=== PATIENT | male | born 1955 | race Caucasian/White ===

== ENCOUNTER → 2017-10-20 15:14 | Outpatient (CLI) | payer BC, SELFPAY ==
--- NOTE | 2017-10-20 15:25 | XR_ITS ---
XR knee LT 3V HISTORY: Knee pain ITS.REASON: MELI OSTEOARTHRITIS ORDERING PHYSICIAN: Jone Garcia PATIENT AGE: 62 years FINDINGS: Mild osteoarthritic changes involve the medial compartment and patellofemoral joint. No fracture or dislocation. No lytic or blastic change. A small calcific density is present along the medial aspect of the medial femoral condyle and may be seen with ligamentous injury. MRI may be of further value clinically warranted. IMPRESSION: 1. No acute fracture. 2. Mild osteoarthritis. 3. Possible old avulsion injury along the medial femoral condyle
--- NOTE | 2017-10-20 15:25 | XR_ITS ---
XR knee RT 3V HISTORY: Knee pain ORDERING PHYSICIAN: Jone Garcia PATIENT AGE: 62 years FINDINGS: Minimal osteoarthritic changes are present along the medial compartment and patellofemoral joint. There is a small calcific density along the lateral aspect of the lateral compartment consistent with a loose body. Otherwise negative. IMPRESSION: Mild osteoarthritis with a 7 mm loose body along the lateral compartment
== END ==
PROVIDERS: PCP Internal Medicine; Visit Provider Anesthesiology Pain Medicine
DX: M17.0 Bilateral primary osteoarthritis of knee (principal)
CPT/HCPCS: 73562

== ENCOUNTER → 2018-12-10 15:35 | Outpatient (CLI) | payer BC, SELFPAY ==
--- NOTE | 2018-12-10 15:47 | XR_ITS ---
XR foot RT min 3V HISTORY: ITS.REASON: RT GREAT TOE INJURY,RT HEEL PAIN ORDERING PHYSICIAN: Pieter Gordon PATIENT AGE: 63 years COMPARISON: None FINDINGS: There is a small spur along the plantar surface of the calcaneus without obvious erosive change. There is an area of exostosis involving the base of the proximal phalanx of the great toe laterally with a lucency through the base of the exostosis which does not appear acute. A small area of exostosis is also present at the distal aspect of the proximal phalanx of the great toe medially. No acute fracture or dislocation. No lytic changes. No significant osteoarthritic change. IMPRESSION: Exostosis of the proximal phalanx of the great toe as described above otherwise negative
== END ==
PROVIDERS: PCP Internal Medicine; Visit Provider Internal Medicine
DX: S99.921A Unspecified injury of right foot, initial encounter (principal); M79.671 Pain in right foot
CPT/HCPCS: 73630

== ENCOUNTER → 2019-03-19 15:45 | Outpatient (CLI) | payer BC, SELFPAY ==
[2019-03-19 15:57] LABS: Basophils % 0.4 % (0.1-2.0); Eosinophils # 0.1 K/mm3 (0.0-0.4); Eosinophils % 0.9 % (0.1-12.0); Hematocrit 48.6 % (42.0-52.0); Hemoglobin 15.3 g/dL (14.1-18.0); Lymphocytes # 2.4 K/mm3 (0.7-4.5); Lymphocytes % 25.9 % (10-50); Mean Corpuscular HGB Conc 31.5 g/dL (31.8-35.4); Mean Corpuscular Hemoglobin 28.5 pg (27.0-31.2); Mean Corpuscular Volume 90.3 fl (80-94); Monocytes # 0.6 K/mm3 (0.1-1.0); Monocytes % 6.6 % (1.7-9.3); Neutrophils # 6.2 K/mm3 (1.8-7.8); Neutrophils % 66.2 % (37.0-80.0); Platelet Count 267 K/mm3 (142-424); Red Blood Count 5.38 M/mm3 (4.60-6.20); Red Cell Distribution Width 14.4 % (11.5-17.5); White Blood Count 9.4 K/mm3 (4.8-10.8)
--- NOTE | 2019-03-19 15:58 | ECG_ITS ---
APPROVED REPORT Exam: Resting ECG HR:77 bpm ECG Measurements Heart Rate 77 AXES [place] 152 P 28 QRSd 88 QRS 0 QT 378 T 9 QTc 427 <Conclusion> Normal sinus rhythm with sinus arrhythmia Minimal voltage criteria for LVH, may be normal variant Borderline ECG Electronically signed by : Pieter Gordon, 03/19/2019 16:22:03
[2019-03-19 16:11] LABS: Anion Gap 11.7 mEq/L (5-15); Blood Urea Nitrogen 10 mg/dL (7-18); Calcium 9.4 mg/dL (8.5-10.1); Carbon Dioxide 28 mmol/L (21.0-32.0); Chloride 106 mmol/L (98-107); Creatinine,Serum 0.96 mg/dL (0.70-1.30); Estimated Glomerular Filt Rate 80 ml/min (>60); GFR (African American) 96 ML/MIN (>60); Glucose 123 mg/dL (74-106); Potassium 3.7 mmoL/L (3.5-5.1); Sodium 142 mmol/L (136-145); Troponin I < 0.02 ng/ml (0.00-0.06)
== END ==
PROVIDERS: Visit Provider Internal Medicine
DX: R42 Dizziness and giddiness (principal); R11.0 Nausea; R00.2 Palpitations; R61 Generalized hyperhidrosis
CPT/HCPCS: 36415; 80048; 84484; 85025; 93005

== ENCOUNTER → 2019-05-14 08:50 | Outpatient (CLI) | payer BC, SELFPAY ==
--- NOTE | 2019-05-14 08:53 | US_ITS ---
PROCEDURE: US ABDOMEN LIMITED CLINICAL INDICATION: NAUSEA,EPIGASTRIC PAIN Upper abdominal pain with nausea COMPARISON: No exams were available for comparison FINDINGS: PANCREAS: Unremarkable. No obvious mass or abnormal fluid collection. No ductal dilatation LIVER: No focal liver lesions demonstrated. Homogeneous echogenicity. No intrahepatic biliary ductal dilatation evident. There is appropriate direction of blood flow within a non dilated portal vein RIGHT KIDNEY: Unremarkable. Normal size and echogenicity. No hydronephrosis GALLBLADDER: No gallstones, gallbladder wall thickening, pericholecystic fluid, or biliary dilatation. IMPRESSION: Unremarkable limited abdominal ultrasound as detailed above disc Dictated by: Arun Perera MD 05/14/2019 14:55 Electronically signed by Arun Perera MD in [place] 05/14/2019 14:55
--- NOTE | 2019-05-14 08:54 | FL_ITS ---
PROCEDURE: FL UPPER GI W AIR CLINICAL INDICATION: NAUSEA,EPIGASTRIC PAIN COMPARISON: No exams were available for comparison FINDINGS: Routine air-contrast upper GI exam was performed with the patient drinking upright and lying in the prone position on the table. The esophagus is widely patent. A diverticulum likely traction diverticulum of the anterior wall of the mid esophagus is noted. No other esophageal mucosal lesion is apparent. No gastroesophageal reflux could be elicited. The stomach duodenal bulb and proximal visualized portions of small intestine had a normal appearance. There is no evidence of persistent stricture or filling defect or mucosal ulceration. 1.16 minutes of fluoroscopy time was utilized. IMPRESSION: Mid esophageal diverticulum otherwise unremarkable exam. Dictated by: Jone Centeno 05/14/2019 11:50 Electronically signed by Jone Centeno in [facility] 05/14/2019 11:50
== END ==
PROVIDERS: PCP Internal Medicine; Visit Provider Internal Medicine
DX: R11.0 Nausea (principal); R10.13 Epigastric pain
CPT/HCPCS: 74247; 76705

== ENCOUNTER → 2019-06-10 15:58 | Outpatient (POV) | payer BC, SELFPAY | PROVIDERS: Visit Provider Nurse Practitioner Family | DX: Z00.00 Encounter for general adult medical examination without abnormal findings (principal) ==

== ENCOUNTER → 2019-10-21 09:46 | Outpatient (CLI) | payer BC, SELFPAY ==
--- NOTE | 2019-10-21 10:04 | NM_ITS ---
PROCEDURE: NM HEPATOBILIARY W PHARM CLINICAL INDICATION: rtside pain RIGHT UPPER QUADRANT PAIN COMPARISON: No exams were available for comparison TECHNIQUE: DOSE: 8.56 MCI TECHNETIUM CHOLETEC AND 1.8 MCG OF CCK. SEVERE PAIN WAS REPORTED WITH CCK INFUSION. FINDINGS: Homogeneous activity is present within the hepatic parenchyma. Activity is present in the gallbladder by 5 minutes. Activity is present in the small bowel by 20 minutes. The gallbladder ejection fraction is calculated to be 98 percent. Severe pain reported with CCK infusion IMPRESSION: 1. No evidence of common or cystic duct obstruction with normal gallbladder ejection fraction. 2. Severe pain reported with CCK infusion Dictated by: Arun Perera MD 10/21/2019 17:38 Electronically signed by Arun Perera MD in [facility] 10/21/2019 17:38
--- NOTE | 2019-10-21 11:18 | HMH.ITSHM ---
Current Home Medications as stated by this patient Sonido Pretty SR or brand representative. [] famotidine diclofenac fluticasone hydrocodone
== END ==
PROVIDERS: PCP Internal Medicine; Visit Provider Internal Medicine
DX: R10.13 Epigastric pain (principal); R11.0 Nausea
CPT/HCPCS: 78227; A9537; J2805

== ENCOUNTER → 2019-11-15 10:42 | Outpatient (CLI) | payer BC, SELFPAY ==
[2019-11-15 12:01] LABS: Coronavirus 19 IgG Antibody Negative (Negative); Coronavirus 19 IgM Antibody Negative (Negative)
== END ==
PROVIDERS: Visit Provider Internal Medicine Gastroenterology
DX: Z01.818 Encounter for other preprocedural examination (principal)
CPT/HCPCS: 36415; 86328

== ENCOUNTER 2019-11-18 09:21 | Day surgery (SDC) | payer BC, SELFPAY ==
[2019-11-13 11:11] VITALS: BMI 28.3
[2019-11-18] VITALS (7 sets, daily range): BP systolic 117–167; BP diastolic 72–97; PULSE 70–81; RESP 12–16; TEMP 36.1–37; O2SAT 92–99
--- NOTE | 2019-11-18 09:52 | P.PCN_ITS ---
[facility] Procedure Note Procedure Note:: Upper Endoscopy Procedure Report: Esophagogastroduodenoscopy with cold biopsies and TTS balloon dilation Endoscopost: Brent Herman II, MD Referring Physician: Pieter Gordon MD Date of Procedure: November 18, 2019 Equipment: Olympus GIF 180 standard upper endoscope Sedation: MAC sedation Indications: Mr. Pretty is a 64-year-old gentleman with dyspepsia. He reports epigastric and right upper quadrant abdominal pain. He reports this as a burning pain and sometimes eating helps. He will then have some nausea. He reports early satiety and some bloating. He reports no belching. He does get some globus sensation and dysphagia. He reports no heartburn or reflux. He does report that since quitting work, he has had a little bit more bowel irregularity. His last upper endoscopy and colonoscopy were 20 to 25 years ago. The patient did have diagnostic evaluation including right upper quadrant a bdominal ultrasound and upper GI series which were normal. He did have normal liver and pancreatic chemistries. His EKG was normal. The patient does take NSAIDs in the past and was also taking hydrocodone. At one point he was drinking more carbonated beverages/sodas. Procedure: Prior to the procedure, a history and physical exam was performed, and patient's medications and allergies were reviewed. The risks, benefits and alternatives of the sedation and procedure were discussed with the patient. All questions were answered and informed consent was obtained. The patient was brought to the procedure room. Patient identification and proposed procedure were verified by the physician and the nurse. The patient was placed in a left lateral decubitus position and the scope was passed under direct vision. Throughout the procedure, the patient's blood pressure, pulse, and oxygen saturations were monitored continuously. The upper GI endoscopy was accomplished without difficulty. The patient tolerated the procedure well. Findings: The scope was passed directly into the upper esophagus and advanced to the third portion of the duodenum. The post bulbar duodenum and duodenal bulb were normal with normal mucosa and conniventes. The scope was withdrawn through a normal duodenal bulb and pylorus into the stomach. There was some bile reflux with linear reactive gastropathy of the antrum. The remainder of the antrum, body and fundus of the stomach were grossly normal. Upon retroflexion there was no hiatal hernia. 2 biopsies were taken in the antrum and along the lesser curva ture for histology to rule out gastritis and/or H pylori. The scope was then withdrawn into the esophagus. There was no evidence of reflux esophagitis or Green's. There were tertiary contractions and evidence of moderate esophageal dysmotility. The entire esophagus was dilated to 60 Georgian/20 mm with a TTS hydrostatic balloon. There was mild resistance at the cricopharyngeus. The remainder of the esophageal mucosa was normal. Impression: 1. 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 I would encourage dietary measures, fiber bowel regimen and treatment for visceral sensitivity. We will discuss treatment options. Based upon his right upper quadrant pain, I would consider sphincter of Oddi dysfunction especially with chronic use of opiates. I will obtain liver/pancreatic chemistries today.
--- NOTE | 2019-11-18 09:55 | P.PN_ITS ---
[facility] Anesthesia Checklist - Patient Identification Patient Identification: Arm Band - Structural Data Admitted From: Home Planned Operative Procedure/s: egd Consent for Planned Operative Procedure(s) Verified: Yes Verified Documents: Surgical Consent, History and Physical - NPO Status Verified Time NPO: 00:00 - Additional verifications Anesthesia Reactions: No - Airway Assessment C-Spine Mobility Assessed: Yes (mp2) TMJ Mobility Assessed: Yes Dentition: Dentures-good fit - Neurological Assessment Level of Consciousness: Awake, Alert - Anesthesia Plan Anesthesia Risk discussed: Yes Anesthesia Plan: Verified ASA Class: II Anesthesia Type: MAC [facility] History I have reviewed the patient's past medical history: Yes Medical History: Reports:: Gastroesophageal Reflux Disease(GERD) Denies:: Cancer, Diabetes Mellitus Type 1, Diabetes Mellitus Type 2, Internal Pacemaker, MRSA, Seizures *Have you ever received a pneumonia vaccine?: No *Have you received a flu vaccine this season?: No Anesthesia experience/problems:: nac Other Surgeries: Yes: Appendectomy, Colonoscopy. No: Pacemaker Amputation: No Fractures: No - *Social History Smoking Status: Never smoker Alcohol Intake: never Alcohol Intake Frequency:: holidays/special occasions only Substance Use Type: denies use *Occupational Status:: retired Housing: house Household Members: spouse *Travel in the last 8 weeks: None Family Hx:: Diabetes, Cancer
[2019-11-18 11:46] LABS: Amylase 53 U/L (30-110)
[2019-11-18 11:47] LABS: Alanine Aminotransferase 20 U/L (12-78); Albumin Level 4.4 g/dl (3.5-5.0); Alkaline Phosphatase 78 U/L (38-126); Aspartate Amino Transferase 27 U/L (17-59); Bilirubin,Direct 0.3 mg/dl (0.0-0.4); Bilirubin,Indirect 1.9 mg/dL (0.0-0.9); Bilirubin,Total 2.2 mg/dl (0.2-1.3); Total Protein,Serum 7.2 g/dl (6.3-8.2)
[2019-11-18 13:25] LABS: Lipase 71 U/L (23-300)
== END 2019-11-18 11:13 | disposition home or self-care (01) ==
LOC: OUTP 09:23
PROVIDERS: PCP Internal Medicine; Visit Provider Internal Medicine Gastroenterology
PROC: 0DJ08ZZ Inspection of Upper Intestinal Tract, Via Natural or Artificial Opening Endoscopic (ICD-10-PCS; CPT 43235; principal; 2019-11-18 10:30)
DX: K21.9 Gastro-esophageal reflux disease without esophagitis (principal); K31.9 Disease of stomach and duodenum, unspecified; I49.9 Cardiac arrhythmia, unspecified; Z79.899 Other long term (current) drug therapy; K22.2 Esophageal obstruction
CPT/HCPCS: 43239; 43249; 80076; 82150; 83690; C1726

== ENCOUNTER → 2019-11-29 10:58 | Outpatient (CLI) | payer BC, SELFPAY ==
[2019-11-29 14:09] LABS: Coronavirus 19 IgG Antibody Negative (Negative); Coronavirus 19 IgM Antibody Negative (Negative)
== END ==
PROVIDERS: Visit Provider Internal Medicine Gastroenterology
DX: Z01.818 Encounter for other preprocedural examination (principal)
CPT/HCPCS: 36415; 86328

== ENCOUNTER 2019-12-02 12:22 | Day surgery (SDC) | payer BC, SELFPAY ==
[2019-11-26 12:23] VITALS: BMI 27.6
[2019-12-02] VITALS (7 sets, daily range): BP systolic 112–171; BP diastolic 69–107; PULSE 68–96; RESP 18; TEMP 36.2–36.7; O2SAT 93–100
--- NOTE | 2019-12-02 13:57 | HMH.ANESCL ---
[facility] Anesthesia Checklist - Patient Identification Patient Identification: Arm Band - Structural Data Admitted From: Home Planned Operative Procedure/s: colonoscopy Consent for Planned Operative Procedure(s) Verified: Yes Verified Documents: Surgical Consent, History and Physical - NPO Status Verified Time NPO: 00:00 - Additional verifications Anesthesia Reactions: No - Airway Assessment C-Spine Mobility Assessed: Yes (mp2) TMJ Mobility Assessed: Yes Dentition: Dentures-good fit - Neurological Assessment Level of Consciousness: Awake, Alert - Anesthesia Plan Anesthesia Risk discussed: Yes Anesthesia Plan: Verified ASA Class: II Anesthesia Type: MAC [facility] History I have reviewed the patient's past medical history: Yes Medical History: Reports:: Gastroesophageal Reflux Disease(GERD) Denies:: Cancer, Diabetes Mellitus Type 1, Diabetes Mellitus Type 2, Internal Pacemaker, MRSA, Seizures *Have you ever received a pneumonia vaccine?: No *Have you received a flu vaccine this season?: No Anesthesia experience/problems:: nac Other Surgeries: Yes: Appendectomy, Colonoscopy. No: Pacemaker Amputation: No Fractures: No - *Social History Educational Level: Completed High School Smoking Status: Never smoker Alcohol Intake: current Alcohol Intake Frequency:: a few times a month Substance Use Type: denies use *Occupational Status:: retired Housing: house Household Members: spouse *Travel in the last 8 weeks: None Family Hx:: Diabetes, Cancer
--- NOTE | 2019-12-02 14:18 | P.PCN_ITS ---
[facility] Procedure Note Procedure Note:: Colonoscopy Procedure Report: Colonoscopy with cold snare polypectomy Endoscopist: Brent Herman II, MD Referring physician: Pieter Gordon MD Date of Procedure: December 02, 2019 Equipment: Olympus 180 variable stiffness pediatric colonoscope Sedation: MAC sedation Indication: Mr. Pretty is a 64-year-old gentleman who is here for screening colonoscopy. The patient's last colonoscopy was 20 to 25 years ago. He was having symptoms of dyspepsia which have improved some. His EGD did show bile reflux with linear reactive gastropathy. The patient was placed on dietary measures, BuSpar and fiber bowel regimen (MiraLAX plus Citrucel). The patient is clinically improved and has improved bowel function. He reports no rectal bleeding, weight loss or family history of colon cancer. His lab work did show an elevated indirect/unconjugated bilirubin of 1.9 suggestive of Gilbert's syndrome. He did have prior upper GI series, ultrasound of the abdomen, EKG and cardiac testing that was normal. Procedure: Prior to the procedure, a history and physical exam was performed, and patient's medications and allergies were reviewed. The risks, benefits and alternatives of the sedation and procedure were discussed with the patient. All questions were answered and informed consent was obtained. The patient was brought to the procedure room. Patient identification and proposed procedure were verified by the physician and the nurse. The patient was placed in a left lateral decubitus position and the scope was passed under direct vision. Throughout the procedure, the patient's blood pressure, pulse, and oxygen saturations were monitored continuously. The colonoscopy was accomplished without difficulty. The patient tolerated the procedure well. Findings: On digital rectal examination there was normal rectal tone. There were no external hemorrhoids. The prostate was 2+, smooth, soft, symmetric without nodules. The colonoscope was introduced through the anal canal to the rectum and advanced to the cecum. The ileocecal valve and appendiceal orifice were identified. The scope was advanced a short distance into the ileum which appeared grossly normal. The scope was then withdrawn into the colon. There were a total of 5 polyps in the colon (cecum x3 (3, 3 and 4 mm), transverse x1 ( 4 mm) and rectosigmoid x1 (4 mm)) all of which were removed via cold snare polypectomy. The remainder of the cecum, ascending, transverse, descending, sigmoid and rectum were grossly normal. There were no other mucosal abnormalities identified. Upon retroflexion within the rectum there were grade 2 internal hemorrhoids.The preparation was excellent throughout with [place]vel Preparation Score of 9. The cecal time was 12 minutes. Impression: 1. Diminutive colonic polyps x5 2. Grade 2 internal hemorrhoids Plan: I will follow up the polyp pathology and recommend repeat colonoscopy again in 3-5 years based upon the polyp histology. I would encourage continuation of the dietary measures, fiber bowel regimen and BuSpar on a long-term daily maintenance basis. If the patient has recurrent right upper abdominal pain, I would consider sphincter of Oddi dysfunction as a potential etiology.
== END 2019-12-02 15:15 | disposition home or self-care (01) ==
LOC: OUTP 12:24
PROVIDERS: PCP Internal Medicine; Visit Provider Internal Medicine Gastroenterology
PROC: 0DJD8ZZ Inspection of Lower Intestinal Tract, Via Natural or Artificial Opening Endoscopic (ICD-10-PCS; CPT 45378; principal; 2019-12-02 13:30)
DX: Z12.11 Encounter for screening for malignant neoplasm of colon (principal); Z87.19 Personal history of other diseases of the digestive system; K63.5 Polyp of colon; K64.1 Second degree hemorrhoids; K21.9 Gastro-esophageal reflux disease without esophagitis; Z83.3 Family history of diabetes mellitus; Z79.899 Other long term (current) drug therapy
CPT/HCPCS: 45385

== ENCOUNTER → 2020-05-13 11:44 | Outpatient (CLI) | payer BC, SELFPAY ==
[2020-05-13 11:49] LABS: Microscopic, Urine URINE MICROSCOPIC (MICROSCOPIC)
--- NOTE | 2020-05-13 12:04 | XR_ITS ---
PROCEDURE: XR CHEST 2V CLINICAL HISTORY: CHEST PAIN UNSPECIFIED COMPARISON: No exams were available for comparison FINDINGS: The cardiomediastinal silhouette and pulmonary vascularity are within normal limits. The lungs are clear without infiltrates, suspicious nodules, or pleural effusions. 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 Dictated by: Arun Perera MD 05/13/2020 15:40 Arun Perera MD in [place] 05/13/2020 15:40
[2020-05-13 12:36] LABS: Basophils # 0.1 K/mm3 (0-0.2); Basophils % 0.8 % (0.1-2.0); Eosinophils # 0.1 K/mm3 (0.0-0.4); Eosinophils % 1.4 % (0.1-12.0); Hematocrit 50.3 % (42.0-52.0); Hemoglobin 17.1 g/dL (14.1-18.0); Lymphocytes # 2.2 K/mm3 (0.7-4.5); Lymphocytes % 31.1 % (10-50); Mean Corpuscular Hemoglobin 30.4 pg (27.0-31.2); Mean Corpuscular Volume 89.2 fl (80-94); Mean Platelet Volume 8.8 fl (7.4-10.4); Monocytes # 0.6 K/mm3 (0.1-1.0); Monocytes % 7.6 % (1.7-9.3); Neutrophils # 4.2 K/mm3 (1.8-7.8); Platelet Count 274 K/mm3 (142-424); Red Blood Count 5.64 M/mm3 (4.60-6.20); White Blood Count 7.1 K/mm3 (4.8-10.8)
--- NOTE | 2020-05-13 12:42 | ECG_ITS ---
APPROVED REPORT Exam: Resting ECG HR:59 bpm ECG Measurements Heart Rate 59 AXES ME 126 P 33 QRSd 96 QRS 33 QT 410 T 36 QTc 405 Conclusion Sinus bradycardia Otherwise normal ECG Electronically signed by : Pieter Gordon, 06/02/2020 15:50:37
[2020-05-13 13:13] LABS: INR 1.03 (0.9-1.1); Prothrombin Time 11.4 seconds (9.4-11.8)
[2020-05-13 14:17] LABS: Appearance,Urine CLEAR (Clear); Bilirubin,Urine Negative (Negative); Blood, Urine TRACE-I (Negative); Color,Urine YELLOW (Yellow); Glucose,Urine (UA) Negative (Negative); Ketones,Urine Negative (Negative); Leukocyte Esterase,Urine Negative (Negative); Nitrate,Urine Negative (Negative); Protein,Urine Negative (Negative); Urobilinogen,Urine 0.2 EU/dl (0.2)
[2020-05-13 14:19] LABS: Alanine Aminotransferase 27 U/L (12-78); Albumin Level 4.8 g/dl (3.5-5.0); Albumin/Globulin Ratio 1.7 (1.1-1.8); Alkaline Phosphatase 88 U/L (38-126); Anion Gap 14.3 mEq/L (5-15); Aspartate Amino Transferase 28 U/L (17-59); Bilirubin,Total 1.7 mg/dl (0.2-1.3); Blood Urea Nitrogen 12 mg/dl (9-20); Calcium 9.8 mg/dl (8.4-10.2); Carbon Dioxide 29 mmol/L (22.0-30.0); Chloride 102 mmol/L (98-107); Estimated Glomerular Filt Rate 86 ml/min (>60); GFR (African American) 103 ML/MIN (>60); Globulin 2.9 g/dL (1.3-3.2); Glucose 117 mg/dl (74-100); Potassium 4.3 mmoL/L (3.5-5.1); Sodium 141 mmol/L (136-145); Total Protein,Serum 7.7 g/dl (6.3-8.2)
[2020-05-13 14:35] LABS: Squamous Epithelial Cell,Urine Occasional #/hpf (0-5)
[2020-05-13 14:51] LABS: Prostate Specific Ag Screen 3.5 ng/ml (0.0-4.0)
== END ==
PROVIDERS: Visit Provider Internal Medicine
DX: Z01.810 Encounter for preprocedural cardiovascular examination (principal); M17.12 Unilateral primary osteoarthritis, left knee; R07.9 Chest pain, unspecified; Z12.5 Encounter for screening for malignant neoplasm of prostate
CPT/HCPCS: 36415; 71046; 80053; 81001; 85025; 85610; 93005; G0103

== ENCOUNTER → 2020-11-30 09:54 | Outpatient (CLI) | payer BC, SELFPAY ==
--- NOTE | 2020-11-30 09:58 | XR_ITS ---
PROCEDURE: XR THORACIC SPINE 2V CLINICAL INDICATION: RT THORACIC BACK PAIN COMPARISON: CR XR CHEST 2V from 05/13/2020 FINDINGS: No fracture or dislocation. No lytic or blastic change. There is normal mineralization. Degenerative changes are present in the thoracic spine with anterior flowing osteophytes at T8, T9, T10, and T11 consistent DISH. There is slight loss of height anteriorly at T8 which is chronic. IMPRESSION: Degenerative changes/DISH of the thoracic spine, no acute finding Dictated by: Arun Perera MD 11/30/2020 10:37 Arun Perera MD in [place] 11/30/2020 10:37
== END ==
PROVIDERS: PCP Internal Medicine; Visit Provider Internal Medicine
DX: M54.6 Pain in thoracic spine (principal)
CPT/HCPCS: 72070

== ENCOUNTER 2021-07-06 10:18 | Emergency (ER) | payer BC, SELFPAY ==
--- NOTE | 2021-07-06 10:24 | HMH.EDGENADL ---
ED Disposition Clinical Impression: Vertigo Disposition: Home, Self-Care Condition on Discharge: Good Additional Instructions: follow up pcp, return for worse Referrals: Pieter Gordon [Primary Care Provider] - - Critical Care Critical Care Time: No Attestation: On , the high probability of a clinically significant, sudden or life threatening deterioration of the following system(s) required my full and direct attention, intervention and personal management. The time I documented below is in addition to time spent performing reported procedures but includes the following listed in this critical care notation. Medical Decision Making - Medical Records Medical records reviewed: Yes: I reviewed the patient's medical records. - Javan Inquiry Pt receiving controlled substance: No Vital Signs: 07/06/21 10:31 Temperature 98.7 F Temperature Source Oral Pulse Rate [Left Radial] 85 Respiratory Rate 17 Blood Pressure [Right Arm] 147/86 H Blood Pressure Mean [Right Arm] 106 02 Sat by Pulse Oximetry 97 Oxygen Delivery Method Room Air - Lab Data Lab Results 07/06/21 10:24: WBC 8.6, RBC 5.36, Hgb 15.9, Hct 46.9, MCV 87.6, MCH 29.8, MCHC 34.0, RDW 13.4, Plt Count 246, MPV 8.6, Neut % (Auto) 76.6, Lymph % (Auto) 14.6, Kendall % (Auto) 6.8, Eos % (Auto) 0.8, Baso % (Auto) 1.2, Neut # (Auto) 6.6, Lymph # (Auto) 1.3, Kendall # (Auto) 0.6, Eos # (Auto) 0.1, Baso # (Auto) 0.1 07/06/21 10:24: Sodium 138, Potassium 3.7, Chloride 104, Carbon Dioxide 23, Anion Gap 14.7, BUN 15, Creatinine 0.90, Estimated Creat Clear 89, Estimated GFR 85, Est GFR ( Amer) 103, Glucose 119 H, Calcium 8.9, Total Bilirubin 1.9 H, AST 47, ALT 57, Alkaline Phosphatase 91, Total Protein 7.3, Albumin 4.5, Globulin 2.8, Albumin/Globulin Ratio 1.6 07/06/21 10:42: POC Glucose 109 Result diagrams: 07/06/21 10:24 07/06/21 10:24 Orders (Tests/Meds): ORDERS Category Date Time Status EKG Request [ECG Request by /Miguel] Stat Y 07/06/21 10:24 Ordered Medical Decision Narrative: ekg by me nsr, qrs nml, no st elev General Adult HPI - General Stated complaint: dizzy, weakness, dry mouth, elevated BP Time Seen by Provider: 07/06/21 10:24 - History of Present Illness HPI narrative: c/o dizzy, nausea, today intermittent, h/o vertigo took rx meclizine improved now seen by pcp yest for abd upset given rx bentyl/zofran/pepcid with improv Radiation: non-radiation Severity: mild Consistency: intermittent Relieving factors: medication Exacerbating factors: movement Associated symptoms: denies other symptoms - Related Data Home Medications Medication Instructions Recorded Confirmed famotidine 20 mg tablet 20 mg PO DAILY #90 tab 01/22/19 09/04/20 hydrocodone 7.5 mg-acetaminophen 1 tab PO TID #90 tab 01/22/19 09/04/20 325 mg tablet Dicyclomine HCl 20 mg PO DAILY 11/18/19 09/04/20 ondansetron HCL [Zofran 4mg Tab*] 4 mg PO DAILY PRN 11/18/19 09/04/20 Allergies Allergy/AdvReac Type Severity Reaction Status Date / Time No Known Allergies Allergy Verified 09/04/20 09:25 [facility] History - Hepatitis A Screen Attestation statement:: This patient has been screened for Hepatitis A risk factors. Medical History: Reports:: Gastroesophageal Reflux Disease(GERD) Denies:: Cancer, Diabetes Mellitus Type 1, Diabetes Mellitus Type 2, Internal Pacemaker, MRSA, Seizures Other Surgeries: Yes: Appendectomy, Colonoscopy. No: Pacemaker Amputation: No Fractures: No - Social History Smoking Status: Never smoker Alcohol Intake: never Alcohol Intake Frequency:: a few times a month Substance Use Type: denies use Occupational Status: retired Housing: house Household Members: spouse Family Hx:: Diabetes, Cancer ROS Obtained: Yes All systems reviewed & no additional complaints Physical Exam - General General appearance: alert, in no apparent distress - Head Head exam: atraumatic, normocephalic - Eye Eye exam: Present: normal appe
[2021-07-06 10:31] VITALS: BP 147/86; PULSE 85; RESP 17; TEMP 37.1; O2SAT 97; BMI 27.4
--- NOTE | 2021-07-06 10:34 | ECG_ITS ---
APPROVED REPORT Exam: Resting ECG HR:71 bpm ECG Measurements Heart Rate 71 AXES MT 166 P 53 QRSd 89 QRS 36 QT 380 T 14 QTc 403 Conclusion SINUS RHYTHM NORMAL ECG UNCONFIRMED REPORT Electronically signed by : Henry Osborn MD 07/06/2021 16:25:53
[2021-07-06 10:49] LABS: POC Glucose,Bedside 109 (70-110)
[2021-07-06 10:52] LABS: Basophils # 0.1 K/mm3 (0-0.2); Basophils % 1.2 % (0.1-2.0); Eosinophils # 0.1 K/mm3 (0.0-0.4); Eosinophils % 0.8 % (0.1-12.0); Hematocrit 46.9 % (42.0-52.0); Hemoglobin 15.9 g/dL (14.1-18.0); Lymphocytes # 1.3 K/mm3 (0.7-4.5); Lymphocytes % 14.6 % (10-50); Mean Corpuscular Hemoglobin 29.8 pg (27.0-31.2); Mean Corpuscular Volume 87.6 fl (80-94); Mean Platelet Volume 8.6 fl (7.4-10.4); Monocytes # 0.6 K/mm3 (0.1-1.0); Monocytes % 6.8 % (1.7-9.3); Neutrophils # 6.6 K/mm3 (1.8-7.8); Neutrophils % 76.6 % (37.0-80.0); Platelet Count 246 K/mm3 (142-424); Red Blood Count 5.36 M/mm3 (4.60-6.20); Red Cell Distribution Width 13.4 % (11.5-17.5); White Blood Count 8.6 K/mm3 (4.8-10.8)
[2021-07-06 10:56] LABS: Chloride 104 mmol/L (98-107)
[2021-07-06 10:57] LABS: Potassium 3.7 mmoL/L (3.5-5.1); Sodium 138 mmol/L (136-145)
[2021-07-06 10:59] LABS: Alanine Aminotransferase 57 U/L (12-78); Alkaline Phosphatase 91 U/L (38-126); Aspartate Amino Transferase 47 U/L (17-59); Bilirubin,Total 1.9 mg/dl (0.2-1.3); Blood Urea Nitrogen 15 mg/dl (9-20); Creatinine Clearance Estimated 89 mL/min (50-200); Estimated Glomerular Filt Rate 85 ml/min (>60); GFR (African American) 103 ML/MIN (>60)
[2021-07-06 11:00] LABS: Albumin Level 4.5 g/dl (3.5-5.0); Albumin/Globulin Ratio 1.6 (1.1-1.8); Anion Gap 14.7 mEq/L (5-15); Calcium 8.9 mg/dl (8.4-10.2); Carbon Dioxide 23 mmol/L (22.0-30.0); Globulin 2.8 g/dL (1.3-3.2); Glucose 119 mg/dl (74-100); Total Protein,Serum 7.3 g/dl (6.3-8.2)
[2021-07-06 11:30] VITALS: BP 156/86; PULSE 82; RESP 18; TEMP 37.1; O2SAT 96
== END 2021-07-06 11:31 | disposition home or self-care (01) ==
PROVIDERS: Emergency Provider Emergency Medicine; PCP Internal Medicine
DX: R42 Dizziness and giddiness (principal); K21.9 Gastro-esophageal reflux disease without esophagitis
CPT/HCPCS: 80053; 82962; 85025; 93005; 99282

== ENCOUNTER → 2021-07-15 08:04 | Outpatient (CLI) | payer BC, SELFPAY ==
--- NOTE | 2021-07-15 08:09 | XR_ITS ---
FINAL REPORT CLINICAL HISTORY: BILATERAL HAND PAIN FINDINGS: RIGHT HAND 3 views were obtained. There is no acute fracture or dislocation. Mild degenerative change of the hand and wrist. There is no soft tissue abnormality. IMPRESSION: Mild degenerative change. Reviewed, Interpreted and Dictated by Jay Jay Llamas III, MD Transcribed by Aristeo Taylor Authenticated by Jay Jay Llamas III, MD on 07/15/2021 09:23:[address] [facility]
--- NOTE | 2021-07-15 08:09 | XR_ITS ---
FINAL REPORT CLINICAL HISTORY: SI JOINT PAIN FINDINGS: SACROILIAC JOINTS 4 views were obtained. There is no acute fracture or dislocation. There is degenerative change the SI joints, left greater than right. There is partial fusion of the left SI joint. There is mild to moderate degenerative change of both hips. There is bony overgrowth of the bilateral acetabula worrisome for pincer type femoral acetabular impingement. There is no soft tissue abnormality. IMPRESSION: Degenerative change of the SI joints with partial fusion of the left SI joint. If indicated, CT could better evaluate. Findings worrisome for pincer type SPENCER bilaterally. Reviewed, Interpreted and Dictated by Jay Jay Llamas III, MD Transcribed by Aristeo Taylor Authenticated by Jay Jay Llamas III, MD on 07/15/2021 09:23:[address] [facility]
--- NOTE | 2021-07-15 08:09 | XR_ITS ---
FINAL REPORT CLINICAL HISTORY: BILATERAL HAND PAIN FINDINGS: LEFT HAND 3 views were obtained. There is no acute fracture or dislocation. There are mild degenerative changes of the hand and wrist. There is a chronic calcification volar to the 4th DIP joint. IMPRESSION: Degenerative changes as above. Reviewed, Interpreted and Dictated by Jay Jay Llamas III, MD Transcribed by Aristeo Taylor Authenticated by Jay Jay Llamas III, MD on 07/15/2021 09:23:46 AM [facility]
== END ==
PROVIDERS: PCP Internal Medicine; Visit Provider Internal Medicine Rheumatology
DX: M79.642 Pain in left hand (principal); M79.641 Pain in right hand; M53.3 Sacrococcygeal disorders, not elsewhere classified
CPT/HCPCS: 72202; 73130

== ENCOUNTER → 2021-07-27 08:41 | Outpatient (CLI) | payer BC, SELFPAY ==
--- NOTE | 2021-07-27 08:44 | US_ITS ---
FINAL REPORT CLINICAL HISTORY: ABD PAIN,BLOATING,N/V,EPIGASTRIC PAIN FINDINGS: ULTRASOUND RIGHT UPPER QUADRANT Sonographic imaging of the right upper quadrant was obtained. The pancreas is partially obscured. The liver has increased echogenicity consistent with mild fatty infiltration. There is a tiny echogenic non shadowing focus in the gallbladder which is probably due to a polyp. There is a minimal amount of sludge. There is no gallbladder wall thickening. There is no biliary ductal dilatation. The common duct is normal at 2 mm. Limited images of the right kidney are unremarkable. IMPRESSION: A minimal amount of sludge and a probable polyp in the gallbladder. Mild fatty infiltrated liver. Reviewed, Interpreted and Dictated by Richard Arreola MD Transcribed by Velvet Palacios Authenticated by Richard Arreola MD on 07/27/2021 10:14:21 AM [facility]
== END ==
PROVIDERS: PCP Internal Medicine; Visit Provider Nurse Practitioner Family
DX: R10.11 Right upper quadrant pain (principal); R14.0 Abdominal distension (gaseous); R11.2 Nausea with vomiting, unspecified; R10.13 Epigastric pain
CPT/HCPCS: 76705

== ENCOUNTER → 2021-10-06 11:00 | Outpatient (CLI) | payer BC, SELFPAY ==
--- NOTE | 2021-10-06 11:04 | XR_ITS ---
FINAL REPORT CLINICAL HISTORY: SOB,CHEST PAIN COMPARISON: 05/13/2020 FINDINGS: TWO-VIEW CHEST The heart size is normal. The mediastinum is normal. The lungs are clear. There is no pneumothorax. There are moderate degenerative changes of the thoracic spine. IMPRESSION: No acute cardiopulmonary process. Reviewed, Interpreted and Dictated by Jay Jay Llamas III, MD Transcribed by Unique Phillip Authenticated by Jay Jay Llamas III, MD on 10/06/2021 11:58:35 AM [facility]
[2021-10-06 11:39] LABS: D-Dimer 0.49 ug/mL (0.0-0.5)
== END ==
PROVIDERS: PCP Internal Medicine; Visit Provider Internal Medicine
DX: R06.02 Shortness of breath (principal); R07.9 Chest pain, unspecified
CPT/HCPCS: 36415; 71046; 85378

== ENCOUNTER → 2021-10-18 10:54 | Outpatient (CLI) | payer BC, SELFPAY ==
[2021-10-18 11:08] LABS: Influenza A, PCR Not Detected (NotDetected); Influenza B, PCR Not Detected (NotDetected)
[2021-10-18 12:07] LABS: Coronavirus 19, PCR Detected (NotDetected)
== END ==
PROVIDERS: Visit Provider Internal Medicine
DX: U07.1 COVID-19 (principal); R10.13 Epigastric pain
CPT/HCPCS: C9803; U0003; U0005

== ENCOUNTER 2021-11-11 08:50 | Day surgery (SDC) | payer BC, SELFPAY ==
[2021-11-10 09:25] VITALS: BMI 24.3
[2021-11-11 09:08] VITALS: BP 136/78; PULSE 78; RESP 18; TEMP 36.6; O2SAT 97
--- NOTE | 2021-11-11 09:21 | P.PN_ITS ---
[facility] Anesthesia Checklist - Patient Identification Patient Identification: Arm Band - Structural Data Admitted From: Home Planned Operative Procedure/s: EGD/Colonoscopy Consent for Planned Operative Procedure(s) Verified: Yes - NPO Status Verified Time NPO: 00:00 - Additional verifications Anesthesia Reactions: No - Airway Assessment C-Spine Mobility Assessed: Yes TMJ Mobility Assessed: Yes Dentition: Edentulous - Neurological Assessment Level of Consciousness: Awake Hx Seizures: No Numbness or tingling in extremities: No - Anesthesia Plan Anesthesia Risk discussed: Yes Anesthesia Plan: Verified ASA Class: II Anesthesia Type: MAC [facility] History I have reviewed the patient's past medical history: Yes Medical History: Reports:: Gastroesophageal Reflux Disease(GERD) Denies:: Cancer, Diabetes Mellitus Type 1, Diabetes Mellitus Type 2, Internal Pacemaker, MRSA, Seizures *Have you ever received a pneumonia vaccine?: No *Have you received a flu vaccine this season?: No Anesthesia experience/problems:: None Laterality Cases: Left: Total Knee Replacement Other Surgeries: Yes: Appendectomy, Colonoscopy. No: Pacemaker Amputation: No Fractures: No - *Social History Last grade of school completed: High school graduate Smoking Status: Never smoker Alcohol Intake: current Alcohol Intake Frequency:: a few times a month Substance Use Type: denies use *Occupational Status:: retired Housing: house Household Members: spouse *Travel in the last 8 weeks: None Family Hx:: Diabetes, Cancer
[2021-11-11 09:31] VITALS: O2SAT 97
--- NOTE | 2021-11-11 09:54 | HMH.SCOPE ---
- Procedure: Date: 11/11/21 Patient Date of :: 1955 Procedure Performed:: EGD Indications:: Abdominal pain Performing Provider:: Cory Chavez MD Referring Provider:: Pieter Gordon MD Sedation:: Propofol Procedure:: The gastroscope was gently passed through the incisoral orifice into the oral cavity and under direct visualization the esophagus was intubated. The endoscope was passed down the esophagus, through the stomach, and into the duodenum. Color, texture, mucosa, and anatomy of the esophagus, stomach, and duodenum were carefully examined with the scope. Findings:: Oropharynx: normal Esophagus: normal EG Junction: intact at 40 cm Cardia: normal Fundus: normal Body: normal Antrum: normal Duodenal bulb: normal Duodenum (second and third portion): normal Impression: Normal EGD Recommendations:: Follow up with PCP Complications:: None Estimated blood obtained (mL): 0
--- NOTE | 2021-11-11 09:56 | HMH.SCOPE ---
- Procedure: Date: 11/11/21 Patient Date of :: 1955 Procedure Performed:: Screening colonoscopy Indications:: History of polyps Performing Provider:: Cory Chavez MD Referring Provider:: Pieter Gordon MD Sedation:: Propofol Procedure:: After placing the patient in the left lateral decubitus position, the colonoscopy was gently inserted into the rectum and under direct visualization advanced to the cecum which was identified by transillumination in the right lower quadrant, identification of the ileocecal valve, appendiceal orifice, and cecal strap. Color, texture, mucosa, and anatomy of the colon were carefully examined with the scope. Findings:: Anal canal: normal Rectum: normal Sigmoid colon: normal without polyps or inflammatory changes Descending colon: normal without polyps or inflammatory changes Splenic flexure: normal Transverse colon: normal without polyps or inflammatory changes Hepatic flexure: normal Ascending colon: normal without polyps or inflammatory changes Cecum: normal Terminal ileum: not visualized Impression: Normal colonoscopy Specimens:: None Recommendations:: Follow up examination in about FIVE years or so, sooner if clinically indicated Complications:: None Estimated blood obtained (mL): 0
[2021-11-11 10:02] VITALS: BP 112/72; PULSE 73; RESP 96; O2SAT 92
[2021-11-11 10:12] VITALS: BP 118/78; PULSE 62; RESP 18; O2SAT 97
[2021-11-11 10:22] VITALS: BP 120/60; PULSE 68; RESP 18; O2SAT 96
[2021-11-11 10:40] VITALS: BP 119/74; PULSE 65; RESP 18; O2SAT 97
[2021-11-12 09:52] VITALS: BP 109/72; PULSE 80; RESP 18; TEMP 36.2; O2SAT 92
== END 2021-11-11 10:40 ==
LOC: OUTP 08:51
PROVIDERS: PCP Internal Medicine; Visit Provider Internal Medicine Gastroenterology
PROC: 0DJ08ZZ Inspection of Upper Intestinal Tract, Via Natural or Artificial Opening Endoscopic (ICD-10-PCS; CPT 43235; principal; 2021-11-11 10:00)
DX: R10.13 Epigastric pain (principal); R10.84 Generalized abdominal pain; Z86.010 Personal history of colon polyps
CPT/HCPCS: 43235; 45378; J2704

== ENCOUNTER → 2021-11-15 11:39 | Outpatient (CLI) | payer BC, SELFPAY ==
[2021-11-15 12:04] LABS: Basophils # 0.1 K/mm3 (0-0.2); Basophils % 0.8 % (0.1-2.0); Eosinophils # 0.1 K/mm3 (0.0-0.4); Eosinophils % 1.6 % (0.1-12.0); Hematocrit 44.9 % (42.0-52.0); Hemoglobin 15.8 g/dL (14.1-18.0); Lymphocytes # 1.6 K/mm3 (0.7-4.5); Lymphocytes % 20.8 % (10-50); Mean Corpuscular HGB Conc 35.2 g/dL (31.8-35.4); Mean Corpuscular Hemoglobin 30.3 pg (27.0-31.2); Mean Corpuscular Volume 86.1 fl (80-94); Mean Platelet Volume 8.9 fl (7.4-10.4); Monocytes # 0.5 K/mm3 (0.1-1.0); Monocytes % 6.6 % (1.7-9.3); Neutrophils # 5.2 K/mm3 (1.8-7.8); Neutrophils % 70.3 % (37.0-80.0); Platelet Count 244 K/mm3 (142-424); Red Blood Count 5.22 M/mm3 (4.60-6.20); Red Cell Distribution Width 13.7 % (11.5-17.5); White Blood Count 7.5 K/mm3 (4.8-10.8)
[2021-11-15 12:28] LABS: Amylase 44 U/L (30-110); Chol/HDL Ratio 4.2 (1-3.5); Cholesterol 172 mg/dl (140-200); HDL Cholesterol 41 mg/dl (40-60); Lipase 72 U/L (23-300); Triglycerides 124 mg/dl (30-150); VLDL Cholesterol 25 mg/dL (0-40)
[2021-11-15 12:31] LABS: Erythrocyte Sedimentation Rate 11 mm/hr (0-20)
[2021-11-15 12:39] LABS: Direct LDL Cholesterol 94.86 mg/dL (100-129)
[2021-11-15 19:16] LABS: Alanine Aminotransferase 16 U/L (12-78); Albumin Level 4.4 g/dl (3.5-5.0); Alkaline Phosphatase 74 U/L (38-126); Aspartate Amino Transferase 24 U/L (17-59); Bilirubin,Direct 0.3 mg/dl (0.0-0.4); Bilirubin,Indirect 2.2 mg/dL (0.0-0.9); Bilirubin,Total 2.5 mg/dl (0.2-1.3); Bilirubin,Unconjugated 2.2 mg/dL (0.0-1.1); Total Protein,Serum 6.8 g/dl (6.3-8.2)
== END ==
PROVIDERS: PCP Internal Medicine; Visit Provider Internal Medicine
DX: R07.9 Chest pain, unspecified (principal); R10.11 Right upper quadrant pain; R10.13 Epigastric pain; R03.0 Elevated blood-pressure reading, without diagnosis of hypertension; K58.9 Irritable bowel syndrome, unspecified; I10 Essential (primary) hypertension
CPT/HCPCS: 80061; 80076; 82150; 83690; 85025; 85651

== ENCOUNTER → 2021-12-28 11:58 | Outpatient (CLI) | payer BC, SELFPAY ==
[2021-12-28 12:45] LABS: Basophils # 0.1 K/mm3 (0-0.2); Basophils % 0.9 % (0.1-2.0); Eosinophils # 0.1 K/mm3 (0.0-0.4); Eosinophils % 1.6 % (0.1-12.0); Hematocrit 45.2 % (42.0-52.0); Hemoglobin 15.5 g/dL (14.1-18.0); Lymphocytes # 1.4 K/mm3 (0.7-4.5); Lymphocytes % 18.8 % (10-50); Mean Corpuscular HGB Conc 34.4 g/dL (31.8-35.4); Mean Corpuscular Hemoglobin 29.9 pg (27.0-31.2); Mean Platelet Volume 9.1 fl (7.4-10.4); Monocytes # 0.4 K/mm3 (0.1-1.0); Monocytes % 5.4 % (1.7-9.3); Neutrophils # 5.3 K/mm3 (1.8-7.8); Neutrophils % 73.3 % (37.0-80.0); Platelet Count 231 K/mm3 (142-424); Red Cell Distribution Width 13.3 % (11.5-17.5); White Blood Count 7.2 K/mm3 (4.8-10.8)
[2021-12-28 12:52] LABS: D-Dimer 0.68 ug/mL (0.0-0.5)
[2021-12-28 13:17] LABS: Erythrocyte Sedimentation Rate 6 mm/hr (0-20)
[2021-12-28 13:46] LABS: Chloride 105 mmol/L (98-107); Potassium 4.4 mmoL/L (3.5-5.1); Sodium 139 mmol/L (136-145)
[2021-12-28 13:48] LABS: Alanine Aminotransferase 14 U/L (12-78); Amylase 46 U/L (30-110); Aspartate Amino Transferase 24 U/L (17-59); Blood Urea Nitrogen 11 mg/dl (9-20); Estimated Glomerular Filt Rate 114 ml/min (>60); GFR (African American) 137 ML/MIN (>60)
[2021-12-28 13:49] LABS: Albumin Level 4.4 g/dl (3.5-5.0); Albumin/Globulin Ratio 1.9 (1.1-1.8); Anion Gap 10.4 mEq/L (5-15); Calcium 9.5 mg/dl (8.4-10.2); Carbon Dioxide 28 mmol/L (22.0-30.0); Globulin 2.3 g/dL (1.3-3.2); Glucose 99 mg/dl (74-100); Total Protein,Serum 6.7 g/dl (6.3-8.2)
[2021-12-28 13:54] LABS: Alkaline Phosphatase 87 U/L (38-126); Bilirubin,Total 3.3 mg/dl (0.2-1.3)
== END ==
PROVIDERS: PCP Internal Medicine; Visit Provider Internal Medicine
DX: R07.9 Chest pain, unspecified (principal); R10.13 Epigastric pain; R10.11 Right upper quadrant pain; R11.0 Nausea; R00.2 Palpitations
CPT/HCPCS: 80053; 82150; 85025; 85378; 85651

== ENCOUNTER → 2022-01-26 09:48 | Outpatient (CLI) | payer BC, SELFPAY ==
--- NOTE | 2022-01-26 09:51 | CT_ITS ---
FINAL REPORT TECHNIQUE: Postcontrast axial images of the chest were performed in a CTA protocol. The study was performed with techniques to keep radiation dose as low as reasonably achievable, (ALARA). Individual dose reduction techniques using automated exposure control or adjustment of mA and/or kV according to the patient's size were employed. CLINICAL HISTORY: PALPITATIONS,NAUSEA,ELEVATED D-DIMER FINDINGS: The heart is normal in size. No adenopathy is identified. No pleural or pericardial effusion is identified. The mediastinal vasculature is well opacified. There is no evidence of pulmonary artery filling defects. There is no evidence of dissection. There is a small non calcified nodule at the left base measuring 4 mm. Finding is best seen on image 91 of series 3. The gallbladder surgically absent. IMPRESSION: No evidence of pulmonary embolism. Noncalcified nodule at the left base. As per Fleischner criteria, no follow-up is required for low risk patient. Twelve month follow-up can be considered for high risk patient. Reviewed, Interpreted and Dictated by Richard Arreola MD Transcribed by Unique Phillip Authenticated and . [facility]
== END ==
PROVIDERS: PCP Internal Medicine; Visit Provider Internal Medicine
DX: R00.2 Palpitations (principal); R11.0 Nausea; R79.1 Abnormal coagulation profile
CPT/HCPCS: 71275; Q9967

== ENCOUNTER → 2022-03-25 11:00 | Outpatient (CLI) | payer BC, SELFPAY ==
--- NOTE | 2022-03-25 11:04 | XR_ITS ---
FINAL REPORT CLINICAL HISTORY: ABD PAIN,BLOATING,EPIGASTRIC PAIN,DYSPEPSIA FINDINGS: ABDOMEN SINGLE VIEW There are multiple air-filled bowel loops in a nonspecific pattern, could represent ileus or partial small bowel obstruction. There is postoperative change in the right upper quadrant. IMPRESSION: Findings could represent an ileus or partial small bowel obstruction. If indicated, CT may be helpful. Reviewed, Interpreted and Dictated by Jay Jay Llamas III, MD Transcribed by Unqiue Phillip Authenticated and [facility]
== END ==
PROVIDERS: PCP Internal Medicine; Visit Provider Nurse Practitioner Family
DX: R10.11 Right upper quadrant pain (principal); R14.0 Abdominal distension (gaseous); R10.13 Epigastric pain; K30 Functional dyspepsia
CPT/HCPCS: 74018

== ENCOUNTER → 2022-03-30 12:20 | Outpatient (CLI) | payer BC, SELFPAY ==
[2022-03-30 12:54] LABS: Blood Urea Nitrogen 11 mg/dl (9-20); Estimated Glomerular Filt Rate 114 ml/min (>60); GFR (African American) 137 ML/MIN (>60)
--- NOTE | 2022-03-30 14:30 | CT_ITS ---
FINAL REPORT CLINICAL HISTORY: ABD PAIN,NAUSEA,ABDOMINAL DISTENTION FINDINGS: CT OF THE ABDOMEN AND PELVIS WITH CONTRAST Axial CT images of the abdomen and pelvis were obtained after the administration of oral and iv contrast. Coronal reformatted images were also obtained and reviewed.This study was performed with techniques to keep radiation doses as low as reasonably achievable (ALARA). Individualized dose reduction techniques using automated exposure control or adjustment of mA and/or kV according to the patient's size were employed. Abdomen: There are two 4 mm nodules in the left lung base that are nonspecific. The heart is normal in size. The liver has an unremarkable appearance, without evidence of mass or biliary ductal dilatation. Postoperative changes are seen from cholecystectomy. The spleen is unremarkable. No adrenal mass is present. The pancreas has an unremarkable appearance. The kidneys are normal, without evidence of mass or hydronephrosis. The aorta is normal in caliber. There is no free fluid or adenopathy. No mass or abnormal fluid collection is seen. Pelvis: The appendix is not well-visualized. There is no localized inflammatory reaction in the region of the base of the cecum. The urinary bladder is unremarkable. The prostate is moderately enlarged. There is no evidence of mass or adenopathy. There is no evidence of bowel obstruction. IMPRESSION: No evidence of acute intra-abdominal process. Nonspecific 4 mm nodules in the left lung base. Recommend 6 month follow-up. Moderately enlarged prostate. Reviewed, Interpreted and Dictated by Jay Jay Llamas III, MD Transcribed by Aristeo Taylor Authenticated and . [facility]
== END ==
PROVIDERS: PCP Internal Medicine; Visit Provider Nurse Practitioner Family
DX: R10.11 Right upper quadrant pain (principal); R11.0 Nausea; R14.0 Abdominal distension (gaseous)
CPT/HCPCS: 36415; 74177; 82565; 84520; Q9967

== ENCOUNTER → 2022-08-17 16:09 | Outpatient (CLI) | payer MEDICARE, OTHER, SELFPAY ==
[2022-08-17 16:33] LABS: Basophils # 0.1 K/mm3 (0-0.2); Basophils % 1.1 % (0.1-2.0); Eosinophils # 0.1 K/mm3 (0.0-0.4); Hematocrit 48.8 % (42.0-52.0); Hemoglobin 16.4 g/dL (14.1-18.0); Lymphocytes # 1.4 K/mm3 (0.7-4.5); Lymphocytes % 25.4 % (10-50); Mean Corpuscular HGB Conc 33.6 g/dL (31.8-35.4); Mean Corpuscular Hemoglobin 29.6 pg (27.0-31.2); Mean Corpuscular Volume 88.1 fl (80-94); Mean Platelet Volume 9.8 fl (7.4-10.4); Monocytes # 0.3 K/mm3 (0.1-1.0); Monocytes % 5.7 % (1.7-9.3); Neutrophils # 3.7 K/mm3 (1.8-7.8); Neutrophils % 65.8 % (37.0-80.0); Platelet Count 292 K/mm3 (142-424); Red Blood Count 5.54 M/mm3 (4.60-6.20); Red Cell Distribution Width 13.4 % (11.5-17.5); White Blood Count 5.6 K/mm3 (4.8-10.8)
[2022-08-17 16:37] LABS: Chloride 105 mmol/L (98-107); Sodium 140 mmol/L (136-145)
[2022-08-17 16:40] LABS: Alanine Aminotransferase 17 U/L (12-78); Alkaline Phosphatase 64 U/L (38-126); Amylase 44 U/L (30-110); Aspartate Amino Transferase 23 U/L (17-59); Bilirubin,Total 3.1 mg/dl (0.2-1.3); Blood Urea Nitrogen 8 mg/dl (9-20); Calcium 9.2 mg/dl (8.4-10.2); Carbon Dioxide 28 mmol/L (22.0-30.0); Estimated Glomerular Filt Rate 97 ml/min (>60); GFR (African American) 117 ML/MIN (>60); Glucose 117 mg/dl (74-100); Lipase 55 U/L (23-300)
[2022-08-17 16:41] LABS: Albumin Level 4.6 g/dl (3.5-5.0); Albumin/Globulin Ratio 2.1 (1.1-1.8); Globulin 2.2 g/dL (1.3-3.2); Total Protein,Serum 6.8 g/dl (6.3-8.2)
[2022-08-17 16:48] LABS: Erythrocyte Sedimentation Rate 7 mm/hr (0-20)
== END ==
PROVIDERS: PCP Internal Medicine; Visit Provider Internal Medicine
DX: R10.13 Epigastric pain (principal); R11.2 Nausea with vomiting, unspecified; F41.9 Anxiety disorder, unspecified
CPT/HCPCS: 80053; 82150; 83690; 85025; 85651

== ENCOUNTER 2022-10-10 22:47 | Emergency (ER) | payer MEDICARE, OTHER, SELFPAY ==
[2022-10-10 22:50] VITALS: BP 147/92; PULSE 96; RESP 18; TEMP 36.8; O2SAT 97; BMI 23.6
[2022-10-10 23:10] VITALS: BP 139/88; BP 147/92; BP 147/99; PULSE 85; PULSE 94; PULSE 98
[2022-10-10 23:15] LABS: POC Glucose,Bedside 129 (70-110)
--- NOTE | 2022-10-10 23:16 | ECG_ITS ---
APPROVED REPORT Exam: Resting ECG HR:98 bpm ECG Measurements Heart Rate [address] 153 P 53 QRSd 93 QRS 40 QT 360 T 48 QTc 416 Conclusion SINUS RHYTHM NORMAL ECG UNCONFIRMED REPORT Electronically signed by : Henry Osborn MD 10/11/2022 22:04:44
[2022-10-10 23:18] LABS: Basophils # 0.1 K/mm3 (0-0.2); Basophils % 0.8 % (0.1-2.0); Eosinophils # 0.3 K/mm3 (0.0-0.4); Eosinophils % 3.7 % (0.1-12.0); Hematocrit 45.2 % (42.0-52.0); Hemoglobin 15.5 g/dL (14.1-18.0); Lymphocytes # 2.6 K/mm3 (0.7-4.5); Lymphocytes % 38.4 % (10-50); Mean Corpuscular HGB Conc 34.2 g/dL (31.8-35.4); Mean Corpuscular Hemoglobin 30.7 pg (27.0-31.2); Mean Corpuscular Volume 89.7 fl (80-94); Monocytes # 0.5 K/mm3 (0.1-1.0); Monocytes % 6.8 % (1.7-9.3); Neutrophils # 3.4 K/mm3 (1.8-7.8); Neutrophils % 50.4 % (37.0-80.0); Platelet Count 260 K/mm3 (142-424); Red Blood Count 5.04 M/mm3 (4.60-6.20); Red Cell Distribution Width 13.7 % (11.5-17.5); White Blood Count 6.7 K/mm3 (4.8-10.8)
[2022-10-10 23:21] LABS: Chloride 102 mmol/L (98-107)
[2022-10-10 23:22] LABS: Potassium 3.7 mmoL/L (3.5-5.1); Sodium 141 mmol/L (136-145)
[2022-10-10 23:24] LABS: Alanine Aminotransferase 18 U/L (12-78); Alkaline Phosphatase 63 U/L (38-126); Anion Gap 13.7 mEq/L (5-15); Aspartate Amino Transferase 32 U/L (17-59); Bilirubin,Total 1.8 mg/dl (0.2-1.3); Blood Urea Nitrogen 10 mg/dl (9-20); Carbon Dioxide 29 mmol/L (22.0-30.0); Creatinine Clearance Estimated 76 mL/min (50-200); Estimated Glomerular Filt Rate 97 ml/min (>60); GFR (African American) 117 ML/MIN (>60)
[2022-10-10 23:25] LABS: Albumin Level 4.4 g/dl (3.5-5.0); Albumin/Globulin Ratio 1.8 (1.1-1.8); Calcium 8.6 mg/dl (8.4-10.2); Globulin 2.4 g/dL (1.3-3.2); Glucose 133 mg/dl (74-100); Total Protein,Serum 6.8 g/dl (6.3-8.2)
[2022-10-10 23:30] VITALS: BP 133/86; PULSE 79; O2SAT 96
[2022-10-10 23:38] LABS: Troponin I < 0.01 ng/ml (0.00-0.034)
[2022-10-11] VITALS: BP 129/83; PULSE 81; O2SAT 95
--- NOTE | 2022-10-11 | CT_ITS ---
PROCEDURE INFORMATION: Exam: CT Head Without Contrast Exam date and time: 10/11/2022 12:26 AM Age: 67 years old Clinical indication: Dizziness; Additional info: ONOFRE TECHNIQUE: Imaging protocol: Computed tomography of the head without contrast. Radiation optimization: All CT scans at this facility use at least one of these dose optimization techniques: automated exposure control; mA and/or kV adjustment per patient size (includes targeted exams where dose is matched to clinical indication); or iterative reconstruction. REPORTING DATA: Count of CT and Cardiac NM exams in prior 12 months: This patient has received 2 known CTs and 0 known cardiac nuclear medicine studies in the 12 months prior to the current study. COMPARISON: No relevant prior studies available. FINDINGS: Brain: There is no evidence of acute parenchymal hemorrhage, extra-axial collection, or acute infarction. There is no mass effect, midline shift, or downward herniation. Cerebral ventricles: No ventriculomegaly. Paranasal sinuses: There is mild paranasal sinus mucosal thickening. Mastoid air cells: Visualized mastoid air cells are well aerated. Bones/joints: Unremarkable. No acute fracture. Soft tissues: Unremarkable. IMPRESSION: No evidence of acute intracranial process.
--- NOTE | 2022-10-11 | XR_ITS ---
PROCEDURE INFORMATION: Exam: XR Chest Exam date and time: 10/11/2022 12:20 AM Age: 67 years old Clinical indication: Other: Gen. Weakness TECHNIQUE: Imaging protocol: Radiologic exam of the chest. Views: 2 views. COMPARISON: CR XR CHEST 2V 10/06/2021 11:06 AM FINDINGS: Lungs: Unremarkable. No consolidation. Pleural spaces: Unremarkable. No pleural effusion. No pneumothorax. Heart/Mediastinum: Unremarkable. No cardiomegaly. Bones/joints: Unremarkable. IMPRESSION: No acute findings.
[2022-10-11 00:43] VITALS: BP 137/85; PULSE 86; O2SAT 96
--- NOTE | 2022-10-11 00:49 | HMH.EDDIZZ ---
Discharge Plan Disposition Patient Disposition: Home, Self-Care Condition: Good Prescriptions Prescriptions: New meclizine 12.5 mg tablet 12.5 mg PO QID PRN (Reason: dizziness) Qty: 20 0RF ondansetron 4 mg tablet,disintegrating 4 mg PO Q8H PRN (Reason: nausea and vomiting) 4 Days Qty: 20 0RF No Action hydrocodone-acetaminophen 7.5-325 mg tablet 1 tab PO TID Qty: 90 polyethylene glycol 3350 17 GM powder in packet 17 gm PO DAILY alprazolam 0.5 MG tablet 0.5 mg PO NEEDED PRN (Reason: Anxiety) esomeprazole magnesium 40 MG capsule,delayed release(DR/EC) 40 mg PO DAILY methylcellulose (laxative) 479 GM powder 479 gm PO DAILY Referrals Follow up/Referrals: Pieter Gordon MD [Primary Care Provider] - See instructions Clinical Impressions Clinical Impression: Vertigo, LFT elevation Discharge ED Provider: Yaneth Conde HPI General Chief Complaint: Weakness Stated Complaint: passing out,confussed Time Seen by Provider: 10/11/22 00:28 Mode of Arrival: Wheelchair Source of Information: Patient Limitations: No Limitations Description of Symptoms (Recalled from ER Triage Doc. by RN): pt c/o weakness, Martins, passing out when standing up. History of Present Illness HPI Narrative: Patient is a 67 male who was out working in the yard all day today. Patient stated that he came home was talking to his friend for 2-1/2 hours and turned his head and when he had turned his head he had sudden onset of dizziness. Dizziness came on it was round and round made him nauseous he did not vomit. He felt like he was going go down. No chest pain shortness of breath no confusion no slurred speech no focal weakness. He has had vertigo before and this is typical to the vertigo he has had before complaint: dizziness Onset (ago): minute(s) Timing: sudden onset Description: sense of movement and room spinning History of similar episodes: Yes Severity: moderate Relieving factors: nothing and remaining still Exacerbating factors: movement and position Associated symptoms: denies other symptoms Related Data Home Medications Medication Instructions Recorded Confirmed hydrocodone 7.5 mg-acetaminophen 1 tab PO TID Pain #90 tabs 01/22/19 11/11/21 325 mg tablet alprazolam 0.5 mg tablet 0.5 mg PO NEEDED PRN Anxiety 11/10/21 11/11/21 esomeprazole magnesium 40 mg 40 mg PO DAILY GERD 11/10/21 11/11/21 capsule,delayed release methylcellulose (laxative) 479 gm PO DAILY constipation 11/10/21 11/11/21 polyethylene glycol 3350 17 gram 17 gm PO DAILY constripation 11/10/21 11/11/21 oral powder packet Previous Rx's Medication Instructions Recorded meclizine 12.5 mg tablet 12.5 mg PO QID PRN dizziness #20 10/11/22 tabs ondansetron 4 mg disintegrating 4 mg PO Q8H PRN nausea and 10/11/22 tablet vomiting 4 days #20 tabs Allergies Allergy/AdvReac Type Severity Reaction Status Date / Time No Known Allergies Allergy Verified 11/10/21 09:23 [facility] Disclaimer: The information contained in this section may have been updated after the patient was seen, as this information can be updated by other users. Social History Smoking Status: Former smoker alcohol intake: current substance use type: denies use current occupational status: retired Travel in the last 8 weeks: None household members: spouse housing: house current occupational exposures/hazards: No caffeine: Yes ROS Obtained: Yes All systems reviewed & no additional complaints except as documented ENT Ears, Nose, Mouth, and Throat: Reports dizziness Neurologic Neurologic: Reports dizziness Physical Exam General General appearance: alert and in distress Head Head exam: atraumatic, normocephalic and normal inspection Eye Eye exam: Present normal appearance, PERRL and EOMI; Absent scleral icterus or conjunctival redness ENT ENT exam: P
[2022-10-11 01:00] VITALS: BP 132/82; PULSE 78; O2SAT 96
[2022-10-11 01:30] VITALS: BP 126/80; PULSE 75; O2SAT 95
[2022-10-11 02:00] VITALS: BP 126/83; PULSE 73; O2SAT 96
[2022-10-11 02:22] VITALS: BP 126/83; PULSE 73; RESP 18; TEMP 36.8; O2SAT 97
== END 2022-10-11 02:26 | disposition home or self-care (01) ==
PROVIDERS: Emergency Provider Emergency Medicine; PCP Internal Medicine
DX: R42 Dizziness and giddiness (principal); Z87.891 Personal history of nicotine dependence; R11.0 Nausea
CPT/HCPCS: 70450; 71046; 80053; 82962; 84484; 85025; 93005; 99285

== ENCOUNTER 2022-10-16 20:04 | Emergency (ER) | payer MEDICARE, OTHER, SELFPAY ==
[2022-10-16 20:06] VITALS: BP 154/89; PULSE 85; RESP 16; TEMP 36.6; O2SAT 97; BMI 23.6
--- NOTE | 2022-10-16 20:15 | ECG_ITS ---
APPROVED REPORT Exam: Resting ECG HR:80 bpm ECG Measurements Heart Rate 80 AXES HI 141 P 66 QRSd 93 QRS 52 QT 358 T 53 QTc 394 Conclusion SINUS RHYTHM WITH OCCASIONAL VENTRICULAR PREMATURE COMPLEXES BORDERLINE ECG UNCONFIRMED REPORT Electronically signed by : Henry Osborn MD 10/17/2022 21:16:10
--- NOTE | 2022-10-16 20:15 | XR_ITS ---
PROCEDURE INFORMATION: Exam: XR Chest Exam date and time: 10/16/2022 8:12 PM Age: 67 years old Clinical indication: Other: Heart fluttering; Patient HX: Patient was seen here in er on Monday for similar symptoms. TECHNIQUE: Imaging protocol: Radiologic exam of the chest. Views: 2 views. COMPARISON: CR XR CHEST 2V 10/11/2022 12:20 AM FINDINGS: Lungs: Unremarkable. No consolidation. Pleural spaces: Unremarkable. No pleural effusion. No pneumothorax. Heart/Mediastinum: Unremarkable. No cardiomegaly. Bones/joints: Moderate degenerative changes noted throughout the thoracic spine. Bones are otherwise unremarkable. IMPRESSION: No acute disease
[2022-10-16 20:28] LABS: Basophils # 0.1 K/mm3 (0-0.2); Basophils % 0.5 % (0.1-2.0); Chloride 100 mmol/L (98-107); Eosinophils # 0.1 K/mm3 (0.0-0.4); Eosinophils % 0.7 % (0.1-12.0); Hematocrit 42.9 % (42.0-52.0); Hemoglobin 14.6 g/dL (14.1-18.0); Lymphocytes # 1.7 K/mm3 (0.7-4.5); Lymphocytes % 15.8 % (10-50); Mean Corpuscular HGB Conc 34.1 g/dL (31.8-35.4); Mean Corpuscular Hemoglobin 30.3 pg (27.0-31.2); Mean Corpuscular Volume 88.8 fl (80-94); Mean Platelet Volume 8.4 fl (7.4-10.4); Monocytes # 0.7 K/mm3 (0.1-1.0); Monocytes % 6.7 % (1.7-9.3); Neutrophils % 76.3 % (37.0-80.0); Platelet Count 247 K/mm3 (142-424); Red Blood Count 4.83 M/mm3 (4.60-6.20); Red Cell Distribution Width 13.9 % (11.5-17.5); White Blood Count 10.5 K/mm3 (4.8-10.8)
[2022-10-16 20:29] LABS: Potassium 3.5 mmoL/L (3.5-5.1); Sodium 141 mmol/L (136-145)
[2022-10-16 20:30] VITALS: BP 156/84; PULSE 77; RESP 13; O2SAT 95
[2022-10-16 20:31] LABS: Alanine Aminotransferase 25 U/L (12-78); Albumin Level 4.4 g/dl (3.5-5.0); Alkaline Phosphatase 62 U/L (38-126); Anion Gap 15.5 mEq/L (5-15); Aspartate Amino Transferase 33 U/L (17-59); Bilirubin,Total 1.4 mg/dl (0.2-1.3); Blood Urea Nitrogen 17 mg/dl (9-20); Carbon Dioxide 29 mmol/L (22.0-30.0); Creatinine Clearance Estimated 76 mL/min (50-200); Estimated Glomerular Filt Rate 97 ml/min (>60); GFR (African American) 117 ML/MIN (>60)
[2022-10-16 20:32] LABS: Albumin/Globulin Ratio 1.8 (1.1-1.8); Calcium 8.9 mg/dl (8.4-10.2); Globulin 2.5 g/dL (1.3-3.2); Glucose 105 mg/dl (74-100); Total Protein,Serum 6.9 g/dl (6.3-8.2)
[2022-10-16 20:54] LABS: Troponin I < 0.01 ng/ml (0.00-0.034)
--- NOTE | 2022-10-16 20:54 | PC.NURSE ---
Dr. Robert at to speak with pt
[2022-10-16 21:00] VITALS: BP 160/95; PULSE 79; RESP 15; O2SAT 96
--- NOTE | 2022-10-16 21:00 | HMH.EDARPALP ---
Discharge Plan Disposition Patient Disposition: Home, Self-Care Chief Complaint: Arrhythmia/Palpitations Prescriptions Prescriptions: No Action hydrocodone-acetaminophen 7.5-325 mg tablet 1 tab PO TID Qty: 90 polyethylene glycol 3350 17 GM powder in packet 17 gm PO DAILY alprazolam 0.5 MG tablet 0.5 mg PO NEEDED PRN (Reason: Anxiety) esomeprazole magnesium 40 MG capsule,delayed release(DR/EC) 40 mg PO DAILY methylcellulose (laxative) 479 GM powder 479 gm PO DAILY meclizine 12.5 mg tablet 12.5 mg PO QID PRN (Reason: dizziness) Qty: 20 0RF ondansetron 4 mg tablet,disintegrating 4 mg PO Q8H PRN (Reason: nausea and vomiting) 4 Days Qty: 20 0RF Referrals Follow up/Referrals: Pieter Gordon MD [Primary Care Provider] - See instructions Clinical Impressions Clinical Impression: Chest pain, Ventricular premature beats Instructions Patient Instructions: DI for Atypical Chest Pain Discharge ED Provider: Jakob (ED)Artie Arrhythmia/Palpitations HPI General Chief Complaint: Arrhythmia/Palpitations Stated Complaint: feels like heart is fluttering Time Seen by Provider: 10/16/22 21:00 Mode of Arrival: Ambulatory Source of Information: Patient, Spouse and Medical Record Limitations: No Limitations History of Present Illness HPI narrative: pt with epigastric pain with midline rad with hx of gerd and gb dis - no known ht dis - had feeling of irreg ht beats also complaint: skipped beats Onset (ago): hour(s) Duration: now resolved Severity: moderate Context: occurred during rest Associated symptoms: chest pain (epigastric pain) Related Data Home Medications Medication Instructions Recorded Confirmed hydrocodone 7.5 mg-acetaminophen 1 tab PO TID Pain #90 tabs 01/22/19 11/11/21 325 mg tablet alprazolam 0.5 mg tablet 0.5 mg PO NEEDED PRN Anxiety 11/10/21 11/11/21 esomeprazole magnesium 40 mg 40 mg PO DAILY GERD 11/10/21 11/11/21 capsule,delayed release methylcellulose (laxative) 479 gm PO DAILY constipation 11/10/21 11/11/21 polyethylene glycol 3350 17 gram 17 gm PO DAILY constripation 11/10/21 11/11/21 oral powder packet Previous Rx's Medication Instructions Recorded meclizine 12.5 mg tablet 12.5 mg PO QID PRN dizziness #20 10/11/22 tabs ondansetron 4 mg disintegrating 4 mg PO Q8H PRN nausea and 10/11/22 tablet vomiting 4 days #20 tabs Allergies Allergy/AdvReac Type Severity Reaction Status Date / Time No Known Allergies Allergy Verified 11/10/21 09:23 [facility] Disclaimer: The information contained in this section may have been updated after the patient was seen, as this information can be updated by other users. Social History Smoking Status: Never smoker alcohol intake: current substance use type: denies use current occupational status: retired Travel in the last 8 weeks: None household members: spouse housing: house current occupational exposures/hazards: No caffeine: Yes ROS Obtained: Yes All systems reviewed & no additional complaints except as documented Physical Exam General General appearance: alert Head Head exam: normocephalic Eye Eye exam: Present PERRL and EOMI ENT ENT exam: Present mucous membranes moist Neck Neck exam: Present trachea midline Respiratory Respiratory exam: Present normal lung sounds bilaterally; Absent respiratory distress Cardiovascular Cardiovascular exam: Present regular rate and systolic murmur Abdominal Exam Abdominal exam: Present soft; Absent tenderness or guarding Extremities Exam Extremities exam: Present full ROM Neurological Exam Neurological exam: Present alert and CN II-XII intact Skin Skin exam: Absent rash Medical Decision Making Medical Records Medical records reviewed: Yes I reviewed the patient's medical records. Javan Inquiry Pt receiving controlled substance: No Vital Signs: 10/16
[2022-10-16 21:30] VITALS: BP 153/87; PULSE 61; RESP 12; O2SAT 96
[2022-10-16 22:00] VITALS: BP 159/87; PULSE 63; RESP 12; O2SAT 96
--- NOTE | 2022-10-16 22:52 | PC.NURSE ---
2nd troponin drawn and submitted to lab. Pt unhooked from IV to go to the bathroom
[2022-10-16 23:10] VITALS: BP 151/88; PULSE 64; RESP 17; TEMP 36.8; O2SAT 98
[2022-10-16 23:19] LABS: Troponin I < 0.01 ng/ml (0.00-0.034)
== END 2022-10-16 23:33 | disposition home or self-care (01) ==
PROVIDERS: Emergency Provider Emergency Medicine; PCP Internal Medicine
DX: R07.9 Chest pain, unspecified (principal); I49.3 Ventricular premature depolarization
CPT/HCPCS: 71046; 80053; 84484; 85025; 93005; 96360; 96361; 99285

== ENCOUNTER → 2022-11-01 14:18 | Outpatient (CLI) | payer MEDICARE, OTHER, SELFPAY | PROVIDERS: PCP Internal Medicine; Visit Provider Nurse Practitioner Family | DX: R07.9 Chest pain, unspecified (principal); R00.2 Palpitations | CPT/HCPCS: 93225 ==

== ENCOUNTER → 2022-11-15 12:08 | Outpatient (CLI) | payer MEDICARE, OTHER, SELFPAY ==
--- NOTE | 2022-11-15 12:08 | CA_ITS ---
APPROVED REPORT Exam: Exercise Treadmill Technologist: Vannesa Rodriguez, Ht: 5 ft 9 in Wt: 161 lbs BSA: 1.88 m2 HR: 69 bpm BP: 159/92 mmHg Rhythm: NSR Indications: CP Medical History Medications: Diazepam,,,,, Magnesium,,,,, MiraLAX,,,,, Esomeprazole,,,,, Meclizine,,,,, Zofran,,,,, Hydrocodone-Acetaminophen,,,,, Stress Test Details Test: Franklin HR Resting HR: 71 bpm Max Heart Rate (APMHR): 155 bpm Max HR Achieved: 176 bpm Target HR (85% APMHR): 132 bpm % of APMHR: 114 Recovery HR: 103 bpm HR response to stress: Accelerated HR response to stress BP Resting BP: 172.0/90.0 mmHg Max BP: 212.0/86.0 mmHg Recovery BP: 155.0/81.0 mmHg BP response to stress: Abnormal hypertensive response to stress. ECG Resting ECG: NSR Stress EC.5mm horizontal ST depression Arrhythmia: None Recovery ECG: Return to baseline within 3 minutes of recovery Recovery Arrhythmia: None Clinical Exercise duration: 07:30 min Highest Stage Achieved: III Exercise capacity: 10.1 METs Overall Exercise Capacity for Age: Good Stress ECG Conclusion Max HR: 172 % of PM: 111% Max BP: 212/86 METs: 10.1 Test stopped due to: SOA Symptoms: SOA, No CP. Arrhythmias/Ectopy: None The patient walked 7:30 on Franklin Protocol, achieving 10.1 METs. He exhibited a good exercise capacity compared to age and sex matched peers. He had an exaggerated HR and BP response to exercise. At baseline, ECG showed normal sinus rhythm with no ST changes. At peak stress, there was 1.5mm horizontal ST depression present that eventually returned to baseline within 3 minutes of recovery. ECG findings are suggestive of ischemia. Myoview images are reported separately. Test Summary REST . . . . . . . Sitting REST . . . . . . . Standing REST 04:59 0.0 0.0 71 . 172/ 90 . . Stage 1 01:00 10.0 1.7 107 . . . . Stage 1 02:00 10.0 1.7 120 . . . . Stage 1 03:00 10.0 1.7 119 . 184/ 90 . . Stage 2 01:00 12.0 2.5 133 . . . . Stage 2 02:00 12.0 2.5 147 . . . . Stage 2 03:00 12.0 2.5 155 . 212/ 86 . . Stage 3 01:00 14.0 3.4 168 . . . . Stage 3 01:30 14.0 3.4 172 . . . Stop exercise at 07:30 RECOVERY 01:00 0.0 0.0 152 . . . . RECOVERY 02:00 0.0 0.0 126 . . . . RECOVERY 03:00 0.0 0.0 116 . 190/ 85 . . RECOVERY 04:00 0.0 0.0 102 . 190/ 85 . . RECOVERY 05:00 0.0 0.0 103 . 157/ 77 . . RECOVERY 06:00 0.0 0.0 101 . 155/ 81 . . RECOVERY 06:06 0.0 0.0 100 . 155/ 81 . . Electronically signed by : Marielle Roman, 11/15/2022 18:27:59
--- NOTE | 2022-11-15 12:08 | NM_ITS ---
APPROVED REPORT Exam: Nuclear Stress Test Indication: chest pain..short of breath..palpitations Patient Location: Outpatient Stress Tech: Vannesa Murphy MD Tech:JUAN Tafoya RT (R)(N)(M) Ht: 5 ft 9 in Wt: 160 lbs HR: 69 bpm BP: 159/92 mmHg BSA: 1.88 m2 TID: 1.00 BMI: 23.6 History: chest pain..short of breath..palpitations Procedure: Patient exercised on Franklin protocol 7:30 minutes and sec, resting heart rate 69 bpm, resting blood pressure 159/92 mmHg, with exercise maximum heart rate achived was 172 bpm which is 111 % of the maximum predicted heart rate and blood pressure was 212/86 mmHg. Patient denied any complaint of chest pain. Patient has exercise capacity, achieved 10.1 METs of workload on treadmill, the blood pressure response to exercise was . Cardiac Stress and Resting SPECT Images: Cardiac Stress and Resting SPECT images were obtained using technetium 99m Myoview 29.9 mCi stress and 10.52 mCi at rest. This SPECT imaging study is technically difficult due to the proximity and increased GI uptake, as well as overlying soft tissue in the raw images. The resting and stress imaging in supine position demonstrate a medium-sized, mild, fixed perfusion defect in the inferior and inferoseptal LV wall that is tapered towards the base. This perfusion defect is no longer visualized with prone stress imaging. Findings are suggestive of possible diaphragmatic attenuation, but a true fixed perfusion defect cannot be entirely ruled out. Gated imaging demonstrates mild reduction in global and regional LV systolic function. LVEF is calculated at 49%. Conclusion: This SPECT imaging study is technically difficult due to the proximity and increased GI uptake, as well as overlying soft tissue in the raw images. Diaphgramatic attenuation is likely present. No definite fixed or reversible perfusion defects. Gated imaging demonstrates mild reduction in global and regional LV systolic function. LVEF is calculated at 49%. Electronically signed by : Marielle Roman, 11/15/2022 18:38:16
== END ==
PROVIDERS: PCP Internal Medicine; Visit Provider Nurse Practitioner Family
DX: R00.2 Palpitations (principal); R07.9 Chest pain, unspecified
CPT/HCPCS: 78452; 93017; 93306; A9502

== ENCOUNTER 2022-11-29 08:23 | Day surgery (SDC) | payer MEDICARE, OTHER, SELFPAY ==
[2022-11-29] VITALS (13 sets, daily range): BP systolic 109–161; BP diastolic 47–93; PULSE 48–67; RESP 16–19; O2SAT 95–98; BMI 23.8
--- NOTE | 2022-11-29 07:11 | IR_ITS ---
APPROVED REPORT Patient Location: Outpatient PROCEDURES Left heart catheterization Left ventriculogram Selective coronary angiogram INDICATION Abnormal stress test, Worsening angina pectoris Informed consent was obtained prior to the procedure. COMPLICATIONS None Estimated Blood Loss: Less than 10 ML TECHNIQUE One percent lidocaine used to anesthetize the right anterior aspect of the wrist. The right radial artery was accessed via the Seldinger technique. A 6 Italian sheath was placed in the right radial artery. 150 mg magnesium sulfate, 800 mcg of nitroglycerin, 1mg Lidocaine and 5000 U Heparin were given through the arterial sheath. The papa catheter was also used to perform left heart catheterization, left ventriculogram and selective coronary angiogram. At the end of the procedure the sheath was removed good hemostasis was achieved using Traclet band, patient was transferred to the postop holding area in stable condition. ANGIOGRAPHIC RESULTS The left main artery Normal The left anterior descending artery Proximal LAD is widely patent and then gives rise to a large 2.75 mm diameter first diagonal artery which has a proximal 10% stenosis. Between the first and second diagonal artery yet proximal to the first septal technician preventative medicine there is a proximal smooth 20% stenosis. The second diagonal artery is 2.25 mm in diameter with proximal 20% stenosis. The third diagonal artery is also large caliber 2.5 mm in diameter and has a proximal 20 to 30% stenosis. The fourth diagonal artery is a large-caliber 2.25 mm vessel and normal. Distal to the fourth diagonal artery arises a small caliber 1.75 mm LAD. Which then has a 60 to 70% stenosis in an area approximately 1.5 mm in diameter. Small caliber LAD barely reaches the apex but is free of disease distally The circumflex artery Nondominant yet still large caliber vessel which is normal The right coronary artery Is a dominant vessel and normal The SCHUSTER ventriculogram reveals Normal 60% The left ventricular end-diastolic pressure 10 mmHg IMPRESSION Unusual anatomy as described above which includes mild disease in the proximal LAD which then gives rise to 4 large diagonal arteries. All diagonal arteries are free of significant disease. Distal to the fourth diagonal artery the LAD is a small caliber vessel not suitable for percutaneous intervention and best treated medically Normal ejection fraction Normal left ventricular end-diastolic pressure PLAN 1. Maximize antianginal medication 2. LDL less than 55 to be achieved with high intensity statin 3. I would not recommend any percutaneous intervention on the small caliber LAD. The vessel is almost certainly too small for drug-eluting stent and angioplasty would not provide lasting benefit. Patient should benefit much greater with aggressive medical management 4. Cardiac rehabilitation 5. Avoidance of tobacco products Electronically signed by : Hammad Thurman MD 11/29/2022 11:32:09
[2022-11-29 09:24] LABS: Basophils # 0.1 K/mm3 (0-0.2); Eosinophils # 0.3 K/mm3 (0.0-0.4); Eosinophils % 5.2 % (0.1-12.0); Hematocrit 46.8 % (42.0-52.0); Hemoglobin 15.6 g/dL (14.1-18.0); Lymphocytes # 1.9 K/mm3 (0.7-4.5); Lymphocytes % 35.5 % (10-50); Mean Corpuscular HGB Conc 33.3 g/dL (31.8-35.4); Mean Corpuscular Hemoglobin 29.9 pg (27.0-31.2); Mean Corpuscular Volume 89.7 fl (80-94); Monocytes # 0.4 K/mm3 (0.1-1.0); Monocytes % 6.7 % (1.7-9.3); Neutrophils # 2.8 K/mm3 (1.8-7.8); Neutrophils % 51.5 % (37.0-80.0); Platelet Count 205 K/mm3 (142-424); Red Blood Count 5.22 M/mm3 (4.60-6.20); Red Cell Distribution Width 13.5 % (11.5-17.5); White Blood Count 5.4 K/mm3 (4.8-10.8)
[2022-11-29 09:25] LABS: Chloride 103 mmol/L (98-107); Potassium 4.1 mmoL/L (3.5-5.1); Sodium 140 mmol/L (136-145)
[2022-11-29 09:28] LABS: Anion Gap 10.1 mEq/L (5-15); Blood Urea Nitrogen 10 mg/dl (9-20); Calcium 8.6 mg/dl (8.4-10.2); Carbon Dioxide 31 mmol/L (22.0-30.0); Creatinine Clearance Estimated 76 mL/min (50-200); Estimated Glomerular Filt Rate 97 ml/min (>60); GFR (African American) 117 ML/MIN (>60); Glucose 101 mg/dl (74-100)
[2022-11-29 09:29] LABS: INR 0.95 (0.9-1.1); Prothrombin Time 10.3 seconds (10.1-12.5)
== END 2022-11-29 14:23 | disposition home or self-care (01) ==
PROVIDERS: PCP Internal Medicine; Visit Provider Internal Medicine
DX: I25.118 Atherosclerotic heart disease of native coronary artery with other forms of angina pectoris (principal); I49.3 Ventricular premature depolarization; R00.2 Palpitations; R06.02 Shortness of breath; R94.39 Abnormal result of other cardiovascular function study; M19.90 Unspecified osteoarthritis, unspecified site; M79.7 Fibromyalgia
CPT/HCPCS: 80048; 85025; 85610; 93458; 99152; C1725; C1769; J1644; Q9967

== ENCOUNTER → 2023-04-19 15:06 | Outpatient (CLI) | payer MEDICARE, OTHER, SELFPAY | PROVIDERS: PCP Student in an Organized Health Care Education/Training Program; Visit Provider Student in an Organized Health Care Education/Training Program | DX: J32.9 Chronic sinusitis, unspecified (principal); B96.5 Pseudomonas (aeruginosa) (mallei) (pseudomallei) as the cause of diseases classified elsewhere | CPT/HCPCS: 87070 ==

== ENCOUNTER → 2023-05-04 09:05 | Outpatient (CLI) | payer MEDICARE, OTHER, SELFPAY ==
[2023-05-04 10:02] LABS: Basophils # 0.1 K/mm3 (0-0.2); Eosinophils # 0.6 K/mm3 (0.0-0.4); Eosinophils % 8.4 % (0.1-12.0); Hemoglobin 15.3 g/dL (14.1-18.0); Lymphocytes # 2.4 K/mm3 (0.7-4.5); Lymphocytes % 35.8 % (10-50); Mean Corpuscular HGB Conc 34.7 g/dL (31.8-35.4); Mean Corpuscular Hemoglobin 31.3 pg (27.0-31.2); Mean Corpuscular Volume 90.3 fl (80-94); Mean Platelet Volume 8.4 fl (7.4-10.4); Monocytes # 0.5 K/mm3 (0.1-1.0); Monocytes % 7.5 % (1.7-9.3); Neutrophils # 3.1 K/mm3 (1.8-7.8); Neutrophils % 47.3 % (37.0-80.0); Platelet Count 204 K/mm3 (142-424); Red Blood Count 4.87 M/mm3 (4.60-6.20); Red Cell Distribution Width 13.9 % (11.5-17.5); White Blood Count 6.6 K/mm3 (4.8-10.8)
[2023-05-04 11:06] LABS: Chloride 105 mmol/L (98-107); Potassium 4.3 mmoL/L (3.5-5.1); Sodium 139 mmol/L (136-145)
[2023-05-04 11:08] LABS: Alanine Aminotransferase 22 U/L (12-78); Alkaline Phosphatase 59 U/L (38-126); Anion Gap 9.3 mEq/L (5-15); Aspartate Amino Transferase 26 U/L (17-59); Bilirubin,Indirect 1.7 mg/dL (0.0-0.9); Bilirubin,Total 1.7 mg/dl (0.2-1.3); Bilirubin,Unconjugated 1.8 mg/dL (0.0-1.1); Blood Urea Nitrogen 14 mg/dl (9-20); Carbon Dioxide 29 mmol/L (22.0-30.0); Estimated Glomerular Filt Rate 85 ml/min (>60); GFR (African American) 102 ML/MIN (>60)
[2023-05-04 11:09] LABS: Albumin Level 4.2 g/dl (3.5-5.0); Calcium 8.5 mg/dl (8.4-10.2); Chol/HDL Ratio 5.8 (1-3.5); Cholesterol 210 mg/dl (140-200); Glucose 99 mg/dl (74-100); HDL Cholesterol 36 mg/dl (40-60); Magnesium 2.1 mg/dl (1.6-2.3); Total Protein,Serum 6.6 g/dl (6.3-8.2); Triglycerides 228 mg/dl (30-150); VLDL Cholesterol 46 mg/dL (0-40)
[2023-05-04 11:20] LABS: Direct LDL Cholesterol 123.99 mg/dL (100-129)
[2023-05-04 11:23] LABS: Free T4 (Free Thyroxine) 1.09 ng/dl (0.78-2.19)
== END ==
PROVIDERS: PCP Internal Medicine; Visit Provider Nurse Practitioner
DX: R42 Dizziness and giddiness (principal); R00.2 Palpitations; R79.89 Other specified abnormal findings of blood chemistry; I25.10 Atherosclerotic heart disease of native coronary artery without angina pectoris; I49.3 Ventricular premature depolarization; J32.9 Chronic sinusitis, unspecified; R06.02 Shortness of breath
CPT/HCPCS: 36415; 80048; 80061; 80076; 83735; 84439; 84443; 85025

== ENCOUNTER → 2023-05-17 06:14 | Outpatient (CLI) | payer MEDICARE, OTHER, SELFPAY ==
--- NOTE | 2023-05-17 06:17 | CT_ITS ---
FINAL REPORT CLINICAL HISTORY: Sinusitis COMPARISON: None FINDINGS: There is extensive mucoperiosteal thickening in the maxillary, ethmoid, frontal, and sphenoid sinuses. There is soft tissue in the ostiomeatal units bilaterally, greater on the left side than the right side. There is no fracture. There are no air-fluid levels. IMPRESSION: Extensive mucoperiosteal thickening consistent with chronic pansinusitis. Reviewed, Interpreted and Dictated by Richard Arreola MD Transcribed by Shila Trevizo Authenticated and [facility]
== END ==
PROVIDERS: PCP Internal Medicine; Visit Provider Otolaryngology
DX: J32.9 Chronic sinusitis, unspecified (principal); J34.89 Other specified disorders of nose and nasal sinuses
CPT/HCPCS: 70486

== ENCOUNTER 2023-08-04 12:35 | Emergency (ER) | payer MEDICARE, OTHER, SELFPAY ==
[2023-08-04] VITALS (12 sets, daily range): BP systolic 131–158; BP diastolic 77–97; PULSE 85–109; RESP 12–20; TEMP 36.7–36.8; O2SAT 94–98; BMI 25.2
--- NOTE | 2023-08-04 | ECG_ITS ---
APPROVED REPORT Exam: Resting ECG HR:88 bpm ECG Measurements Heart Rate 88 AXES MS 152 P 48 QRSd 97 QRS 32 QT 381 T 23 QTc 426 Conclusion SINUS RHYTHM NORMAL ECG UNCONFIRMED REPORT Electronically signed by : JAEL MART, 08/04/2023 17:09:14
--- NOTE | 2023-08-04 12:59 | ED_ITS ---
Discharge Plan Disposition Patient Disposition: Home, Self-Care Chief Complaint: PAIN Prescriptions Prescriptions: No Action fluticasone propionate 50 mcg/actuation spray,suspension 1 spray intranasal DAILY PRN aspirin 81 mg tablet 81 mg PO DAILY hydrocodone-acetaminophen 7.5-325 mg tablet 1 tab PO TID Qty: 90 diazepam 2 mg tablet 2 mg PO TID PRN Patient Comments: TAKE ONE TABLET BY MOUTH THREE TIMES DAILY NEEDED FOR NERVES MAY CAUSE DROWSINESS levofloxacin 750 mg tablet 750 mg PO DAILY 14 Days Qty: 14 0RF atorvastatin [Lipitor] 40 mg Tablet 40 mg PO HS 30 Days Qty: 30 3RF Referrals Follow up/Referrals: Pieter Gordon MD [Primary Care Provider] - See instructions Rafa Ly MD [Staff Physician] - See instructions Activity Restrictions/Add. Instructions Additional Instructions/Restrictions: Call your family doctor to establish care for this visit to the emergency department and schedule follow-up within 48 hours to ensure improvement. If you have any worsening of your condition or any other concerning signs or symptoms, return to the emergency department or your primary care doctor for further evaluation. Contact Dr. Ly for pain management. Clinical Impressions Clinical Impression: Abdominal pain Discharge ED Provider: Mustapha Arriaga General Adult HPI <Segundo Viveros MD - Last Filed: 08/04/23 16:46> General Chief complaint: PAIN Stated complaint: chest pain Time Seen by Provider: 08/04/23 12:46 Mode of Arrival: Ambulatory Source of Information: Patient Limitations: No Limitations Description of Symptoms (Recalled from ER Triage Doc. by RN): Patient reports ep igastric and abdomen pain x 1 month. States this morning he was seen by his arthritis doctor and he developed worsening epigastric pain and that he feels bloated. Reports being on an antibiotic for a long period of time. History of Present Illness HPI narrative: Patient presents with epigastric abdominal pain, nausea, that radiates to his chest, is described as sharp and severe. This occurred this morning after taking the medication that he says is a pancreas enzyme on an empty stomach with some yogurt. He does state he has had some preceding abdominal pain which has been worsening since he completed multiple rounds of antibiotics for sinusitis. He had recent cholecystectomy and has been dealing with unspecified hyperbilirub inemia that has been stable in course. He, to my understanding, has declined ERCP as he feels this is an invasive procedure. He states he has been seen at multiple other ED's any gets imaging and labs and told he has nothing wrong with him. He does state he had celiac plexus block over a year ago that resulted in improvement of symptoms. No fevers or chills. Denies any diarrhea. Pain is nonpleuritic nonexertional nonpositional, and is reproducible to palpation of his epigastrium. Please note that above description of symptoms, in this electronic medical record under categorization of recalled from ER triage doctor by RN are reflective of an initial nursing assessment, however, is not reflective of my full history and physical exam that was personally taken and clarified. Consequentially, this preceding description of symptoms, which may include the patient's categorized chief complaint in the EMR, do not reflect my personal clinical impression, and the ultimate description of history of present illness and patient stated complaints should be deferred to this section of the note. Unless stated otherwise or congruent with this section of the note, additional signs, symptoms, or incongruence should be interpreted as inaccurate with my clinical impression. Related Data Home Medications Medication Instructions Recorded Confirmed hydrocodone 7.5 mg-acetaminophen 1 tab PO TID Pain #90 tabs 01/22/19 05/24/23 325 mg tablet diazepam 2 mg tablet 2 mg PO TID PRN 11/01/22 05/24/23 aspirin 81 mg tablet 81 mg PO DAILY 11/22/22 05/24/23 fluticasone propionate 50 1 spray intranasal DAILY PRN 11/22/22 05/24/23 mcg/actuation nasal spray,suspension Previous Rx's Medication Instructions Recorded atorvastatin 40 mg tablet (Lipitor) 40 mg PO HS 30 days #30 tabs 11/29/22 levofloxacin 750 mg tablet 750 mg PO DAILY 14 days #14 tabs 05/24/23 Allergies Allergy/AdvReac Type Severity Reaction Status Date / Time No Known Allergies Allergy Verified 05/24/23 15:17 [facility] <Segundo Viveros MD - Last Filed: 08/04/23 16:46> [facility] Disclaimer: The information contained in this section may have been updated after the patient was seen, as this information can be updated by other users. Medical History Arthritis CAD (coronary artery disease) Fibromyalgia Palpitations Perforated nasal septum PVC (premature ventricular contraction) Sinusitis SOB (shortness of breath) on exertion Tinnitus Surgical History History of cholecystectomy Social History Smoking Status: Never smoker alcohol intake: current substance use type: denies use current occupational status: retired Travel in the last 8 weeks: None household members: spouse housing: house current occupational exposures/hazards: No caffeine: Yes <Segundo Viveros MD - Last Filed: 08/04/23 16:46> ROS Obtained: Yes Systems reviewed as appropriate & no additional complaints except as documented As per HPI Physical Exam <Segundo Viveros MD - Last Filed: 08/04/23 16:46> General General appearance: alert and in no apparent distress Head Head exam: atraumatic and normocephalic Eye Eye exam: Present normal appearance Neck Neck exam: Present normal inspection Chest Chest inspection: Present normal inspection and symmetric chest wall rise Respiratory Respiratory exam: Present normal lung sounds bilaterally; Absent respiratory distress Cardiovascular Cardiovascular exam: Present regular rate and normal rhythm Abdominal Exam Abdominal exam: Present soft and tenderness; Absent guarding or rebound Abdominal tenderness: Present epigastrium Neurological Exam Neurological exam: Present alert and oriented X3 Psychiatric Psychiatric exam: Present normal affect and normal mood Skin Skin exam: Present warm and dry Medical Decision Making <Segundo Viveros MD - Last Filed: 08/04/23 16:46> Medical Records Medical records reviewed: Yes I reviewed the patient's medical records. Javan Inquiry Pt receiving controlled substance: No Vital Signs: 08/04/23 12:36 08/04/23 13:00 08/04/23 13:30 Temperature 98.1 F Temperature Source Oral Pulse Rate 86 85 Pulse Rate [Radial] 86 Respiratory Rate 18 14 15 Blood Pressure 139/84 131/87 Blood Pressure [Right Arm] 151/85 H Blood Pressure Mean Blood Pressure Mean [Right Arm] 107 Blood Pressure Source [Right Arm] Automatic Cuff Blood Pressure Position [Right Arm] Sitting 02 Sat by Pulse Oximetry 98 95 98 Oxygen Delivery Method Room Air Room Air Room Air 08/04/23 14:30 08/04/23 15:00 08/04/23 15:30 Temperature Temperature Source Pulse Rate 108 H 106 H 92 H Pulse Rate [Radial] Respiratory Rate 18 14 18 Blood Pressure 142/80 H 134/77 143/92 H Blood Pressure [Right Arm] Blood Pressure Mean 94 Blood Pressure Mean [Right Arm] Blood Pressure Source [Right Arm] Blood Pressure Position [Right Arm] 02 Sat by Pulse Oximetry 97 95 95 Oxygen Delivery Method Room Air Room Air 08/04/23 16:00 08/04/23 16:30 08/04/23 17:00 Temperature Temperature Source Pulse Rate 109 H 103 H 97 H Pulse Rate [Radial] Respiratory Rate 15 18 18 Blood Pressure 137/77 148/97 H 151/94 H Blood Pressure [Right Arm] Blood Pressure Mean 113 Blood Pressure Mean [Right Arm] Blood Pressure Source [Right Arm] Blood Pressure Position [Right Arm] 02 Sat by Pulse Oximetry 96 96 94 L Oxygen Delivery Method Room Air Room Air 08/04/23 17:30 08/04/23 18:00 Temperature Temperature Source Pulse Rate 98 H 86 Pulse Rate [Radial] Respiratory Rate 12 Blood Pressure 158/95 H 149/92 H Blood Pressure [Right Arm] Blood Pressure Mean 111 Blood Pressure Mean [Right Arm] Blood Pressure Source [Right Arm] Blood Pressure Position [Right Arm] 02 Sat by Pulse Oximetry 94 L 97 Oxygen Delivery Method Room Air Lab Data Lab Results 08/04/23 12:41: WBC 7.4, RBC 5.25, Hgb 15.9, Hct 47.0, MCV 89.5, MCH 30.3, MCHC 33.8, RDW 13.7, Plt Count 233, MPV 9.5, Neut % (Auto) 82.7 H, Lymph % (Auto) 12.9, [place] % (Auto) 3.2, Eos % (Auto) 0.4, Baso % (Auto) 0.8, Neut # (Auto) 6.1, Lymph # (Auto) 1.0, [place] # (Auto) 0.2, Eos # (Auto) 0.0, Baso # (Auto) 0.1, Sodium 141, Potassium 3.9, Chloride 105, Carbon Dioxide 29, Anion Gap 10.9, BUN 11, Creatinine 0.80, Estimated Creat Clear 80, Estimated GFR 97, Est GFR ( Amer) 117, Glucose 115 H, Calcium 9.3, Total Bilirubin 2.8 H, AST 32, ALT 29, Alkaline Phosphatase 79, Troponin I 0.02, Total Protein 7.3, Albumin 4.6, Globulin 2.7, Albumin/Globulin Ratio 1.7, Lipase 67 08/04/23 15:02: Direct Bilirubin 0.0, Troponin I 0.02 08/04/23 12:41 08/04/23 12:41 Orders (Tests/Meds): ED MEDICATIONS Generic Name Dose Route Start Last Admin Trade Name Frejosé PRN Reason Stop Dose Admin Sodium Chloride 10 ml 08/04/23 13:55 Sodium Chloride 0.9% 10ml Syr (Rad Only) IV 09/03/23 13:54 NEEDED PRN Maintain IV Site Discontinued Medications Generic Name Dose Route Start Last Admin Trade Name Freq PRN Reason Stop Dose Admin Acetaminophen 1,000 mg 08/04/23 15:04 08/04/23 15:13 Acetaminophen 1,000mg/100ml Vial IV 08/04/23 15:05 1,000 mg ONCE ONE Administration Belladonna Alkaloids 60 ml 08/04/23 13:25 08/04/23 13:37 Belladonna Alkaloids 60 Ml Ml PO 08/04/23 13:26 60 ml ONCE ONE Administration Dicyclomine HCl 20 mg 08/04/23 16:16 08/04/23 16:27 Dicyclomine 10mg Capsule PO 08/04/23 16:17 20 mg ONCE ONE Administration Famotidine 40 mg 08/04/23 16:15 08/04/23 16:27 Famotidine 20mg Tablet PO 08/04/23 16:16 40 mg ONCE ONE Administration Lactated Ringer's 1,000 mls @ 999 mls/hr 08/04/23 13:25 08/04/23 13:37 Lactated Ringer's 1000 Ml Bag IV 08/04/23 14:25 999 mls/hr .Q1H1M ONE Administration Lactated Ringer's 1,000 mls @ 999 mls/hr 08/04/23 16:16 08/04/23 16:28 Lactated Ringer's 1000 Ml Bag IV 08/04/23 17:16 999 mls/hr .Q1H1M ONE Administration Iopamidol 75 ml 08/04/23 13:55 08/04/23 13:56 Iopamidol-370 (76%);100ml Bottle IV 08/04/23 13:56 75 ml ONCE ONE Administration Ketorolac Tromethamine 15 mg 08/04/23 15:04 08/04/23 15:09 Ketorolac 30mg/Ml Vial IV 08/04/23 15:05 15 mg ONCE ONE Administration Ondansetron HCl 4 mg 08/04/23 13:25 08/04/23 13:37 Ondansetron 4mg/2ml Vial IV 08/04/23 13:26 4 mg ONCE ONE Administration ORDERS Category Date Time Status CT abdomen pelvis w con Stat Cat Scan 08/04/23 13:27 Completed Chest XR 2 view (NOT portable) [XR chest 2V] Stat Exams 08/04/23 13:25 Completed Bilirubin,Direct Stat Lab 08/04/23 15:02 Completed CBC w/Auto Diff [Complete Blood Count Auto Diff] Stat Lab 08/04/23 12:41 Completed CMP [Comprehensive Metabolic Panel] Stat Lab 08/04/23 12:41 Completed Lipase Stat Lab 08/04/23 12:41 Completed Troponin I Q2H Lab 08/04/23 12:41 Completed Troponin I Q2H Lab 08/04/23 15:02 Completed HEART Score History (anamnesis): Slightly suspicious ECG: Normal Age: >65 years Risk factors: 3 or more risk factors Troponin: </= normal limit HEART Score: 4 Medical Decision Narrative: Patient with history and exam per above presenting for evaluation of epigastric and left upper quadrant abdominal pain Diagnoses considered include Pancreatitis, gastritis, PUD, gastroparesis, ref erred pain from pneumonia, patient does not exhibit pleuritic component of this pain, no risk factors he reports for pulmonary embolism, although ACS does remain on the differential ED workup and treatment included: ED MEDICATIONS Generic Name Dose Route Start Last Admin Trade Name Freq PRN Reason Stop Dose Admin Lactated Ringer's 1,000 mls @ 999 mls/hr 08/04/23 16:16 08/04/23 16:28 Lactated Ringer's 1000 Ml Bag IV 08/04/23 17:16 999 mls/hr .Q1H1M ONE Administration Sodium Chloride 10 ml 08/04/23 13:55 Sodium Chloride 0.9% 10ml Syr (Rad Only) IV 09/03/23 13:54 NEEDED PRN Maintain IV Site Discontinued Medications Generic Name Dose Route Start Last Admin Trade Name Freq PRN Reason Stop Dose Admin Acetaminophen 1,000 mg 08/04/23 15:04 08/04/23 15:13 Acetaminophen 1,000mg/100ml Vial IV 08/04/23 15:05 1,000 mg ONCE ONE Administration Belladonna Alkaloids 60 ml 08/04/23 13:25 08/04/23 13:37 Belladonna Alkaloids 60 Ml Ml PO 08/04/23 13:26 60 ml ONCE ONE Administration Dicyclomine HCl 20 mg 08/04/23 16:16 08/04/23 16:27 Dicyclomine 10mg Capsule PO 08/04/23 16:17 20 mg ONCE ONE Administration Famotidine 40 mg 08/04/23 16:15 08/04/23 16:27 Famotidine 20mg Tablet PO 08/04/23 16:16 40 mg ONCE ONE Administration Lactated Ringer's 1,000 mls @ 999 mls/hr 08/04/23 13:25 08/04/23 13:37 Lactated Ringer's 1000 Ml Bag IV 08/04/23 14:25 999 mls/hr .Q1H1M ONE Administration Iopamidol 75 ml 08/04/23 13:55 08/04/23 13:56 Iopamidol-370 (76%);100ml Bottle IV 08/04/23 13:56 75 ml ONCE ONE Administration Ketorolac Tromethamine 15 mg 08/04/23 15:04 08/04/23 15:09 Ketorolac 30mg/Ml Vial IV 08/04/23 15:05 15 mg ONCE ONE Administration Ondansetron HCl 4 mg 08/04/23 13:25 08/04/23 13:37 Ondansetron 4mg/2ml Vial IV 08/04/23 13:26 4 mg ONCE ONE Administration ORDERS Category Date Time Status CT abdomen pelvis w con Stat Cat Scan 08/04/23 13:27 Completed Chest XR 2 view (NOT portable) [XR chest 2V] Stat Exams 08/04/23 13:25 Completed Bilirubin,Direct Stat Lab 08/04/23 15:02 Completed CBC w/Auto Diff [Complete Blood Count Auto Diff] Stat Lab 08/04/23 12:41 Completed CMP [Comprehensive Metabolic Panel] Stat Lab 08/04/23 12:41 Completed Lipase Stat Lab 08/04/23 12:41 Completed Troponin I Q2H Lab 08/04/23 12:41 Completed Troponin I Q2H Lab 08/04/23 15:02 Completed Troponin I Q2H Lab 08/04/23 17:30 Ordered Troponin I Q2H Lab 08/04/23 19:30 Ordered Labs were independently interpreted by me, significant for unconjugated hyperbilirubinemia, totaling 2.8, troponins within normal limits x 2, lipase within normal limits Imaging was independently visualized and interpreted by me, significant for no acute findings. Please refer to radiology report for full details. Upon repeat evaluation patient is tachycardic, states he continues to exhibit this epigastric abdominal pain. I discussed that it is highly unlikely that a large component of this pain is attributable to taking ascitic pancreatic enzyme on an empty stomach. That being said he is tachycardic at this time, has not been able to tolerate p.o. intake, will treat with additional liter of IV fluids as well as famotidine, Bentyl. Care was transferred to incoming physician Dr. Arriaga <Mustapha Arriaga MD - Last Filed: 08/04/23 18:21> Vital Signs: 08/04/23 12:36 08/04/23 13:00 08/04/23 13:30 Temperature 98.1 F Temperature Source Oral Pulse Rate 86 85 Pulse Rate [Radial] 86 Respiratory Rate 18 14 15 Blood Pressure 139/84 131/87 Blood Pressure [Right Arm] 151/85 H Blood Pressure Mean Blood Pressure Mean [Right Arm] 107 Blood Pressure Source [Right Arm] Automatic Cuff Blood Pressure Position [Right Arm] Sitting 02 Sat by Pulse Oximetry 98 95 98 Oxygen Delivery Method Room Air Room Air Room Air 08/04/23 14:30 08/04/23 15:00 08/04/23 15:30 Temperature Temperature Source Pulse Rate 108 H 106 H 92 H Pulse Rate [Radial] Respiratory Rate 18 14 18 Blood Pressure 142/80 H 134/77 143/92 H Blood Pressure [Right Arm] Blood Pressure Mean 94 Blood Pressure Mean [Right Arm] Blood Pressure Source [Right Arm] Blood Pressure Position [Right Arm] 02 Sat by Pulse Oximetry 97 95 95 Oxygen Delivery Method Room Air Room Air 08/04/23 16:00 08/04/23 16:30 08/04/23 17:00 Temperature Temperature Source Pulse Rate 109 H 103 H 97 H Pulse Rate [Radial] Respiratory Rate 15 18 18 Blood Pressure 137/77 148/97 H 151/94 H Blood Pressure [Right Arm] Blood Pressure Mean 113 Blood Pressure Mean [Right Arm] Blood Pressure Source [Right Arm] Blood Pressure Position [Right Arm] 02 Sat by Pulse Oximetry 96 96 94 L Oxygen Delivery Method Room Air Room Air 08/04/23 17:30 08/04/23 18:00 Temperature Temperature Source Pulse Rate 98 H 86 Pulse Rate [Radial] Respiratory Rate 12 Blood Pressure 158/95 H 149/92 H Blood Pressure [Right Arm] Blood Pressure Mean 111 Blood Pressure Mean [Right Arm] Blood Pressure Source [Right Arm] Blood Pressure Position [Right Arm] 02 Sat by Pulse Oximetry 94 L 97 Oxygen Delivery Method Room Air Lab Data Lab Results 08/04/23 12:41: WBC 7.4, RBC 5.25, Hgb 15.9, Hct 47.0, MCV 89.5, MCH 30.3, MCHC 33.8, RDW 13.7, Plt Count 233, MPV 9.5, Neut % (Auto) 82.7 H, Lymph % (Auto) 12.9, [place] % (Auto) 3.2, Eos % (Auto) 0.4, Baso % (Auto) 0.8, Neut # (Auto) 6.1, Lymph # (Auto) 1.0, [place] # (Auto) 0.2, Eos # (Auto) 0.0, Baso # (Auto) 0.1, Sodium 141, Potassium 3.9, Chloride 105, Carbon Dioxide 29, Anion Gap 10.9, BUN 11, Creatinine 0.80, Estimated Creat Clear 80, Estimated GFR 97, Est GFR (Krystal n Amer) 117, Glucose 115 H, Calcium 9.3, Total Bilirubin 2.8 H, AST 32, ALT 29, Alkaline Phosphatase 79, Troponin I 0.02, Total Protein 7.3, Albumin 4.6, Globulin 2.7, Albumin/Globulin Ratio 1.7, Lipase 67 08/04/23 15:02: Direct Bilirubin 0.0, Troponin I 0.02 Orders (Tests/Meds): ED MEDICATIONS Generic Name Dose Route Start Last Admin Trade Name Freq PRN Reason Stop Dose Admin Sodium Chloride 10 ml 08/04/23 13:55 Sodium Chloride 0.9% 10ml Syr (Rad Only) IV 09/03/23 13:54 NEEDED PRN Maintain IV Site Discontinued Medications Generic Name Dose Route Start Last Admin Trade Name Freq PRN Reason Stop Dose Admin Acetaminophen 1,000 mg 08/04/23 15:04 08/04/23 15:13 Acetaminophen 1,000mg/100ml Vial IV 08/04/23 15:05 1,000 mg ONCE ONE Administration Belladonna Alkaloids 60 ml 08/04/23 13:25 08/04/23 13:37 Belladonna Alkaloids 60 Ml Ml PO 08/04/23 13:26 60 ml ONCE ONE Administration Dicyclomine HCl 20 mg 08/04/23 16:16 08/04/23 16:27 Dicyclomine 10mg Capsule PO 08/04/23 16:17 20 mg ONCE ONE Administration Famotidine 40 mg 08/04/23 16:15 08/04/23 16:27 Famotidine 20mg Tablet PO 08/04/23 16:16 40 mg ONCE ONE Administration Lactated Ringer's 1,000 mls @ 999 mls/hr 08/04/23 13:25 08/04/23 13:37 Lactated Ringer's 1000 Ml Bag IV 08/04/23 14:25 999 mls/hr .Q1H1M ONE Administration Lactated Ringer's 1,000 mls @ 999 mls/hr 08/04/23 16:16 08/04/23 16:28 Lactated Ringer's 1000 Ml Bag IV 08/04/23 17:16 999 mls/hr .Q1H1M ONE Administration Iopamidol 75 ml 08/04/23 13:55 08/04/23 13:56 Iopamidol-370 (76%);100ml Bottle IV 08/04/23 13:56 75 ml ONCE ONE Administration Ketorolac Tromethamine 15 mg 08/04/23 15:04 08/04/23 15:09 Ketorolac 30mg/Ml Vial IV 08/04/23 15:05 15 mg ONCE ONE Administration Ondansetron HCl 4 mg 08/04/23 13:25 08/04/23 13:37 Ondansetron 4mg/2ml Vial IV 08/04/23 13:26 4 mg ONCE ONE Administration ORDERS Category Date Time Status CT abdomen pelvis w con Stat Cat Scan 08/04/23 13:27 Completed Chest XR 2 view (NOT portable) [XR chest 2V] Stat Exams 08/04/23 13:25 Completed Bilirubin,Direct Stat Lab 08/04/23 15:02 Completed CBC w/Auto Diff [Complete Blood Count Auto Diff] Stat Lab 08/04/23 12:41 Completed CMP [Comprehensive Metabolic Panel] Stat Lab 08/04/23 12:41 Completed Lipase Stat Lab 08/04/23 12:41 Completed Troponin I Q2H Lab 08/04/23 12:41 Completed Troponin I Q2H Lab 08/04/23 15:02 Completed HEART Score HEART Score: 4 Medical Decision Narrative: Patient with history and exam per above presenting for evaluation of epigastric and left upper quadrant abdominal pain Diagnoses considered include Pancreatitis, gastritis, PUD, gastroparesis, referr ed pain from pneumonia, patient does not exhibit pleuritic component of this pain, no risk factors he reports for pulmonary embolism, although ACS does remain on the differential ED workup and treatment included: ED MEDICATIONS Generic Name Dose Route Start Last Admin Trade Name Freq PRN Reason Stop Dose Admin Lactated Ringer's 1,000 mls @ 999 mls/hr 08/04/23 16:16 08/04/23 16:28 Lactated Ringer's 1000 Ml Bag IV 08/04/23 17:16 999 mls/hr .Q1H1M ONE Administration Sodium Chloride 10 ml 08/04/23 13:55 Sodium Chloride 0.9% 10ml Syr (Rad Only) IV 09/03/23 13:54 NEEDED PRN Maintain IV Site Discontinued Medications Generic Name Dose Route Start Last Admin Trade Name Freq PRN Reason Stop Dose Admin Acetaminophen 1,000 mg 08/04/23 15:04 08/04/23 15:13 Acetaminophen 1,000mg/100ml Vial IV 08/04/23 15:05 1,000 mg ONCE ONE Administration Belladonna Alkaloids 60 ml 08/04/23 13:25 08/04/23 13:37 Belladonna Alkaloids 60 Ml Ml PO 08/04/23 13:26 60 ml ONCE ONE Administration Dicyclomine HCl 20 mg 08/04/23 16:16 08/04/23 16:27 Dicyclomine 10mg Capsule PO 08/04/23 16:17 20 mg ONCE ONE Administration Famotidine 40 mg 08/04/23 16:15 08/04/23 16:27 Famotidine 20mg Tablet PO 08/04/23 16:16 40 mg ONCE ONE Administration Lactated Ringer's 1,000 mls @ 999 mls/hr 08/04/23 13:25 08/04/23 13:37 Lactated Ringer's 1000 Ml Bag IV 08/04/23 14:25 999 mls/hr .Q1H1M ONE Administration Iopamidol 75 ml 08/04/23 13:55 08/04/23 13:56 Iopamidol-370 (76%);100ml Bottle IV 08/04/23 13:56 75 ml ONCE ONE Administration Ketorolac Tromethamine 15 mg 08/04/23 15:04 08/04/23 15:09 Ketorolac 30mg/Ml Vial IV 08/04/23 15:05 15 mg ONCE ONE Administration Ondansetron HCl 4 mg 08/04/23 13:25 08/04/23 13:37 Ondansetron 4mg/2ml Vial IV 08/04/23 13:26 4 mg ONCE ONE Administration ORDERS Category Date Time Status CT abdomen pelvis w con Stat Cat Scan 08/04/23 13:27 Completed Chest XR 2 view (NOT portable) [XR chest 2V] Stat Exams 08/04/23 13:25 Completed Bilirubin,Direct Stat Lab 08/04/23 15:02 Completed CBC w/Auto Diff [Complete Blood Count Auto Diff] Stat Lab 08/04/23 12:41 Completed CMP [Comprehensive Metabolic Panel] Stat Lab 08/04/23 12:41 Completed Lipase Stat Lab 08/04/23 12:41 Completed Troponin I Q2H Lab 08/04/23 12:41 Completed Troponin I Q2H Lab 08/04/23 15:02 Completed Troponin I Q2H Lab 08/04/23 17:30 Ordered Troponin I Q2H Lab 08/04/23 19:30 Ordered Labs were independently interpreted by me, significant for unconjugated hyperbilirubinemia, totaling 2.8, troponins within normal limits x 2, lipase within normal limits Imaging was independently visualized and interpreted by me, significant for no acute findings. Please refer to radiology report for full details. Upon repeat evaluation patient is tachycardic, states he continues to exhibit this epigastric abdominal pain. I discussed that it is highly unlikely that a large component of this pain is attributable to taking ascitic pancreatic enzyme on an empty stomach. That being said he is tachycardic at this time, has not been able to tolerate p.o. intake, will treat with additional liter of IV fluids as well as famotidine, Bentyl. Care was transferred to incoming physician Dr. Bart Arriaga: I assume primary responsibility for this patient after signout from previous physician. Independent interpretation of workup unremarkable other than elevated bilirubin. Fractionated bilirubin revealed this is all indirect. Also, patient has chronically elevated bilirubin. Has refused getting ERCPs outpatient due to concern for complications. LFTs normal otherwise, troponin negative and lipase negative. Conversation was had with patient regarding outpatient management, he is agreeable to this with outpatient GI already scheduled. I also told him I given referral to Dr. Ly, he is appreciated with this. Because patient at baseline without signs or symptoms of clinical decompensation, deemed appropriate for discharge. Results were relayed to patient who voiced understanding and were agreeable to outpatient management and follow up. At the time of discharge the patient was hemodynamically stable, tolerating PO, and mobilizing appropriately. Critical Care <Segundo Viveros MD - Last Filed: 08/04/23 16:46> Critical Care Time Critical Care Time: No
--- NOTE | 2023-08-04 13:19 | PC.NURSE ---
DR MART AT BEDSIDE
--- NOTE | 2023-08-04 13:25 | XR_ITS ---
FINAL REPORT CLINICAL HISTORY: abdominal pain radiating to chest COMPARISON: 10/06/2021 FINDINGS: PA and lateral views of the chest were obtained. The cardiac and mediastinal silhouettes are within normal limits. The lungs are clear. There is no pleural effusion or pneumothorax. No acute osseous abnormality is identified. IMPRESSION: No radiographic evidence of acute cardiac or pulmonary disease. Reviewed, Interpreted and Dictated by Joana Gomez MD Transcribed by Dorene Zhou Authenticated and . [facility]
--- NOTE | 2023-08-04 13:27 | CT_ITS ---
FINAL REPORT TECHNIQUE: Thin section axial images are obtained through the abdomen and pelvis after intravenous contrast. Reconstruction images were obtained from the axial data. Exam was performed using dose reduction techniques. CLINICAL HISTORY: acute onset epigastric pain COMPARISON: 03/30/2022 FINDINGS: LUNG BASES: Lung bases are clear. The 4 mm left lung nodule noted on the prior CT is stable in appearance when compared to the prior exam. Heart size is normal. LIVER: Homogeneous. No focal lesion. GALLBLADDER/BILIARY SYSTEM: Gallbladder is absent. No biliary dilatation. SPLEEN: Unremarkable. PANCREAS: Unremarkable. ADRENALS: Unremarkable. SYSTEM: No hydronephrosis, renal mass, or renal stone. Unremarkable urinary bladder. There is enlargement of the prostate, also noted on the prior exam and unchanged since that time. GI TRACT: No small bowel obstruction or dilatation. The appendix is not visualized. There are no secondary signs of periappendiceal inflammatory change. There are scattered diverticula in the distal colon without acute inflammatory change. LYMPH NODES/RETROPERITONEUM/MESENTERY: No lymphadenopathy. No abdominal aortic aneurysm. OTHER: No ascites. Remaining soft tissues without acute abnormality. BONES: No acute osseous abnormality. IMPRESSION: No acute intra-abdominal abnormality identified. Enlarged prostate, stable since the prior exam. 4 mm left lower lung nodule stable since the prior exam of March 2022. Reviewed, Interpreted and Dictated by Joana Gomez MD Transcribed by Shila Trevizo Authenticated and . [facility]
[2023-08-04] MEDS: BELLADONNA ALKALOIDS 60 ML ML PO (13:37)
[2023-08-04] MEDS: ONDANSETRON 4MG/2ML VIAL 4 MG IV (13:37)
[2023-08-04] MEDS: LACTATED RINGERS 1000ML 1,000 ML 999 ML IV ×2 (13:37→16:28)
[2023-08-04 13:41] LABS: Basophils # 0.1 K/mm3 (0-0.2); Basophils % 0.8 % (0.1-2.0); Eosinophils % 0.4 % (0.1-12.0); Hemoglobin 15.9 g/dL (14.1-18.0); Lymphocytes % 12.9 % (10-50); Mean Corpuscular HGB Conc 33.8 g/dL (31.8-35.4); Mean Corpuscular Hemoglobin 30.3 pg (27.0-31.2); Mean Corpuscular Volume 89.5 fl (80-94); Mean Platelet Volume 9.5 fl (7.4-10.4); Monocytes # 0.2 K/mm3 (0.1-1.0); Monocytes % 3.2 % (1.7-9.3); Neutrophils # 6.1 K/mm3 (1.8-7.8); Neutrophils % 82.7 % (37.0-80.0); Platelet Count 233 K/mm3 (142-424); Red Blood Count 5.25 M/mm3 (4.60-6.20); Red Cell Distribution Width 13.7 % (11.5-17.5); White Blood Count 7.4 K/mm3 (4.8-10.8)
[2023-08-04 13:46] LABS: Alanine Aminotransferase 29 U/L (12-78); Albumin Level 4.6 g/dl (3.5-5.0); Albumin/Globulin Ratio 1.7 (1.1-1.8); Alkaline Phosphatase 79 U/L (38-126); Anion Gap 10.9 mEq/L (5-15); Aspartate Amino Transferase 32 U/L (17-59); Bilirubin,Total 2.8 mg/dl (0.2-1.3); Blood Urea Nitrogen 11 mg/dl (9-20); Calcium 9.3 mg/dl (8.4-10.2); Carbon Dioxide 29 mmol/L (22.0-30.0); Chloride 105 mmol/L (98-107); Creatinine Clearance Estimated 80 mL/min (50-200); Estimated Glomerular Filt Rate 97 ml/min (>60); GFR (African American) 117 ML/MIN (>60); Globulin 2.7 g/dL (1.3-3.2); Glucose 115 mg/dl (74-100); Lipase 67 U/L (23-300); Potassium 3.9 mmoL/L (3.5-5.1); Sodium 141 mmol/L (136-145); Total Protein,Serum 7.3 g/dl (6.3-8.2)
[2023-08-04] MEDS: IOPAMIDOL-370 (76%);100ML BOTTLE 75 ML IV (13:56)
[2023-08-04 13:58] LABS: Troponin I 0.02 ng/ml (0.00-0.034)
[2023-08-04] MEDS: KETOROLAC 30MG/ML VIAL 15 MG IV (15:09)
[2023-08-04] MEDS: ACETAMINOPHEN 1,000MG/100ML VIAL 1000 MG IV (15:13)
[2023-08-04 15:46] LABS: Troponin I 0.02 ng/ml (0.00-0.034)
--- NOTE | 2023-08-04 16:05 | PC.NURSE ---
DR MART AT BEDSIDE
[2023-08-04] MEDS: DICYCLOMINE 10MG CAPSULE 20 MG PO (16:27)
[2023-08-04] MEDS: FAMOTIDINE 20MG TABLET 40 MG PO (16:27)
== END 2023-08-04 18:28 | disposition home or self-care (01) ==
PROVIDERS: Emergency Medicine; Emergency Provider Emergency Medicine; PCP Internal Medicine
DX: R10.13 Epigastric pain (principal); R10.12 Left upper quadrant pain; R07.9 Chest pain, unspecified; E80.6 Other disorders of bilirubin metabolism; R00.0 Tachycardia, unspecified; I25.10 Atherosclerotic heart disease of native coronary artery without angina pectoris
CPT/HCPCS: 36415; 71046; 74177; 80053; 82248; 83690; 84484; 85025; 93005; 96361; 96374; 96375; 99285; J0131; J2405; Q9967

== ENCOUNTER 2024-01-18 07:40 | Outpatient (CLI) | payer MEDICARE, OTHER, SELFPAY ==
--- NOTE | 2024-01-18 07:40 | CA_ITS ---
FINAL REPORT TECHNIQUE: Color Doppler, duplex Doppler and sterling scale sonography of the bilateral neck vasculature was performed. Velocities were measured in the carotid arteries. Stenosis evaluation based on velocity criteria. CLINICAL HISTORY: dizziness, hearing heartbeat in ears COMPARISON: None FINDINGS: The peak systolic velocity of the right common carotid artery is 139 cm/sec and internal carotid artery 83.4 cm/sec. The diastolic velocity in the internal carotid artery is 26.5 cm/sec. The ICA/CCA ratio is 0.9. Visually, a small amount of plaque is seen. These findings are consistent with less than 50% stenosis. The external carotid artery is patent. The right vertebral artery is patent with antegrade flow. The peak systolic velocity of the left common carotid artery is 146 cm/sec and internal carotid artery 80.4 cm/sec. The diastolic velocity in the internal carotid artery is 28 cm/sec. The ICA/CCA ratio is 0.6. Visually, a small amount of plaque is seen. These findings are consistent with less than 50% stenosis. The external carotid artery is patent. The left vertebral artery is patent with antegrade flow. IMPRESSION: No evidence of significant carotid stenosis. Bilateral patent vertebral arteries. If indicated, CTA or MRA could further evaluate. Reviewed, Interpreted and Dictated by Jay Jay Llamas III, MD Transcribed by Shila Trevizo Authenticated and [facility]
== END 2024-01-18 23:59 | disposition home or self-care (01) ==
LOC: RT 07:40
PROVIDERS: PCP Internal Medicine; Visit Provider Nurse Practitioner
DX: R42 Dizziness and giddiness (principal)
CPT/HCPCS: 93880

== ENCOUNTER 2024-04-24 14:00 | Outpatient (CLI) | payer MEDICARE, OTHER, SELFPAY ==
[2024-04-24 17:32] LABS: Basophils # 0.1 K/mm3 (0-0.2); Basophils % 1.7 % (0.1-2.0); Eosinophils # 0.1 K/mm3 (0.0-0.4); Eosinophils % 2.3 % (0.1-12.0); Hematocrit 45.2 % (42.0-52.0); Hemoglobin 16.1 g/dL (14.1-18.0); Lymphocytes # 1.5 K/mm3 (0.7-4.5); Lymphocytes % 28.7 % (10-50); Mean Corpuscular HGB Conc 35.6 g/dL (31.8-35.4); Mean Corpuscular Volume 86.9 fl (80-94); Mean Platelet Volume 9.8 fl (7.4-10.4); Monocytes # 0.4 K/mm3 (0.1-1.0); Monocytes % 8.4 % (1.7-9.3); Neutrophils # 3.1 K/mm3 (1.8-7.8); Neutrophils % 58.9 % (37.0-80.0); Platelet Count 233 K/mm3 (142-424); Red Cell Distribution Width 13.8 % (11.5-17.5); White Blood Count 5.2 K/mm3 (4.8-10.8)
[2024-04-24 17:59] LABS: Alanine Aminotransferase 18 U/L (12-78); Albumin Level 4.5 g/dl (3.5-5.0); Alkaline Phosphatase 67 U/L (38-126); Amylase 54 U/L (30-110); Anion Gap 14.8 mEq/L (5-15); Aspartate Amino Transferase 26 U/L (17-59); Blood Urea Nitrogen 14 mg/dl (9-20); Calcium 9.8 mg/dl (8.4-10.2); Carbon Dioxide 27 mmol/L (22.0-30.0); Chloride 106 mmol/L (98-107); Chol/HDL Ratio 4.1 (1-3.5); Cholesterol 192 mg/dl (140-200); Estimated Glomerular Filt Rate 84 ml/min (>60); GFR (African American) 102 ML/MIN (>60); Globulin 2.2 g/dL (1.3-3.2); Glucose 89 mg/dl (74-100); HDL Cholesterol 47 mg/dl (40-60); Potassium 4.8 mmoL/L (3.5-5.1); Sodium 143 mmol/L (136-145); Total Protein,Serum 6.7 g/dl (6.3-8.2); Triglycerides 191 mg/dl (30-150); VLDL Cholesterol 38 mg/dL (0-40)
[2024-04-24 18:10] LABS: Direct LDL Cholesterol 116.35 mg/dL (100-129)
[2024-04-24 18:23] LABS: Erythrocyte Sedimentation Rate 16 mm/hr (0-20)
[2024-04-24 18:29] LABS: Prostate Specific Ag Screen 5.6 ng/ml (0.0-4.0)
== END 2024-04-24 23:59 | disposition home or self-care (01) ==
LOC: LAB.DROPOF 04-25 06:49
PROVIDERS: PCP Internal Medicine; Visit Provider Internal Medicine
DX: M54.6 Pain in thoracic spine (principal); R07.9 Chest pain, unspecified; R10.9 Unspecified abdominal pain; E78.5 Hyperlipidemia, unspecified; Z12.5 Encounter for screening for malignant neoplasm of prostate
CPT/HCPCS: 80053; 80061; 82150; 85025; 85651; G0103

== ENCOUNTER 2024-06-24 11:06 | Outpatient (CLI) | payer MEDICARE, OTHER, SELFPAY ==
[2024-06-25 08:25] LABS: FSH 2.2 mIU/mL (1.5-12.4); LH 2.8 mIU/mL (1.7-8.6); Testosterone,Total 284 ng/dL (264-916)
[2024-06-27 03:36] LABS: Testosterone,Free 3.7 pg/mL (6.6-18.1)
== END 2024-06-24 23:59 | disposition home or self-care (01) ==
LOC: LAB 11:09
PROVIDERS: PCP Internal Medicine; Visit Provider Anesthesiology Pain Medicine
DX: E29.1 Testicular hypofunction (principal)
CPT/HCPCS: 36415; 83001; 83002; 84402; 84403

== ENCOUNTER 2024-07-08 11:11 | Outpatient (CLI) | payer MEDICARE, OTHER, SELFPAY ==
[2024-07-10 11:11] LABS: Pancreatic Elastase, Fecal >800 (>200)
== END 2024-07-08 23:59 | disposition home or self-care (01) ==
LOC: LAB 11:14
PROVIDERS: PCP Internal Medicine; Visit Provider Nurse Practitioner Family
DX: K90.9 Intestinal malabsorption, unspecified (principal)
CPT/HCPCS: 82656

== ENCOUNTER 2024-07-12 10:05 | Outpatient (CLI) | payer MEDICARE, OTHER, SELFPAY ==
--- NOTE | 2024-07-12 10:09 | NM_ITS ---
FINAL REPORT CLINICAL HISTORY: OSTEOARTHRITIS, LT KNEE REPLACEMENT PAIN IN MULTIPLE JOINTS COMPARISON: None FINDINGS: EXISTING RELEVANT IMAGING STUDIES: No prior bone scan or relevant imaging TECHNIQUE: The patient was injected with 26.7 mCi of technetium 99-[id number]. 3 hour delayed images were obtained. FINDINGS: There is normal uptake in the bony pelvis and spine. There is abnormal uptake in the right lateral tibial plateau, that is probably degenerative. There is uptake in the left knee at the site of a recent left knee arthroplasty. There is increased uptake in the right costosternal junction, that may represent prior trauma or osteochondritis. No other foci of abnormal uptake are identified. IMPRESSION: Abnormal uptake in the right lateral tibial plateau, probably degenerative. Increased uptake in the third right costosternal junction, likely prior trauma or costochondritis. No abnormal uptake in the bony pelvis or spine to indicate metastatic disease. Reviewed, Interpreted and Dictated by Jono Olguin MD Transcribed by Shila Trevizo Authenticated and [facility]
[2024-07-12] MEDS: ISOTOPE MDP (BONE);1 DOSE VIAL IV (10:39)
[2024-07-12] MEDS: SODIUM CHLORIDE 0.9% 10ML SYR (RAD ONLY) 10 ML IV (10:39)
== END 2024-07-12 23:59 | disposition home or self-care (01) ==
LOC: RAD 10:06
PROVIDERS: PCP Internal Medicine; Visit Provider Anesthesiology Pain Medicine
DX: M15.9 Polyosteoarthritis, unspecified (principal)
CPT/HCPCS: 78306; A9503

== ENCOUNTER → 2024-07-18 11:31 | Day surgery (SDC) | payer MEDICARE, OTHER, SELFPAY ==
[2024-07-16 12:13] VITALS: BMI 26.6
[2024-07-18 11:44] VITALS: BP 144/89; PULSE 87; RESP 20; TEMP 36.6; O2SAT 98; BMI 26.6
[2024-07-18] MEDS: LACTATED RINGERS 1000ML 1,000 ML 50 ML IV (11:51)
--- NOTE | 2024-07-18 11:53 | P.PNANES_ITS ---
[facility] Disclaimer: The information contained in this section may have been updated after the patient was seen, as this information can be updated by other users. Medical History Dizziness CAD (coronary artery disease) Sinusitis Perforated nasal septum Tinnitus PVC (premature ventricular contraction) SOB (shortness of breath) on exertion Palpitations Arthritis Fibromyalgia Surgical History History of total knee replacement History of appendectomy History of cholecystectomy Family History Other Family history of cancer Family history of diabetes mellitus type II Family history of myocardial infarction Family history of stroke Social History Smoking Status: Never smoker alcohol intake: current alcohol intake frequency: a few times a month substance use type: denies use current occupational status: retired Travel in the last 8 weeks: None household members: spouse housing: house current occupational exposures/hazards: No caffeine: Yes Have you lived/traveled outside [place] in past 30 days?: No Contact w/someone who lives/traveled outside [place] past 30 days?: No Exposure to someone with infectious disease in past 14 days?: No Do you have a fever (greater than 100.4 F or 38 C)?: No Have you tested positive for COVID-19: No Exposed to someone with COVID-19 in past 14 days?: No Do you have a sore throat?: No Do you have a cough?: No Do you have any weakness?: No Do you have any diarrhea?: No Are you experiencing any unusual bleeding?: No Do you have any muscle aches/pain?: No Do you have any abdominal pain?: No Are you experiencing loss of taste or smell?: No [facility] Anesthesia Checklist Patient Identification Patient Identification: Arm Band Structural Data Admitted From: Home Planned Operative Procedure/s: EGD Consent for Planned Operative Procedure(s) Verified: Yes Verified Documents: Surgical Consent and History and Physical NPO Status Verified Time NPO: 00:00 Additional verifications Anesthesia Reactions: No Airway Assessment Mallampati Score:: Class II C-Spine Mobility Assessed: Yes TMJ Mobility Assessed: Yes Dentition: Edentulous Neurological Assessment Level of Consciousness: Awake, Alert and Appropriate Anesthesia Plan Anesthesia Risk discussed: Yes Anesthesia Plan: Verified ASA Class: II Anesthesia Type: MAC
[2024-07-18 12:13] VITALS: O2SAT 98
--- NOTE | 2024-07-18 12:23 | P.HP_ITS ---
History of Present Illness *Admission Date: 07/18/24 *Reason for visit:: Dyspepsia *History of present illness: Mr. Pretty is a 69-year-old gentleman who is here for burning epigastric discomfort, bloating and nausea. The examination is deemed medically necessary for EGD. The patient has been seen, interviewed and examined prior to the procedure by both myself and the anesthesia provider. [facility] Disclaimer: The information contained in this section may have been updated after the patient was seen, as this information can be updated by other users. Medical History (Updated 07/18/24 @ 12:27 by Brent Herman II, MD) Epigastric pain Dizziness CAD (coronary artery disease) Sinusitis Perforated nasal septum Tinnitus PVC (premature ventricular contraction) SOB (shortness of breath) on exertion Palpitations Arthritis Fibromyalgia Surgical History History of total knee replacement History of appendectomy History of cholecystectomy Family History Other Family history of cancer Family history of diabetes mellitus type II Family history of myocardial infarction Family history of stroke Social History Smoking Status: Never smoker alcohol intake: current alcohol intake frequency: a few times a month substance use type: denies use current occupational status: retired Travel in the last 8 weeks: None household members: spouse housing: house current occupational exposures/hazards: No caffeine: Yes Have you lived/traveled outside [place] in past 30 days?: No Contact w/someone who lives/traveled outside [place] past 30 days?: No Exposure to someone with infectious disease in past 14 days?: No Do you have a fever (greater than 100.4 F or 38 C)?: No Have you tested positive for COVID-19: No Exposed to someone with COVID-19 in past 14 days?: No Do you have a sore throat?: No Do you have a cough?: No Do you have any weakness?: No Do you have any diarrhea?: No Are you experiencing any unusual bleeding?: No Do you have any muscle aches/pain?: No Do you have any abdominal pain?: No Are you experiencing loss of taste or smell?: No Other Medical History Have you received the Flu Vaccine for this season: No Have you received the Pneumonia Vaccine: No Review of Systems Review of Systems Review of systems (narrative): Negative *Cardiovascular Comments: Negative *Gastrointestinal Comments: Negative *Genitourinary Comments: Negative *Musculoskeletal Comments: Negative *Neurologic Comments: Negative Meds Home Medications and Allergies Home Medications ?Medication ?Instructions ?Recorded ?Confirmed ?Type hydrocodone 7.5 mg-acetaminophen 1 tab PO TID Pain #90 tabs 01/22/19 07/16/24 History 325 mg tablet fluticasone propionate 50 2 spray intranasal DAILY #16 grams 12/19/23 07/16/24 Rx mcg/actuation nasal spray,suspension diazepam 2 mg tablet 2 mg PO TID PRN anxiety #90 tabs 05/09/24 07/16/24 Rx bismuth subsalicylate 262 mg/15 mL 524 mg PO Q30M PRN Stomach Upset 07/08/24 07/16/24 History oral suspension (Pepto-Bismol) esomeprazole magnesium 40 mg 40 mg PO DAILY #90 caps 07/08/24 07/16/24 Rx capsule,delayed release New Prescriptions to Start Prescriptions: Allergies Allergy/AdvReac Type Severity Reaction Status Date / Time NSAIDS (Non-Steroidal Allergy Other Verified 07/18/24 11:41 Anti-Inflamma Exam Data for Last 24 hours Vital signs and Labs for Last 24 Hours: Temp Pulse Resp BP Pulse Ox O2 Del Method O2 Flow Rate 97.9 F 87 20 144/89 H 98 Room Air 5 07/18/24 11:44 07/18/24 11:44 07/18/24 11:44 07/18/24 11:44 07/18/24 11:44 07/18/24 12:13 07/18/24 12:13 I & O for Last 24 hours: Intake & Output 07/15/24 07/16/24 07/17/24 07/18/24 23:59 23:59 23:59 23:59 Weight 180 lb 180 lb *Routine HEENT Exam Head: Present normocephalic Eye: Present EOMI and PERRL ENT: Present mucous membranes moist *Routine Neck Exam Neck: Present supple *Routine Respiratory Exam Respiratory: Present CTA bilaterally *Routine Cardiovascular Exam Cardiovascular: Present RRR *Routine Abdominal Exam Abdominal: Present soft and normoactive bowel sounds; Absent tenderness *Routine Rectal Exam Rectal:: deferred *Routine Genitalia Exam Genitalia:: deferred *Routine Extremities Exam Extremities: Absent cyanosis, clubbing or edema *Routine Skin Exam Skin: Present warm; Absent rash *Routine Neurological Exam Neurological: Present alert and oriented X3 Assessment and Plan *Assessment and plan (1) Bloating: Status: Acute Category: Medical Code(s): R14.0 - Abdominal distension (gaseous) (2) Dyspepsia: Status: Acute Category: Medical Code(s): R10.13 - Epigastric pain (3) Epigastric pain: Status: Acute Category: Medical Code(s): R10.13 - Epigastric pain Plan A/P: 1. Dyspepsia, bloating and epigastric pain is the preprocedural diagnosis. The patient will be anesthetized/sedated using MAC sedation. The patient has been seen and examined. Cardiac and lung assessment prior to the examination is stable. Proceed with planned EGD
--- NOTE | 2024-07-18 12:32 | P.PCN_ITS ---
[facility] Procedure Note Date: 07/18/24 Time: 12:32 Procedure Note:: Upper Endoscopy Procedure Report: Esophagogastroduodenoscopy with cold biopsies Endoscopost: Brent Herman II, MD Referring Physician: Pieter Gordon MD Date of Procedure: July 18, 2024 Equipment: Olympus GIF 190 standard upper endoscope Sedation: MAC sedation Indications: Mr. Pretty is a 69-year-old gentleman with chronic right upper quadrant abdominal pain. He did have a HIDA scan with a low ejection fraction and did not get improvement after cholecystectomy. His MRI had shown a small 5 mm pancreatic cystic lesion adjacent to the common bile duct. He has had multiple ED visits with CAT scans, ultrasounds, MRIs. He had an EGD with Dr. Chavez in November 2021. 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 He did see Dr. Zachary Hernandez at the [facility] and had an endoscopic ultrasound with celiac plexus nerve block with resolution of his right upper quadrant abdominal pain. The patient does state that more recently the epigastric pain has returned with some burning abdominal discomfort, mild nausea and some bloating and gassiness. He reports no belching, heartburn or reflux. His recent stool testing had shown normal fecal elastase (greater than 800 mcg/g). Procedure: Prior to the procedure, a history and physical exam was performed, and patient's medications and allergies were reviewed. The risks, benefits and alternatives of the sedation and procedure were discussed with the patient. All questions were answered and informed consent was obtained. The patient was brought to the procedure room. Patient identification and proposed procedure were verified by the physician and the nurse. The patient was placed in a left lateral decubitus position and the scope was passed under direct vision. Throughout the procedure, the patient's blood pressure, pulse, and oxygen saturations were monitored continuously. The upper GI endoscopy was accomplished without difficulty. The patient tolerated the procedure well. Findings: The scope was passed directly into the upper esophagus and advanced to the third portion of the duodenum. The post bulbar duodenum, ampulla and duodenal bulb were normal with normal mucosa and conniventes. The scope was withdrawn through a normal duodenal bulb and pylorus into the stomach. There was bile reflux with moderate linear reactive gastropathy of the antrum. The body and fundus of the stomach were normal. Upon retroflexion there was no hiatal hernia. Cold biopsies were taken from the antrum. The scope was then withdrawn into the esophagus. There was no evidence of reflux esophagitis or Green's. The remainder of the esophageal mucosa was normal. Impression: 1. Bile reflux with moderate linear reactive gastropathy of antrum Plan: I will discuss the findings with the patient and family. I would consider [id number] herbal Iberogast and sucralfate.
[2024-07-18 12:39] VITALS: BP 119/82; PULSE 83; RESP 15; TEMP 36.6; O2SAT 92
[2024-07-18 12:49] VITALS: BP 109/80; PULSE 76; RESP 16; O2SAT 94
[2024-07-18 12:59] VITALS: BP 110/80; PULSE 69; RESP 16; O2SAT 94
[2024-07-18 13:09] VITALS: BP 120/81; PULSE 65; RESP 18; O2SAT 96
== END | disposition home or self-care (01) ==
PROVIDERS: PCP Internal Medicine; Visit Provider Internal Medicine Gastroenterology
PROC: 0DJ08ZZ Inspection of Upper Intestinal Tract, Via Natural or Artificial Opening Endoscopic (ICD-10-PCS; CPT 43239; principal; 2024-07-18 13:00)
DX: R14.0 Abdominal distension (gaseous) (principal); K30 Functional dyspepsia; K29.60 Other gastritis without bleeding; K31.9 Disease of stomach and duodenum, unspecified
CPT/HCPCS: 43239; J7120

== ENCOUNTER 2024-08-14 08:55 | Emergency (ER) | payer MEDICARE, OTHER, SELFPAY ==
[2024-08-14 09:11] VITALS: BP 175/106; PULSE 82; RESP 20; TEMP 36.8; O2SAT 96; BMI 26.9
--- NOTE | 2024-08-14 09:18 | XR_ITS ---
FINAL REPORT CLINICAL HISTORY: Chest pain, high bp COMPARISON: 08/04/2023 FINDINGS: CHEST 2 VIEWS PA AND LATERAL The heart is normal in size. The mediastinum is unremarkable. The lungs are clear. There is no pneumothorax. IMPRESSION: No acute process. Reviewed, Interpreted and Dictated by Richard Arreola MD Transcribed by Unique Phillip Authenticated and [facility]
--- NOTE | 2024-08-14 09:19 | ED_ITS ---
Discharge Plan Disposition Patient Disposition: Home, Self-Care Condition: Good Prescriptions Prescriptions: No Action bismuth subsalicylate [Pepto-Bismol] 262 mg/15 mL suspension 524 mg PO Q30M PRN (Reason: gerd) Rx Instructions: do not exceed 8 doses in a 24 hour period polyethylene glycol 3350 [Miralax] 17 gram/dose powder 17 g PO DAILY Qty: 510 11RF hydrocodone-acetaminophen 7.5-325 mg tablet 1 tab PO TID Qty: 90 fluticasone propionate 50 mcg/actuation spray,suspension 2 spray intranasal DAILY Qty: 16 5RF Rx Instructions: 2 sprays in each nostril daily diazepam 2 mg tablet 2 mg PO TID PRN (Reason: anxiety) Qty: 90 0RF sucralfate 100 mg/mL suspension 10 ml PO BID Qty: 1000 12RF Rx Instructions: Please take 10 mL p.o. twice daily Referrals Follow up/Referrals: Pieter Gordon MD [Primary Care Provider] - See instructions Activity Restrictions/Add. Instructions Additional Instructions/Restrictions: Follow-up with your primary care physician and vending machine refiller regarding your blood pressure and elevated heart rate. If you develop any new or worsening symptoms, or if you become concerned for your health for any reason, return to the emergency department for evaluation Clinical Impressions Clinical Impression: Tachycardia, High blood pressure Print Language Print Language: Faroese Discharge ED Provider: Lisandro Calzada Adult HPI General Chief complaint: Recheck/Abnormal Lab/Rx Stated complaint: abd pain, high heart rate,poss dehydrated Time Seen by Provider: 08/14/24 09:08 Mode of Arrival: Ambulatory Source of Information: Patient Description of Symptoms (Recalled from ER Triage Doc. by RN): pt states he is here alvaro he just dont feel right and his heart rate has been elevated at home complains of no pain and recently got over the flu, grayson x4 upon triage, vitals wnl except hypertensive History of Present Illness HPI narrative: Sonido Pretty is a 69-year-old male with a past medical history of coronary artery disease followed by Dr. Thurman, epigastric pain, tinnitus who presents to the emergency department for complaints of elevated heart rate. Patient states he has chronic epigastric pain and has had a celiac nerve block approximately 2 years ago that initially helped his pain. He states that usually he has pain when he wakes up every morning, however yesterday he did not have any pain was able to eat breakfast. He worked outside all day and ate dinner at approximately 5 PM. At 7 PM, he noticed that he had some burning in his epigastric region and took Tums and Pepto-Bismol. His heart rate at that time was 100 bpm. His heart rate stated at 100 bpm until he went to bed at 11 PM. He was on his way to the emergency department at that point but then his heart rate improved prior to coming into the emergency department, so he went home prior to checking in. He woke up this morning and his heart rate was again at 100 bpm. He got up and use the restroom and checked his heart rate again when he got back and it was 120 bpm. He took 2 Valium before coming to the emergency department this morning. He reports right shoulder pain since working yesterday but denies any pressure in his chest. Denies any cough. Does not have any significant abdominal pain at this time. Related Data Home Medications ?Medication ?Instructions ?Recorded ?Confirmed hydrocodone 7.5 mg-acetaminophen 1 tab PO TID Pain #90 tabs 01/22/19 08/14/24 325 mg tablet bismuth subsalicylate 262 mg/15 mL 524 mg PO Q30M PRN gerd 08/12/24 08/14/24 oral suspension (Pepto-Bismol) Previous Rx's ?Medication ?Instructions ?Recorded fluticasone propionate 50 2 spray intranasal DAILY #16 grams 12/19/23 mcg/actuation nasal spray,suspension sucralfate 100 mg/mL oral 10 ml PO BID #1,000 mL 07/18/24 suspension diazepam 2 mg tablet 2 mg PO TID PRN anxiety #90 tabs 08/12/24 polyethylene glycol 3350 17 17 g PO DAILY #510 grams 08/12/24 gram/dose oral powder (Miralax) Allergies Allergy/AdvReac Type Severity Reaction Status Date / Time NSAIDS (Non-Steroidal Allergy Other Verified 08/14/24 09:26 Anti-Inflamma [facility] Disclaimer: The information contained in this section may have been updated after the patient was seen, as this information can be updated by other users. Medical History Epigastric pain Dizziness CAD (coronary artery disease) Sinusitis Perforated nasal septum Tinnitus PVC (premature ventricular contraction) SOB (shortness of breath) on exertion Palpitations Arthritis Fibromyalgia Surgical History History of total knee replacement History of appendectomy History of cholecystectomy Family History Other Family history of cancer Family history of diabetes mellitus type II Family history of myocardial infarction Family history of stroke Social History Smoking Status: Never smoker alcohol intake: current alcohol intake frequency: a few times a month substance use type: denies use current occupational status: retired Travel in the last 8 weeks: None household members: spouse housing: house current occupational exposures/hazards: No caffeine: Yes Have you lived/traveled outside [place] in past 30 days?: No Contact w/someone who lives/traveled outside US past 30 days?: No Exposure to someone with infectious disease in past 14 days?: No Do you have a fever (greater than 100.4 F or 38 C)?: No Have you tested positive for COVID-19: No Exposed to someone with COVID-19 in past 14 days?: No Do you have a sore throat?: No Do you have a cough?: No Do you have any weakness?: No Do you have any diarrhea?: No Are you experiencing any unusual bleeding?: No Do you have any muscle aches/pain?: No Do you have any abdominal pain?: No Are you experiencing loss of taste or smell?: No Other Medical History Have you received the Flu Vaccine for this season: No Have you received the Pneumonia Vaccine: No ROS Obtained: Yes Systems reviewed as appropriate & no additional complaints except as documented Physical Exam General General appearance: alert and in no apparent distress Comment: anxious Head Head exam: atraumatic Eye Eye exam: Present normal appearance ENT ENT exam: Present normal external ear exam Neck Neck exam: Present full ROM Chest Chest inspection: Present symmetric chest wall rise Respiratory Respiratory exam: Present normal lung sounds bilaterally; Absent respiratory distress, wheezes or stridor Cardiovascular Cardiovascular exam: Present regular rate and normal rhythm Abdominal Exam Abdominal exam: Present soft; Absent distention, tenderness or guarding exam: Present deferred Extremities Exam Extremities exam: Present normal inspection Back Exam Back exam: Present normal inspection Neurological Exam Neurological exam: Present alert and oriented X3 Psychiatric Psychiatric exam: Present normal affect Skin Skin exam: Present warm and dry Medical Decision Making Medical Records Screening: Per USPSTF and CDC recommendations, given the prevalence of disease in our region, it is our hospital?s policy to screen for HIV and viral Hepatitis for all patients aged 18 and over and those with ongoing risk factors. Javan Inquiry Pt receiving controlled substance: No Vital Signs: 08/14/24 09:11 08/14/24 09:30 08/14/24 10:00 Temperature 98.2 F Temperature Source Oral Pulse Rate 76 90 Pulse Rate [Left Radial] 82 Respiratory Rate 20 15 18 Blood Pressure 154/87 H Blood Pressure [Right Arm] 175/106 H Blood Pressure Mean [Right Arm] 129 02 Sat by Pulse Oximetry 96 98 96 Oxygen Delivery Method Room Air Room Air 08/14/24 10:30 08/14/24 11:00 08/14/24 11:47 Temperature 98.2 F Temperature Source Pulse Rate 85 79 65 Pulse Rate [Left Radial] Respiratory Rate 17 13 Blood Pressure 135/85 152/87 H Blood Pressure [Right Arm] Blood Pressure Mean [Right Arm] 02 Sat by Pulse Oximetry 96 96 Oxygen Delivery Method Room Air Room Air Lab Data Lab Results 08/14/24 09:31: WBC 4.8, RBC 4.80, Hgb 14.1, Hct 40.3 L, MCV 84.0, MCH 29.4, MCHC 35.0, RDW 12.7, Plt Count 186, MPV 10.2, Neut % (Auto) 62.2, Lymph % (Auto) 22.3, [place] % (Auto) 11.3 H, Eos % (Auto) 2.5, Baso % (Auto) 1.3, Neut # (Auto) 3.0, Lymph # (Auto) 1.1, [place] # (Auto) 0.5, Eos # (Auto) 0.1, Baso # (Auto) 0.1, Sodium 140, Potassium 4.1, Chloride 107, Carbon Dioxide 27, Anion Gap 10.1, BUN 13, Creatinine 0.80, Estimated Creat Clear 84, Estimated GFR 96, Est GFR ( Amer) 117, Glucose 101 H, Calcium 9.3, Total Bilirubin 2.7 H, AST 31, ALT 25, Alkaline Phosphatase 68, Troponin I 0.02, Total Protein 6.9, Albumin 4.5, Globulin 2.4, Albumin/Globulin Ratio 1.9 H, Lipase 60 08/14/24 11:07: Troponin I 0.02 08/14/24 09:31 08/14/24 09:31 Orders (Tests/Meds): ED MEDICATIONS Discontinued Medications Generic Name Dose Route Start Last Admin Trade Name Frejosé PRN Reason Stop Dose Admin Lactated Ringer's 1,000 mls @ 999 mls/hr 08/14/24 09:18 08/14/24 09:34 Lactated Ringer's 1000 Ml Bag IV 08/14/24 10:18 999 mls/hr .Q1H1M ONE Administration ORDERS Category Date Time Status CXR 2 view (NOT portable) [XR chest 2V] Stat Exams 08/14/24 09:18 Completed CBC w/Auto Diff [Complete Blood Count Auto Diff] Stat Lab 08/14/24 09:31 Completed CMP [Comprehensive Metabolic Panel] Stat Lab 08/14/24 09:31 Completed Lipase Stat Lab 08/14/24 09:31 Completed Troponin I Q3H Lab 08/14/24 11:07 Completed Troponin I Stat Lab 08/14/24 09:31 Completed HEART Score History (anamnesis): Slightly suspicious ECG: Normal Age: >65 years Risk factors: Atherosclerosis history Troponin: </= normal limit HEART Score: 4 Medical Decision Narrative: Sonido Pretty is a 69-year-old male with a past medical history of coronary artery disease followed by Dr. Thurman, epigastric pain, tinnitus who presents to the emergency department for complaints of elevated heart rate. Patient states he has chronic epigastric pain and has had a celiac nerve block approximately 2 years ago that initially helped his pain. He states that usually he has pain when he wakes up every morning, however yesterday he did not have any pain was able to eat breakfast. He worked outside all day and ate dinner at approximately 5 PM. At 7 PM, he noticed that he had some burning in his epigastric region and took Tums and Pepto-Bismol. His heart rate at that time was 100 bpm. His heart rate stated at 100 bpm until he went to bed at 11 PM. He was on his way to the emergency department at that point but then his heart rate improved prior to coming into the emergency department, so he went home prior to checking in. He woke up this morning and his heart rate was again at 100 bpm. He got up and use the restroom and checked his heart rate again when he got back and it was 120 bpm. He took 2 Valium before coming to the emergency department this morning. He reports right shoulder pain since working yesterday but denies any pressure in his chest. Denies any cough. Does not have any significant abdominal pain at this time. On arrival, patient is hypertensive with blood pressure 175/106, heart rate within normal limits at 82 bpm. Breathing comfortably on room air with oxygen saturation 96% SpO2. Afebrile. Physical exam, stated above, revealed an anxious appearing male in no acute distress. Cardiopulmonary exam is unremarkable. Abdomen is soft, nontender nondistended. He he appears maybe mildly dehydrated but overall well Differential diagnosis includes, but is not limited to: ACS, dehydration, pneumonia, pancreatitis, electrolyte derangement, GISELA, among others. Workup in the emergency department included: 2 view chest x-ray, EKG, troponin, lipase, CMP, CBC. The patient was treated with 1 L lactated Ringer's. EKG unremarkable as stated above. Chest x-ray interpreted by me personally prior to official radiology read and demonstrated no focal consolidations, no pneumothorax, no pulmonary effusion, no widening of the mediastinum or pneumomediastinum. See radiology report for final details. Laboratory workup showed no leukocytosis, no anemia. CMP unremarkable nonactionable. Patient's bilirubin is elevated at 2.7, however he has chronically elevated bilirubin and this is largely unchanged from previous levels and per previous documentation, patient has declined undergoing ERCP. Liver enzymes otherwise within normal limits. Lipase within normal limits at 60, initial troponin of 0.02, which is unchanged from patient's baseline based on previous results. Throughout the entire ED stay, patient's heart rate remained within normal limits. Patient's heart score is 4. He notes that he is followed closely by his vending machine refiller. Given his unremarkable workup today, is felt that he is appropriate for discharge at this time with plan to follow-up with his primary care physician and vending machine refiller. Is felt that given his exertion yesterday while working outside, mild dehydration may have been a component to his tachycardia. Return precautions were given. All questions were answered. He demonstrated understanding and was agreement with this plan. He was then discharged from the emergency department in stable condition. Critical Care Critical Care Time Critical Care Time: No
[2024-08-14 09:30] VITALS: PULSE 76; RESP 15; O2SAT 98
--- NOTE | 2024-08-14 09:32 | ECG_ITS ---
APPROVED REPORT Exam: Resting ECG HR:78 bpm ECG Measurements Heart Rate 78 AXES MS 153 P 44 QRSd 92 QRS 20 QT 376 T 14 QTc 410 Conclusion SINUS RHYTHM NORMAL ECG No STEMI Electronically signed by : AUDREY BARRY, 08/15/2024 07:39:25
[2024-08-14] MEDS: LACTATED RINGERS 1000ML 1,000 ML 999 ML IV (09:34)
[2024-08-14 09:40] LABS: Basophils # 0.1 K/mm3 (0-0.2); Basophils % 1.3 % (0.1-2.0); Eosinophils # 0.1 K/mm3 (0.0-0.4); Eosinophils % 2.5 % (0.1-12.0); Hematocrit 40.3 % (42.0-52.0); Hemoglobin 14.1 g/dL (14.1-18.0); Lymphocytes # 1.1 K/mm3 (0.7-4.5); Lymphocytes % 22.3 % (10-50); Mean Corpuscular Hemoglobin 29.4 pg (27.0-31.2); Mean Platelet Volume 10.2 fl (7.4-10.4); Monocytes # 0.5 K/mm3 (0.1-1.0); Monocytes % 11.3 % (1.7-9.3); Neutrophils % 62.2 % (37.0-80.0); Platelet Count 186 K/mm3 (142-424); Red Cell Distribution Width 12.7 % (11.5-17.5); White Blood Count 4.8 K/mm3 (4.8-10.8)
[2024-08-14 09:57] LABS: Alanine Aminotransferase 25 U/L (12-78); Albumin Level 4.5 g/dl (3.5-5.0); Alkaline Phosphatase 68 U/L (38-126); Aspartate Amino Transferase 31 U/L (17-59); Bilirubin,Total 2.7 mg/dl (0.2-1.3); Blood Urea Nitrogen 13 mg/dl (9-20); Calcium 9.3 mg/dl (8.4-10.2); Carbon Dioxide 27 mmol/L (22.0-30.0); Chloride 107 mmol/L (98-107); Creatinine Clearance Estimated 84 mL/min (50-200); Estimated Glomerular Filt Rate 96 ml/min (>60); GFR (African American) 117 ML/MIN (>60); Glucose 101 mg/dl (74-100); Lipase 60 U/L (23-300); Sodium 140 mmol/L (136-145)
[2024-08-14 10:00] VITALS: BP 154/87; PULSE 90; RESP 18; O2SAT 96
[2024-08-14 10:09] LABS: Troponin I 0.02 ng/ml (0.00-0.034)
[2024-08-14 10:24] LABS: Anion Gap 10.1 mEq/L (5-15); Potassium 4.1 mmoL/L (3.5-5.1)
[2024-08-14 10:27] LABS: Albumin/Globulin Ratio 1.9 (1.1-1.8); Globulin 2.4 g/dL (1.3-3.2); Total Protein,Serum 6.9 g/dl (6.3-8.2)
[2024-08-14 10:30] VITALS: BP 135/85; PULSE 85; RESP 17; O2SAT 96
[2024-08-14 11:00] VITALS: PULSE 79; O2SAT 96
[2024-08-14 11:35] LABS: Troponin I 0.02 ng/ml (0.00-0.034)
[2024-08-14 11:47] VITALS: BP 152/87; PULSE 65; RESP 13; TEMP 36.8; O2SAT 97
== END 2024-08-14 11:56 | disposition home or self-care (01) ==
PROVIDERS: Emergency Provider Student in an Organized Health Care Education/Training Program; PCP Internal Medicine
DX: R00.0 Tachycardia, unspecified (principal); R10.13 Epigastric pain; M25.511 Pain in right shoulder; I10 Essential (primary) hypertension
CPT/HCPCS: 71046; 80053; 83690; 84484; 85025; 93005; 96360; 99284; J7120

== ENCOUNTER 2024-12-23 09:15 | Outpatient (CLI) | payer MEDICARE, OTHER, SELFPAY ==
--- OUTSIDE RECORDS SUMMARY | 2010-07-07 09:00 | XMS_ITS | Encounter Summary ---
Author Organization [facility] Address [address] [facility], [address] [place] [address] Care Team Providers Care Crop Pest Control Specialist Name Role Phone Holly Pisano MD Primary Care Provider [phone] Encounter Details Date Type Department Care Team (Late st Contact Info) Description 07/07/2010 8:00 AM EST Hospital Encounter [address] [address] Karolina Contreras M Wahidul, MD 4 [place] [address] Social History Tobacco Use Types Packs/Day Years [...] Plan of care signed (Y/N): Insurance/Certification information: [facility] 10 visits initially Visit# / [...] on filedocumented in this encounter Care Teams Crop Pest Control Specialist Relationship Specialty Start Date End Date Holly Pisano MD [address] [place] [address] PCP - General 07/05/10 documented as of this encounter
--- OUTSIDE RECORDS SUMMARY | 2010-07-09 08:30 | XMS_ITS | Encounter Summary ---
Author Organization [facility] Address [address] [facility], [address] [place] [address] Care Team Providers Care Area Development Consultant Name Role Phone Holly Pisano MD Primary Care Provider [phone] Encounter Details Date Type Department Care Team (Late st Contact Info) Description 07/09/2010 7:30 AM EST Hospital Encounter [facility] [address] [place] [address] Karolina Contreras M Wahidul, MD [address] [place] [address] Social History Tobacco Use Types Packs/Day Years Used Date Smoking Tobacco: Never Assessed Sex and Gender Information Value Date Recorded Sex Assigned at Not on file Legal Sex Male 6:22 AM EST Gender Identity Not on file Sexual Orientation Not on file documented as of this encounter Progress Notes * Karolina Contreras, PT - 07/09/2010 8:14 AM EST Physical Therapy Weekly Progress Note Patient Name: Sonido Pretty : 1955 Diagnosis: Thoracic/lumbar strain Treatment Diagnosis: Sprain/strain Referring Physician: Dr. Blunt Date: 07/09/2010 Subjective: Pain Level: 4-5/10 present 80% of the time, especially w/ work duties. Pt reports he feels 25% improved since starting PT this week. Objective: Observation: Test measurements: Conts. To have limitations in his thoracic and lumbar mobility, especially at the Right costotransv jts of ribs 5-7, and still very sore through rib 9 Assessment: Summary: Patient's response to treatment: improving, able to start beginner back exs today. Goals:GOALS Short Term Goals ( 2-4 weeks) Residential Goals ( 4-6 weeks) 1). Decrease pain 25-50% 1).decrease pain 75-100% 2).establ HEP 2) (I) w/ HEP 3).improve trunk AROM 10-25% 3).trunk AROM to w/in 10-15% of normal 4). 4).return to full duty/reg activities 5). 5). 6). 6). ?? Progress toward previous goals: STGs almost complete. Plan: ?? Plan: cont 2-3 x wk Electronically Signed by: Karolina Contreras, PT [id number] * Karolina Contreras, PT - 07/09/2010 7:55 AM EST Physical Therapy Daily Treatment Note Patient Name: Sonido Pretty : 1955 Diagnosis: Thoracic/lumbar strain Precautions/Restrictions: Work restrictions Treatment Diagnosis: same Referring Physician: Dr. Blunt Plan of care signed (Y/N): Insurance/Certification information: [facility] 10 visits initially Visit# / total visits: 08/12 Date: 07/09/2010 Pain level: pain is now intermit, but still present 80% of the time. Subjective: Constant right thoracic and bilat lumb pain that varies in intensity.07/07/10 reports some improvement in the thoracic area after his therapy yesterday. Last night at work he did lots of standing, he was able to sit when he wanted.07/09/10- Reports when he got up last night he felt pretty good. W/ work activities he is -10/12. His worst area is the thoracic/rib pain on the right. Exercises: Exercise/Equipment Resistance/Repetitions Other comments Pt is to rest his back and stay off his feet 07/09/10 Knee rocks Glut sets bridges transv abdom Other Therapeutic Activities: evaluation Manual Treatments: 07/07/10 mobiliz to th/lumb spine and manual lumb distraction Modalities: e stim x 20 min to LB (interf) and thoracic area (pre mod) Plan: cont 2-3 x wk for 4-6 wks Patient response to treatment: charan well See Weekly Progress Note? (Y/N): Due 07/13/10 Timed Code Treatment Minutes:30 Total Treatment Time (minutes):50 Signature: Karolina Contreras PT 7987 documented in this encounter Plan of Treatment Not on file documented as of this encounter Visit Diagnoses Not on filedocumented in this encounter Care Teams Area Development Consultant Relationship Specialty Start Date End Date Holly Pisano MD [address] [place] [address] PCP - General 07/05/10 documented as of this encounter
--- OUTSIDE RECORDS SUMMARY | 2010-07-12 08:30 | XMS_ITS | Encounter Summary ---
Author Organization [facility] Address [address] [facility], [address] [place] [address] Care Team Providers Care Disk Sharpener Name Role Phone Holly Pisano MD Primary Care Provider [phone] Encounter Details Date Type Department Care Team (Late st Contact Info) Description 07/12/2010 7:30 AM EST Hospital Encounter [address] [address] Karolina Contreras M Wahidul, MD [address] [place] [address] Social History Tobacco Use Types Packs/Day Years [...] Plan of care signed (Y/N): Insurance/Certification information: [facility] 10 visits initially Visit# / total [...] Treatment Time (minutes):50 Signature: Karolina Contreras, PT 3807 documented in this encounter Plan of Treatment Not on file documented as of this encounter Visit Diagnoses Not on filedocumented in this encounter Care Teams Disk Sharpener Relationship Specialty Start Date End Date Holly Pisano MD [address] [place] [address] PCP - General 07/05/10 documented as of this encounter
--- OUTSIDE RECORDS SUMMARY | 2010-07-13 08:30 | XMS_ITS | Encounter Summary ---
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 Decrease pain [...] Plan of care signed (Y/N): Insurance/Certification information: [facility] 10 visits initially Visit# / total [...] Treatment Time (minutes):50 Signature: Karolina Contreras PT 5995 documented in this encounter Plan of Treatment Not on file documented as of this encounter Visit Diagnoses Not on filedocumented in this encounter Care Teams Stringer Machine Tender Relationship Specialty Start Date End Date Holly Pisano MD 4 [place] [address] PCP - General 07/05/10 documented as of this encounter
--- OUTSIDE RECORDS SUMMARY | 2010-07-14 08:30 | XMS_ITS | Encounter Summary ---
Author Organization [facility] Address [address] [facility], [address] [place] [address] Care Team Providers Care Merry Go Round Attendant Name Role Phone Holly Pisano MD Primary Care Provider [phone] Encounter Details Date Type Department Care Team (Late st Contact Info) Description 07/14/2010 7:30 AM EST Hospital Encounter [address] [address] Karolina Contreras M Wahidul, MD 4 [place] [address] Social History Tobacco Use Types Packs/Day Years [...] Plan of care signed (Y/N): Insurance/Certification information: [facility] 10 visits initially Visit# [...] Treatment Time (minutes):35 Signature: Karolina Contreras, PT 6866 documented in this encounter Plan of Treatment Not on file documented as of this encounter Visit Diagnoses Not on filedocumented in this encounter Care Teams Merry Go Round Attendant Relationship Specialty Start Date End Date Holly Pisano MD 4 [place] [address] PCP - General 07/05/10 documented as of this encounter
--- OUTSIDE RECORDS SUMMARY | 2010-07-20 08:30 | XMS_ITS | Encounter Summary ---
Author Organization [facility] Address [address] [facility], [address] [place] [address] Care Team Providers Care Residency Director Name Role Phone Holly Pisano MD Primary Care Provider [phone] Encounter Details Date Type Department Care Team (Late st Contact Info) Description 07/20/2010 7:30 AM EST Hospital Encounter [address] [address] Karolina Contreras M Wahidul, MD 4 [place] [address] Social History Tobacco Use Types Packs/Day Years [...] Plan of care signed (Y/N): Insurance/Certification information: [facility] 10 visits initially Visit# / total [...] Treatment Time (minutes):45 Signature: Karolina Contreras PT 5896 documented in this encounter Plan of Treatment Not on file documented as of this encounter Visit Diagnoses Not on filedocumented in this encounter Care Teams Residency Director Relationship Specialty Start Date End Date Holly Pisano MD [address] [place] [address] PCP - General 07/05/10 documented as of this encounter
--- OUTSIDE RECORDS SUMMARY | 2010-07-21 08:30 | XMS_ITS | Encounter Summary ---
Author Organization [facility] Address [address] [facility], [address] [place] [address] Care Team Providers Care Media Analytics Manager Name Role Phone Holly Pisano MD Primary Care Provider [phone] Encounter Details Date Type Department Care Team (Late st Contact Info) Description 07/21/2010 7:30 AM EST Hospital Encounter [address] [address] Karolina Contreras M Wahidul, MD 4 [place] [address] Social History Tobacco Use Types Packs/Day Years [...] (Dr. 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 Thoracic AROM is 10-20% limited w/ ext, rot,sb, but neg w/ resist. Tests. The right costotransv jtsare still limited but improving. Assessment: Patient's response to treatment: Always feels better after Rx. Goals:GOALS Short Term Goals ( 2-4 weeks) Detention Goals ( 4-6 weeks) 1). Decrease pain [...] has 3 more visits. Electronically Signed by: Karoilna Contreras, PT 6877 * Karolina Contreras, PT - 07/21/2010 7:39 AM EST Physical Therapy Daily Treatment Note Patient Name: Sonido Pretty : 1955 Diagnosis: Thoracic/lumbar strain Precautions/Restrictions: Work restrictions Treatment Diagnosis: same Referring Physician: Dr. 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 Exercises: Exercise/Equipment Resistance/Repetitions [...] Treatment Time (minutes):45 Signature: Karolina Contreras PT 2275 documented in this encounter Plan of Treatment Not on file documented as of this encounter Visit Diagnoses Not on filedocumented in this encounter Care Teams Media Analytics Manager Relationship Specialty Start Date End Date Holly Pisano MD 4 [place] [address] PCP - General 07/05/10 documented as of this encounter
--- OUTSIDE RECORDS SUMMARY | 2010-07-23 08:30 | XMS_ITS | Encounter Summary ---
Author Organization [facility] Address [address] [facility], [address] [place] [address] Care Team Providers Care Gem Carver Name Role Phone Holly Pisano MD Primary Care Provider [phone] Encounter Details Date Type Department Care Team (Late st Contact Info) Description 07/23/2010 7:30 AM EST Hospital Encounter [address] [address] Karolina Contreras M Wahidul, MD 4 [place] [address] Social History Tobacco Use Types Packs/Day Years [...] Plan of care signed (Y/N): Insurance/Certification information: [facility] 10 visits initially Visit# / total [...] over do it.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 Exercises: Exercise/Equipment [...] Treatment Time (minutes):50 Signature: Karolina Contreras, PT 1704 documented in this encounter Plan of Treatment Not on file documented as of this encounter Visit Diagnoses Not on filedocumented in this encounter Care Teams Gem Carver Relationship Specialty Start Date End Date Holly Pisano MD [address] [place] [address] PCP - General 07/05/10 documented as of this encounter
--- OUTSIDE RECORDS SUMMARY | 2010-07-27 08:30 | XMS_ITS | Encounter Summary ---
Author Organization [facility] Address [address] [facility], [address] [place] [address] Care Team Providers Care Warranty Administrator Name Role Phone Holly Pisano MD Primary Care Provider [phone] Encounter Details Date Type Department Care Team (Late st Contact Info) Description 07/27/2010 7:30 AM EST Hospital Encounter [facility] [address] [place] [address] Karolina Contreras M Wahidul, MD 4 [place] [address] Social History Tobacco Use Types Packs/Day Years Used Date Smoking Tobacco: Never Assessed Sex and Gender Information Value Date Recorded Sex Assigned at Not on file Legal Sex Male 6:22 AM EST Gender Identity Not on file Sexual Orientation Not on file documented as of this encounter Progress Notes * Karolina Contreras, PT - 07/27/2010 8:06 AM EST Physical Therapy Daily Treatment Note Patient Name: Sonido Pretty : 1955 Diagnosis: Thoracic/lumbar strain Precautions/Restrictions: Work restrictions Treatment Diagnosis: same Referring Physician: Dr. Blunt/ this has changed to Dr. Butler (his own MD) Plan of care signed (Y/N): Insurance/Certification information: [facility] 10 visits initially Visit# / total visits: 02/12 Date: 07/27/2010 Pain level: . 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 He can feel his thoracic and lumbar injuries as a result of this increased activity but not as severe as it used to be. Exercises: Exercise/Equipment Resistance/Repetitions Other comments Pt is to rest his back and stay off his feet 07/09/10 Knee rocks Glut sets bridges transv abdom 07/20/10 cont above exs now that his lower back has improved 07/23/10 mid rows 3x10 Red t-bd Low rows 3x10 07/27/10 prone UE/LE raise, opp sides 3x10 Discussed ex progression,squats,abdom,push ups Other Therapeutic Activities: Given green t-bd to eventually advance row exs. Manual Treatments: 07/26/10 mobiliz to th/lumb spine (gentle) Modalities: e stim x 20 min to LB (interf) and thoracic area (pre mod) Plan: cont 2-3 x wk for 4-6 wks Patient response to treatment: charan well See Weekly Progress Note? (Y/N): Due 07/20/10 Timed Code Treatment Minutes: 40 Total Treatment Time (minutes):60 Signature: Karolina Contreras PT 0081 documented in this encounter Plan of Treatment Not on file documented as of this encounter Visit Diagnoses Not on filedocumented in this encounter Care Teams Warranty Administrator Relationship Specialty Start Date End Date Holly Pisano MD [address] [place] [address] PCP - General 07/05/10 documented as of this encounter
--- OUTSIDE RECORDS SUMMARY | 2010-07-30 08:30 | XMS_ITS | Encounter Summary ---
Author Organization [facility] Address [address], [address] [place] [address] Care Team Providers Care Warping Mill Operator Name Role Phone Holly Pisano MD Primary Care Provider [phone] Encounter Details Date Type Department Care Team (Late st Contact Info) Description 07/30/2010 7:30 AM EST Hospital Encounter [facility] [address] [place] [address] Karolina Contreras M Wahidul, MD [address] [place] [address] Social History Tobacco Use Types Packs/Day Years [...] Thoracic/lumbar strain Treatment Diagnosis: Referring Physician: Dr. lBunt/ Dr. Butler Date: 07/30/2010 Subjective: Pain Level: [...] Goals:GOALS Short Term Goals ( 2-4 weeks) Long-Term Goals ( 4-6 weeks) 1). 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
--- OUTSIDE RECORDS SUMMARY | 2024-12-23 09:19 | XMS_ITS | Encounter Summary ---
Author Organization [facility] Address [address] [place] [address] Care Team Providers Care Reliability Manager Name Role Phone Pieter Gordon MD Primary Care Provider Encounter Details Date Type Department Care Team (Late st Contact Info) Description 09/07/2015 Abstract [facility] Physicians - Spine Surgery, [place] [address] [place] [phone] Ambulatory, Cost Clerk Social History Tobacco Use Types Packs/Day Years Used Date Smoking Tobacco: Never Alcohol Use Standard Drinks/Week Comments Yes 0 (1 standard drink = 0.6 oz pur e alcohol) Sex and Gender Information Value Date Recorded Sex Assigned at Not on file Legal Sex Male 3:52 PM EDT Gender Identity Not on file Sexual Orientation Not on file documented as of this encounter Plan of Treatment Not on file documented as of this encounter Visit Diagnoses Not on filedocumented in this encounter Care Teams Reliability Manager Relationship Specialty Start Date End Date Pieter Gordon MD [address] [place] [address] PCP - General 09/07/15 documented as of this encounter
--- OUTSIDE RECORDS SUMMARY | 2024-12-23 09:19 | XMS_ITS | Clinical Summary ---
Author Organization [facility] Address [address] [place] [address] Care Team Providers Care Lace Inspector Name Role Phone Pieter Gordon MD Primary Care Provider [phone] Allergies No known active allergies Medications ESCITALOPRAM OXALATE (LEXAPRO PO) 7.5 1 x day Active Hydrocodone-Acet aminophen (NORCO) 7.5-325 mg per tablet 3 x day Active OXYMETAZOLINE HCL (AFRIN NA) prn Activ e FLUTICASONE PROPIONATE (FLONASE NA) prn Active Active Problems Problem Noted Date Diagnosed Date Thoracic spondylosis without myelopathy 09/08/19 16 Family History Medical History Relation Name Comments No Pertinent Family Hx Other Relation Name Status Comments Other Social History Tobacco Use Types Packs/Day Years Used Date Smoking Tobacco: Never Alcohol Use Standard Drinks/Week Comments Yes 0 (1 standard drink = 0.6 oz pur e alcohol) Sex and Gender Information Value Date Recorded Sex Assigned at Not on file Legal Sex Male 3:52 PM EDT Gender Identity Not on file Sexual Orientation Not on file Last Filed Vital Signs Vital Sign Reading Time Taken Comments Blood Pressure - - Pulse - - Temperature - - Respiratory Rate - - Oxygen Saturation - - Inhaled Oxygen Concentration - - Weight 84.8 kg (187 lb) 09/08/2015 11:39 AM EDT Height 172.7 cm (5' 8 ) 09/08/2015 11:39 AM EDT Body Mass Index 28.43 09/08/2015 11:39 AM EDT Plan of Treatment Health Maintenance Due Date Last Done Comments Cologuard 1955 Colonoscopy 1955 Colorectal Cancer Screening 1955 FIT 1955 Lipid Screening 1975 Tetanus Vaccination (Every 10 Years) 1975 Hepatitis C Virus (HCV) Screening 1978 Pneumococcal Vaccine: 50+ Years (1 of 1 - PCV) 008 Zoster-RZV(Shingrix) (1 of 2) 2007 Fall Risk Assessment 2022 COVID-19 Vaccine (1 - 2023-25 season) 2024 Advance Care Planning 06/05/2024 Depression Screening 06/05/2024 Influenza Vaccination (#1) 2025 RSV Vaccines (1 - 1-dose 75+ series) 2032 Insurance Care Teams Lace Inspector Relationship Specialty Start Date End Date Pieter Gordon MD [facility] [place] [address] PCP - General 09/07/15
--- OUTSIDE RECORDS SUMMARY | 2024-12-23 09:19 | XMS_ITS | Encounter Summary ---
Author Organization [employer] ([place], [place], [place], [place]) Address [address] [place] [address] Care Team Providers Care Chicken Handler Name Role Phone Unavailable Primary Care Provider Unavailabl e Encounter Details Date Type Department Care Team (Late st Contact Info) Description 08/01/[address] [facility] Radiology [address] [place] [address] Viky Galeano MD [facility] Dept of Emergency Medicine [place] [id number] Social History Tobacco Use Types Packs/Day Years Used Date Smoking Tobacco: Never Assessed Sex and Gender Information Value Date Recorded Sex Assigned at Male 11/30/2021 8:46 PM CDT Legal Sex Male 8:46 PM CDT Gender Identity Male 11/30/2021 8:46 PM CDT Sexual Orientation Not on file documented as of this encounter Miscellaneous Notes * Cerner Conversion Note - Viky Galeano MD - 08/01/2021 3:21 PM EST Patient: SONIDO PRETTY Age: 66 years Sex: Male : 1955 Associated Diagnoses: Abdominal pain Author: VICTOR HUGO MTZ APR Basic Information Time seen: Date & time 08/01/2021 13:06:00. History source: Patient. Arrival mode: Private vehicle. History limitation: None. Additional information: Chief Complaint from Nursing Triage Note : Chief Complaint 08/01/2021 12:55 EST Chief Complaint From home via POV d/t severe upper abd pain x 1mon. Pt is followed by GI. ERCP scheduled 08/31, however d/t increased pain-pt unable to wait that long. +intermittent nausea. 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 US completed by [facility]. . History of Present Illness Patient presents to the ER with complaints of worsening right upper quadrant and back pain. He states that he also has burning in his stomach. Patient states that the pain has been occurring for the past 2 years but is gotten worse in the last month. Patient is scheduled to have an ERCP done in August. Patient states that he would like to have GI see him today and possibly get the ERCP completed. I have explained to him that that would not be done unless there is an emergency. Patient denies any fever or chills. He has been followed by Dr. Brent Herman at [facility]. Patient states that he has been to multiple ERs and cannot wait until his appointment. He denies any fever or chills. States that he has had some nausea and not been able to eat. Patient is very agitated and states that he probably is just wasting his time here again. Review of Systems Constitutional symptoms: No fever, no chills. Skin symptoms: No jaundice, Respiratory symptoms: Negative except as documented in HPI. Cardiovascular symptoms: Negative except as documented in HPI. Gastrointestinal symptoms: Abdominal pain, moderate, right upper quadrant, sharp, pain, nausea, vomiting. Genitourinary symptoms: Negative except as documented in HPI. Musculoskeletal symptoms: Back pain. Neurologic symptoms: Negative except as documented in HPI. Psychiatric symptoms: Negative except as documented in HPI. Endocrine symptoms: Negative except as documented in HPI. Hematologic/Lymphatic symptoms: Negative except as documented in HPI. Allergy/immunologic symptoms: Negative except as documented in HPI. Health Status Allergies: Allergic Reactions (Selected) No Known Allergies. Medications: (Selected) Inpatient Medications Ordered Normal Saline Bolus: 1,000 mL, 1,000 mL/Hr, IV Piggyback, 1-Time Normal Saline Flush: 10 mL, IV Push, 1-Time Zofran: 8 mg, IV Push, 1-Time. Past Medical/ Family/ Social History Surgical history: No active procedure history items have been selected or recorded., Reviewed as documented in chart. Family history: No family history items have been selected or recorded., Reviewed as documented in chart. Social history: Social & Psychosocial Habits No Data Available , Reviewed as documented in chart. Problem list: No qualifying data available , per nurse's notes. Physical Examination Vital Signs Vital Signs/Vital Measures 08/01/2021 12:55 EST Systolic Blood Pressure 133 mmHg Diastolic Blood Pressure 84 mmHg Temperature Source Oral Temperature Mode Fahrenheit Temperature, Fahrenheit 98.3 Deg F Clinical Temperature, C 36.8 Deg C Peripheral Pulse Rate 104 bpm HI Respiratory Rate 16 Breaths/Min Oxygen Saturation 97 % Oxygen Therapy Mode Room air . Measurements 08/01/2021 12:55 EST Height Source Stated Height Entry Format [place] Height/Length, ITALIAN (ft) 5 ft Height/Length ITALIAN 9 Inch CLINICALHEIGHT 175.26 cm Type of Weight Measurement. [place] Weight, est lb 180 lb Estimated Clinical Dosing Weight 81.82 kg [place] Body Weight 69.73 kg Weight Source, ED Stated . Oxygen Saturation 08/01/2021 12:55 EST Oxygen Saturation 97 % . General: Alert, no acute distress. Skin: Warm, pink, intact. Cardiovascular: Regular rate and rhythm. Respiratory: Lungs are clear to auscultation, respirations are non-labored. Gastrointestinal: Soft, Non distended, Tenderness: Moderate, right upper quadrant, Guarding: Moderate, Rebound: Negative, Bowel sounds: Normal, Organomegaly: Negative. Musculoskeletal: Normal ROM. Neurological: Alert and oriented to person, place, time, and situation. Psychiatric: Cooperative. Medical Decision Making Differential Diagnosis: Abdominal pain, biliary colic, cholecystitis, hepatitis, pancreatitis. Orders Include Previous Orders (Selected) Inpatient Orders Ordered Broset Violence Assessment: ED Adult Fall Risk Assessment: ED C-SSRS: ED Clinical Reconciliation: ED Isolation: ED supervisor metal furniture assembly: Isolation: Normal Saline Bolus: 1,000 mL, 1,000 mL/Hr, IV Piggyback, 1-Time Normal Saline Flush: 10 mL, IV Push, 1-Time Saline Lock Insert: Zofran: 8 mg, IV Push, 1-Time Ordered (Dispatched) COVID-19: Urinalysis w/ Microscopic no Culture: Ordered (Exam Ordered) CT Abdomen Pelvis W: Cancelled (Canceled) Amylase Level: CBC w/ Auto Diff: CMP Comprehensive Metabolic Panel: Hepatitis Panel Acute: Lipase Level: Completed ED Adult Triage: . Impression and Plan Diagnosis Abdominal pain - Discharge, Emergency medicine, Medical Plan Disposition: Time 08/01/2021 14:26:00, Left against medical advice, Patient states it is a waste of his time. He does not want any more CAT scans or blood test he just needs his procedure done.. documented in this encounter Plan of Treatment Not on file documented as of this encounter Visit Diagnoses Not on filedocumented in this encounter
--- OUTSIDE RECORDS SUMMARY | 2024-12-23 09:19 | XMS_ITS | Clinical Summary ---
Author Organization [facility] Address [address], [address] [place] [address] Care Team Providers Care Acds Block 1 Operator Name Role Phone Holly Pisano MD Primary Care Provider [phone] Social History Tobacco Use Types Packs/Day Years Used Date Smoking Tobacco: Never Assessed Sex and Gender Information Value Date Recorded Sex Assigned at Not on file Legal Sex Male 6:22 AM EST Gender Identity Not on file Sexual Orientation Not on file Plan of Treatment Not on file Insurance RR #[id number] [id number] [address] Care Teams Acds Block 1 Operator Relationship Specialty Start Date End Date Holly Pisano MD [address] [place] [address] PCP - General 07/05/10
--- OUTSIDE RECORDS SUMMARY | 2024-12-23 09:19 | XMS_ITS | Clinical Summary ---
Author Organization [employer] ([place], [place], [place], [place]) Address [address] [place] [address] Care Team Providers Care Information Services Tech Name Role Phone Unavailable Primary Care Provider Unavailabl e Social History Tobacco Use Types Packs/Day Years Used Date Smoking Tobacco: Never Assessed Sex and Gender Information Value Date Recorded Sex Assigned at Male 11/30/2021 8:46 PM CDT Legal Sex Male 8:46 PM CDT Gender Identity Male 11/30/2021 8:46 PM CDT Sexual Orientation Not on file Plan of Treatment Not on file
--- OUTSIDE RECORDS SUMMARY | 2024-12-23 09:19 | XMS_ITS | Referral Summary ---
Author Organization [employer] ([place], [place], [place], [place]) Address [address] [place] [address] Care Team Providers Care Certified Surgical First Assistant Name Role Phone Unavailable Primary Care Provider [...]
--- OUTSIDE RECORDS SUMMARY | 2024-12-23 09:19 | XMS_ITS | Clinical Summary ---
Author Organization [facility] Address [address] [place] [id number] Care Team Providers Care Health Care Recruiter Name Role Phone Pieter Gordon Primary Care Provider [phone] Source Comments This information has been disclosed to you from confidential records protectedfrom disclosure by state law. You shall make no further disclosure of thisinformation without the specific, written, and informed release of theindividual to whom it pertains, or as otherwise permitted by law. A generalauthorization for the release of medical or other information is not sufficientfor the purposes of therelease of HIV test results or diagnoses. [id number] Allergies Active Allergy Reactions Criticality Noted Date Comments Amitriptyline Palpitations Low 06/24/2022 vomiting Buprenorphine Hcl Other (See Comments) 08/06/19 23 Medications diazePAM (VALIUM) 2 MG tablet Take 1 tablet (2 mg total) by mouth every 6 hours as needed for Anxiety. Active HYDROcodone-bharat taminophen (NORCO) 7.5-325 mg per tablet Take 1 tablet by mouth every 6 hours as needed for Pain. Active fluticasone propionate (FLONASE) 50 mcg/actuation nasal spray Use 1 spray into each nostril daily. Active Active Problems No known active problems Family History Relation Status Comments Brother Father Alive Mother Alive Sister Social History Tobacco Use Types Packs/Day Years Used Date Smoking Tobacco: Former Cigarettes Smokeless Tobacco: Never Tobacco Cessation:Counseling Given: Not Answered Alcohol Use Standard Drinks/Week Comments Not Currently 0 (1 standard drink = 0.6 oz pur e alcohol) Sex and Gender Information Value Date Recorded Sex Assigned at Not on file Legal Sex Male 4:16 PM EST Gender Identity Not on file Sexual Orientation Not on file Last Filed Vital Signs Vital Sign Reading Time Taken Comments Blood Pressure 131/74 08/16/2024 2:40 PM EDT Pulse 74 08/16/2024 2:18 PM EDT Temperature 36.4 C (97.6 F) 08/16/2024 2:18 PM EDT Respiratory Rate 16 08/16/2024 2:40 PM EDT Oxygen Saturation 93% 08/16/2024 2:40 PM EDT Inhaled Oxygen Concentration 93% 08/16/2024 2 :40 PM EDT Weight 82.6 kg (182 lb) 08/16/2024 12:22 PM EDT Height 175.3 cm (5' 9 ) 08/16/2024 12:22 PM EDT Body Mass Index 26.88 08/16/2024 12:22 PM EDT Plan of Treatment Health Maintenance Due Date Last Done Comments Abnormal Colonoscopy Follow Up 1955 Hepatitis C Screening (MyChart) 1955 Depression Screening 1975 Immunization: DTaP/Tdap/Td (1 - Tdap) 1976 Cologuard (FIT-DNA) 2002 Colonoscopy 2002 Colorectal Cancer Screening (MyChart) 2002 Stool Testing (gFOBT) 2002 Immunization: Pneumococcal (1 of 1 - PCV) 2007 Immunization: Zoster (1 of 2) 2007 Lung Cancer Screening 2007 Immunization: COVID-19 ( season) 2024 Immunization: Influenza (MyChart) (#1) 2025 Immunization: RSV (Adult) (1 - 1-dose 75+ series) 06/05 Abdominal Aortic Aneurysm (AAA) Screening Completed 04/09/2020 Insurance MEDICARE A AND B Member Subscriber Plan / Payer (Ef fective 2022-Present) Name:Sonido Pretty Relation to Subscriber:Self Name:Sonido Pretty Payer ID:[id number] Group ID:Not on file Type:Medicare Address: [facility] [id number] [place] [id number] [facility] Care Teams Health Care Recruiter Relationship Specialty Start Date End Date Pieter Gordon [address] [facility] [address] [place] [id number] PCP - General 08/20/24
--- OUTSIDE RECORDS SUMMARY | 2024-12-23 09:19 | XMS_ITS | Encounter Summary ---
Author Organization [employer] ([place], [place], [place], [place]) Address [address] [place] [address] Care Team Providers Care Sander Portable Machine Name Role Phone Unavailable Primary Care Provider Unavailabl e Encounter Details Date Type Department Care Team (Late st Contact Info) Description 08/01/2021 Transcribed Document [facility] Family Medicine [facility] [place] [address] ProviderLuz Marina MD [address] [place] [address] Social History Tobacco Use Types Packs/Day Years Used Date Smoking Tobacco: Never Assessed Sex and Gender Information Value Date Recorded Sex Assigned at Male 11/30/2021 8:46 PM CDT Legal Sex Male 8:46 PM CDT Gender Identity Male 11/30/2021 8:46 PM CDT Sexual Orientation Not on file documented as of this encounter Miscellaneous Notes * Cerner Conversion Note - Historical ProviderMD - 08/01/2021 12:43 PM 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 Pt is followed by GI. ERCP scheduled 08/31, however d/t increased pain-pt unable to wait that long. +intermittent nausea. 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 US completed by [facility]. Triage Date/Time : 08/01/2021 12:55 EST Anais Koroma Rn - 08/01/2021 12:55 EST DCP GENERIC CODE Tracking Acuity : 3 - Urgent Tracking Group : [facility] ED Anais Koroma Rn - 08/01/2021 12:55 EST Mode of Arrival : Ambulatory Transported to ED by : Private vehicle To Room Via : Ambulate Accompanied By : Unaccompanied ED Vital Signs : Document Height & Weight : Document ED Allergies : Document ED Reason for Visit : Document Anais Koroma Rn - 08/01/2021 12:55 EST Infectious Disease History Does patient have symptoms of COVID-19? : No Has the Patient Been Tested for COVID-19 in the last 14 days? : No, Patient stated Does the Patient state known exposure to a COVID-19 positive case in the last 14 days? : No Patient Vaccinated for COVID-19 : Not vaccinated Does Patient want a COVID-19 Vaccine? : No Anais Koroma Rn - 08/01/2021 12:55 EST Infectious Disease Risk Screening Grid Cough < 2 wks of unknown origin : NO Cough > 2 weeks : NO Blood in Sputum : NO Fever or self-reported Fever : NO Rash of unknown origin : NO Headache : NO Stiff neck : NO Night Sweats : NO Unexplained Weight Loss : NO Diarrhea (3 episode per day) : NO Anais Koroma Rn - 08/01/2021 12:55 EST Physical contact outside [place] in the last 30 days : No Hospitalized in Foreign Country : No Infectious Disease History : None INF Disease TB Screening Calc : 0 INF Disease Recent Travel Calc : 0 Anais Koroma Rn - 08/01/2021 12:55 EST Vital Signs ED Temperature Source : Oral Temperature Mode : Fahrenheit Temperature, Fahrenheit : 98.3 Deg F Clinical Temperature, C : 36.8 Deg C Oxygen Therapy Mode : Room air Peripheral Pulse Rate : 104 bpm (HI) Respiratory Rate : 16 Breaths/Min Systolic Blood Pressure : 133 mmHg Diastolic Blood Pressure : 84 mmHg Oxygen Saturation : 97 % Anais Koroma Rn - 08/01/2021 12:55 EST Allergy (As Of: 08/01/2021 13:00:29 EST) Allergies (Active) No Known Allergies Estimated Onset Date: Unspecified ; Created By: Anais Koroma Rn; Reaction Status: Active ; Category: Drug ; Substance: No Known Allergies ; Type: Allergy ; Updated By: Anais Koroma Rn; Reviewed Date: 08/01/2021 12:58 EST Diagnosis Control ED (As Of: 08/01/2021 13:00:29 EST) Diagnoses(Active) Abdominal pain Date: 08/01/2021 ; Diagnosis Type: Reason For Visit ; Confirmation: Complaint of ; Clinical Dx: Abdominal pain ; Classification: Medical ; Clinical Service: Non-Specified ; Code: PNED ; Probability: 0 ; Diagnosis Code: [id number] ED Height and Weight Height Source : Stated Height Entry Format : [place] Height, Feet : 5 ft(Converted to: 152 cm, 60 Inch) Height, Inches : 9 Inch(Converted to: 0 ft 9 Inch, 22.86 cm) Clinical Height : 175.26 cm Weight Source, ED : Stated [place] Body Weight (IBW) : 69.73 kg Anais Koroma Rn - 08/01/2021 12:55 EST Estimated Weight Type of Weight Measurement Est : [place] Weight, est lb : 180 lb(Converted to: 82 kg) Estimated Clinical Dosing Weight : 81.82 kg Anais Koroma Rn - 08/01/2021 12:55 EST documented in this encounter Plan of Treatment Not on file documented as of this encounter Visit Diagnoses Not on filedocumented in this encounter
--- OUTSIDE RECORDS SUMMARY | 2024-12-23 09:19 | XMS_ITS | Clinical Summary ---
Author Organization [facility] Address [address] [place] [address] Care Team Providers Care Over Hauler Helper Name Role Phone Unavailable Primary Care Provider Unavailabl e Social History Tobacco Use Types Packs/Day Years Used Date Smoking Tobacco: Never Assessed Sex and Gender Information Value Date Recorded Sex Assigned at Not on file Legal Sex Male 8:02 PM EDT Gender Identity Not on file Sexual Orientation Not on file Last Filed Vital Signs Vital Sign Reading Time Taken Comments Blood Pressure 140/84 11/15/2022 9:18 PM EDT Pulse 79 11/15/2022 9:18 PM EDT Temperature - - Respiratory Rate - - Oxygen Saturation - - Inhaled Oxygen Concentration - - Weight 73 kg (161 lb) 11/15/2022 9:18 PM EDT Height 175.3 cm (5' 9 ) 11/15/2022 9:18 PM EDT Body Mass Index 23.78 11/15/2022 9:18 PM EDT Plan of Treatment Health Maintenance Due Date Last Done Comments [facility]-Depression Screening 1955 [facility]-/Child/Adol SDOH Screenings 1955 [facility]- SDOH Screenings 1975 [facility]-Adult SDOH Screenings 1975 [facility]-DTaP,Tdap,and Td Vaccine s (1 - Tdap) 1976 CT Colonography 2002 Colonoscopy 2002 FIT-DNA 2002 FIT 2002 FOBT 2002 Sigmoidoscopy 2002 [facility]-Colorectal Cancer Screening 2002 [facility]-Pneumococcal Vaccine: 50 + Years (1 of 1 - PCV) 2007 [facility]-Zoster Vaccines (1 of 2) 2007 [id number]-[id number]-85 Vaccine (1 - 20 24-25 season) 2024 [facility]-Influenza Vaccine (#1) 2025 [facility]-RSV Vaccine: 60+ Years o r (1 - 1-dose 75+ series) 2032 HPV Vaccines Aged Out No longer eligi ble based on patient's age to complete this topic [facility]-HIB Vaccines Aged Out No longer e ligible based on patient's age to complete this topic [facility]-Hepatitis A Vaccines Aged Out No longer eligible based on patient's age to complete this topic [facility]-IPV Vaccines Aged Out No longer e ligible based on patient's age to complete this topic [facility]-Rotavirus Vaccines Aged Out No lo nger eligible based on patient's age to complete this topic Insurance MEDICARE [facility]
--- OUTSIDE RECORDS SUMMARY | 2024-12-23 09:19 | XMS_ITS | Clinical Summary ---
Author Organization [facility] Address [address] [place] [id number] Phone Care Team Providers Care Car Scrubber Name Role Phone Anai PALAFOX, Dom Unavailable [phone] Conditions or Problems No information available. Medications No information available. Medications Administered No information available. Allergies, Adverse Reactions, Alerts No information available. Results No information available. Plan of Care No information available. Procedures No information available. Vital Signs No information available. Immunizations No information available. Advance Directives No information available.
[2024-12-23 10:09] LABS: Hematocrit 46.5 % (42.0-52.0); Hemoglobin 15.5 g/dL (14.1-18.0); Immature Granulocytes % 0.5 %; Mean Corpuscular HGB Conc 33.3 g/dL (31.8-35.4); Mean Corpuscular Hemoglobin 29.4 pg (27.0-31.2); Mean Corpuscular Volume 88.2 fl (80-94); Nucleated Red Blood Cells % 0 %; Platelet Count 208 K/mm3 (142-424); Red Blood Count 5.27 M/mm3 (4.60-6.20); Red Cell Distribution Width-SD 41.0 fL; White Blood Count 5.9 K/mm3 (4.8-10.8)
[2024-12-23 11:50] LABS: Albumin Level 4.5 g/dl (3.5-5.0); Chloride 102 mmol/L (98-107); Potassium 4.6 mmoL/L (3.5-5.1); Sodium 136 mmol/L (136-145)
[2024-12-23 11:52] LABS: Blood Urea Nitrogen 13 mg/dl (9-20); Creatinine,Serum 0.70 mg/dl (0.66-1.25); Estimated Glomerular Filt Rate 112 ml/min (>60); GFR (African American) 136 ML/MIN (>60)
[2024-12-23 11:53] LABS: Alanine Aminotransferase 15 U/L (12-78); Alkaline Phosphatase 72 U/L (38-126); Anion Gap 8.6 mEq/L (5-15); Aspartate Amino Transferase 24 U/L (17-59); Bilirubin,Direct 0.5 mg/dl (0.0-0.4); Bilirubin,Indirect 1.6 mg/dL (0.0-0.9); Bilirubin,Total 2.1 mg/dl (0.2-1.3); Bilirubin,Unconjugated 1.6 mg/dL (0.0-1.1); Calcium 9.4 mg/dl (8.4-10.2); Carbon Dioxide 30 mmol/L (22.0-30.0); Cholesterol 182 mg/dl (140-200); Glucose 98 mg/dl (74-100); HDL Cholesterol 42 mg/dl (40-60); Magnesium 2.0 mg/dl (1.6-2.3); Total Protein,Serum 7.0 g/dl (6.3-8.2); Triglycerides 141 mg/dl (30-150)
[2024-12-23 12:11] LABS: Free T4 (Free Thyroxine) 1.21 ng/dl (0.78-2.19)
[2024-12-23 12:24] LABS: Thyroid Stimulating Hormone 1.48 uIU/mL (0.465-4.68)
== END 2024-12-23 23:59 | disposition home or self-care (01) ==
LOC: LAB 09:16
PROVIDERS: PCP Internal Medicine; Visit Provider Nurse Practitioner
DX: R42 Dizziness and giddiness (principal); E78.49 Other hyperlipidemia; I25.10 Atherosclerotic heart disease of native coronary artery without angina pectoris
CPT/HCPCS: 36415; 80048; 80061; 80076; 83735; 84439; 84443; 85025; 93270

== ENCOUNTER 2025-01-07 15:10 | Emergency (ER) | payer MEDICARE, OTHER, SELFPAY ==
--- OUTSIDE RECORDS SUMMARY | 2010-07-07 09:00 | XMS_ITS | Encounter Summary ---
Author Organization [facility] Address [address] [facility], [address] [place] [address] Care Team Providers Care Journeyman Welder Name Role Phone Holly Pisano MD Primary Care Provider [phone] Encounter Details Date Type Department Care Team (Late st Contact Info) Description 07/07/2010 8:00 AM EST Hospital Encounter [address] [address] Karolina Contreras M Wahidul, MD [address] [place] [address] Social History Tobacco Use Types Packs/Day Years [...] Plan of care signed (Y/N): Insurance/Certification information: [facility] 10 visits initially Visit# / total visits:07/15 [...] on filedocumented in this encounter Care Teams Journeyman Welder Relationship Specialty Start Date End Date Holly Pisano MD [address] [place] [address] PCP - General 07/05/10 documented as of this encounter
--- OUTSIDE RECORDS SUMMARY | 2010-07-09 08:30 | XMS_ITS | Encounter Summary ---
Author Organization [facility] Address [address] [facility], [address] [place] [address] Care Team Providers Care Director Of Restaurant Operations Name Role Phone Holly Pisano MD Primary Care Provider [phone] Encounter Details Date Type Department Care Team (Late st Contact Info) Description 07/09/2010 7:30 AM EST Hospital Encounter [facility] [address] [place] [address] Karolina Contreras M Wahidul, MD [address] [place] [address] Social History Tobacco Use Types Packs/Day Years [...] Goals:GOALS Short Term Goals ( 2-4 weeks) Nursing Home Goals ( 4-6 weeks) 1). Decrease pain [...] Plan of care signed (Y/N): Insurance/Certification information: [facility] 10 visits initially Visit# / total visits: [...] Treatment Time (minutes):50 Signature: Karolina Contreras PT 1807 documented in this encounter Plan of Treatment Not on file documented as of this encounter Visit Diagnoses Not on filedocumented in this encounter Care Teams Director Of Restaurant Operations Relationship Specialty Start Date End Date Holly Pisano MD [address] [place] [address] PCP - General 07/05/10 documented as of this encounter
--- OUTSIDE RECORDS SUMMARY | 2010-07-12 08:30 | XMS_ITS | Encounter Summary ---
Author Organization [facility] Address [address] [facility], [address] [place] [address] Care Team Providers Care Hydrogen Braze Furnace Operator Name Role Phone Holly Pisano MD Primary Care Provider [phone] Encounter Details Date Type Department Care Team (Late st Contact Info) Description 07/12/2010 7:30 AM EST Hospital Encounter [address] [address] Karolina Contreras M Wahidul, MD [address] [place] [address] Social History Tobacco Use Types Packs/Day Years Used Date Smoking Tobacco: Never Assessed Sex and Gender Information Value Date Recorded Sex Assigned at Not on file Legal Sex Male 6:22 AM EST Gender Identity Not on file Sexual Orientation Not on file documented as of this encounter Progress Notes * Karolina Contreras, PT - 07/12/2010 8:45 AM EST Physical Therapy Daily Treatment Note Patient Name: Sonido Pretty : 1955 Diagnosis: Thoracic/lumbar strain Precautions/Restrictions: Work restrictions Treatment Diagnosis: same Referring Physician: Dr. Blunt Plan of care signed (Y/N): Insurance/Certification information: [facility] 10 visits initially Visit# / total visits: 09/12 Date: 07/12/2010 Pain level: pain is now intermit, but still present 80% of the time. -10/12 Subjective: Constant right thoracic and bilat lumb pain that varies in intensity.07/07/10 reports some improvement in the thoracic area after his therapy yesterday. Last night at work he did lots of standing, he was able to sit when he wanted.07/09/10- Reports when he got up last night he felt pretty good. W/ work activities he is 4-5/10. His worst area is the thoracic/rib pain on the right.07/12/10- Reports his mid back and LB cont to bother him and his Right shoulder has been hurting. Exercises: Exercise/Equipment Resistance/Repetitions Other comments Pt is to rest his back and stay off his feet 07/09/10 Knee rocks Glut sets bridges transv abdom 07/12/10 Re-instructed w/ exs Other Therapeutic Activities: evaluation Manual Treatments: 07/07/10 mobiliz to th/lumb spine and manual lumb distraction Modalities: e stim x 20 min to LB (interf) and thoracic area (pre mod) Plan: cont 2-3 x wk for 4-6 wks Patient response to treatment: charan well See Weekly Progress Note? (Y/N): Due 07/13/10 Timed Code Treatment Minutes:30 Total Treatment Time (minutes):50 Signature: Karolina Contreras, PT 3597 documented in this encounter Plan of Treatment Not on file documented as of this encounter Visit Diagnoses Not on filedocumented in this encounter Care Teams Hydrogen Braze Furnace Operator Relationship Specialty Start Date End Date Holly Pisano MD [address] [place] [address] PCP - General 07/05/10 documented as of this encounter
--- OUTSIDE RECORDS SUMMARY | 2010-07-13 08:30 | XMS_ITS | Encounter Summary ---
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 Decrease pain [...] Treatment Time (minutes):50 Signature: Karolina Contreras PT 9939 documented in this encounter Plan of Treatment Not on file documented as of this encounter Visit Diagnoses Not on filedocumented in this encounter Care Teams Clerical Warehouseman Relationship Specialty Start Date End Date Holly Pisano MD 4 [place] [address] PCP - General 07/05/10 documented as of this encounter
--- OUTSIDE RECORDS SUMMARY | 2010-07-14 08:30 | XMS_ITS | Encounter Summary ---
Author Organization [facility] Address [address] [facility], [address] [place] [address] Care Team Providers Care Product Engineering Manager Name Role Phone Holly Pisano MD Primary Care Provider [phone] Encounter Details Date Type Department Care Team (Late st Contact Info) Description 07/14/2010 7:30 AM EST Hospital Encounter [address] [address] Karolina Contreras M Wahidul, MD 4 [place] [address] Social History Tobacco Use Types Packs/Day Years [...] Plan of care signed (Y/N): Insurance/Certification information: [facility] 10 visits initially Visit# / total visits: [...] Treatment Time (minutes):35 Signature: Karolina Contreras, PT 4766 documented in this encounter Plan of Treatment Not on file documented as of this encounter Visit Diagnoses Not on filedocumented in this encounter Care Teams Product Engineering Manager Relationship Specialty Start Date End Date Holly Pisano MD 4 [place] [address] PCP - General 07/05/10 documented as of this encounter
--- OUTSIDE RECORDS SUMMARY | 2010-07-20 08:30 | XMS_ITS | Encounter Summary ---
Author Organization [facility] Address [address] [facility], [address] [place] [address] Care Team Providers Care Hydrographic Surveyor Name Role Phone Holly Pisano MD Primary Care Provider [phone] Encounter Details Date Type Department Care Team (Late st Contact Info) Description 07/20/2010 7:30 AM EST Hospital Encounter [address] [address] Karolina Contreras M Wahidul, MD 4 [place] [address] Social History Tobacco Use Types Packs/Day Years Used Date Smoking Tobacco: Never Assessed Sex and Gender Information Value Date Recorded Sex Assigned at Not on file Legal Sex Male 6:22 AM EST Gender Identity Not on file Sexual Orientation Not on file documented as of this encounter Progress Notes * Karolina Contreras, PT - 07/20/2010 10:49 AM EST Physical Therapy Daily Treatment Note Patient Name: Sonido Pretty : 1955 Diagnosis: Thoracic/lumbar strain Precautions/Restrictions: Work restrictions Treatment Diagnosis: same Referring Physician: Dr. Blunt Plan of care signed (Y/N): Insurance/Certification information: [facility] 10 visits initially Visit# / total visits: 11/12 Date: 07/20/2010 Pain level: Subjective: Constant right thoracic and bilat lumb [...] rec'd an injection. Maybe that has helped. 07/20/10 The injection in his lower back has helped a great deal. His thoracic area under his R shoulder blade and just below it feels better if he is very inactive. He started to have more pain after about 3 hours of work activity. He is still doing light duty so he is not sure if it is just the activity itself or the upright posture and time on his feet that aggravates his injury. Exercises: Exercise/Equipment Resistance/Repetitions Other comments Pt is to rest his back and stay off his feet 07/09/10 Knee rocks Glut sets bridges transv abdom 07/20/10 cont above exs now that his lower back has improved Other Therapeutic Activities: Manual Treatments: 07/20/10 mobiliz to th/lumb spine (gentle) Modalities: e stim x 20 min to LB (interf) and thoracic area (pre mod) Plan: cont 2-3 x wk for 4-6 wks Patient response to treatment: charan well See Weekly Progress Note? (Y/N): Due 07/20/10 Timed Code Treatment Minutes:25 Total Treatment Time (minutes):45 Signature: Karolina Contreras PT 9937 documented in this encounter Plan of Treatment Not on file documented as of this encounter Visit Diagnoses Not on filedocumented in this encounter Care Teams Hydrographic Surveyor Relationship Specialty Start Date End Date Holly Pisano MD [address] [place] [address] PCP - General 07/05/10 documented as of this encounter
--- OUTSIDE RECORDS SUMMARY | 2010-07-21 08:30 | XMS_ITS | Encounter Summary ---
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 Thoracic AROM is 10-20% limited w/ ext, rot,sb, but neg w/ resist. Tests. The right costotransv jtsare still limited but improving. Assessment: Patient's response to treatment: Always feels better after Rx. Goals:GOALS Short Term Goals ( 2-4 weeks) Employment Law Specialist Goals ( 4-6 weeks) 1). Decrease pain [...] visits. 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 Exercises: Exercise/Equipment Resistance/Repetitions [...] Treatment Time (minutes):45 Signature: Karolina Contreras PT 2066 documented in this encounter Plan of Treatment Not on file documented as of this encounter Visit Diagnoses Not on filedocumented in this encounter Care Teams Revit Drafter Relationship Specialty Start Date End Date Holly Pisano MD 4 [place] [address] PCP - General 07/05/10 documented as of this encounter
--- OUTSIDE RECORDS SUMMARY | 2010-07-23 08:30 | XMS_ITS | Encounter Summary ---
Author Organization [facility] Address [address] [facility], [address] [place] [address] Care Team Providers Care Anodic Treater Name Role Phone Holly Pisano MD Primary Care Provider [phone] Encounter Details Date Type Department Care Team (Late st Contact Info) Description 07/23/2010 7:30 AM EST Hospital Encounter [address] [address] Karolina Contreras M Wahidul, MD 4 [place] [address] Social History Tobacco Use Types Packs/Day Years [...] Plan of care signed (Y/N): Insurance/Certification information: [facility] 10 visits initially Visit# / [...] over do it.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 Exercises: Exercise/Equipment [...] Treatment Time (minutes):50 Signature: Karolina Contreras, PT 6597 documented in this encounter Plan of Treatment Not on file documented as of this encounter Visit Diagnoses Not on filedocumented in this encounter Care Teams Anodic Treater Relationship Specialty Start Date End Date Holly Pisano MD [address] [place] [address] PCP - General 07/05/10 documented as of this encounter
--- OUTSIDE RECORDS SUMMARY | 2010-07-27 08:30 | XMS_ITS | Encounter Summary ---
Author Organization [facility] Address [address] [facility], [address] [place] [address] Care Team Providers Care Road Conductor Name Role Phone Holly Pisano MD Primary Care Provider [phone] Encounter Details Date Type Department Care Team (Late st Contact Info) Description 07/27/2010 7:30 AM EST Hospital Encounter [facility] [address] [place] [address] Karolina Contreras M Wahidul, MD 4 [place] [address] Social History Tobacco Use Types Packs/Day Years [...] Plan of care signed (Y/N): Insurance/Certification information: [facility] 10 visits initially Visit# / total visits: [...] do it.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
--- OUTSIDE RECORDS SUMMARY | 2010-07-30 08:30 | XMS_ITS | Encounter Summary ---
Author Organization [facility] Address [address], [address] [place] [address] Care Team Providers Care Range Master Name Role Phone Holly Pisano MD Primary Care Provider [phone] Encounter Details Date Type Department Care Team (Late st Contact Info) Description 07/30/2010 7:30 AM EST Hospital Encounter [facility] [address] [place] [address] Karolina Contreras M Wahidul, MD [address] [place] [address] Social History Tobacco Use Types Packs/Day Years [...] PT Electronically Signed by: Karolina Contreras, PT 2857 * Karolina Contreras, PT - 07/30/2010 8:11 AM EST Physical Therapy Daily Treatment Note Patient Name: Sonido Pretty : 1955 Diagnosis: Thoracic/lumbar strain Precautions/Restrictions: Work restrictions Treatment Diagnosis: same Referring Physician: Dr. Blunt/ this has changed to Dr. 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
--- OUTSIDE RECORDS SUMMARY | 2024-11-04 09:00 | XMS_ITS ---
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 Name Role Phone Jone Garcia Unavailable [phone] Allergies Allergen (clinical drug ingredient) Drug/Non Drug Allergy documented on EMR Reaction Allergy Type Onset Date Status buprenorphine Belbuca euphoria Drug Allergy Act marcial Non-steroidal anti-inflammatory agent (FN) NSAIDs tinnitus Drug Allergy Active REASON FOR VISIT OFFICE VISIT Medications Medication SIG (Take, Route, Frequency, Duration) Notes Start Date End Date Status Vitamins/Minerals Vit D and Zinc Active Aspir-81 PRN Active HYDROcodone-Acetamino phen 7.5-325 MG 1 tablet Orally EVERY 8 hours; Duration: 30 days 10/08/2024 12/04/2024 Active diazePAM 2 MG Oral; Duration: 10 1 po most days Active Narcan 4 MG/0.1ML as directed Nasally Once in Emergency 12/20/2022 Active Social History Tobacco Use: Social History [...] Are you an other tobacco user? No Problems Problem Type SNOMED Code ICD Code Onset Dates Problem Status W/U Status Risk Notes Problem Sacroiliac joint pain (M53.3) Active confirmed Vital Signs Blood pressure systolic 153 mm Hg 11/05/19 25 Blood pressure diastolic 102 mm Hg 025 Heart Rate 69 /min 11/04/2024 Height 68 in 11/04/2024 Weight 190 lbs 11/04/2024 BMI 28.89 kg/m2 11/04/2024 Oximetry 98 % 11/04/2024 Encounters Encounter Location Date Provider Diagnosis [facility] [address] [address] 11/04/2024 Jone Garcia Cervical spondylosis without myelopathy M47.812 and Bilateral primary osteoarthritis of knee M17.0 Assessments Encounter Date Diagnosis (ICD Code) Assessment Notes Treatment Notes Treatment Clinical Notes Section Notes 11/04/2024 Cervical spondylosis without myelopathy (ICD-10 - M47.812) 11/04/2024 Bilateral primary osteoarthritis of knee (ICD-10 - M17.0) Plan Of Treatment Medication Medication Name Sig Start Date Stop Date Notes HYDROcodone-Acetaminophen 7.5-325 MG 1 tablet Orally EVERY 8 hours; Duration: 30 days 10/08/2024 12/04/2024 Next Appt Details Provider Name:Saira Nicole, 01/29/2025 07:45:00 AM, [address] [place], [address], Progress Notes * Melissa PRE[birth year]YOB:[birth year] (69 yo M)Acc No.[id number]:11/04/2024 Progress Notes Patient: Sonido HOLGUIN Provider: Isa Garcia MD :1955 A ge:69 Y S ex:Male Date:11/04/2024 Phone: Address:[address] [place] [address] Subjective: * Chief Complaints: * 1 . OFFICE VISIT. * HPI: P ain Management: Assessment and followup F ollowup plan documented : Y es. I nterim History: Patient presents for a follow up for chronic pain management. Patient's CC: low back pain, which they score a 5/10 NRS at rest that increases to 5/10 NRS with activity. Pt describes this pain as aching,stabbing and throbbing. Pt reports that doing excessive activity increases this pain. Pt reports that rest,medication,voltaren cream h elps reduce this pain. Pt reports no changes in health history and denies any changes in medications from outside providers. Denies adverse effects to prescribed medication. Reports taking medications as prescribed. Refills for norco were provided today, dates verified with ZEFERINO. UDS obtained today to monitor compliance. Patient reports that their last dose of norco was taken at 9:00 a.m. Last UDS was reviewed and was compliant for prescribed medication. Patient would like to treat their pain. They have scheduled treatment at this time. We will follow up accordingly and continue medication management. Based on the physical exam and clinical findings, we will schedule left sacroiliac joint injection. Goal of treatment decrease low back pain. Scribe-SB. 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 TECHNICAL FACTORS: Long- and short-axis fat- and water-weighted images were performed. COMPARISON: L-spine MRI 03/26/2022 and 12/12/2016. FINDINGS: Spine Numbering: For purposes of this dictation, it is assumed that there are 5 non-ribbearing, lumbar-type vertebrae, and the most caudal fully segmented lumbar vertebra is labeled L5. Alignment: Normal. Vertebral Bodies: Mild multilevel vertebral height loss and endplate spurring. Marrow Signal: No aggressive intramedullary lesions. Intervertebral Discs: Multilevel disc desiccation and minimal height loss. Conus Medullaris: Terminates at a normal level. Cauda Equina: Normal. Paraspinal Soft Tissues: Normal. Individual Levels: T12-L1: No disc bulge, disc herniation, canal stenosis or foraminal narrowing. L1-L2: No disc bulge, disc herniation, canal stenosis or foraminal narrowing. L2-L3: Mild bilateral facet arthrosis.No disc bulge, disc herniation, canal stenosis or foraminal narrowing. L3-L4: Mild bilateral facet arthrosis. No disc bulge, disc herniation, canal stenosis or foraminal narrowing. L4-L5: Mild bilateral facet arthrosis. No disc bulge, disc herniation, canal stenosis or foraminal narrowing. L5-S1: Mild bilateral facet arthrosis. No disc bulge, disc herniation, canal stenosis or foraminal narrowing. Sonido Pretty - MR Lumbar Spine w/o Contrast - 10/14/2023 CONCLUSION: 1. No interval changes compared with priors. 2. Lumbar spondylotic changes consisting mainly of mild bilateral facet arthrosis spanning L2-L3 through L5-S1. 3. No disc bulge, disc herniation, canal stenosis or foraminal narrowing at any level. Thank you for the opportunity to provide your interpretation. Arnie Morris MD A: PF 10/18/2023 11:16 AM EST. C ervical Spine/Neck: Exam Date 03/26/2022 Exam Description MR Cervical Spine w/o Contrast COMPARISON: MRI cervical spine 04/01/2017. FINDINGS: OSSEOUS STRUCTURES: Alignment is anatomic without spondylolisthesis. Vertebral body heights are preserved without compression deformity. Background marrow signal is normal without infiltrative marrow process. No aggressive osseous lesions are identified. SPINAL CANAL: The cervical cord is normal in caliber and signal without focal cord lesion identified. No canal collection or mass is identified. POSTERIOR FOSSA: The visualized contents of the posterior fossa are unremarkable. The cerebellar tonsils are appropriately positioned. SOFT TISSUES: The prevertebral and paraspinous soft tissues are unremarkable. Major arterial flow voids in the neck are preserved. CHUAT-JW-GRWSH ANALYSIS: Multilevel degenerative disc disease with varying degrees of disc height loss and disc desiccation. Cisik-ad-qaway analysis demonstrates the following: C1-C2: Normal atlantodental and atlanto-axial articulations. C2-C3: No disc herniation or disc-osteophyte complex. No spinal canal or neural foraminal narrowing. C3-C4: Disc osteophyte complex with bilateral uncovertebral joint hypertrophy. Moderate left facet arthropathy. Moderate left neural foraminal narrowing. C4-C5: No disc herniation or disc-osteophyte complex. No spinal canal or neural foraminal narrowing. C5-C6: Disc osteophyte complex with bilateral uncovertebral joint hypertrophy and a small superimposed central protrusion type disc herniation. Moderate bilateral neural foraminal narrowing. Mild spinal canal stenosis. C6-C7: No disc herniation or disc-osteophyte complex. No spinal canal or neural foraminal narrowing. C7-T1: No disc herniation or disc-osteophyte complex. No spinal canal or neural foraminal narrowing. Visualized portion of the upper thoracic spine (included on sagittal images): No disc herniations or discosteophyte complexes. No spinal canal or neural foraminal narrowing. CONCLUSION: Multilevel cervical spondylosis with mild C5-C6 spinal canal stenosis secondary to a disc osteophyte complex with a small superimposed central protrusion type disc herniation and moderate bilateral neural foraminal narrowing. Findings have slightly progressed compared to the prior study. Exam Date 03/26/2022 Exam Description MR Cervical Spine w/o Contrast COMPARISON: MRI cervical spine 04/01/2017. FINDINGS: OSSEOUS STRUCTURES: Alignment is anatomic without spondylolisthesis. Vertebral body heights are preserved without compression deformity. Background marrow signal is normal without infiltrative marrow process. No aggressive osseous lesions are identified. SPINAL CANAL: The cervical cord is normal in caliber and signal without focal cord lesion identified. No canal collection or mass is identified. POSTERIOR FOSSA: The visualized contents of the posterior fossa are unremarkable. The cerebellar tonsils are appropriately positioned. SOFT TISSUES: The prevertebral and paraspinous soft tissues are unremarkable. Major arterial flow voids in the neck are preserved. AEKNL-EU-KHLXC ANALYSIS: Multilevel degenerative disc disease with varying degrees of disc height loss and disc desiccation. Syapu-hp-vubww analysis demonstrates the following: C1-C2: Normal atlantodental and atlanto-axial articulations. C2-C3: No disc herniation or disc-osteophyte complex. No spinal canal or neural foraminal narrowing. C3-C4: Disc osteophyte complex with bilateral uncovertebral joint hypertrophy. Moderate left facet arthropathy. Moderate left neural foraminal narrowing. C4-C5: No disc herniation or disc-osteophyte complex. No spinal canal or neural foraminal narrowing. C5-C6: Disc osteophyte complex with bilateral uncovertebral joint hypertrophy and a small superimposed central protrusion type disc herniation. Moderate bilateral neural foraminal narrowing. Mild spinal canal stenosis. C6-C7: No disc herniation or disc-osteophyte complex. No spinal canal or neural foraminal narrowing. C7-T1: No disc herniation or disc-osteophyte complex. No spinal canal or neural foraminal narrowing. Visualized portion of the upper thoracic spine (included on sagittal images): No disc herniations or discosteophyte complexes. No spinal canal or neural foraminal narrowing. CONCLUSION: Multilevel cervical spondylosis with mild C5-C6 spinal canal stenosis secondary to a disc osteophyte complex with a small superimposed central protrusion type disc herniation and moderate bilateral neural foraminal narrowing. Findings have slightly progressed compared to the prior study. * ROS: C ervical: Admits N ruchi [...] D enies M ental or Physical abuse. D enies S uicidal thoughts. * Medical History: A [...] Orally EVERY 8 hours , stop date 11/06/2024, Medication List reviewed and reconciled with the patient * Allergies: B elbuca: euphoria - Side Effects, NSAIDs: tinnitus. Objective: * Vitals: H R: 69 /min, BP:153/102mm Hg, Ht: 68 in, Wt: 190 lbs, BMI:28.89Index, Oxygen sat %: 98, Pain scale: 5 1-10, Ht-cm: 172.72 cm, Wt-k.18 kg. Assessment: * Assessment: 1. C ervical spondylosis without myelopathy - M47.812 2 . B ilateral primary osteoarthritis of knee - M17.0 Plan: * Treatment: * Immunizations: Immunization record has been reviewed and updated. * Preventive Medicine: YOUR PREVENTIVE WELLNESS PLAN: B [place], Height, and Weight: T he Recommended Frequency [...] SUBSTANCES VERBAL EDUCATION ... PER RULES OF [employer]- may require weaning of medication, if rules [...] or need more you can contact the [facility] addiction hotline at [phone] and they should be able to provide you with free Narcan. * * Electronic signature of Anjel Garcia MD on 01/07/2025 at 03:29 PM EDT Sign off status: Pending * Provider: Isa Garcia MD Date: 0 11/04/2024 Generated for Scotty mcallister/Rosemarie/eTransmitting on: 0 01/07/2025 03:29 PM EDT History and Physical Notes * HPI (History of Present Illness) Category Sub-Category Detail Notes Category Not es Lumbar Spine/Lower Back Patient Name Sonido Pretty Patient 1955 Exam Date 10/14/2023 ProScan Referring Physician Saira Nicole NP Exam Description MR Lumbar Spine w/o Contrast HISTORY: Left-sided lumbar radicular pain. TECHNICAL FACTORS: Long- and short-axis fat- and water-weighted images were performed. COMPARISON: L-spine MRI 03/26/2022 and 12/12/2016. FINDINGS: Spine Numbering: For purposes of this dictation, it is assumed that there are 5 non-ribbearing, lumbar-type vertebrae, and the most caudal fully segmented lumbar vertebra is labeled L5. Alignment: Normal. Vertebral Bodies: Mild multilevel vertebral height loss and endplate spurring. Marrow Signal: No aggressive intramedullary lesions. Intervertebral Discs: Multilevel disc desiccation and minimal height loss. Conus Medullaris: Terminates at a normal level. Cauda Equina: Normal. Paraspinal Soft Tissues: Normal. Individual Levels: T12-L1: No disc bulge, disc herniation, canal stenosis or foraminal narrowing. L1-L2: No disc bulge, disc herniation, canal stenosis or foraminal narrowing. L2-L3: Mild bilateral facet arthrosis.No disc bulge, disc herniation, canal stenosis or foraminal narrowing. L3-L4: Mild bilateral facet arthrosis. No disc bulge, disc herniation, canal stenosis or foraminal narrowing. L4-L5: Mild bilateral facet arthrosis. No disc bulge, disc herniation, canal stenosis or foraminal narrowing. L5-S1: Mild bilateral facet arthrosis. No disc bulge, disc herniation, canal stenosis or foraminal narrowing. Sonido Pretty - MR Lumbar Spine w/o Contrast - 10/14/2023 CONCLUSION: 1. No interval changes compared with priors. 2. Lumbar spondylotic changes consisting mainly of mild bilateral facet arthrosis spanning L2-L3 through L5-S1. 3. No disc bulge, disc herniation, canal stenosis or foraminal narrowing at any level. Thank you for the opportunity to provide your interpretation. Arnie Morris MD A: PF 10/18/2023 11:16 AM EST Cervical Spine/Neck Exam Date 03/26/2022 Exam Description MR Cervical Spine w/o Contrast COMPARISON: MRI cervical spine 04/01/2017. FINDINGS: OSSEOUS STRUCTURES: Alignment is anatomic without spondylolisthesis. Vertebral body heights are preserved without compression deformity. Background marrow signal is normal without infiltrative marrow process. No aggressive osseous lesions are identified. SPINAL CANAL: The cervical cord is normal in caliber and signal without focal cord lesion identified. No canal collection or mass is identified. POSTERIOR FOSSA: The visualized contents of the posterior fossa are unremarkable. The cerebellar tonsils are appropriately positioned. SOFT TISSUES: The prevertebral and paraspinous soft tissues are unremarkable. Major arterial flow voids in the neck are preserved. ZRXPT-TT-IJOBP ANALYSIS: Multilevel degenerative disc disease with varying degrees of disc height loss and disc desiccation. Pifis-yo-kbavs analysis demonstrates the following: C1-C2: Normal atlantodental and atlanto-axial articulations. C2-C3: No disc herniation or disc-osteophyte complex. No spinal canal or neural foraminal narrowing. C3-C4: Disc osteophyte complex with bilateral uncovertebral joint hypertrophy. Moderate left facet arthropathy. Moderate left neural foraminal narrowing. C4-C5: No disc herniation or disc-osteophyte complex. No spinal canal or neural foraminal narrowing. C5-C6: Disc osteophyte complex with bilateral uncovertebral joint hypertrophy and a small superimposed central protrusion type disc herniation. Moderate bilateral neural foraminal narrowing. Mild spinal canal stenosis. C6-C7: No disc herniation or disc-osteophyte complex. No spinal canal or neural foraminal narrowing. C7-T1: No disc herniation or disc-osteophyte complex. No spinal canal or neural foraminal narrowing. Visualized portion of the upper thoracic spine (included on sagittal images): No disc herniations or discosteophyte complexes. No spinal canal or neural foraminal narrowing. CONCLUSION: Multilevel cervical spondylosis with mild C5-C6 spinal canal stenosis secondary to a disc osteophyte complex with a small superimposed central protrusion type disc herniation and moderate bilateral neural foraminal narrowing. Findings have slightly progressed compared to the prior study. Exam Date 03/26/2022 Exam Description MR Cervical Spine w/o Contrast COMPARISON: MRI cervical spine 04/01/2017. FINDINGS: OSSEOUS STRUCTURES: Alignment is anatomic without spondylolisthesis. Vertebral body heights are preserved without compression deformity. Background marrow signal is normal without infiltrative marrow process. No aggressive osseous lesions are identified. SPINAL CANAL: The cervical cord is normal in caliber and signal without focal cord lesion identified. No canal collection or mass is identified. POSTERIOR FOSSA: The visualized contents of the posterior fossa are unremarkable. The cerebellar tonsils are appropriately positioned. SOFT TISSUES: The prevertebral and paraspinous soft tissues are unremarkable. Major arterial flow voids in the neck are preserved. HGEAN-AL-GLNYK ANALYSIS: Multilevel degenerative disc disease with varying degrees of disc height loss and disc desiccation. Eszto-pm-ohtlb analysis demonstrates the following: C1-C2: Normal atlantodental and atlanto-axial articulations. C2-C3: No disc herniation or disc-osteophyte complex. No spinal canal or neural foraminal narrowing. C3-C4: Disc osteophyte complex with bilateral uncovertebral joint hypertrophy. Moderate left facet arthropathy. Moderate left neural foraminal narrowing. C4-C5: No disc herniation or disc-osteophyte complex. No spinal canal or neural foraminal narrowing. C5-C6: Disc osteophyte complex with bilateral uncovertebral joint hypertrophy and a small superimposed central protrusion type disc herniation. Moderate bilateral neural foraminal narrowing. Mild spinal canal stenosis. C6-C7: No disc herniation or disc-osteophyte complex. No spinal canal or neural foraminal narrowing. C7-T1: No disc herniation or disc-osteophyte complex. No spinal canal or neural foraminal narrowing. Visualized portion of the upper thoracic spine (included on sagittal images): No disc herniations or discosteophyte complexes. No spinal canal or neural foraminal narrowing. CONCLUSION: Multilevel cervical spondylosis with mild C5-C6 spinal canal stenosis secondary to a disc osteophyte complex with a small superimposed central protrusion type disc herniation and moderate bilateral neural foraminal narrowing. Findings have slightly progressed compared to the prior study. Interim History Patient presents for a follow up for chronic pain management. Patient's CC: low back pain, which they score a 5/10 NRS at rest that increases to 5/10 NRS with activity. Pt describes this pain as aching,stabbing and throbbing. Pt reports that doing excessive activity increases this pain. Pt reports that rest,medication,volt aren cream helps reduce this pain. Pt reports no changes in health history and denies any changes in medications from outside providers. Denies adverse effects to prescribed medication. Reports taking medications as prescribed. Refills for norco were provided today, dates verified with ZEFERINO. UDS obtained today to monitor compliance. Patient reports that their last dose of norco was taken at 9:00 a.m. Last UDS was reviewed and was compliant for prescribed medication. Patient would like to treat their pain. They have scheduled treatment at this time. We will follow up accordingly and continue medication management. Based on the physical exam and clinical findings, we will schedule left sacroiliac joint injection. Goal of treatment decrease low back pain. Scribe-SB Pain Management Assessment and followup Followup plan documented :: Yes
--- OUTSIDE RECORDS SUMMARY | 2024-12-02 03:45 | XMS_ITS ---
Author Organization [facility] Address [address] [address] Care Team Providers Care Director Appointment Name Role Phone Jone Garcia Unavailable [phone] Allergies Allergen (clinical drug ingredient) Drug/Non Drug [...] Provider Diagnosis [facility] [address] [address] 12/02/2024 Jone Garcia Assessments Encounter Date Diagnosis [...] Up: 4 Weeks, Reason: OFFICE VISIT Provider Name:Saira Nicole, 01/29/2025 07:45:00 AM, [address] [place], [address], Progress Notes * Melissa PRETTYOB:[birth year] (69 yo M)Acc No.[id number]:12/02/2024 Progress Note Patient: Sonido HOLGUIN Provider: Isa Garcia MD :1955 A ge:69 Y S ex:Male Date:12/02/2024 Phone: Address:[address] [place] [address] [address] [id number] Subjective: * Chief Complaints: * 1 . [...] ousehold M arital status: m arried, L titoel of education: f inished high school. * [...] of Anjel Garcia MD on 01/07/2025 at 03:27 PM EDT Sign off status: Pending * Provider: Isa Garcia MD Date: 0 12/02/2024 Generated for Scotty mcallister/Rosemarie/Félixitting on: 0 01/07/2025 03:27 PM EDT History and Physical Notes * [...]
--- OUTSIDE RECORDS SUMMARY | 2024-12-31 04:00 | XMS_ITS ---
Author Organization [facility] Address [address] [address] Care Team Providers Care [employer] Nurse Name Role Phone Jone Garcia Unavailable [phone] Saira Nicole Unavailable [phone] Allergies Allergen (clinical drug ingredient) Drug/Non Drug [...] [facility] [address] [address] 12/31/2024 Saira Nicole Thoracic spondylosis without myelopathy M47.814 ; Other chronic pain G89.29 and Sacroiliitis, not elsewhere classified M46.1 Assessments Encounter Date Diagnosis (ICD Code) Assessment Notes Treatment Notes Treatment Clinical Notes Section Notes 12/31/2024 Thoracic spondylosis without myelopathy (ICD-10 - M47.814) 12/31/2024 Other chronic pain (ICD-10 - G89.29) 12/31/2024 Sacroiliitis, not elsewhere classified (ICD-10 - M46.1) 12/31/2024 Other 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 He is having costochondritic pain and discomfort [...] 01/29/2025 07:45:00 AM, [address] [place], [address], Progress Notes * Melissa PRETTYOB:[birth year] (69 yo M)Acc No.[id number]:12/31/2024 Progress Notes Patient: Sonido HOLGUIN Provider: PRESTON Loja :1955 A ge:69 Y S ex:Male Date:12/31/2024 Phone: Address:[address], [place] Subjective: * Chief Complaints: * O FFICE [...] lidocaine patch OTC and diclofenac gel OTC, [place] helps reduce this pain. Pt reports he is wearing a heart monitor and is scheduled for a stress test and echocardiogram on 01/14/2025 due to recently having shooting pains in chest. Denies adverse effects to prescribed medication. Reports taking medications as prescribed. Refills for [place] were provided today, dates verified with ZEFERINO. [...] C-spine, neck supple,. HEART: H TN, wearing flat lock machine operator,. LUNGS: g ood air movement,. CHEST: s [...] Preventive Medicine: YOUR PREVENTIVE WELLNESS PLAN: B DC, Height, and Weight: T he Recommended Frequency [...] the [facility] addiction hotline at [phone] and they should be able to provide you with free Narcan. * Follow Up: 4 Weeks (Reason: OV) * * Sign off status: Completed true * Provider: PRESTON Loja Date: 0 12/31/2024 Generated for Scotty Khan on: 0 01/07/2025 03:28 PM EDT History and Physical Notes * [...] lidocaine patch OTC and diclofenac gel OTC, [place] helps reduce this pain. Pt reports he is wearing a heart monitor and is scheduled for a stress test and echocardiogram on 01/14/2025 due to recently having shooting pains in chest. Denies adverse effects to prescribed medication. Reports taking medications as prescribed. Refills for [place] were provided today, dates verified with ZEFERINO. 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
[2025-01-07 15:25] VITALS: BP 149/115; PULSE 85; RESP 20; TEMP 36.7; O2SAT 98; BMI 25.9
--- OUTSIDE RECORDS SUMMARY | 2025-01-07 15:28 | XMS_ITS | Clinical Summary ---
Author Organization [facility] Address [facility] [place], [place] [address] Phone Care Team Providers Care Lead Fabricator Name Role Phone Pieter Gordon MD Primary Care Provider [phone] Allergies Active Allergy Reactions Criticality Noted Date Comments Amitriptyline Palpitations 06/24/2022 vomiting Medications fluticasone propionate (FLONASE) 50 mcg/actuation Nasl Avalon, Suspension 2 Sprays in each nostril daily. 1 9 Active ondansetron (ZOFRAN) 4 mg Oral Tablet Take by mouth every 8 hours as needed for Nausea. Active triamcinolone (KENALOG) 0.1 % Top Lotion Apply topically 3 times daily. apply to eczema areas Active HYDROcodone-acet aminophen (NORCO) 7.5-325 mg Oral Tablet Take 1 Tablet by mouth every 6 hours as needed. hydrocodone bitartrate once daily no tylenol Active ALPRAZolam (XANAX) 0.25 mg Oral Tablet TAKE ONE TABLET BY MOUTH FOUR TIMES DAILY NEEDED FOR nerves MAY CAUSE DROWSINESS 2 Active HYDROcodone bitartrate 20 mg Oral tablet,oral only,ext.rel.24 hr 2 Active hyoscyamine (ANASPAZ;LEVSIN) 0.125 mg Oral Tablet Take 1 Tablet by mouth every 6 hours as needed for Cramping. 60 Tablet 3 2 Active Additional Information Patient not taking.Reported on 11/15/2023 busPIRone (BUSPAR) 5 mg Oral Tablet 2 Active sucralfate (CARAFATE) 1 gram Oral Tablet 1 tablet on an empty stomach Active escitalopram oxalate (LEXAPRO) 5 mg Oral Tablet Take 5 mg by mouth daily. 3 Active diclofenac (VOLTAREN) 1 % Top Gel as directed Active pantoprazole (PROTONIX) 40 mg Oral Tablet, Delayed Release (E.C.)Indication s:Gastroesophage al reflux disease without esophagitis Take 1 Tablet by mouth daily. 90 Tablet 3 3 Active Additional Information Patient not taking.Reported on 11/15/2023 amitriptyline (ELAVIL) 25 mg Oral TabletIndication s:Functional abdominal pain syndrome TAKE 1 TABLET BY MOUTH NIGHTLY. 90 Tablet 3 3 Active Additional Information Patient not taking.Reported on 11/15/2023 methylPREDNISolo ne (MEDROL DOSPACK) 4 mg Oral Tablets, Dose PackIndications: Left knee pain, unspecified chronicity follow package directions 1 Each 4 Active Additional Information Patient not taking.Reported on 11/15/2023 diazePAM (VALIUM) 2 mg Oral Tablet Take by mouth every 8 hours. Active levoFLOXacin (LEVAQUIN) 500 mg Oral Tablet Take by mouth every 24 hours. Active mupirocin (BACTROBAN) 2 % Top Ointment Apply topically 3 times daily. Active Active Problems Problem Noted Date Diagnosed Date History of cholecystectomy 09/14/2021 Overview (09/14/2021): 08/2021 Hepatic steatosis 09/14/2021 Gilbert disease 09/14/2021 Personal history of colonic polyps 09/14/2021 Vitamin D deficiency 08/05/2021 Biliary dyskinesia 08/03/2021 Chronic bilateral low back pain without sciatica 08/03/2021 Generalized anxiety disorder 08/03/2021 Thoracic spondylosis without myelopathy 09/08/19 16 Intractable abdominal pain Surgical History Surgery Date Site/Laterality Comments APPENDECTOMY UPPER GASTROINTESTINAL ENDOSCOPY COLONOSCOPY TOTAL KNEE ARTHROPLASTY 05/27/2020 Left LEFT TOTAL KNEE ARTHROPLASTY; Surgeon: Kevan Wheeler MD; Location: ED MAIN OR; Service: Orthopedics Medical devices from this surgery are in the Medical Devices section. UPPER GASTROINTESTINAL ENDOSCOPY 08/04/2021 N/A ESOPHAGOGASTRODUODENOSCOPY with biopsies; Surgeon: Dusty Rodríguez DO; Location: ED ENDOSCOPY; Service: Endoscopy CHOLECYSTECTOMY, LAPAROSCOPIC 08/05/2021 Abdomen/N/A LAPAROSCOPIC CHOLECYSTECTOMY ; Surgeon: Bárbara Shore MD; Location: ED MAIN OR; Service: General Medical History Medical History Date Comments Arthritis Family History Medical History Relation Name Comments Diabetes Maternal Grandfather Cancer Mother lung Relation Name Status Comments Maternal Grandfather Mother Social History Tobacco Use Types Packs/Day Years Used Date Smoking Tobacco: Never Smokeless Tobacco: Never Tobacco Cessation:Counseling Given: Not Answered Alcohol Use Standard Drinks/Week Comments Yes 0 (1 standard drink = 0.6 oz pur e alcohol) rare AUDIT-C Answer Date Recorded Q1: How often do you have a drink containing alc ohol? Never 05/27/2020 Average Number of Drinks Not on file 020 Frequency of Binge Drinking Not on file 05/06 Overall Financial Resource Strain (CARDIA) Answe r Date Recorded How hard is it for you to pa y for the very basics like food, housing, medical care, and heating? Not hard at all 08/03/2021 PHQ-2 Answer Date Recorded PHQ-2 Score 0 02/19/2019 Hunger Vital Sign Answer Date Recorded Within the past 12 months, y ou worried that your food would run out before you got the money to buy more. Never true 08/04/19 22 Within the past 12 months, t he food you bought just didn't last and you didn't have money to get more. Never true 08/03/2021 PRAPARE - Transportation Answer Date Re corded In the past 12 months, has l ack of transportation kept you from medical appointments or from getting medications? No 06/2021 In the past 12 months, has l ack of transportation kept you from meetings, work, or from getting things needed for daily living? No 08/03/2021 Sexually Active Control Partners Comments Yes Female Sex and Gender Information Value Date Recorded Sex Assigned at Not on file Legal Sex Male 2:01 PM EDT Gender Identity Not on file Sexual Orientation Not on file Obstetrics History Last Filed Vital Signs Vital Sign Reading Time Taken Comments Blood Pressure 133/89 11/15/2023 1:28 PM EDT Pulse 63 11/15/2023 1:28 PM EDT Temperature 37 C (98.6 F) 11/15/2023 1:28 PM EDT Respiratory Rate 14 06/23/2022 9:05 AM EST Oxygen Saturation 98% 05/17/2022 12: 13 PM EST Inhaled Oxygen Concentration - - Weight 77.6 kg (171 lb) 11/15/2023 1:28 PM EDT Height 175.3 cm (5' 9 ) 11/15/2023 1:28 PM EDT Paitent reported Body Mass Index 25.25 11/15/2023 1:28 PM EDT Plan of Treatment Health Maintenance Due Date Last Done Comments Wellness Exam Medicare 1960 DTaP/TDaP/Td (1 - Tdap) 1976 Cologuard 2002 Colon Cancer Screening 2002 Colonoscopy 2002 FIT 2002 Sigmoidoscopy 2002 Virtual Colonography 2002 Pneumococcal Vaccine 50+ (1 of 1 - PCV) 2007 Zoster (1 of 2) 2007 COVID-19 Vaccine ( - 2023-2 5 season) 2024 Influenza Vaccine (#1) 2025 Hepatitis C Screening Completed 08/04/2021 , 02/21/2019 Hepatitis B Vaccine Aged Out No longe r eligible based on patient's age to complete this topic Meningococcal B Vaccine Aged Out No l onger eligible based on patient's age to complete this topic Goals Goal Patient Goal Type Associated Problems Recent Progress Patient-Stated? Author Maintain a healthy diet, exercise regularly and maintain an ideal body weight General No Cornelius Bryan MD Medical Devices Implanted Type Area Supervisor Paper Machine Device Identifier Shelf Expiration Date Model / Serial / Lot Gmk Tibial Tray Cemented Left S3 - [id number] Implanted:Qty: 1 on 05/27/2020 by Kevan Wheeler MD at [facility] Left: Knee [employer] [id number] 12/19/2024 02.07.120 3L / / [id number] Patella Resurfacing S2 - [id number] Implanted:Qty: 1 on 05/27/2020 by Kevan Wheeler MD at [facility] Left: Knee [employer] [id number] 12/11/2024 02.07.003 4RP / / [id number] Sphere Femur Cemented Left S3 + - [id number] Implanted:Qty: 1 on 05/27/2020 by Kevan Wheeler MD at [facility] Left: Knee [employer] [id number] 12/12/2024 02.12.002 3L / / [id number] Cement Bn Simplex Hv 20ml 40gm Radiopaque Strl - [id number] Implanted:Qty: 2 on 05/27/2020 by Kevan Wheeler MD at [facility] Left: Knee FALGUNI:ORTHOPED ICS 08/02/2021 [id number] / / [id number] B Ins Tib 3 10mm Lt Sphr Cngrnt Gmk - [id number] Implanted:Qty: 1 on 05/27/2020 by Kevan Wheeler MD at [facility] Left: Knee [employer]A [id number] 10/16/2024 02.12.031 0CRL / / [id number] Procedures Procedure Name Priority Date/Time Associated Diagnosis Comments ACUTE HEPATITIS PANEL Routine 08/04/2021 6:55 AM EST from Last 3 Months or Most Recently Relevant to Health Maintenance Results * ACUTE HEPATITIS PANEL (08/04/2021 6:55 AM EST) Hep Bs Ag Non-Reacti ve Non-Reacti ve 08/04/2021 9:18 AM EST [facility] Hep B Core IgM Non-Reacti ve Non-Reacti ve 08/04/2021 9:18 AM EST [facility] Hep A IgM Non-Reacti ve Non-Reacti ve 08/04/2021 9:18 AM EST [facility] Hep C Ab Non-Reacti ve Non-Reacti ve 08/04/2021 9:18 AM EST [facility] Blood VENOUS BLOOD / Unknown Venipuncture / Unknown 08/04/2021 6:55 AM EST 08/04/2021 7:00 AM EST [facility] Janette Ko MD CHEMISTRY ORDERABLES Final Result [facility] [address] [facility] , [place] [address] from Last 3 Months or Most Recently Relevant to Health Maintenance Insurance [place]ICARE [place] PART A [place] B MEDICARE SUPP[place]MENT [place]MENT [place] * Guarantor: MARIA DE JESUSSONIDO Account Type Relation to Patient Date of Phone Billing Address [place] Personal Family 1955 [address] [address] [place]ICARE [place] PART [place] SUPP[place]MENT [place] CIG[employer] MEDIC[place]PP[place]MENT [place] Advance Directives For more information, please contact: [phone] * Full Code (Latest Code Status on File) Date Activated Date Inactivated Comments 08/03/2021 6:55 PM 08/06/2021 8:03 PM Care Teams Lead Fabricator Relationship Specialty Start Date End Date Pieter Gordon MD [address] [place] [address] PCP - General Internal Medicine 08/03/21
--- OUTSIDE RECORDS SUMMARY | 2025-01-07 15:28 | XMS_ITS | Referral Summary ---
Author Organization [facility] ([place], [place], [place], [place]) Address [address] [place] [address] Care Team Providers Care Project Designer Name Role Phone Unavailable Primary Care Provider [...]
--- OUTSIDE RECORDS SUMMARY | 2025-01-07 15:28 | XMS_ITS | Clinical Summary ---
Author Organization [facility] Address [address] [place] [address] Care Team Providers Care Contact Center Analyst Name Role Phone Pieter Gordon MD Primary Care Provider Allergies No known active allergies Medications ESCITALOPRAM [...] 1-dose 75+ series) 2032 Insurance Care Teams Contact Center Analyst Relationship Specialty Start Date End Date Pieter Gordon MD [facility] [place] [address] PCP - General 09/07/15
--- OUTSIDE RECORDS SUMMARY | 2025-01-07 15:28 | XMS_ITS | Clinical Summary ---
Author Organization [facility] Address [address] [place] [address] Care Team Providers Care Tourist Cabin Keeper Name Role Phone Unavailable Primary Care Provider [...] 2007 UKY-Zoster Vaccines (1 of 2) 2007 [id number]-[id number]-28 Vaccine (1 - 20 24-25 season) 2024 [...] age to complete this topic Insurance MEDICARE [facility]
--- OUTSIDE RECORDS SUMMARY | 2025-01-07 15:28 | XMS_ITS | Encounter Summary ---
Author Organization [facility] Address [address] [place] [address] Care Team Providers Care Security Inspector Name Role Phone Pieter Gordon MD Primary Care Provider [phone] Encounter Details Date Type Department Care Team (Late st Contact Info) Description 09/07/2015 Abstract [facility] Physicians - Spine Surgery, [place] [address] [place] [id number] Ambulatory, Supervisor Inspection Department Social History Tobacco Use Types Packs/Day Years [...] on filedocumented in this encounter Care Teams Security Inspector Relationship Specialty Start Date End Date Pieter Gordon MD [address] [place] [address] PCP - General 09/07/15 documented as of this encounter
--- OUTSIDE RECORDS SUMMARY | 2025-01-07 15:28 | XMS_ITS | Clinical Summary ---
Author Organization [facility] Address [address] [facility] [address] [facility], [address] [place] [address] Care Team Providers Care Motor Vehicle Representative Name Role Phone Holly Pisano MD Primary Care Provider [phone] Social History Tobacco Use Types Packs/Day Years Used Date Smoking Tobacco: Never Assessed Sex and Gender Information Value Date Recorded Sex Assigned at Not on file Legal Sex Male 6:22 AM EST Gender Identity Not on file Sexual Orientation Not on file Plan of Treatment Not on file Insurance RR #[id number] [place] [id number] [address] Care Teams Motor Vehicle Representative Relationship Specialty Start Date End Date Holly Pisano MD [address] [place] [address] PCP - General 07/05/10
--- OUTSIDE RECORDS SUMMARY | 2025-01-07 15:29 | XMS_ITS | Clinical Summary ---
Author Organization [facility] Address [address] [place] [address] Care Team Providers Care Vp Care Management Name Role Phone Pieter Gordon Primary Care Provider [phone] Source Comments This information has been disclosed [...] therelease of HIV test results or diagnoses. [id number] Allergies Active Allergy Reactions Criticality Noted [...] Pretty Relation to Subscriber:Self Name:Sonido Pretty Payer ID:[id number] Group ID:Not on file Type:Medicare Address: [facility] [id number] [place] [id number] [facility] Care Teams Vp Care Management Relationship Specialty Start Date End Date Pieter Gordon [address] [facility] [address] [place] [address] PCP - General 08/20/24
--- OUTSIDE RECORDS SUMMARY | 2025-01-07 15:29 | XMS_ITS | Encounter Summary ---
Author Organization [facility] ([place], [place], [place], [place]) Address [address] [place] [address] Care Team Providers Care Proofer Prepress Name Role Phone Unavailable Primary Care Provider Unavailabl e Encounter Details Date Type Department Care Team (Late st Contact Info) Description 08/01/2021 Transcribed Document [facility] Family Medicine [facility] [place] [address] ProviderLuz Marina MD [address] [place] [address] Social History Tobacco Use Types [...] - Historical ProviderMD - 08/01/2021 12:43 PM WARBLE SAW OPERATOR ED Triage Entered On: 08/01/2021 13:00 EST Performed On: 08/01/2021 12:55 EST by Anais Koroma, gift officer Triage Across the Room Chief Complaint : From home via POV d/t severe upper abd pain x 1mon. Pt is followed by GI. ERCP scheduled 08/31, however d/t increased pain-pt unable to wait that long. +intermittent nausea. 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 US completed by [facility]. Triage Date/Time : 08/01/2021 12:55 EST Anais Koroma Rn - 08/01/2021 12:55 EST DCP GENERIC CODE Tracking Acuity : 3 - Urgent Tracking Group : [facility] ED Anais Koroma Rn - 08/01/2021 [...] PNED ; Probability: 0 ; Diagnosis Code: [id number] ED Height and Weight Height Source : Stated Height Entry Format : [place] Height, Feet : 5 ft(Converted to: 152 cm, 60 Inch) Height, Inches : 9 Inch(Converted to: 0 ft 9 Inch, 22.86 cm) Clinical Height : 175.26 cm Weight Source, ED : Stated [place] Body Weight (IBW) : 69.73 kg Anais Koroma Rn - 08/01/2021 12:55 EST Estimated Weight Type of Weight Measurement Est : [place] Weight, est lb : 180 lb(Converted to: 82 kg) Estimated Clinical Dosing Weight : 81.82 kg Anais Koroma Rn - 08/01/2021 12:55 EST documented in this encounter Plan of Treatment Not on file documented as of this encounter Visit Diagnoses Not on filedocumented in this encounter
--- OUTSIDE RECORDS SUMMARY | 2025-01-07 15:29 | XMS_ITS | Patient Health Record ---
Author Organization [facility] Address [address] [address] Care Team Providers Care Press Set Up Person Name Role Phone Jone Garcia Unavailable [phone] Bonnie Saira Unavailable [phone] Jan Land Unavailable Unavailable Allergies Allergen (clinical drug ingredient) Drug/Non Drug Allergy documented on EMR Reaction Allergy Type Onset Date Status buprenorphine Belbuca euphoria Drug Allergy Act marcial Non-steroidal anti-inflammatory agent (FN) NSAIDs tinnitus Drug Allergy Active Results Component Value Reference Range Notes [facility] (Not yet re viewed by provider) Interpretation:Normal Performing Lab: Notes/Report: Normal [facility] (Not yet re viewed by provider) Interpretation:Normal Performing Lab: Notes/Report: Normal [facility] (Not yet reviewed by provider) Interpretation: Performing Lab: Notes/Report: Reason For Referral Reason Opioid Risk Assessme nt. Diagnosis 1 Chronic pain syndrom e (G89.4) Diagnosis 2 Chronic, continuous use of opioids (F11.90) Referral Organization [facility] Referring Provider First Name Jone Referring Provider Last Name [facility] Referring Provider Speciality Pain Medic ine Referred Provider Artie Moore Referred Provider Specialty Certified Ps ychologist Referral Priority Routine Reason EVAL AND TREAT Diagnosis 1 Benign prostatic hyp erplasia with lower urinary tract symptoms, symptom details unspecified (N40.1) Referral Organization [facility] Referring Provider First Name Jone Referring Provider [facility] Name [facility] Referring Provider Speciality Pain Medic ine Referred Provider Long Bhatia Referred Provider Specialty Urology Referral Priority Routine Medications Medication SIG (Take, Route, Frequency, Duration) Notes Start Date End Date Status HYDROcodone-Acetamino phen 7.5-325 MG 1 tablet Orally EVERY 8 hours; Duration: 30 days 01/06/2025 01/31/2025 Active Narcan 4 MG/0.1ML as directed Nasally Once in Emergency 12/20/2022 Active Aspir-81 PRN Active Vitamins/Minerals Vit D and Zinc Active diazePAM 2 MG Oral; Duration: 10 1 po most days Active Immunizations Vaccine Route Administration Date Status Comme nts Influenza (split), 3 yrs and above Unknown 09/22/2017 A dministered Influenza (split), 3 yrs and above Unknown 04/23/2018 R efused Influenza (split), 3 yrs and above Unknown 07/11/2018 A dministered Influenza (split), 3 yrs and above Unknown 07/30/2018 R efused Influenza (split), 3 yrs and above Unknown 05/31/2019 R efused Influenza (split), 3 yrs and above Unknown 08/13/2019 R efused Influenza (split), 3 yrs and above Unknown 11/29/2019 R efused Influenza (split), 3 yrs and above Unknown 02/07/2020 R efused Influenza (split), 3 yrs and above Unknown 04/27/2020 R efused Influenza (split), 3 yrs and above Unknown 05/25/2020 R efused Influenza (split), 3 yrs and above Unknown 06/24/2020 R efused Influenza (split), 3 yrs and above Unknown 03/22/2021 R efused Influenza (split), 3 yrs and above Unknown 04/21/2021 R efused Influenza (split), 3 yrs and above Unknown 08/25/2021 R efused Social History Tobacco Use: Social History Observation [...] Problem Status W/U Status Risk Notes Problem Chronic pain (90869009) Other chronic pain (G89.29) Active confirmed Problem Chronic pain syndrome (633946649) Chronic pain syndrome (G89.4) Active confirmed Problem Osteoarthritis of knee (771960269) Bilateral primary osteoarthritis of knee (M17.0) Active confirmed Problem Solitary sacroiliitis (412012825) Sacroiliitis, not elsewhere classified (M46.1) Active confirmed Problem Displacement of lumbar intervertebral disc without myelopathy (68032724) Other intervertebral disc displacement, lumbar region (M51.26) Active confirmed Problem Right side sciatica (869245822544828) Sciatica, right side (M54.31) Active confirmed Problem Left side sciatica (420391595806316) Sciatica, left side (M54.32) Active confirmed Problem Calcaneal spur of right foot (854498597733148) Calcaneal spur, right foot (M77.31) Active confirmed Problem Lumbosacral spondylosis without myelopathy (52534516) Lumbosacral spondylosis without myelopathy (M47.817) Active confirmed Problem Displacement of cervical intervertebral disc without myelopathy (88842605) Displacement of cervical intervertebral disc without myelopathy (M50.20) Active confirmed Problem Displacement of thoracic intervertebral disc without myelopathy (26885924) Displacement of thoracic intervertebral disc without myelopathy (M51.24) Active confirmed Problem Displacement of lumbar intervertebral disc without myelopathy (91831555) Displacement of lumbar intervertebral disc without myelopathy (M51.26) Active confirmed Problem Neuralgia (43455717) Neuralgia and neuritis (M79.2) Active confirmed Problem Cervical spondylosis without myelopathy (701649257) Cervical spondylosis without myelopathy (M47.812) Active confirmed Problem Osteoarthritis of multiple joints (466070329) Osteoarthritis of multiple joints (M15.9) Active confirmed Problem Thoracic spondylosis without myelopathy (020365429) Thoracic spondylosis without myelopathy (M47.814) Active confirmed Problem Plantar fasciitis (943452234) Plantar fasciitis (M72.2) Active confirmed Problem Osteoarthritis of knee (065014978) Primary osteoarthritis of left knee (M17.12) Active confirmed Problem Pain in right foot (580790091008663) Right foot pain (M79.671) Active confirmed Problem Osteoarthritis of knee (179452587) Osteoarthritis of right knee (M17.9) Active confirmed Problem Pain of right knee region (finding) (893045990853612) Knee pain, right (M25.561) Active confirmed Problem Chronic pain syndrome (651890633) Chronic pain disorder (G89.4) Active confirmed Problem Sacroiliac joint pain (841204247) Sacroiliac joint pain (M53.3) Active confirmed Problem Enthesopathy of hip region (disorder) (70430792) Enthesopathy of hip region, unspecified laterality (M76.899) Active confirmed Problem Osteoarthritis (877802605) Osteoarthritis involving multiple joints on both sides of body (M15.9) Active confirmed Problem Sciatic nerve lesion (749303275) Piriformis syndrome of both sides (G57.03) Active confirmed Problem Sciatica (74696398) Chronic sciatica, left (M54.32) Active confirmed Problem Lower urinary tract symptoms due to benign prostatic hypertrophy (85540725446677) Benign prostatic hyperplasia with lower urinary tract symptoms, symptom details unspecified (N40.1) Active confirmed Vital Signs Heart Rate 71 /min 12/31/2024 Blood pressure diastolic 100 mm Hg 12/31/2024 Oximetry 97 % 12/31/2024 Height 68 in 12/31/2024 Blood pressure systolic 161 mm Hg 12/31/2024 Weight 173 lbs 12/31/2024 BMI 26.3 kg/m2 12/31/2024 Encounters Encounter Location Date Provider Diagnosis [facility] [address] [place] [address] 01/31/2024 Jone Garcia Cervical spondylosis without myelopathy M47.812 [facility] [address] [place] [address] 04/29/2024 Jone Garcia Other chronic pain G89.29 and Lumbosacral spondylosis without myelopathy M47.817 [facility] [address] [place] [address] 05/27/2024 Jone Garcia Lumbosacral spondylosis without myelopathy M47.817 [facility] [address] [place] [address] 06/28/2024 [facility] [address] [place] [address] 09/09/2024 Jone Garcia Cervical spondylosis without myelopathy M47.812 [facility] [address] [place] [address] 10/07/2024 Jone Garcia Cervical spondylosis without myelopathy M47.812 [facility] [address] [place] [address] 11/04/2024 Jone Garcia Cervical spondylosis without myelopathy M47.812 and Bilateral primary osteoarthritis of knee M17.0 [facility] [address] [place] [address] 12/02/2024 Jone Garcia [facility] [address] [place] [address] 02/16/2024 Saira Nicole Cervical spondylosis without myelopathy M47.812 and Chronic pain disorder G89.4 [facility] [address] [place] [address] 03/12/2024 Sairagriffin BradyNicole Cervical spondylosis without myelopathy M47.812 and Lumbosacral spondylosis without myelopathy M47.817 [facility] [address] [place] [address] 04/09/2024 Jan Land Sacroiliitis, not elsewhere classified M46.1 ; Lumbosacral spondylosis without myelopathy M47.817 and Other chronic pain G89.29 [facility] [address] [place] [address] 05/08/2024 Jan Land Lumbosacral spondylosis without myelopathy M47.817 and Sacroiliitis, not elsewhere classified M46.1 [facility] [address] [place] [address] 2024 Jone Garcia Lumbosacral spondylosis without myelopathy M47.817 ; Osteoarthritis of right knee M17.9 ; Bilateral primary osteoarthritis of knee M17.0 ; Sacroiliitis, not elsewhere classified M46.1 and Osteoarthritis of multiple joints M15.9 [facility] [address] [place] [address] 07/30/2024 Saira Nicole Cervical spondylosis without myelopathy M47.812 and Lumbosacral spondylosis without myelopathy M47.817 [facility] [address] [place] [address] 08/21/2024 Saira Nicole Cervical spondylosis without myelopathy M47.812 and Chronic pain disorder G89.4 [facility] [address] [place] [address] 12/31/2024 Saira Nicole Thoracic spondylosis without myelopathy M47.814 ; Other chronic pain G89.29 and Sacroiliitis, not elsewhere classified M46.1 [facility] [address] [place] [address] 01/25/2024 Jone Garcia [facility] [address] [place] [address] 02/08/2024 Jone Garcia Cervical spondylosis without myelopathy M47.812 [facility] [address] [place] [address] 03/12/2024 Jone Garcia Cervical spondylosis without myelopathy M47.812 [facility] [address] [place] [address] 04/09/2024 Jone Garcia Lumbosacral spondylosis without myelopathy M47.817 [facility] [address] [place] [address] 04/29/2024 Jone Garcia Lumbosacral spondylosis without myelopathy M47.817 [facility] [address] [place] [address] 05/13/2024 Jone Garcia Other chronic pain G89.29 [facility] [address] [place] [address] 05/27/2024 Jone Garcia [facility] [address] [place] [address] 06/13/2024 Jone Garcia [facility] [address] [place] [address] 06/18/2024 Jone Garcia [facility] [address] [place] [address] 07/30/2024 Jone Garcia [facility] [address] [place] [address] 08/21/2024 Jone Garcia Cervical spondylosis without myelopathy M47.812 [facility] [address] [place] [address] 10/07/2024 Jone Garcia Cervical spondylosis without myelopathy M47.812 [facility] [address] [place] [address] 11/04/2024 Jone Garcia Cervical spondylosis without myelopathy M47.812 [facility] [address] [place] [address] 12/02/2024 Jone Garcia Cervical spondylosis without myelopathy M47.812 [facility] [address] [place] [place] [address] 01/01/2025 Jone Garcia Assessments Encounter Date Diagnosis (ICD Code) Assessment Notes Treatment Notes Treatment Clinical Notes Section Notes 05/27/2024 Lumbosacral spondylosis without myelopathy (ICD-10 - M47.817) 2024 Lumbosacral spondylosis without myelopathy (ICD-10 - M47.817) 04/29/2024 Lumbosacral spondylosis without myelopathy (ICD-10 - M47.817) 05/08/2024 Sacroiliitis, not elsewhere classified (ICD-10 - M46.1) 05/08/2024 Lumbosacral spondylosis without myelopathy (ICD-10 - M47.817) 05/13/2024 Other chronic pain (ICD-10 - G89.29) 07/30/2024 Lumbosacral spondylosis without myelopathy (ICD-10 - M47.817) 07/30/2024 Cervical spondylosis without myelopathy (ICD-10 - M47.812) 08/21/2024 Cervical spondylosis without myelopathy (ICD-10 - M47.812) 08/21/2024 Chronic pain disorder (ICD-10 - G89.4) 08/21/2024 Cervical spondylosis without myelopathy (ICD-10 - M47.812) 09/09/2024 Cervical spondylosis without myelopathy (ICD-10 - M47.812) 10/07/2024 Cervical spondylosis without myelopathy (ICD-10 - M47.812) 10/07/2024 Cervical spondylosis without myelopathy (ICD-10 - M47.812) 11/04/2024 Cervical spondylosis without myelopathy (ICD-10 - M47.812) 11/04/2024 Cervical spondylosis without myelopathy (ICD-10 - M47.812) 12/02/2024 Cervical spondylosis without myelopathy (ICD-10 - M47.812) 12/31/2024 Other chronic pain (ICD-10 - G89.29) 12/31/2024 Thoracic spondylosis without myelopathy (ICD-10 - M47.814) 01/31/2024 Cervical spondylosis without myelopathy (ICD-10 - M47.812) 02/08/2024 Cervical spondylosis without myelopathy (ICD-10 - M47.812) 02/16/2024 Cervical spondylosis without myelopathy (ICD-10 - M47.812) 02/16/2024 Chronic pain disorder (ICD-10 - G89.4) 03/12/2024 Lumbosacral spondylosis without myelopathy (ICD-10 - M47.817) 03/12/2024 Cervical spondylosis without myelopathy (ICD-10 - M47.812) 03/12/2024 Cervical spondylosis without myelopathy (ICD-10 - M47.812) 04/09/2024 Sacroiliitis, not elsewhere classified (ICD-10 - M46.1) 04/09/2024 Lumbosacral spondylosis without myelopathy (ICD-10 - M47.817) 04/09/2024 Lumbosacral spondylosis without myelopathy (ICD-10 - M47.817) 04/29/2024 Other chronic pain (ICD-10 - G89.29) 04/29/2024 Lumbosacral spondylosis without myelopathy (ICD-10 - M47.817) 04/09/2024 Other chronic pain (ICD-10 - G89.29) 2024 Osteoarthritis of right knee (ICD-10 - M17.9) 12/31/2024 Sacroiliitis, not elsewhere classified (ICD-10 - M46.1) 11/04/2024 Bilateral primary osteoarthritis of knee (ICD-10 - M17.0) 2024 Bilateral primary osteoarthritis of knee (ICD-10 - M17.0) 2024 Sacroiliitis, not elsewhere classified (ICD-10 - M46.1) 2024 Osteoarthritis of multiple joints (ICD-10 - M15.9) 04/29/2024 Other DNF 05/13/2024 05/27/2024 Other [place] [facility] 06/12/24 06/28/2024 Other NO RX ISSUED TODAY 09/09/2024 Other NO RX ISSUED TODAY 12/02/2024 Other DNF 12/07/2024 02/16/2024 Other Consider repeat Cervical injections. He has better ROM and also feels less ONOFRE. He is not bedridden due to that pain anymore. He is taking decongestants and trying to clear the recent right ear infection. He has been to his PCP . The patient is stable with the medications. [...] is controlled with the stable dose of opioid/narcotic . This patient has tried and failed an extensive trial of non-opioid medication, conservative, and interventions past and present in which they continue to complain of moderate to severe pain. Opioid/Narcotic agreement/contr act reviewed with patient. Patient understands the risks and side effects with taking opioids/narcoti cs medications. The patient agrees to abide by these rules. Seen in consultation today with DANIKA Hollis with care plan and medications reviewed by Dr. Garcia. 03/12/2024 Other Patient does report increase neck and LBP with recent yard work. He says that these are not bad enough to warrant injections and that it is controlled with OTC and nonpharmaceutical remedies along with his prescribed pain medications. Patient requires opioid medication to effectively manage their allowed condition. The opioid medication helps improve the patient's pain control and ability to function. Patient requires monitoring for appropriate opioid medication use with routine urine drug screens. Screening will be performed based on risk level unless a clinical need arises for more frequent testing to confirm treatment compliance. Recent UDS and ZEFERINO reviewed. The patient was counseled on the appropriate use of the opioid medication, its potential dangers and the responsibilities that go along with being prescribed opioid medications including safe storage, use and disposal of the medication. Patient was also counseled on the adverse effects of long-term opioid use including hyperalgesia, tolerance, decreased immune function, and changes to the body's natural hormones. The patient also understands the potential risks for respiratory depression especially if the medication is combined with other central nervous system depressants such as benzodiazepines or alcohol. Seen in consultation today with DANIKA Mccoy and DANIKA Hollis with care plan and medications reviewed by Dr. Garcia. 04/09/2024 Other The patient is stable with the medications. Denies any side effects from the medications or complications from the medications. The patient claims that they are taking medications as prescribed which is helping them stay functional with their ADLs. Zeferino or OARRS and UDS reviewed. The patient has an upcoming appointment. Chart reviewed today by practitioner prior to issuance of prescription refill. One of the adverse effects that can occur with chronic opioid usage that we discussed is that it can cause respiratory depression. With the side effect of the opioid, patient could be at increased risk for respiratory depression. He understands the concern and side effects of the narcotics. He will be given Narcan to have at his home in the event of any changes in respiration. Narcan is prescribed due to use of opioid medication. Use and necessity discussed with patient. UDS COLLECTED Patient completed a urine drug screen today. Will order confirmatory testing of our full opioid panel (Opiates, Oxycodone, Fentanyl, Methadone, Tramadol, and Tapentadol) due to the high-risk environment and to avoid major drug interactions, to ensure compliance and rule out any unprescribed or illicit drug use Patient reports at least 80% relief for the duration of the local anesthetic, of lumbar medial branch block at L3-L5 done on 05/13/22, and would benefit from a repeat injection for confirmation. If both injections provide at least 80% relief for the duration of the local anesthetic, then they would benefit from thermal, non-pulsed radiofrequency ablation of the lumbar medial branches at the same levels for long-term pain relief. Risks including, but not limited to, bleeding, infection, and nerve damage were discussed. Benefits of pain relief were discussed and alternatives to the injection were also mentioned. All questions were answered and the patient agrees to proceed. Seen in consultation today. Care plan and medications reviewed by Dr. Garcia. 05/08/2024 Other Patient reports elevated PSA. He will be seeing urology soon to evaluate further. Patient reports at least 80% relief for the duration of the local anesthetic, of lumbar medial branch block at L3-L5 done on 04/29/24, and would benefit from a repeat injection for confirmation. If both injections provide at least 80% relief for the duration of the local anesthetic, then they would benefit from thermal, non-pulsed radiofrequency ablation of the lumbar medial branches at the same levels for long-term pain relief. Risks including, but not limited to, bleeding, infection, and nerve damage were discussed. Benefits of pain relief were discussed and alternatives to the injection were also mentioned. All questions were answered, and the patient agrees to proceed. ZEFERINO and recent UDS reviewed. Patient requires opioid medication to manage chronic pain condition. These medications help improve patients pain control and ability to function while completing ADLs. Patient has been counselled on appropriate storage, use and potential misuse of these medications and verbalized understanding and agrees to comply with guidelines set forth in narcotic agreement signed by patient. Patient requires opioid medication to effectively manage their allowed condition. The opioid medication helps improve the patient's pain control and ability to function. Patient requires monitoring for appropriate opioid medication use with routine urine drug screens. Screening will be performed based on risk level unless a clinical need arises for more frequent testing to confirm treatment compliance. Seen in consultation today. Care plan and medications reviewed by Dr. Garcia. 2024 Other DNF 07/12/2024 07/30/2024 Other He had RFA Lumbar spine L3-5 and feels that it has helped his lumbar region and some hip discomfort. He may consider B C5 and C6 level RFA. after his biopsy for prostate issues. He is going to GI today for increased bile production and GI issues. Waiting for Bone spect scan from [facility]. The patient is stable with the medications. [...] to have in their posession. Zeferino and UDS reviewed. Reports no changes in health history [...] patient agrees to abide by these rules. UDS COLLECTED randomly today. Patient is considered moderate risk category considering opiod usage for chronic pain. Drug testing is important as it reduces the risk of unrecognized drug usage that could affect prescribing regimen. Patients fail to disclose illicit use, other prescribers prescriptions, non-prescribed drugs, or overuse of prescribed medications.Monitor ing chronic opioid therapy is critical because risks and benefits do not remain static.UDS will check for consistency of medication usage. Seen in consultation today with DANIKA Hollis with care plan and medications reviewed by Dr. Garcia. DNF 08/11/2024 08/21/2024 Other Schedule for bilateral C5 and C6 RFA. This patient has had two separate diagnostic injections in which they have gotten greater than 80% relief for the length of the anesthetic phase and beyond. They meet the criteria to proceed with the RFA. We anticipate the RFA of this area to provide longer amount of relief and be more therapeutic in decreasing the pain for this patient. May consider Celiac plexus nerve block. He had one at on 08/13/24 and it offered him about 5 days of relief. This was done for his GI/stomach pain. He is having GI procedure and Biopsy of the prostate in the next few weeks. The patient is stable with the medications. [...] plan and medications reviewed by Dr. Garcia. 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 He is having costochondritic pain and discomfort [...] greater than 30 minutes Plan Of Treatment Pending Test Test Name Order Date NUCLEAR MED : Bone Scan, Total body 06/05 [facility] 04/27/2020 [facility] 08/24/2020 [facility] 03/22/2021 [facility] 06/30/2021 [facility] 10/25/2021 [facility] 06/10/2022 [facility] 09/16/2022 [facility] 12/19/2022 [facility] 04/20/2023 [facility] 09/01/2023 MRI SACRUM WO CONTRAST 10/06/2023 XR KNEE BILATERAL PA OR AP AND LATERAL 0 10/20/2017 MRI KNEE LEFT W WO CONTRAST 03/13/2020 MRI CERVICAL SPINE WO CONTRAST MRI CERVICAL SPINE WO CONTRAST MRI THORACIC SPINE WO CONTRAST 3 MRI LUMBAR SPINE WO CONTRAST 10/06/2023 MRI LUMBAR SPINE WO CONTRAST 03/18/2022 [facility] 11/04/2024 [facility] 12/15/2023 [facility] 04/09/2024 [facility] 07/30/2024 Next Appt Details Provider Name:Saira Nicole, 01/29/2025 07:45:00 AM, [address] [place], [address], Insurance Providers Payer Name Payer Address Payer Phone Subscriber Number Group Number Insured Name Patient Relationship to Insured Coverage Start Date Coverage End Date Medicare CGS Administrators [address] [address] [place] [phone] [id number] Sonido Pretty Self - patient is the insured 3 [employer] [address] [place] [address] [id number] Sonido Pretty Self - patient is the insured 3 [place] [employer] [address] [place] [address] [id number] Sonido Pretty Self - patient is the insured 2 Medical (General) History Medical History History ICD Code Allergies Arthritis Lumbosacral spondylosis without myelopat hy M47.817 Bile / Acid Reflux Surgical History Surgery Date(Month/Year) Appendectomy 1963 ORAL SURGERY 06/2019 TKR (LEFT) Dr. Lui 05/27/20 Gallbladder removal 08/05/21
--- OUTSIDE RECORDS SUMMARY | 2025-01-07 15:29 | XMS_ITS | Encounter Summary ---
Author Organization [employer] ([place], [place], [place], [place]) Address [address] [place] [address] Care Team Providers Care Photolith Operator Name Role Phone Unavailable Primary Care Provider Unavailabl e Encounter Details Date Type Department Care Team (Late st Contact Info) Description 08/01/2021 Transcribed Document [facility] Radiology [address] [place] [address] Viky Galeano MD [facility] Dept of Emergency Medicine [place] [id number] Social History Tobacco Use Types Packs/Day Years [...] wait that long. +intermittent nausea. 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 US completed by [facility]. . History of Present Illness Patient presents [...] been followed by Dr. Brent Herman at [facility]. Patient states that he has been to [...] EST Height Source Stated Height Entry Format Clifford Height/Length, HAITIAN (ft) 5 ft Height/Length HAITIAN 9 Inch CLINICALHEIGHT 175.26 cm Type of Weight Measurement. 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
--- OUTSIDE RECORDS SUMMARY | 2025-01-07 15:29 | XMS_ITS | Clinical Summary ---
Author Organization [employer] ([place], [place], [place], [place]) Address [address] [place] [address] Care Team Providers Care Greens Cutter Name Role Phone Unavailable Primary Care Provider [...]
[2025-01-07 15:33] VITALS: O2SAT 98
--- NOTE | 2025-01-07 15:55 | XR_ITS ---
PROCEDURE INFORMATION: Exam: XR Chest Exam date and time: 01/07/2025 4:07 PM Age: 69 years old Clinical indication: Shortness of breath TECHNIQUE: Imaging protocol: Radiologic exam of the chest. Views: 2 views. COMPARISON: CR XR CHEST 2V 08/14/2024 9:23 AM FINDINGS: Lungs: No consolidation. Pleural spaces: No significant pleural effusion. No pneumothorax. Heart/Mediastinum: No cardiomegaly. Bones/joints: Degenerative changes of spine. Soft tissues: Probable nipple shadows. Intraperitoneal space: Surgical clips within RIGHT upper quadrant. IMPRESSION: No definite acute cardiopulmonary disease.
[2025-01-07 16:00] VITALS: BP 136/82; PULSE 73; O2SAT 97
[2025-01-07 16:13] VITALS: BP 151/98; PULSE 71; O2SAT 99
[2025-01-07 16:19] LABS: Hematocrit 43.9 % (42.0-52.0); Hemoglobin 15.4 g/dL (14.1-18.0); Immature Granulocytes % 0.4 %; Mean Corpuscular HGB Conc 35.1 g/dL (31.8-35.4); Mean Corpuscular Hemoglobin 29.9 pg (27.0-31.2); Mean Corpuscular Volume 85.2 fl (80-94); Nucleated Red Blood Cells % 0 %; Platelet Count 248 K/mm3 (142-424); Red Blood Count 5.15 M/mm3 (4.60-6.20); Red Cell Distribution Width-SD 39.3 fL; White Blood Count 9.0 K/mm3 (4.8-10.8)
[2025-01-07 16:22] LABS: Lactate Venous 1.8 mmol/L (0.4-2.0); VBG HCO3 25.3 mmol/L (23-30); VBG PCO2 42.6 mmol/L (35-51); VBG PH 7.39 mmol/L (7.31-7.41); VBG PO2 36.4 mmol/L (28-40)
[2025-01-07 16:25] LABS: Chloride 106 mmol/L (98-107); Potassium 4.1 mmoL/L (3.5-5.1); Sodium 139 mmol/L (136-145)
[2025-01-07 16:27] LABS: Alanine Aminotransferase 20 U/L (12-78); Magnesium 2.1 mg/dl (1.6-2.3)
[2025-01-07 16:28] LABS: Alkaline Phosphatase 74 U/L (38-126); Aspartate Amino Transferase 31 U/L (17-59); Bilirubin,Total 2.5 mg/dl (0.2-1.3); Calcium 9.6 mg/dl (8.4-10.2); Glucose 91 mg/dl (74-100); Total Protein,Serum 8.0 g/dl (6.3-8.2)
--- NOTE | 2025-01-07 16:31 | ECG_ITS ---
APPROVED REPORT Exam: Resting ECG HR:62 bpm ECG Measurements Heart Rate 62 AXES MT 154 P 51 QRSd 97 QRS 31 QT 397 T 23 QTc 402 Conclusion Normal sinus rhythm without acute ST or T wave changes concerning for ischemia Electronically signed by : Padmini Schroeder, 01/08/2025 00:19:09
[2025-01-07 16:32] LABS: D-Dimer 0.92 ug/mL (0.0-0.5)
[2025-01-07 16:37] LABS: NT Pro Brain Natriuretic Pep. 48.8 pg/mL (0-125)
[2025-01-07 16:44] LABS: Troponin I < 0.01 ng/ml (0.00-0.034)
[2025-01-07] MEDS: IPRATROPIUM/ALBUTEROL 3 ML NEB IH (16:45)
--- NOTE | 2025-01-07 16:48 | HMH.EDGENADL ---
Discharge Plan Disposition Patient Disposition: Home, Self-Care Condition: Good Prescriptions Prescriptions: No Action polyethylene glycol 3350 [Miralax] 17 gram/dose powder 17 g PO DAILY PRN (Reason: Constipation) bismuth subsalicylate [Pepto-Bismol] 262 mg/15 mL suspension 524 mg PO Q30M PRN (Reason: gerd) Rx Instructions: do not exceed 8 doses in a 24 hour period diazepam 2 mg tablet 2 mg PO TID PRN (Reason: anxiety) Qty: 90 0RF amitriptyline 25 mg tablet 25 mg PO DAILY hydrocodone-acetaminophen 7.5-325 mg tablet 1 tab PO TID Qty: 90 methylprednisolone 4 mg tablets,dose pack See Rx Instructions PO PER PKG DIR Qty: 21 0RF Rx Instructions: PO PER PKG DIR fluticasone propionate 50 mcg/actuation spray,suspension 2 spray intranasal DAILY Qty: 16 5RF Rx Instructions: 2 sprays in each nostril daily Referrals Follow up/Referrals: Vane Santos MD [Referring, Medical] - See instructions Anna Phillips MD [Physician, Pulmonology] - See instructions Activity Restrictions/Add. Instructions Additional Instructions/Restrictions: I have sent you with a referral to pulmonology, you will need to call them to schedule this appointment. Otherwise follow-up with cardiology as scheduled controlled. Return to the emergency department for any acute or worsening symptoms Clinical Impressions Clinical Impression: Mild shortness of breath Print Language Print Language: Estonian Discharge ED Provider: Padmini Schroeder Adult HPI General Chief complaint: Shortness of Breath/Dyspnea Stated complaint: SOA, dry mouth, blurry vision Time Seen by Provider: 01/07/25 15:17 Mode of Arrival: Ambulatory Source of Information: Patient Description of Symptoms (Recalled from ER Triage Doc. by RN): Patient presents to ED for shortness of breath for approx. 1 month. Patient saw PCP yesterday, given steroids. States he feels like he cannot get a deep breath. Denies pain. History of Present Illness HPI narrative: Patient is a 69-year-old gentleman with a past medical history of fibromyalgia who presented to the emergency department with shortness of breath, chest pain for 1 month. 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 Patient does not have any stents. Patient takes a daily aspirin. Not on any other blood thinners. Patient states that he has had shortness of breath that worsened on Monday states that he feels like he cannot take a deep breath. Chest pain is currently not present but intermittently there. Patient denies any infectious symptoms including fevers cough chills runny nose. Patient denies any lower extremity swelling or history of heart failure. Patient denies any abdominal pain nausea vomiting or diarrhea. Patient denies any headache or neurologic symptoms such as numbness or weakness. Patient did not take any medications for his symptoms. Patient states that he was seen by his primary care provider yesterday was given a shot of steroids and sent home with oral steroids. Patient states that today he noticed that his heart rate was elevated and therefore he did not want to take the steroids. Patient denies any other symptoms at this time. Patient denies any recent surgeries in the last 6 weeks. Patient denies any history of clots. Patient denies any hemoptysis. No history of malignancy. Related Data Home Medications ?Medication ?Instructions ?Recorded ?Confirmed hydrocodone 7.5 mg-acetaminophen 1 tab PO TID Pain #90 tabs 01/22/19 01/07/25 325 mg tablet bismuth subsalicylate 262 mg/15 mL 524 mg PO Q30M PRN gerd 08/12/24 01/07/25 oral suspension (Pepto-Bismol) amitriptyline 25 mg tablet 25 mg PO DAILY 01/02/25 01/07/25 polyethylene glycol 3350 17 17 g PO DAILY PRN Constipation 01/02/25 01/07/25 gram/dose oral powder (Miralax) Previous Rx's ?Medication ?Instructions ?Recorded fluticasone propionate 50 2 spray intranasal DAILY #16 grams 12/19/23 mcg/actuation nasal spray,suspension diazepam 2 mg tablet 2 mg PO TID PRN anxiety #90 tabs 12/05/24 methylprednisolone 4 mg tablets in See Rx Instructions PO PER PKG DIR 01/06/25 a dose pack #21 tabs Allergies Allergy/AdvReac Type Severity Reaction Status Date / Time NSAIDS (Non-Steroidal Allergy Other Verified 01/06/25 10:43 Anti-Inflamma [facility] Disclaimer: The information contained in this section may have been updated after the patient was seen, as this information can be updated by other users. Medical History H/O celiac plexus block Other hyperlipidemia Other forms of dyspnea Other chest pain Epigastric pain Dizziness CAD (coronary artery disease) Sinusitis Perforated nasal septum Tinnitus PVC (premature ventricular contraction) SOB (shortness of breath) on exertion Palpitations Arthritis Fibromyalgia Surgical History History of total knee replacement History of appendectomy History of cholecystectomy Family History Other Family history of cancer Family history of diabetes mellitus type II Family history of myocardial infarction Family history of stroke Social History Smoking Status: Unknown if ever smoked alcohol intake: current alcohol intake frequency: a few times a month substance use type: denies use current occupational status: retired Travel in the last 8 weeks?: None household members: spouse housing: house current occupational exposures/hazards: No caffeine: Yes Have you lived/traveled outside US in past 30 days?: No Contact w/someone who lives/traveled outside US past 30 days?: No Exposure to someone with infectious disease in past 14 days?: No Do you have a fever (greater than 100.4 F or 38 C)?: No Have you tested positive for COVID-19?: No Exposed to someone with COVID-19 in past 14 days?: No Do you have a sore throat?: No Do you have a cough?: No Do you have any weakness?: No Do you have any diarrhea?: No Are you experiencing any unusual bleeding?: No Do you have any muscle aches/pain?: No Do you have any abdominal pain?: No Are you experiencing loss of taste or smell?: No Other Medical History Have you received the Flu Vaccine for this season: No Have you received the Pneumonia Vaccine: No ROS Obtained: Yes All systems reviewed & no additional complaints except as documented and Yes Systems reviewed as appropriate & no additional complaints except as documented Physical Exam General General appearance: alert and in no apparent distress Head Head exam: atraumatic, normocephalic and normal inspection Eye Eye exam: Present normal appearance, PERRL and EOMI; Absent scleral icterus ENT ENT exam: Present normal exam and normal external ear exam Neck Neck exam: Present normal inspection and full ROM Chest Chest inspection: Present normal inspection and symmetric chest wall rise Respiratory Respiratory exam: Present normal lung sounds bilaterally; Absent respiratory distress or wheezes Cardiovascular Cardiovascular exam: Present regular rate, normal rhythm and normal heart sounds Abdominal Exam Abdominal exam: Present soft and distention; Absent tenderness, guarding or rebound Extremities Exam Extremities exam: Present normal inspection and full ROM Back Exam Back exam: Present normal inspection and full ROM Neurological Exam Neurological exam: Present alert and oriented X3 Psychiatric Psychiatric exam: Present normal affect and normal mood Skin Skin exam: Present warm and dry Medical Decision Making Medical Records Medical records reviewed: Yes I reviewed the patient's medical records. Screening: Per USPSTF and CDC recommendations, given the prevalence of disease in our region, it is our hospital?s policy to screen for HIV and viral Hepatitis for all patients aged 18 and over and those with ongoing risk factors. Javan Inquiry Pt receiving controlled substance: No Vital Signs: 01/07/25 15:25 01/07/25 15:25 01/07/25 15:33 Temperature 98.1 F 98.1 F Temperature Source Oral Oral Pulse Rate 85 Pulse Rate [Right] 85 Respiratory Rate 20 20 Blood Pressure 149/115 H Blood Pressure [Right Arm] 149/115 H Blood Pressure Mean [Right Arm] 126 02 Sat by Pulse Oximetry 98 98 98 Oxygen Delivery Method Room Air Room Air Room Air 01/07/25 16:00 01/07/25 16:13 01/07/25 19:18 Temperature Temperature Source Pulse Rate 73 71 72 Pulse Rate [Right] Respiratory Rate 16 Blood Pressure 136/82 151/98 H 141/84 H Blood Pressure [Right Arm] Blood Pressure Mean [Right Arm] 02 Sat by Pulse Oximetry 97 99 98 Oxygen Delivery Method Lab Data Lab results reviewed: Yes I reviewed the patient's lab results. Lab Results 01/07/25 16:10: WBC 9.0, RBC 5.15, Hgb 15.4, Hct 43.9, MCV 85.2, MCH 29.9, MCHC 35.1, RDW 12.5, Plt Count 248, MPV 10.3, Neut % (Auto) 73.2, Lymph % (Auto) 15.7, Ventura % (Auto) 9.0, Eos % (Auto) 0.9, Baso % (Auto) 0.8, Neut # (Auto) 6.6, Lymph # (Auto) 1.4, Ventura # (Auto) 0.8, Eos # (Auto) 0.1, Baso # (Auto) 0.1, D-Dimer 0.92 H, VBG pH 7.39, VBG pCO2 42.6, VBG pO2 36.4, VBG HCO3 25.3, VBG Total CO2 26.6, VBG O2 Saturation 73.2 H, VBG Base Excess 0.1, VBG Lactic Acid 1.8, Sodium 139, Potassium 4.1, Chloride 106, Carbon Dioxide 27, Anion Gap 10.1, BUN 14, Creatinine 0.80, Estimated Creat Clear 81, Estimated GFR 96, Est GFR ( Amer) 117, Glucose 91, Calcium 9.6, Magnesium 2.1, Total Bilirubin 2.5 H, AST 31, ALT 20, Alkaline Phosphatase 74, Troponin I < 0.01, NT-Pro-B Natriuret Pep 48.8, Total Protein 8.0, Albumin 4.2, Globulin 3.8 H, Albumin/Globulin Ratio 1.1 01/07/25 19:00: Troponin I 0.02 01/07/25 16:10 01/07/25 16:10 Orders (Tests/Meds): ED MEDICATIONS Discontinued Medications Generic Name Dose Route Start Last Admin Trade Name Freq PRN Reason Stop Dose Admin Albuterol/Ipratropium 3 ml 01/07/25 16:30 01/07/25 16:45 Ipratropium/Albuterol 3 Ml Neb IH 01/07/25 16:31 3 ml ONCE ONE Administration Iopamidol 70 ml 01/07/25 18:00 01/07/25 18:02 Iopamidol-370 (76%);100ml Bottle IV 01/07/25 18:01 70 ml ONCE ONE Administration Sodium Chloride 10 ml 01/07/25 18:00 01/07/25 18:02 Sodium Chloride 0.9% 10ml Syr (Rad Only) IV 01/07/25 18:01 10 ml ONCE ONE Administration Sodium Chloride 50 ml 01/07/25 18:00 01/07/25 18:02 0.9 % Sodium Chloride 50 Ml Vial IV 01/07/25 18:01 50 ml ONCE ONE Administration ORDERS Category Date Time Status CT angio chest PE protocol Stat Cat Scan 01/07/25 17:53 Completed CXR 2 view (NOT portable) [XR chest 2V] Stat Exams 01/07/25 15:55 Completed BNP [NT Pro Brain Natriuretic Pep.] Stat Lab 01/07/25 16:10 Completed CBC w/Auto Diff [Complete Blood Count Auto Diff] Stat Lab 01/07/25 16:10 Completed CMP [Comprehensive Metabolic Panel] Stat Lab 01/07/25 16:10 Completed D-Dimer Stat Lab 01/07/25 16:10 Completed Magnesium Stat Lab 01/07/25 16:10 Completed Trop I [Troponin I] Stat Lab 01/07/25 16:10 Completed Troponin I Q3H Lab 01/07/25 19:00 Completed Troponin I Q3H Lab 01/07/25 22:00 Ordered VBG [Venous Blood Gas] Stat RT 01/07/25 16:10 Completed Medical Decision Narrative: Patient is a 69-year-old gentleman with a past medical history of fibromyalgia who presented to the emergency department with chest pain and shortness of breath. On arrival, patient was hemodynamically stable vital signs were otherwise unremarkable. Differential includes but not limited to ACS/ND, pneumonia, pneumothorax, pleural effusion, heart failure, pulmonary embolism, amongst others. EKG was reviewed and interpreted by myself and showed normal sinus rhythm without acute ST or T wave changes concerning for ischemia. Patient's labs were reviewed and interpreted by myself: CBC showed no leukocytosis, hemoglobin was stable, D-dimer elevated at 0.92, ABG no acidosis, no elevated lactate, chemistry unremarkable except for elevated bilirubin, patient appears to have elevated bilirubin for years, has previously had a workup. Troponin less than 0.01, second troponin 0.02 Chest x-ray was reviewed and interpreted by myself and showed no acute focal consolidation, pneumothorax, pleural effusion or other acute cardiopulmonary process. CT PE was reviewed and interpreted by myself and showed no acute pathology. At this time, given patient's unremarkable workup with appropriate serial troponins, normal CT scan and normal chest x-ray I felt the patient was appropriate for outpatient management. Patient already has a stress test scheduled as well as an echocardiogram and patient has already completed a Holter monitor. Patient has appropriate outpatient follow-up. Return precautions were discussed and patient was otherwise discharged home. Patient was sent with a pulmonology follow-up given there may be a component of chronic lung disease at this point. Return precautions were discussed. Critical Care Critical Care Time Critical Care Time: No
[2025-01-07 17:02] LABS: Blood Urea Nitrogen 14 mg/dl (9-20); Creatinine Clearance Estimated 81 mL/min (50-200); Creatinine,Serum 0.80 mg/dl (0.66-1.25); Estimated Glomerular Filt Rate 96 ml/min (>60); GFR (African American) 117 ML/MIN (>60)
--- NOTE | 2025-01-07 17:53 | CT_ITS ---
PROCEDURE INFORMATION: Exam: CTA Chest Without And With Contrast Exam date and time: 01/07/2025 6:00 PM Age: 69 years old Clinical indication: Pain; Shortness of breath and other: Elevated d-dimer; Chest pressure; Additional info: Chest pain, shortness of breath, elevated d-dimer TECHNIQUE: Imaging protocol: Computed tomographic angiography of the chest without and with contrast. Exam focused on the arteries. 3D rendering (Not supervised by radiologist): MIP and/or 3D reconstructed images were created by the technologist. Radiation optimization: All CT scans at this facility use at least one of these dose optimization techniques: automated exposure control; mA and/or kV adjustment per patient size (includes targeted exams where dose is matched to clinical indication); or iterative reconstruction. Contrast material: ISOVUE; Contrast volume: 75 ml; Contrast route: INTRAVENOUS (IV); COMPARISON: CT ANGIO CHEST PE PROTOCOL 01/26/2022 10:04 AM FINDINGS: Pulmonary arteries: No pulmonary embolism. Aorta: Unremarkable. No aneurysm. Lungs: No consolidation. Several nodules, up to 0.3 cm, grossly stable. Pleural spaces: No significant pleural effusion. No pneumothorax. Heart: No cardiomegaly. No pericardial effusion. Lymph nodes: No pathologically enlarged lymph nodes. Gallbladder and biliary ducts: Cholecystectomy. Bones/joints: Degenerative changes of spine. No acute fracture. Soft tissues: Unremarkable. IMPRESSION: No CT evidence of pulmonary embolism.
[2025-01-07] MEDS: IOPAMIDOL-370 (76%);100ML BOTTLE 70 ML IV (18:02)
[2025-01-07] MEDS: SODIUM CHLORIDE 0.9% 10ML SYR (RAD ONLY) 10 ML IV (18:02)
[2025-01-07] MEDS: 0.9 % SODIUM CHLORIDE 50 ML VIAL IV (18:02)
[2025-01-07 18:45] LABS: Anion Gap 10.1 mEq/L (5-15); Carbon Dioxide 27 mmol/L (22.0-30.0)
[2025-01-07 18:46] LABS: Albumin Level 4.2 g/dl (3.5-5.0); Albumin/Globulin Ratio 1.1 (1.1-1.8); Globulin 3.8 g/dL (1.3-3.2)
[2025-01-07 19:18] VITALS: BP 141/84; PULSE 72; RESP 16; O2SAT 98
[2025-01-07 19:45] LABS: Troponin I 0.02 ng/ml (0.00-0.034)
[2025-01-07 20:31] VITALS: BP 117/66; PULSE 67; RESP 16; TEMP 37.1; O2SAT 98
== END 2025-01-07 20:32 | disposition home or self-care (01) ==
PROVIDERS: Emergency Provider Student in an Organized Health Care Education/Training Program; PCP Internal Medicine
DX: R06.02 Shortness of breath (principal); R07.89 Other chest pain; E78.5 Hyperlipidemia, unspecified; I10 Essential (primary) hypertension; I25.10 Atherosclerotic heart disease of native coronary artery without angina pectoris
CPT/HCPCS: 71046; 71275; 80053; 82803; 83735; 83880; 84484; 85025; 85378; 93005; 99285; Q9967

== ENCOUNTER 2025-01-14 07:12 | Outpatient (CLI) | payer MEDICARE, OTHER, SELFPAY ==
--- OUTSIDE RECORDS SUMMARY | 2010-07-07 09:00 | XMS_ITS | Encounter Summary ---
Author Organization [facility] Address [address] [facility], [address] [place] [address] Care Team Providers Care Research Electrician Name Role Phone Hloly Pisano MD Primary Care Provider [phone] Encounter Details Date Type Department Care Team (Late st Contact Info) Description 07/07/2010 8:00 AM EST Hospital Encounter [address] [address] Karolina Contreras M Wahidul, MD [address] [place] [address] Social History Tobacco Use Types Packs/Day Years Used Date Smoking Tobacco: Never Assessed Sex and Gender Information Value Date Recorded Sex Assigned at Not on file Legal Sex Male 6:22 AM EST Gender Identity Not on file Sexual Orientation Not on file documented as of this encounter Progress Notes * Karolina Contreras, PT - 07/07/2010 8:23 AM EST Physical Therapy Daily Treatment Note Patient Name: Sonido Pretty : 1955 Diagnosis: Thoracic/lumbar strain Precautions/Restrictions: Work restrictions Treatment Diagnosis: same Referring Physician: Dr. Blunt Plan of care signed (Y/N): Insurance/Certification information: [facility] 10 visits initially Visit# / total visits:07/15 Date: 07/07/2010 Pain level: 3-11/12 Subjective: Constant right thoracic and bilat lumb pain that varies in intensity.07/07/10 reports some improvement in the thoracic area after his therapy yesterday. Last night at work he did lots of standing, he was able to sit when he wanted. Exercises: Exercise/Equipment Resistance/Repetitions Other comments Pt is to rest his back and stay off his feet Other Therapeutic Activities: evaluation Manual Treatments: 07/07/10 mobiliz to th/lumb spine and manual lumb distraction Modalities: e stim x 20 min to LB (interf) and thoracic area (pre mod) Plan: cont 2-3 x wk for 4-6 wks Patient response to treatment: charan well See Weekly Progress Note? (Y/N): Due 07/13/10 Timed Code Treatment Minutes:25 Total Treatment Time (minutes):45 Signature: Karolina Contreras PT 3677 documented in this encounter Plan of Treatment Not on file documented as of this encounter Visit Diagnoses Not on filedocumented in this encounter Care Teams Research Electrician Relationship Specialty Start Date End Date Holly Pisano MD [address] [place] [address] PCP - General 07/05/10 documented as of this encounter
--- OUTSIDE RECORDS SUMMARY | 2010-07-09 08:30 | XMS_ITS | Encounter Summary ---
Author Organization [facility] Address [address] [facility], [address] [place] [address] Care Team Providers Care Pbx Operator Name Role Phone Holly Pisano MD Primary Care Provider [phone] Encounter Details Date Type Department Care Team (Late st Contact Info) Description 07/09/2010 7:30 AM EST Hospital Encounter [facility] [address] [place] [address] Karolina Contreras M Wahidul, MD [address] [place] [address] Social History Tobacco Use Types Packs/Day Years [...] Goals:GOALS Short Term Goals ( 2-4 weeks) Skilled Nursing Goals ( 4-6 weeks) 1). Decrease pain [...] Plan of care signed (Y/N): Insurance/Certification information: [facility] 10 visits initially Visit# / total [...] Treatment Time (minutes):50 Signature: Karolina Contreras PT 0937 documented in this encounter Plan of Treatment Not on file documented as of this encounter Visit Diagnoses Not on filedocumented in this encounter Care Teams Pbx Operator Relationship Specialty Start Date End Date Holly Pisano MD [address] [place] [address] PCP - General 07/05/10 documented as of this encounter
--- OUTSIDE RECORDS SUMMARY | 2010-07-12 08:30 | XMS_ITS | Encounter Summary ---
Author Organization [facility] Address [address] [facility], [address] [place] [address] Care Team Providers Care Counter Waitress/Waiter Name Role Phone Holly Pisano MD Primary Care Provider [phone] Encounter Details Date Type Department Care Team (Late st Contact Info) Description 07/12/2010 7:30 AM EST Hospital Encounter [address] [address] Karolina Contreras M Wahidul, MD [address] [place] [address] Social History Tobacco Use Types Packs/Day Years [...] Plan of care signed (Y/N): Insurance/Certification information: [facility] 10 visits initially Visit# / [...] Treatment Time (minutes):50 Signature: Karolina Contreras, PT 1317 documented in this encounter Plan of Treatment Not on file documented as of this encounter Visit Diagnoses Not on filedocumented in this encounter Care Teams Counter Waitress/Waiter Relationship Specialty Start Date End Date Holly Pisano MD [address] [place] [address] PCP - General 07/05/10 documented as of this encounter
--- OUTSIDE RECORDS SUMMARY | 2010-07-13 08:30 | XMS_ITS | Encounter Summary ---
Author Organization [facility] Address [address] [facility], [address] [place] [address] Care Team Providers Care Telephonic Nurse Name Role Phone Holly Pisano MD Primary Care Provider [phone] Encounter Details Date Type Department Care Team (Late st Contact Info) Description 07/13/2010 7:30 AM EST Hospital Encounter [address] [address] Karolina Contreras M Wahidul, MD 4 [place] [address] Social History Tobacco Use Types Packs/Day Years Used Date Smoking Tobacco: Never Assessed Sex and Gender Information Value Date Recorded Sex Assigned at Not on file Legal Sex Male 6:22 AM EST Gender Identity Not on file Sexual Orientation Not on file documented as of this encounter Progress Notes * Karolina Contreras, PT - 07/13/2010 7:59 AM EST Physical Therapy Weekly Progress Note Patient Name: Sonido Pretty : 1955 Diagnosis: Thoracic/lumbar strain Treatment Diagnosis: Referring Physician: Dr. Blunt Date: 07/13/2010 Subjective: Pain Level: Reports his pain is still mostly constant, intensity varies3-7/10 depending on activity Objective: Observation: Test measurements: No improvement in thoracic or lumbar AROM or resisted tests Assessment: Summary: He had a little relief over the past weekend but pain returned to constant w/ a return to work activities. Patient's response to treatment: some relief during treatment and w/ gentle mobilization, but he had increased thoracic pain after his visit on 07/12/10. 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 Decrease pain 25-50% 1).decrease pain 75-100% 2).establ HEP 2) (I) w/ HEP 3).improve trunk AROM 10-25% 3).trunk AROM to w/in 10-15% of normal 4). 4).return to full duty/reg activities 5). 5). 6). 6). ?? Progress toward previous goals: He has been shown beginneer back exs Plan: ?? Plan: cont 2-3 x wk Electronically Signed by: Karolina Contreras, PT [id number] * Karolina Contreras, PT - 07/13/2010 7:40 AM EST Physical Therapy Daily Treatment Note Patient Name: Sonido Pretty : 1955 Diagnosis: Thoracic/lumbar strain Precautions/Restrictions: Work restrictions Treatment Diagnosis: same Referring Physician: Dr. Blunt Plan of care signed (Y/N): Insurance/Certification information: [facility] 10 visits initially Visit# / total visits: 10/12 Date: 07/13/2010 Pain level: pain is now intermit, but [...] pretty good. W/ work activities he is 4-5. His worst area is the thoracic/rib pain on the right. 07/13/10- Reports he did not work last night due to neck pain that he has had on/off since September 2009. He reports his thoracic and lumbar areas are not any better. Exercises: Exercise/Equipment Resistance/Repetitions Other comments Pt is to rest his back and stay off his feet 07/09/10 Knee rocks Glut sets bridges transv abdom Other Therapeutic Activities: evaluation Manual Treatments: 07/13/10 mobiliz to th/lumb spine (gentle) Modalities: e stim x 20 min to LB (interf) and thoracic area (pre mod) Plan: cont 2-3 x wk for 4-6 wks Patient response to treatment: charan well See Weekly Progress Note? (Y/N): Due 07/13/10 Timed Code Treatment Minutes:30 Total Treatment Time (minutes):50 Signature: Karolina Contreras PT [id number] documented in this encounter Plan of Treatment Not on file documented as of this encounter Visit Diagnoses Not on filedocumented in this encounter Care Teams Telephonic Nurse Relationship Specialty Start Date End Date Holly Pisano MD 4 [place] [address] PCP - General 07/05/10 documented as of this encounter
--- OUTSIDE RECORDS SUMMARY | 2010-07-14 08:30 | XMS_ITS | Encounter Summary ---
Author Organization [facility] Address [address] [facility], [address] [place] [address] Care Team Providers Care Silversmith Apprentice Name Role Phone Holly Pisano MD Primary Care Provider [phone] Encounter Details Date Type Department Care Team (Late st Contact Info) Description 07/14/2010 7:30 AM EST Hospital Encounter [address] [address] Karolina Contreras M Wahidul, MD 4 [place] [address] Social History Tobacco Use Types Packs/Day Years Used Date Smoking Tobacco: Never Assessed Sex and Gender Information Value Date Recorded Sex Assigned at Not on file Legal Sex Male 6:22 AM EST Gender Identity Not on file Sexual Orientation Not on file documented as of this encounter Progress Notes * Karolina Contreras, PT - 07/14/2010 7:40 AM EST Physical Therapy Daily Treatment Note Patient Name: Sonido Pretty : 1955 Diagnosis: Thoracic/lumbar strain Precautions/Restrictions: Work restrictions Treatment Diagnosis: same Referring Physician: Dr. Blunt Plan of care signed (Y/N): Insurance/Certification information: [facility] 10 visits initially Visit# / total visits: 11/12 Date: 07/14/2010 Pain level: pain is now intermit, but [...] thoracic and lumbar areas are not any better.07/14/10 Reports that his R thoracic/rib pain is better today than yesterday. He did work last night, he saw his doctor and rec'd an injection. Maybe that has helped. Exercises: Exercise/Equipment Resistance/Repetitions Other comments Pt is to rest his back and stay off his feet 07/09/10 Knee rocks Glut sets bridges transv abdom Other Therapeutic Activities: Manual Treatments: 07/14/10 mobiliz to th/lumb spine (gentle) Modalities: e stim x 20 min to LB (interf) and thoracic area (pre mod) Plan: cont 2-3 x wk for 4-6 wks Patient response to treatment: charan well See Weekly Progress Note? (Y/N): Due 07/20/10 Timed Code Treatment Minutes:15 Total Treatment Time (minutes):35 Signature: Karolina Contreras, PT 7835 documented in this encounter Plan of Treatment Not on file documented as of this encounter Visit Diagnoses Not on filedocumented in this encounter Care Teams Silversmith Apprentice Relationship Specialty Start Date End Date Holly Pisano MD 4 [place] [address] PCP - General 07/05/10 documented as of this encounter
--- OUTSIDE RECORDS SUMMARY | 2010-07-20 08:30 | XMS_ITS | Encounter Summary ---
Author Organization [facility] Address [address] [facility], [address] [place] [address] Care Team Providers Care Box Attacher Name Role Phone Holly Pisano MD Primary Care Provider [phone] Encounter Details Date Type Department Care Team (Late st Contact Info) Description 07/20/2010 7:30 AM EST Hospital Encounter [address] [address] Karolina Contreras M Wahidul, MD 4 [place] [address] Social History Tobacco Use Types Packs/Day Years [...] Plan of care signed (Y/N): Insurance/Certification information: [facility] 10 visits initially Visit# / total [...] Treatment Time (minutes):45 Signature: Karolina Contreras PT 0882 documented in this encounter Plan of Treatment Not on file documented as of this encounter Visit Diagnoses Not on filedocumented in this encounter Care Teams Box Attacher Relationship Specialty Start Date End Date Holly Pisano MD [address] [place] [address] PCP - General 07/05/10 documented as of this encounter
--- OUTSIDE RECORDS SUMMARY | 2010-07-21 08:30 | XMS_ITS | Encounter Summary ---
Author Organization [facility] Address [address] [facility], [address] [place] [address] Care Team Providers Care Manager Tax Name Role Phone Holly Pisano MD Primary Care Provider [phone] Encounter Details Date Type Department Care Team (Late st Contact Info) Description 07/21/2010 7:30 AM EST Hospital Encounter [address] [address] Karolina Contreras M Wahidul, MD 4 [place] [address] Social History Tobacco Use Types Packs/Day Years [...] (Dr. 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 Thoracic AROM is 10-20% limited w/ ext, rot,sb, but neg w/ resist. Tests. The right costotransv jtsare still limited but improving. Assessment: Patient's response to treatment: Always feels better after Rx. Goals:GOALS Short Term Goals ( 2-4 weeks) Policy Services Representative Goals ( 4-6 weeks) 1). Decrease pain [...] visits. Electronically Signed by: Karolina Contreras, PT 7507 * Karolina Contreras, PT - 07/21/2010 7:39 AM EST Physical Therapy Daily Treatment Note Patient Name: Sonido Pretty : 1955 Diagnosis: Thoracic/lumbar strain Precautions/Restrictions: Work restrictions Treatment Diagnosis: same Referring Physician: Dr. 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 Exercises: Exercise/Equipment [...] Treatment Time (minutes):45 Signature: Karolina Contreras PT 6418 documented in this encounter Plan of Treatment Not on file documented as of this encounter Visit Diagnoses Not on filedocumented in this encounter Care Teams Manager Tax Relationship Specialty Start Date End Date Holly Pisano MD 4 [place] [address] PCP - General 07/05/10 documented as of this encounter
--- OUTSIDE RECORDS SUMMARY | 2010-07-23 08:30 | XMS_ITS | Encounter Summary ---
Author Organization [facility] Address [address] [facility], [address] [place] [address] Care Team Providers Care Egg Breaking Machine Operator Name Role Phone Holly Pisano MD Primary Care Provider [phone] Encounter Details Date Type Department Care Team (Late st Contact Info) Description 07/23/2010 7:30 AM EST Hospital Encounter [address] [address] Karolina Contreras M Wahidul, MD 4 [place] [address] Social History Tobacco Use Types Packs/Day Years Used Date Smoking Tobacco: Never Assessed Sex and Gender Information Value Date Recorded Sex Assigned at Not on file Legal Sex Male 6:22 AM EST Gender Identity Not on file Sexual Orientation Not on file documented as of this encounter Progress Notes * Karolina Contreras, PT - 07/23/2010 8:22 AM EST Physical Therapy Daily Treatment Note Patient Name: Sonido Pretty : 1955 Diagnosis: Thoracic/lumbar strain Precautions/Restrictions: Work restrictions Treatment Diagnosis: same Referring Physician: Dr. Blunt Plan of care signed (Y/N): Insurance/Certification information: [facility] 10 visits initially Visit# / total visits: 01/12 Date: 07/23/2010 Pain level: . 07/23/10 2-08/12 for LB and th sp., takes his pain pills when he gets up. Thinks he is 75-80% improved overall. 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 Exercises: Exercise/Equipment Resistance/Repetitions Other comments Pt is to rest his back and stay off his feet 07/09/10 Knee rocks Glut sets bridges transv abdom 07/20/10 cont above exs now that his lower back has improved 07/23/10 mid rows 3x10 Red t-bd Low rows 3x10 Other Therapeutic Activities: Manual Treatments: 07/23/10 mobiliz to th/lumb spine (gentle) Modalities: e stim x 20 min to LB (interf) and thoracic area (pre mod) Plan: cont 2-3 x wk for 4-6 wks Patient response to treatment: charan well See Weekly Progress Note? (Y/N): Due 07/20/10 Timed Code Treatment Minutes:30 Total Treatment Time (minutes):50 Signature: Karolina Contreras, PT 8851 documented in this encounter Plan of Treatment Not on file documented as of this encounter Visit Diagnoses Not on filedocumented in this encounter Care Teams Egg Breaking Machine Operator Relationship Specialty Start Date End Date Holly Pisano MD [address] [place] [address] PCP - General 07/05/10 documented as of this encounter
--- OUTSIDE RECORDS SUMMARY | 2010-07-27 08:30 | XMS_ITS | Encounter Summary ---
Author Organization [facility] Address [address], [address] [place] [address] Care Team Providers Care Computer Tester Name Role Phone Holly Pisano MD Primary Care Provider [phone] Encounter Details Date Type Department Care Team (Late st Contact Info) Description 07/27/2010 7:30 AM EST Hospital Encounter [facility] [address] [place] [address] Karolina Contreras M Wahidul, MD [address] [place] [address] Social History Tobacco Use Types Packs/Day Years [...] Plan of care signed (Y/N): Insurance/Certification information: [facility] 10 visits initially Visit# / total [...] over do it.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
--- OUTSIDE RECORDS SUMMARY | 2010-07-30 08:30 | XMS_ITS | Encounter Summary ---
Author Organization [facility] Address [address], [address] [place] [address] Care Team Providers Care Window Trimmer Name Role Phone Holly Pisano MD Primary Care Provider [phone] Encounter Details Date Type Department Care Team (Late st Contact Info) Description 07/30/2010 7:30 AM EST Hospital Encounter [facility] [address] [place] [address] Karolina Contreras M Wahidul, MD [address] [place] [address] Social History Tobacco Use Types Packs/Day Years [...] Goals:GOALS Short Term Goals ( 2-4 weeks) Half-Way Goals ( 4-6 weeks) 1). Decrease pain [...] PT Electronically Signed by: Karolina Contreras, PT 6267 * Karolina Contreras, PT - 07/30/2010 8:11 AM EST Physical Therapy Daily Treatment Note Patient Name: Sonido Pretty : 1955 Diagnosis: Thoracic/lumbar strain Precautions/Restrictions: Work restrictions Treatment Diagnosis: same Referring Physician: Dr. Blunt/ this has changed to Dr. 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
--- OUTSIDE RECORDS SUMMARY | 2024-11-04 09:00 | XMS_ITS ---
Author Organization [facility] Address [address] [address] Care Team Providers Care Airport Screener Name Role Phone Jone Garcia Unavailable [phone] Allergies Allergen (clinical drug ingredient) Drug/Non Drug [...] [facility] [address] [address] 11/04/2024 Jone Garcia Cervical spondylosis without myelopathy [...] 01/29/2025 07:45:00 AM, [address] [place], [address], Progress Notes * Melissa PRETTYOB:[birth year] (69 yo M)Acc No.[id number]:11/04/2024 Progress Notes Patient: Sonido HOLGUIN Provider: Isa Garcia MD :1955 A ge:69 Y S ex:Male Date:11/04/2024 Phone: Address:[address] [place] [address] Subjective: * Chief Complaints: * 1 . [...] Date 10/14/2023 ProScan Referring Physician Saira Nicole SWEEP MOLDER Exam Description MR Lumbar Spine w/o Contrast [...] flow voids in the neck are preserved. BHWFD-RR-SEZEM ANALYSIS: Multilevel degenerative disc disease with varying degrees of disc height loss and disc desiccation. Utslt-wi-ouhdi analysis demonstrates the following: C1-C2: Normal atlantodental [...] flow voids in the neck are preserved. VFVPF-IJ-HXJKV ANALYSIS: Multilevel degenerative disc disease with varying degrees of disc height loss and disc desiccation. Thdte-xb-fxfka analysis demonstrates the following: C1-C2: Normal atlantodental [...] Preventive Medicine: YOUR PREVENTIVE WELLNESS PLAN: B CA, Height, and Weight: T he Recommended Frequency [...] or need more you can contact the [facility] addiction hotline at [phone] and they should be able to provide you with free Narcan. * * Electronic signature of Anjel Garcia MD on 01/14/2025 at 07:14 AM EDT Sign off status: Pending * Provider: Isa Garcia MD Date: 0 11/04/2024 Generated for Scotty mcallister/Rosemarie/eTransmitting on: 0 01/14/2025 07:14 AM EDT History and Physical Notes * [...] flow voids in the neck are preserved. OYOCQ-WN-AGGLN ANALYSIS: Multilevel degenerative disc disease with varying degrees of disc height loss and disc desiccation. Ituhh-oc-wvfzh analysis demonstrates the following: C1-C2: Normal atlantodental [...] flow voids in the neck are preserved. IMDHO-ZK-DXYUF ANALYSIS: Multilevel degenerative disc disease with varying degrees of disc height loss and disc desiccation. Qvsor-uw-tcocd analysis demonstrates the following: C1-C2: Normal atlantodental [...]
--- OUTSIDE RECORDS SUMMARY | 2024-12-02 03:45 | XMS_ITS ---
Author Organization [facility] Address [address] [address] Care Team Providers Care General Hardware Salesperson Name Role Phone Jone Garcia Unavailable [phone] Allergies Allergen (clinical drug ingredient) Drug/Non Drug [...] Provider Diagnosis [facility] [address] [address] 12/02/2024 Jone Garcia Assessments Encounter Date Diagnosis [...] Provider Name:Saira Nicole, 01/29/2025 07:45:00 AM, [address] [place], [address], Progress Notes * Melissa PRETTYOB:[birth year] (69 yo M)Acc No.[id number]:12/02/2024 Progress Note Patient: Sonido HOLGUIN Provider: Isa Garcia MD :1955 A ge:69 Y S ex:Male Date:12/02/2024 Phone: Address:[address] [place] [address] [facility] Subjective: * Chief Complaints: * 1 . [...] of Anjel Garcia MD on 01/14/2025 at 07:13 AM EDT Sign off status: Pending * Provider: Isa Garcia MD Date: 0 12/02/2024 Generated for Scotty mcallister/Rosemarie/Félixitting on: 0 01/14/2025 07:13 AM EDT History and Physical Notes * [...]
--- OUTSIDE RECORDS SUMMARY | 2024-12-31 04:00 | XMS_ITS ---
Author Organization [facility] Address [address] [address] Care Team Providers Care [employer] Shortage And Damage Clerk Name Role Phone Jone Garcia Unavailable [phone] Saira Nicole Unavailable [phone] Allergies Allergen (clinical drug ingredient) Drug/Non Drug [...] [facility] [address] [address] 12/31/2024 Saira Nicole Thoracic spondylosis without myelopathy M47.814 ; Other chronic pain G89.29 and Sacroiliitis, not elsewhere classified M46.1 Assessments Encounter Date Diagnosis (ICD Code) Assessment Notes Treatment Notes Treatment Clinical Notes Section Notes 12/31/2024 Thoracic spondylosis without myelopathy (ICD-10 - M47.814) 12/31/2024 Other chronic pain (ICD-10 - G89.29) 12/31/2024 Sacroiliitis, not elsewhere classified (ICD-10 - M46.1) 12/31/2024 Other 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 He is having costochondritic pain and discomfort [...] Notes Assessment Notes Other 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 He is having costochondritic pain and discomfort [...] 4 Weeks, Reason: OV Provider Name:Saira Nicole, 01/29/2025 07:45:00 AM, [address] [place], [address], Progress Notes * Melissa PRETTYOB:[birth year] (69 yo M)Acc No.[id number]:12/31/2024 Progress Notes Patient: Sonido HOLGUIN Provider: PRESTON Loja :1955 A ge:69 Y S ex:Male Date:12/31/2024 Phone: Address:[address], [id number] Subjective: * Chief Complaints: * O FFICE [...] lidocaine patch OTC and diclofenac gel OTC, [place] helps reduce this pain. Pt reports he is wearing a heart monitor and is scheduled for a stress test and echocardiogram on 01/14/2025 due to recently having shooting pains in chest. Denies adverse effects to prescribed medication. Reports taking medications as prescribed. Refills for [place] were provided today, dates verified with ZEFERINO. [...] C-spine, neck supple,. HEART: H TN, wearing superintendent communications,. LUNGS: g ood air movement,. CHEST: s [...] Preventive Medicine: YOUR PREVENTIVE WELLNESS PLAN: B [place], Height, and Weight: T he Recommended Frequency [...] or need more you can contact the [facility] addiction hotline at [phone] and they should be able to provide you with free Narcan. * Follow Up: 4 Weeks (Reason: OV) * * Sign off status: Completed true * Provider: PRESTON Loja Date: 0 12/31/2024 Generated for Scotty Khan on: 0 01/14/2025 07:13 AM EDT History [...] lidocaine patch OTC and diclofenac gel OTC, [place] helps reduce this pain. Pt reports he is wearing a heart monitor and is scheduled for a stress test and echocardiogram on 01/14/2025 due to recently having shooting pains in chest. Denies adverse effects to prescribed medication. Reports taking medications as prescribed. Refills for [place] were provided today, dates verified with ZEFERINO. [...] facial goatee EYES: clear sclera, PERRLA EARS: morongo, NOSE: nares patent, c/o si nusitis congestion NECK/THYROID: stiffness of the ROM of the C-spine, non tender over the C-spine, neck supple, HEART: HTN, wearing superintendent communications, CHEST: sternum and costocho ndral tenderness, mid [...]
--- NOTE | 2025-01-14 | CA_ITS ---
APPROVED REPORT Exam: Pharmacologic Technologist: Ondina Thayer Ht: 5 ft 9 in Wt: 176 lbs BSA: 1.96 m2 HR: 71 bpm BP: 139/85 mmHg Stress Test Details Test: Lexiscan HR Resting HR: 71 bpm Max Heart Rate (APMHR): 153.378433 bpm Max HR Achieved: 94 bpm Target HR (85% APMHR): 130.980510 bpm % of APMHR: 61.44 Recovery HR: 73 bpm BP Resting BP: 139.0/85.0 mmHg Max BP: 172.0/90.0 mmHg Recovery BP: 160.0/81.0 mmHg ECG Resting ECG: Sinus rhythm Stress ECG Conclusion Symptoms: Dyspnea Arrhythmias/Ectopy: PVC ST-T Changes: Less than [address] depression Conclusion: EKG unremarkable due to Lexiscan infusion. Electronically signed by : Marielle Roman MD 01/14/2025 12:03:07
--- OUTSIDE RECORDS SUMMARY | 2025-01-14 07:13 | XMS_ITS | Clinical Summary ---
Author Organization [facility] Address [address] [facility] [place], [place] [address] Phone Care Team Providers Care Depot Agent Name Role Phone Pieter Gordon MD Primary Care Provider Allergies Active Allergy Reactions Criticality Noted Date Comments Amitriptyline Palpitations 06/24/2022 vomiting Medications fluticasone propionate (FLONASE) 50 mcg/actuation Nasl Centre, Suspension 2 Sprays in each nostril daily. [...] Bryan MD Medical Devices Implanted Type Area Rn Hospital Device Identifier Shelf Expiration Date Model / Serial / Lot Gmk Tibial Tray Cemented Left S3 - [id number] Implanted:Qty: 1 on 05/27/2020 by Kevan Wheeler MD at [facility] Left: Knee [employer] [id number] 12/19/2024 02.07.120 3L / / [id number] Patella Resurfacing S2 - [id number] Implanted:Qty: 1 on 05/27/2020 by Kevan Wheeler MD at [facility] Left: Knee [employer] [id number] 12/11/2024 02.07.003 4RP / / [id number] Sphere Femur Cemented Left S3 + - [id number] Implanted:Qty: 1 on 05/27/2020 by Kevan Wheeler MD at [facility] Left: Knee [employer] [id number] 12/12/2024 02.12.002 3L / / [id number] Cement Bn Simplex Hv 20ml 40gm Radiopaque Strl - [id number] Implanted:Qty: 2 on 05/27/2020 by Kevan Wheeler MD at [facility] Left: Knee FALGUNI:ORTHOPED ICS 08/02/2021 [id number] 0 / / [id number] B Ins Tib 3 10mm Lt Sphr Cngrnt Gmk - [id number] Implanted:Qty: 1 on 05/27/2020 by Kevan Wheeler MD at [facility] Left: Knee [employer] [id number] 10/16/2024 02.12.031 0CRL / / [id number] Procedures Procedure Name Priority Date/Time Associated Diagnosis [...] Non-Reacti ve 08/04/2021 9:18 AM EST [facility] Blood VENOUS BLOOD / Unknown Venipuncture / Unknown 08/04/2021 6:55 AM EST 08/04/2021 7:00 AM EST [facility] Janette Ko MD CHEMISTRY ORDERABLES Final Result [facility] [address] , [place] [address] from Last 3 Months or Most Recently Relevant to Health Maintenance Insurance [place]ICARE [place] PART A [place] B MEDIC[place]PP[place]MENT [place]MENT [place] * Guarantor: MARIA DE JESUSSONIDO Account Type Relation to Patient Date of Phone Billing Address [place] Personal Family 1955 [address] [place] [address] [place]ARE [place] PART A [place] [employer]IG[employer] MED[place]MENT [place] Advance Directives For more information, please contact: [phone] * Full Code (Latest Code Status on File) Date Activated Date Inactivated Comments 08/03/2021 6:55 PM 08/06/2021 8:03 PM Care Teams Depot Agent Relationship Specialty Start Date End Date Pieter Gordon MD [address] [place] [address] [place] [address] PCP - General Internal Medicine 08/03/21
--- OUTSIDE RECORDS SUMMARY | 2025-01-14 07:13 | XMS_ITS | Clinical Summary ---
Author Organization [facility] Address [address], [address] [place] [address] Care Team Providers Care Communications Lead Name Role Phone Holly Pisano MD Primary Care Provider [phone] Social History Tobacco Use Types Packs/Day Years Used Date Smoking Tobacco: Never Assessed Sex and Gender Information Value Date Recorded Sex Assigned at Not on file Legal Sex Male 6:22 AM EST Gender Identity Not on file Sexual Orientation Not on file Plan of Treatment Not on file Insurance RR #[id number] [place] [id number] [place] [id number] Care Teams Communications Lead Relationship Specialty Start Date End Date Holly Pisano MD [address] [place] [address] PCP - General 07/05/10
--- OUTSIDE RECORDS SUMMARY | 2025-01-14 07:14 | XMS_ITS | Clinical Summary ---
Author Organization [employer] ([place], [place], [place], [place]) Address [address] [place] [address] Care Team Providers Care Cadmium Burner Name Role Phone Unavailable Primary Care Provider [...]
--- OUTSIDE RECORDS SUMMARY | 2025-01-14 07:14 | XMS_ITS | Referral Summary ---
Author Organization [employer] ([place], [place], [place], [place]) Address [address] [place] [address] Care Team Providers Care Route Delivery Service Driver Name Role Phone Unavailable Primary Care Provider [...]
--- OUTSIDE RECORDS SUMMARY | 2025-01-14 07:14 | XMS_ITS | Encounter Summary ---
Author Organization [facility] Address [address] [place] [address] Care Team Providers Care Strategic Debriefing Specialist Name Role Phone Pieter Gordon MD Primary Care Provider [phone] Encounter Details Date Type Department Care Team (Late st Contact Info) Description 09/07/2015 Abstract [facility] Physicians - Spine Surgery, [place] [address] [place] [id number] Ambulatory, Apiculture Teacher Social History Tobacco Use Types Packs/Day Years [...] on filedocumented in this encounter Care Teams Strategic Debriefing Specialist Relationship Specialty Start Date End Date Pieter Gordon MD [address] [place] [address] PCP - General 09/07/15 documented as of this encounter
--- OUTSIDE RECORDS SUMMARY | 2025-01-14 07:14 | XMS_ITS | Clinical Summary ---
Author Organization [facility] Address [address] [place] [address] Care Team Providers Care Plastic Parts Fabricator Name Role Phone Unavailable Primary Care Provider [...] Date Last Done Comments [facility]-Depression Screening 1955 [facility]-Infant/Child/Adol SDOH Screenings 1955 [facility]- SDOH Screenings 1975 [facility]-Adult SDOH Screenings 1975 [facility]-DTaP,Tdap,and Td Vaccine s (1 - Tdap) 1976 CT Colonography 2002 Colonoscopy 2002 FIT-DNA 2002 FIT 2002 FOBT 2002 Sigmoidoscopy 2002 [facility]-Colorectal Cancer Screening 2002 [facility]-Pneumococcal Vaccine: 50 + Years (1 of 1 - PCV) 2007 [facility]-Zoster Vaccines (1 of 2) 2007 [id number] Vaccine (1 - 20 24-25 season) 2024 [...] age to complete this topic Insurance MEDICARE [facility]
--- OUTSIDE RECORDS SUMMARY | 2025-01-14 07:14 | XMS_ITS | Clinical Summary ---
Author Organization [facility] Address [address] [place] [address] Care Team Providers Care Carton Making Machinist Name Role Phone Pieter Gordon MD Primary Care Provider [phone] Allergies No known active allergies Medications ESCITALOPRAM [...] 1-dose 75+ series) 2032 Insurance Care Teams Carton Making Machinist Relationship Specialty Start Date End Date Pieter Gordon MD [facility] [place] [address] PCP - General 09/07/15
--- OUTSIDE RECORDS SUMMARY | 2025-01-14 07:14 | XMS_ITS | Clinical Summary ---
Author Organization [facility] Address [address] [place] [address] Care Team Providers Care Pipe Foreman Name Role Phone Pieter Gordon Primary Care Provider Source Comments This information has been disclosed [...] therelease of HIV test results or diagnoses. [id number] Allergies Active Allergy Reactions Criticality Noted [...] Pretty Relation to Subscriber:Self Name:Sonido Pretty Payer ID:[id number] Group ID:Not on file Type:Medicare Address: [facility] [address] [place] [id number] [facility] Care Teams Pipe Foreman Relationship Specialty Start Date End Date Pieter Gordon [address] [facility] [address] [place] [address] PCP - General 08/20/24
--- OUTSIDE RECORDS SUMMARY | 2025-01-14 07:14 | XMS_ITS | Encounter Summary ---
Author Organization [employer] ([place], [place], [place], [place]) Address [address] [place] [address] Care Team Providers Care Sports Agent Name Role Phone Unavailable Primary Care Provider Unavailabl e Encounter Details Date Type Department Care Team (Late st Contact Info) Description 08/01/2021 Transcribed Document [facility] Radiology [address] [place] [address] Viky Galeano MD [facility] Dept of Emergency Medicine [place] [id number] Social History Tobacco Use Types Packs/Day Years [...] wait that long. +intermittent nausea. 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 US completed by [facility]. . History of Present Illness Patient [...] been followed by Dr. Brent Herman at [facility]. Patient states that he has been to [...] EST Height Source Stated Height Entry Format [place] Height/Length, TAIWAN[place] (ft) 5 ft Height/Length TAIWANESE 9 Inch CLINICALHEIGHT 175.26 cm Type of Weight Measurement. 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
--- OUTSIDE RECORDS SUMMARY | 2025-01-14 07:14 | XMS_ITS | Encounter Summary ---
Author Organization [employer] ([place], [place], [place], [place]) Address [address] [place] [address] Care Team Providers Care Machinist Supervisor Name Role Phone Unavailable Primary Care Provider Unavailabl e Encounter Details Date Type Department Care Team (Late st Contact Info) Description 08/01/2021 Transcribed Document [facility] [place] [address] ProviderLuz Marina MD [address] [place] [address] Social History Tobacco Use Types [...] - Historical ProviderMD - 08/01/2021 12:43 PM MACHINE SPLITTER ED Triage Entered On: 08/01/2021 13:00 EST Performed On: 08/01/2021 12:55 EST by Anais Koroma, manager deli Triage Across the Room Chief Complaint : From home via POV d/t severe upper abd pain x 1mon. Pt is followed by GI. ERCP scheduled 08/31, however d/t increased pain-pt unable to wait that long. +intermittent nausea. 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 US completed by [facility]. Triage Date/Time : 08/01/2021 12:55 EST Anais Koroma Rn - 08/01/2021 12:55 EST DCP GENERIC CODE Tracking Acuity : 3 - Urgent Tracking Group : [facility] ED Anais Koroma Rn - 08/01/2021 [...] PNED ; Probability: 0 ; Diagnosis Code: [id number] ED Height and Weight Height Source : Stated Height Entry Format : [place] Height, Feet : 5 ft(Converted to: 152 cm, 60 Inch) Height, Inches : 9 Inch(Converted to: 0 ft 9 Inch, 22.86 cm) Clinical Height : 175.26 cm Weight Source, ED : Stated [place] Body Weight (IBW) : 69.73 kg Anais Koroma Rn - 08/01/2021 12:55 EST Estimated Weight Type of Weight Measurement Est : [place] Weight, est lb : 180 lb(Converted to: 82 kg) Estimated Clinical Dosing Weight : 81.82 kg Anais Koroma Rn - 08/01/2021 12:55 EST documented in this encounter Plan of Treatment Not on file documented as of this encounter Visit Diagnoses Not on filedocumented in this encounter
--- OUTSIDE RECORDS SUMMARY | 2025-01-14 07:14 | XMS_ITS | Patient Health Record ---
Author Organization [facility] Address [address] [place] [address] Care Team Providers Care Glass Cutting Machine Operator Name Role Phone Jone Garcia Unavailable [phone] Bonnie Saira Unavailable [phone] Jan Land Unavailable Unavailable Allergies Allergen (clinical drug ingredient) Drug/Non Drug Allergy documented on EMR Reaction Allergy Type Onset Date Status buprenorphine Belbuca euphoria Drug Allergy Act marcial Non-steroidal anti-inflammatory agent (FN) NSAIDs tinnitus Drug Allergy Active Results Component Value Reference Range Notes [facility] (Not yet reviewed by provider) Interpretation: Performing Lab: Notes/Report: [facility] (Not yet re viewed by provider) Interpretation:Normal Performing Lab: Notes/Report: Normal [facility] (Not yet re viewed by provider) Interpretation:Normal Performing Lab: Notes/Report: Normal Reason For Referral Reason Opioid Risk Assessme nt. Diagnosis 1 Chronic pain syndrom e (G89.4) Diagnosis 2 Chronic, continuous use of opioids (F11.90) Referral Organization [facility] Referring Provider First Name Jone Referring Provider Last Name [facility] Referring Provider Speciality Pain Medic ine Referred Provider Artie Moore Referred Provider Specialty Certified Ps ychologist Referral Priority Routine Reason EVAL AND TREAT Diagnosis 1 Benign prostatic hyp erplasia with lower urinary tract symptoms, symptom details unspecified (N40.1) Referral Organization [facility] Referring Provider First Name Jone Referring Provider [facility] Name [facility] Referring Provider Speciality Pain Medic ine Referred [...] W/U Status Risk Notes Problem Chronic pain (18210904) Other chronic pain (G89.29) Active confirmed Problem Chronic pain syndrome (427221092) Chronic pain syndrome (G89.4) Active confirmed Problem Osteoarthritis of knee (570819493) Bilateral primary osteoarthritis of knee (M17.0) Active confirmed Problem Solitary sacroiliitis (170911622) Sacroiliitis, not elsewhere classified (M46.1) Active confirmed Problem Displacement of lumbar intervertebral disc without myelopathy (52900591) Other intervertebral disc displacement, lumbar region (M51.26) Active confirmed Problem Right side sciatica (261551947379331) Sciatica, right side (M54.31) Active confirmed Problem Left side sciatica (897742010495334) Sciatica, left side (M54.32) Active confirmed Problem Calcaneal spur of right foot (181688337466368) Calcaneal spur, right foot (M77.31) Active confirmed Problem Lumbosacral spondylosis without myelopathy (97165046) Lumbosacral spondylosis without myelopathy (M47.817) Active confirmed Problem Displacement of cervical intervertebral disc without myelopathy (35314544) Displacement of cervical intervertebral disc without myelopathy (M50.20) Active confirmed Problem Displacement of thoracic intervertebral disc without myelopathy (91030028) Displacement of thoracic intervertebral disc without myelopathy (M51.24) Active confirmed Problem Displacement of lumbar intervertebral disc without myelopathy (42351365) Displacement of lumbar intervertebral disc without myelopathy (M51.26) Active confirmed Problem Neuralgia (56857497) Neuralgia and neuritis (M79.2) Active confirmed Problem Cervical spondylosis without myelopathy (697583194) Cervical spondylosis without myelopathy (M47.812) Active confirmed Problem Osteoarthritis of multiple joints (040480137) Osteoarthritis of multiple joints (M15.9) Active confirmed Problem Thoracic spondylosis without myelopathy (077755814) Thoracic spondylosis without myelopathy (M47.814) Active confirmed Problem Plantar fasciitis (725847448) Plantar fasciitis (M72.2) Active confirmed Problem Osteoarthritis of knee (091415167) Primary osteoarthritis of left knee (M17.12) Active confirmed Problem Pain in right foot (097558497848697) Right foot pain (M79.671) Active confirmed Problem Osteoarthritis of knee (716682483) Osteoarthritis of right knee (M17.9) Active confirmed Problem Pain of right knee region (finding) (173642877321276) Knee pain, right (M25.561) Active confirmed Problem Chronic pain syndrome (493723416) Chronic pain disorder (G89.4) Active confirmed Problem Sacroiliac joint pain (251782105) Sacroiliac joint pain (M53.3) Active confirmed Problem Enthesopathy of hip region (disorder) (41067890) Enthesopathy of hip region, unspecified laterality (M76.899) Active confirmed Problem Osteoarthritis (746663890) Osteoarthritis involving multiple joints on both sides of body (M15.9) Active confirmed Problem Sciatic nerve lesion (957015538) Piriformis syndrome of both sides (G57.03) Active confirmed Problem Sciatica (94200454) Chronic sciatica, left (M54.32) Active confirmed Problem Lower urinary tract symptoms due to benign prostatic hypertrophy (86941544207177) Benign prostatic hyperplasia with lower urinary tract [...] [facility] [address] [place] [address] 01/31/2024 Jone Garcia Cervical spondylosis without myelopathy M47.812 [facility] [address] [place] [address] 04/29/2024 Jone Garcia Other chronic pain G89.29 and Lumbosacral spondylosis without myelopathy M47.817 [facility] [address] [place] [address] 05/27/2024 Jone Garcia Lumbosacral spondylosis without myelopathy M47.817 [facility] [address] [place] [address] 06/28/2024 [facility] [address] [place] [address] 09/09/2024 Jone Garcia Cervical spondylosis without myelopathy M47.812 [facility] [address] [place] [address] 10/07/2024 Jone Garcia Cervical spondylosis without myelopathy M47.812 [facility] [address] [place] [address] 11/04/2024 Jone Garcia Cervical spondylosis without myelopathy M47.812 and Bilateral primary osteoarthritis of knee M17.0 [facility] [address] [place] [address] 12/02/2024 Jone Garcia [facility] [address] [place] [address] 02/16/2024 Saira Nicole Cervical spondylosis without myelopathy M47.812 and Chronic pain disorder G89.4 [facility] [address] [place] [address] 03/12/2024 Sairagriffin BradyNicole Cervical spondylosis without myelopathy M47.812 and Lumbosacral spondylosis without myelopathy M47.817 [facility] [address] [place] [address] 04/09/2024 Jan Land Sacroiliitis, not elsewhere classified M46.1 ; Lumbosacral spondylosis without myelopathy M47.817 and Other chronic pain G89.29 [facility] [address] [place] [address] 05/08/2024 Jan Land Lumbosacral spondylosis without myelopathy M47.817 and Sacroiliitis, not elsewhere classified M46.1 [facility] [address] [place] [address] 2024 Jone Garcia Lumbosacral spondylosis without myelopathy M47.817 ; Osteoarthritis of right knee M17.9 ; Bilateral primary osteoarthritis of knee M17.0 ; Sacroiliitis, not elsewhere classified M46.1 and Osteoarthritis of multiple joints M15.9 [facility] [place] [address] 07/30/2024 Saira Nicole Cervical spondylosis without myelopathy M47.812 and Lumbosacral spondylosis without myelopathy M47.817 [facility] [place] [address] 08/21/2024 Saiar Nicole Cervical spondylosis without myelopathy M47.812 and Chronic pain disorder G89.4 [facility] [address] [place] [address] 12/31/2024 Saira Nicole Thoracic spondylosis without myelopathy M47.814 ; Other chronic pain G89.29 and Sacroiliitis, not elsewhere classified M46.1 [facility] [address] [place] [address] 01/25/2024 Jone Garcia [facility] [address] [place] [address] 02/08/2024 Jone Garcia Cervical spondylosis without myelopathy M47.812 [facility] [address] [place] [address] 03/12/2024 Jone Garcia Cervical spondylosis without myelopathy M47.812 [facility] [address] [place] [address] 04/09/2024 Jone Garcia Lumbosacral spondylosis without myelopathy M47.817 [facility] [address] [place] [address] 04/29/2024 Jone Garcia Lumbosacral spondylosis without myelopathy M47.817 [facility] [address] [place] [address] 05/13/2024 Jone Garcia Other chronic pain G89.29 [facility] [address] [place] [address] 05/27/2024 Jone Garcia [facility] [address] [place] [address] 06/13/2024 Jone Garcia [facility] [address] [place] [address] 06/18/2024 Jone Garcia [facility] [address] [place] [address] 07/30/2024 Jone Garcia [facility] [address] [place] [address] 08/21/2024 Jone Garcia Cervical spondylosis without myelopathy M47.812 [facility] [address] [place], [place] [address] 10/07/2024 Jone Garcia Cervical spondylosis without myelopathy M47.812 [facility] [address] [place], [place] [address] 11/04/2024 Jone Garcia Cervical spondylosis without myelopathy M47.812 [facility] [address] [place], [place] [address] 12/02/2024 Jone Garcia Cervical spondylosis without myelopathy M47.812 [facility] [address] [place], [place] [address] 01/01/2025 Jone Garcia Assessments Encounter Date Diagnosis [...] 04/29/2024 Other chronic pain (ICD-10 - G89.29) 03/12/2024 Lumbosacral spondylosis without myelopathy (ICD-10 - M47.817) 03/12/2024 Cervical spondylosis without myelopathy (ICD-10 - M47.812) 02/16/2024 Cervical spondylosis without myelopathy (ICD-10 - M47.812) 02/16/2024 Chronic pain disorder (ICD-10 - G89.4) 12/31/2024 Other chronic pain (ICD-10 - G89.29) 12/31/2024 Thoracic spondylosis without myelopathy (ICD-10 - M47.814) 12/02/2024 Cervical spondylosis without myelopathy (ICD-10 - M47.812) 11/04/2024 Cervical spondylosis without myelopathy (ICD-10 - M47.812) 02/08/2024 Cervical spondylosis without myelopathy (ICD-10 - M47.812) 01/31/2024 Cervical spondylosis without myelopathy (ICD-10 - M47.812) 11/04/2024 Cervical spondylosis without myelopathy (ICD-10 - M47.812) 10/07/2024 Cervical spondylosis without myelopathy (ICD-10 - M47.812) 10/07/2024 Cervical spondylosis without myelopathy (ICD-10 - M47.812) 09/09/2024 Cervical spondylosis without myelopathy (ICD-10 - M47.812) 08/21/2024 Cervical spondylosis without myelopathy (ICD-10 - M47.812) 08/21/2024 Cervical spondylosis without myelopathy (ICD-10 - M47.812) 08/21/2024 Chronic pain disorder (ICD-10 - G89.4) 07/30/2024 Lumbosacral spondylosis without myelopathy (ICD-10 - M47.817) 07/30/2024 Cervical spondylosis without myelopathy (ICD-10 - M47.812) 05/13/2024 Other chronic pain (ICD-10 - G89.29) 05/08/2024 Sacroiliitis, not elsewhere classified (ICD-10 - M46.1) 05/08/2024 Lumbosacral spondylosis without myelopathy (ICD-10 - M47.817) 11/04/2024 Bilateral primary osteoarthritis of knee (ICD-10 - M17.0) 12/31/2024 Sacroiliitis, not elsewhere classified (ICD-10 - M46.1) 04/29/2024 Lumbosacral spondylosis without myelopathy (ICD-10 - M47.817) 04/09/2024 Other chronic pain (ICD-10 - G89.29) 2024 Osteoarthritis of right knee (ICD-10 - M17.9) 2024 Bilateral primary osteoarthritis of knee (ICD-10 - M17.0) 2024 Sacroiliitis, not elsewhere classified (ICD-10 - M46.1) 2024 Osteoarthritis of multiple joints (ICD-10 - M15.9) 04/29/2024 Other DNF 05/13/2024 05/27/2024 Other [place] DNF 06/12/24 06/28/2024 Other NO RX ISSUED [...] issues. Waiting for [facility] spect [facility] from [facility]. The patient is stable with the medications. [...] Dr. Garcia. 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 He is having costochondritic pain and discomfort [...] 07:45:00 AM, [address] [place], [address], Insurance Providers Payer Name Payer Address Payer Phone Subscriber Number Group Number Insured Name Patient Relationship to Insured Coverage Start Date Coverage End Date Medicare CGS Administrators [address] [address] [place] [phone] [id number] Sonido Pretty Self - patient is the insured 3 [employer] [address] [place] [address] [id number] Sonido Pretty Self - patient is the insured 3 [place] [employer] Blue Shield [address] [place] [address] [id number] Sonido Pretty Self - patient is the insured 2 Medical (General) History Medical History History ICD Code Allergies Arthritis Lumbosacral spondylosis without myelopat hy M47.817 Bile / Acid Reflux Surgical History Surgery Date(Month/Year) Appendectomy 1963 ORAL SURGERY 06/2019 TKR (LEFT) Dr. Lui 05/27/20 Gallbladder removal 08/05/21
--- NOTE | 2025-01-14 07:30 | NM_ITS ---
APPROVED REPORT Exam: Nuclear Stress Test Indication: Chest pain, SOB Patient Location: Outpatient Stress Tech: Ondina Thayer [place] Tech:Jocelyne KatzJONATANT, RT (R)(N) Ht: 5 ft 9 in Wt: 175 lbs HR: 66 bpm BP: 139/85 mmHg BSA: 1.95 m2 TID: 1.15 BMI: 25.8 History: Chest pain, SOB Procedure: Patient received 0.4 mg of intravenous Lexiscan, resting heart rate 66 bpm, resting blood pressure 139/85 mmHg, with Lexiscan maximum heart rate achieved was 97 bpm which is % of the maximum predicted heart rate and blood pressure was 172/90 mmHg. With Lexiscan, patient denied any complaint of chest pain. Cardiac Stress and Resting SPECT Images: Cardiac Stress and Resting SPECT images were obtained using technetium 99m Myoview 31.6 mCi stress and 10.59 mCi at rest. Resting and stress imaging in supine and prone positions demonstrate a small-sized, mild, reversible perfusion defect in the basal lateral LV wall. Gated imaging demonstrates normal global LV systolic function. LVEF is calculated at 52%. Conclusion: Small-sized, mild, reversible perfusion defect in the basal lateral LV wall. Findings are suggestive of reversible ischemia. Gated imaging demonstrates normal global LV systolic function. LVEF is calculated at 52%. Electronically signed by : Marielle Roman MD 01/14/2025 12:02:42
[2025-01-14] MEDS: SODIUM CHLORIDE 0.9% 10ML SYR (RAD ONLY) 10 ML IV ×2 (09:22→09:23)
[2025-01-14] MEDS: ISOTOPE MYOVIEW (PER STUDY) 1 DOSE IV (09:23)
--- NOTE | 2025-01-14 11:15 | CA_ITS ---
APPROVED REPORT EXAM: Comprehensive 2D, Doppler, and color-flow Echocardiogram Intelligence Officer Basic: Li Mallory CRT Ht: 5 ft 9 in Wt: 176lbs BSA: 1.96 BP: 126/82 mmHg Indications: Shortness of Breath, CAD 2D Dimensions Left Atrium 3.78 cm LVEF (Hein's) 63.60 % RVID Base (AP4) 3.75 cm (M/F) 2.5-4.1 LV Volume 90.30 mL LVOT 1.83 cm (M/F) 1.5-2.5 LA Volume 22.50 mL LA Volume Index 11.50 mL/m2 (M/F) 16-34 EF AP4 63.60 % EF AP2 62.3 % EF BP 63.6 % GL Strain -20.4 % M-Mode Dimensions RVDd 2.43 cm (0.9-2.6) LVDd 4.83 cm (3.5-5.7) Ao Diam 3.44 cm (2.0-3.7) LVDs 3.18 cm (3.5-5.7) IVSd 1.25 cm (0.6-1.1) PWd 1.14 cm (0.6-1.1) EF (Teich) 63.10% FS 34.20% EDV (Teich) 109.10 mL ESV (Teich) 40.30 mL LV Diastology E Decel Time 156 (160-240 msec) E/A Ratio 0.85 MED E' 7.5 (>= 7 cm/sec) MED A' 10.40 cm/s E'/MED E' Ratio 7.88 (<= 14) LAT E' 10.2 (>= 10 cm/sec) LAT A' 8.70 cm/s E/LAT E' Ratio 5.79 (<= 14) Aortic Valve AoV Peak Dante. 139.0 (50-130 cm/s) AO Peak GR. 7.70 mmHg Mitral Valve MV E Max Dante. 59.0 (40-130 cm/s) MV A Velocity 70.0 (40-130 cm/s) E/A Ratio 0.85 MV Decel. Time 156 (160-240 ms) Tricuspid Valve TR P. Velocity 168.00 cm/s RAP Estimate 10.00 mmHg RVSP 21.30 mmHg Left Ventricle The left ventricle is normal size. Left ventricular systolic function is normal. The left ventricular ejection fraction is within the normal range. There is normal left ventricular wall thickness. There is normal LV segmental wall motion. Transmitral Doppler flow pattern suggests impaired LV relaxation. LVEF is 55% Right Ventricle The right ventricle is mildly dilated. The right ventricular systolic function is normal. Atria The left atrium is mildly dilated. The right atrium is mildly dilated. There is no color Doppler evidence of interatrial shunt. Aortic Valve The aortic valve is mildly thickened. There is no hemodynamically significant aortic valvular stenosis. No aortic regurgitation is present. Mitral Valve The mitral valve is normal in structure. No evidence of mitral valve stenosis. Trace mitral regurgitation is present. Tricuspid Valve The tricuspid valve leaflets are thin and pliable. Trace tricuspid regurgitation. There is insufficient TR jet to estimate RVSP. Pulmonic Valve The pulmonary valve is grossly normal in structure. Mild pulmonic valve regurgitation is present. Great Vessels The aortic root is normal in size. IVC is normal in size and collapses >50% with inspiration. Pericardium There is no pericardial effusion. Other Information Study Quality: Fair Conclusion Normal biventricular systolic function. Mild RV dilation. Mild biatrial dilation. Mild PI. Electronically signed by : Marielle Roman MD 01/14/2025 11:48:32
== END 2025-01-14 23:59 | disposition home or self-care (01) ==
LOC: RAD 07:12
PROVIDERS: PCP Internal Medicine; Visit Provider Nurse Practitioner
DX: I37.1 Nonrheumatic pulmonary valve insufficiency (principal); I51.7 Cardiomegaly; I49.3 Ventricular premature depolarization; I25.10 Atherosclerotic heart disease of native coronary artery without angina pectoris; E78.49 Other hyperlipidemia; R94.39 Abnormal result of other cardiovascular function study
CPT/HCPCS: 78452; 93016; 93017; 93018; 93306; A9502; J2785

== ENCOUNTER 2025-02-05 14:15 | Outpatient (CLI) | payer MEDICARE, OTHER, SELFPAY ==
--- OUTSIDE RECORDS SUMMARY | 2010-07-07 09:00 | XMS_ITS | Encounter Summary ---
Author Organization [facility] Address [address] [facility], [address] [place] [address] Care Team Providers Care Manager Storage Name Role Phone Holly Pisano MD Primary Care Provider [phone] Encounter Details Date Type Department Care Team (Late st Contact Info) Description 07/07/2010 8:00 AM EST Hospital Encounter [address] [address] Karolina Contreras M Wahidul, MD 4 [place] [address] Social History Tobacco Use Types Packs/Day Years [...] Plan of care signed (Y/N): Insurance/Certification information: [facility] 10 visits initially Visit# / [...] on filedocumented in this encounter Care Teams Manager Storage Relationship Specialty Start Date End Date Holly Pisano MD [address] [place] [address] PCP - General 07/05/10 documented as of this encounter
--- OUTSIDE RECORDS SUMMARY | 2010-07-09 08:30 | XMS_ITS | Encounter Summary ---
Author Organization [facility] Address [address] [facility], [address] [place] [address] Care Team Providers Care Genetics Nurse Name Role Phone Holly Pisano MD Primary Care Provider [phone] Encounter Details Date Type Department Care Team (Late st Contact Info) Description 07/09/2010 7:30 AM EST Hospital Encounter [facility] [address] [place] [address] Karolina Contreras M Wahidul, MD [address] [place] [address] Social History Tobacco Use Types Packs/Day Years [...] Goals:GOALS Short Term Goals ( 2-4 weeks) Correction Goals ( 4-6 weeks) 1). Decrease pain [...] Plan of care signed (Y/N): Insurance/Certification information: [facility] 10 visits initially Visit# / total visits: [...] Treatment Time (minutes):50 Signature: Karolina Contreras PT 6267 documented in this encounter Plan of Treatment Not on file documented as of this encounter Visit Diagnoses Not on filedocumented in this encounter Care Teams Genetics Nurse Relationship Specialty Start Date End Date Holly Pisano MD [address] [place] [address] PCP - General 07/05/10 documented as of this encounter
--- OUTSIDE RECORDS SUMMARY | 2010-07-12 08:30 | XMS_ITS | Encounter Summary ---
Author Organization [facility] Address [address] [facility], [address] [place] [address] Care Team Providers Care Digital Computer Systems Analyst Name Role Phone Holly Pisano MD Primary Care Provider [phone] Encounter Details Date Type Department Care Team (Late st Contact Info) Description 07/12/2010 7:30 AM EST Hospital Encounter [address] [address] Karolina Contreras M Wahidul, MD [address] [place] [address] Social History Tobacco Use Types Packs/Day Years [...] Plan of care signed (Y/N): Insurance/Certification information: [facility] 10 visits initially Visit# / total [...] Treatment Time (minutes):50 Signature: Karolina Contreras, PT 3617 documented in this encounter Plan of Treatment Not on file documented as of this encounter Visit Diagnoses Not on filedocumented in this encounter Care Teams Digital Computer Systems Analyst Relationship Specialty Start Date End Date Holly Pisano MD [address] [place] [address] PCP - General 07/05/10 documented as of this encounter
--- OUTSIDE RECORDS SUMMARY | 2010-07-13 08:30 | XMS_ITS | Encounter Summary ---
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 Decrease pain [...] Plan of care signed (Y/N): Insurance/Certification information: [facility] 10 visits initially Visit# / total [...] Treatment Time (minutes):50 Signature: Karolina Contreras PT 8291 documented in this encounter Plan of Treatment Not on file documented as of this encounter Visit Diagnoses Not on filedocumented in this encounter Care Teams Wire Galvanizer Relationship Specialty Start Date End Date Holly Pisano MD 4 [place] [address] PCP - General 07/05/10 documented as of this encounter
--- OUTSIDE RECORDS SUMMARY | 2010-07-14 08:30 | XMS_ITS | Encounter Summary ---
Author Organization [facility] Address [address] [facility], [address] [place] [address] Care Team Providers Care Summer Counselor Name Role Phone Holly Pisano MD Primary Care Provider [phone] Encounter Details Date Type Department Care Team (Late st Contact Info) Description 07/14/2010 7:30 AM EST Hospital Encounter [address] [address] Karolina Contreras M Wahidul, MD 4 [place] [address] Social History Tobacco Use Types Packs/Day Years [...] Plan of care signed (Y/N): Insurance/Certification information: [facility] 10 visits initially Visit# / [...] Treatment Time (minutes):35 Signature: Karolina Contreras, PT 8360 documented in this encounter Plan of Treatment Not on file documented as of this encounter Visit Diagnoses Not on filedocumented in this encounter Care Teams Summer Counselor Relationship Specialty Start Date End Date Holly Pisano MD 4 [place] [address] PCP - General 07/05/10 documented as of this encounter
--- OUTSIDE RECORDS SUMMARY | 2010-07-20 08:30 | XMS_ITS | Encounter Summary ---
Author Organization [facility] Address [address] [facility], [address] [place] [address] Care Team Providers Care Stave Saw Operator Name Role Phone Holly Pisano MD Primary Care Provider [phone] Encounter Details Date Type Department Care Team (Late st Contact Info) Description 07/20/2010 7:30 AM EST Hospital Encounter [address] [address] Karolina Contreras M Wahidul, MD 4 [place] [address] Social History Tobacco Use Types Packs/Day Years [...] Plan of care signed (Y/N): Insurance/Certification information: [facility] 10 visits initially Visit# / total [...] Treatment Time (minutes):45 Signature: Karolina Contreras PT 1363 documented in this encounter Plan of Treatment Not on file documented as of this encounter Visit Diagnoses Not on filedocumented in this encounter Care Teams Stave Saw Operator Relationship Specialty Start Date End Date Holly Pisano MD [address] [place] [address] PCP - General 07/05/10 documented as of this encounter
--- OUTSIDE RECORDS SUMMARY | 2010-07-21 08:30 | XMS_ITS | Encounter Summary ---
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 Thoracic AROM is 10-20% limited w/ ext, rot,sb, but neg w/ resist. Tests. The right costotransv jtsare still limited but improving. Assessment: Patient's response to treatment: Always feels better after Rx. Goals:GOALS Short Term Goals ( 2-4 weeks) Shelter Goals ( 4-6 weeks) 1). Decrease pain [...] visits. Electronically Signed by: Karolina Contreras, PT 0237 * Karolina Contreras, PT - 07/21/2010 7:39 AM EST Physical Therapy Daily Treatment Note Patient Name: Sonido Pretty : 1955 Diagnosis: Thoracic/lumbar strain Precautions/Restrictions: Work restrictions Treatment Diagnosis: same Referring Physician: Dr. 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 Exercises: Exercise/Equipment [...] Treatment Time (minutes):45 Signature: Karolina Contreras PT 8192 documented in this encounter Plan of Treatment Not on file documented as of this encounter Visit Diagnoses Not on filedocumented in this encounter Care Teams Paint Laboratory Technician Relationship Specialty Start Date End Date Holly Pisano MD 4 [place] [address] PCP - General 07/05/10 documented as of this encounter
--- OUTSIDE RECORDS SUMMARY | 2010-07-23 08:30 | XMS_ITS | Encounter Summary ---
Author Organization [facility] Address [address] [facility], [address] [place] [address] Care Team Providers Care Solutions Executive Cloud Sales Name Role Phone Holly Pisano MD Primary Care Provider Encounter Details Date Type Department Care Team (Late st Contact Info) Description 07/23/2010 7:30 AM EST Hospital Encounter [address] [address] Karolina Contreras M Wahidul, MD 4 [place] [address] Social History Tobacco Use Types Packs/Day Years [...] Plan of care signed (Y/N): Insurance/Certification information: [facility] 10 visits initially Visit# / total [...] over do it.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 Exercises: Exercise/Equipment [...] Treatment Time (minutes):50 Signature: Karolina Contreras, PT 6244 documented in this encounter Plan of Treatment Not on file documented as of this encounter Visit Diagnoses Not on filedocumented in this encounter Care Teams Solutions Executive Cloud Sales Relationship Specialty Start Date End Date Holly Pisano MD [address] [place] [address] PCP - General 07/05/10 documented as of this encounter
--- OUTSIDE RECORDS SUMMARY | 2010-07-27 08:30 | XMS_ITS | Encounter Summary ---
Author Organization [facility] Address [address] [facility], [address] [place] [address] Care Team Providers Care Slackman Name Role Phone Holly Pisano MD Primary Care Provider [phone] Encounter Details Date Type Department Care Team (Late st Contact Info) Description 07/27/2010 7:30 AM EST Hospital Encounter [facility] [address] [place] [address] Karolina Contreras M Wahidul, MD 4 [place] [address] Social History Tobacco Use Types Packs/Day Years [...] of care signed (Y/N): Insurance/Certification information: [facility] 10 visits initially Visit# / total [...] over do it.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
--- OUTSIDE RECORDS SUMMARY | 2010-07-30 08:30 | XMS_ITS | Encounter Summary ---
Author Organization [facility] Address [address], [address] [place] [address] Care Team Providers Care Signal Tower Director Name Role Phone Holly Pisano MD Primary Care Provider [phone] Encounter Details Date Type Department Care Team (Late st Contact Info) Description 07/30/2010 7:30 AM EST Hospital Encounter [facility] [address] [place] [address] Karolina Contreras M Wahidul, MD [address] [place] [address] Social History Tobacco Use Types Packs/Day Years Used Date Smoking Tobacco: Never Assessed Sex and Gender Information Value Date Recorded Sex Assigned at Not on file Legal Sex Male 6:22 AM EST Gender Identity Not on file Sexual Orientation Not on file documented as of this encounter Progress Notes * Karolina Contreras, PT - 07/30/2010 10:03 AM EST Physical Therapy D/C Note Patient Name: Sonido Pretty : 1955 Diagnosis: Thoracic/lumbar strain Treatment Diagnosis: Referring Physician: Dr. Blunt/ Dr. Butler Date: 07/30/2010 Subjective: Pain Level: He has been seen for 10 visits of PT for his work related injury. He reports 75-80% improvement overall. He conts to have light to mod pain w/ work activities. Objective: Observation: Test measurements: Lumbar and thoracic spine AROM is WNL and negative w/ resisted tests. His shoulder AROM is WNL and negative w/ resist tests. He still has pain and stiffness on the Right costo transv jts. . Assessment: Patient's response to treatment: Always feels better after Rx. Goals:GOALS Short Term Goals ( 2-4 weeks) Drafter Civil (Cad) Goals ( 4-6 weeks) 1). Decrease pain 25-50% 1).decrease pain 75-100% 2).establ HEP 2) (I) w/ HEP 3).improve trunk AROM 10-25% 3).trunk AROM to w/in 10-15% of normal 4). 4).return to full duty/reg activities 5). 5). 6). 6). met, most of LTG HEP ?? All goals have been met, the LT goal for pain was just barely met. He has handouts for his home exs. Plan: ?? D/C further PT Electronically Signed by: Karolina Contreras, PT [id number] * Karolina Contreras, PT - 07/30/2010 8:11 AM EST Physical Therapy Daily Treatment Note Patient Name: Sonido Pretty : 1955 Diagnosis: Thoracic/lumbar strain Precautions/Restrictions: Work restrictions Treatment Diagnosis: same Referring Physician: Dr. Blunt/ this has changed to Dr. Butler (his own MD) Plan of care signed (Y/N): Insurance/Certification information: [facility] 10 visits initially Visit# / total visits: 03/14 Date: 07/30/2010 Pain level: . 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 verticle or horiz-1 min 07/30/21 hamst stretch Hold 10 sec x 10 Other Therapeutic Activities: Given green t-bd to eventually advance row exs. Manual Treatments: 07/30/10 mobiliz to th/lumb spine (gentle) Modalities: e stim x 20 min to LB (interf) and thoracic area (pre mod) Plan: cont 2-3 x wk for 4-6 wks Patient response to treatment: charan well See Weekly Progress Note? (Y/N): See D/C note Timed Code Treatment Minutes:30 Total Treatment Time (minutes):50 Signature: Karolina Contreras, PT [id number] documented in this encounter Plan of Treatment Not on file documented as of this encounter Visit Diagnoses Not on filedocumented in this encounter Care Teams Signal Tower Director Relationship Specialty Start Date End Date Holly Pisano MD [address] [place] [address] PCP - General 07/05/10 documented as of this encounter
--- OUTSIDE RECORDS SUMMARY | 2024-10-07 07:15 | XMS_ITS ---
Author Organization [facility] Address [address] [address] Care Team Providers Care Maintenance Shop Manager Name Role Phone Jone Garcia Unavailable [phone] Allergies Allergen (clinical drug ingredient) Drug/Non Drug [...] [facility] [address] [address] 10/07/2024 Jone Garcia Cervical spondylosis without myelopathy M47.812 Assessments Encounter Date Diagnosis (ICD Code) Assessment Notes Treatment Notes Treatment Clinical Notes Section Notes 10/07/2024 Cervical spondylosis without myelopathy (ICD-10 - M47.812) Plan Of Treatment Medication Medication Name Sig Start Date Stop Date Notes HYDROcodone-Acetaminophen 7.5-325 MG 1 tablet Orally EVERY 8 hours; Duration: 30 days 09/06/2024 11/06/2024 Next Appt Details Provider Name:Saira Nicole, 02/25/2025 11:15:00 AM, [place], [address], Progress Notes * Melissa PRETTYOB:[birth year] (69 yo M)Acc No.[id number]:10/07/2024 Progress Notes Patient: Sonido HOLGUIN Provider: Isa Garcia MD :1955 A ge:69 Y S ex:Male Date:10/07/2024 Phone: Address:[address] [place] [address] [facility] [id number] Subjective: * Chief Complaints: * 1 . [...] as doing yardwork and housework. Refills for [place] were provided today, dates verified with ZEFERINO. [...] removal 08/05/21. * Hospitalization/Major Diagno stic Procedure: Cldye lawrence Past Hospitalization. * Family History: M [...] Preventive Medicine: YOUR PREVENTIVE WELLNESS PLAN: B VA, Height, and Weight: T he Recommended Frequency [...] or need more you can contact the [facility] addiction hotline at [phone] and they should be able to provide you with free Narcan. * * Electronic signature of Anjel Garcia MD on 02/07/2025 at 09:28 AM EDT Sign off status: Pending * Provider: Isa Garcia MD Date: 0 10/07/2024 Generated for Scotty mcallister/Rosemarie/Félixitting on: 0 02/07/2025 09:28 AM EDT History and Physical Notes * HPI (History of Present Illness) Category Sub-Category Detail Notes Category Not es Pain Management Assessment and followup Followup plan documented :: Yes
--- OUTSIDE RECORDS SUMMARY | 2024-11-04 09:00 | XMS_ITS ---
Author Organization [facility] Address [address] [address] Care Team Providers Care Radiologist Chief Of Breast Imaging Name Role Phone Jone Garcia Unavailable [phone] Allergies Allergen (clinical drug ingredient) Drug/Non Drug [...] Status Risk Notes Problem Sacroiliac joint pain (993972384) Sacroiliac joint pain (M53.3) Active confirmed Vital Signs Blood pressure systolic 153 mm Hg 11/05/19 25 Blood pressure diastolic 102 mm Hg 025 Heart Rate 69 /min 11/04/2024 Height 68 in 11/04/2024 Weight 190 lbs 11/04/2024 BMI 28.89 kg/m2 11/04/2024 Oximetry 98 % 11/04/2024 Encounters Encounter Location Date Provider Diagnosis [facility] [address] [address] 11/04/2024 Jone Garcia Cervical spondylosis without myelopathy [...] 12/04/2024 Next Appt Details Provider Name:Saira Nicole, 02/25/2025 11:15:00 AM, [address] [place], [address], Progress Notes * Melissa PRETTYOB:[birth year] (69 yo M)Acc No.[id number]:11/04/2024 Progress Notes Patient: Sonido HOLGUIN Provider: Isa Garcia MD :1955 A ge:69 Y S ex:Male Date:11/04/2024 Phone: Address:[address] [place] [address] Subjective: * Chief Complaints: * 1 . 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 MUTPT-QL-IRVTS ANALYSIS: Multilevel degenerative disc disease with varying degrees of disc height loss and disc desiccation. Gosjo-yr-jsnit analysis demonstrates the following: C1-C2: Normal atlantodental [...] flow voids in the neck are preserved. ENEGH-AY-RYGNZ ANALYSIS: Multilevel degenerative disc disease with varying degrees of disc height loss and disc desiccation. Otljt-xf-cimjb analysis demonstrates the following: C1-C2: Normal atlantodental [...] 08/05/21. * Hospitalization/Major Diagno stic Procedure: Clyde enaron Past Hospitalization. * Family History: M other: [...] Preventive Medicine: YOUR PREVENTIVE WELLNESS PLAN: B [place], Height, and Weight: T he Recommended Frequency [...] or need more you can contact the [facility] addiction hotline at [phone] and they should be able to provide you with free Narcan. * * Electronic signature of Anjel Garcia MD on 02/07/2025 at 09:28 AM EDT Sign off status: Pending * Provider: Isa Garcia MD Date: 0 11/04/2024 Generated for Scotty mcallister/Rosemarie/eTmichaellesmitting on: 0 02/07/2025 09:28 AM EDT History [...] flow voids in the neck are preserved. QHJHX-UM-UAHZY ANALYSIS: Multilevel degenerative disc disease with varying degrees of disc height loss and disc desiccation. Uuldt-ai-tkjmb analysis demonstrates the following: C1-C2: Normal atlantodental [...] flow voids in the neck are preserved. WNSNA-LE-PYYAO ANALYSIS: Multilevel degenerative disc disease with varying degrees of disc height loss and disc desiccation. Qsfrx-gh-cdfqt analysis demonstrates the following: C1-C2: Normal atlantodental [...]
--- OUTSIDE RECORDS SUMMARY | 2024-12-02 03:45 | XMS_ITS ---
Author Organization [facility] Address [address] [address] Care Team Providers Care Foreign Food Cook Specialty Name Role Phone Jone Garcia Unavailable [phone] Allergies Allergen (clinical drug ingredient) Drug/Non Drug [...] Provider Diagnosis [facility] [address] [address] 12/02/2024 Jone Garcia Assessments Encounter Date Diagnosis [...] Weeks, Reason: OFFICE VISIT Provider Name:Saira Nicole, 02/25/2025 11:15:00 AM, [address] [place], [address], Progress Notes * Melissa PRETTYOB:[birth year] (69 yo M)Acc No.[id number]:12/02/2024 Progress Note Patient: Sonido HOLGUIN Provider: Isa Garcia MD :1955 A ge:69 Y S ex:Male Date:12/02/2024 Phone: Address:[address] [place] [address] [facility] [id number] Subjective: * Chief Complaints: * 1 . [...] of Anjel Garcia MD on 02/07/2025 at 09:27 AM EDT Sign off status: Pending * Provider: sIa Garcia MD Date: 0 12/02/2024 Generated for Scotty mcallister/Rosemarie/Félixitting on: 0 02/07/2025 09:27 AM EDT History and Physical Notes * [...]
--- OUTSIDE RECORDS SUMMARY | 2024-12-31 04:00 | XMS_ITS ---
Author Organization [facility] Address [address] [address] Care Team Providers Care Medical Laboratory Specialist Name Role Phone Jone Garcia Unavailable [phone] Saira Nicole Unavailable [phone] Allergies Allergen (clinical drug ingredient) Drug/Non Drug Allergy documented on EMR Reaction Allergy Type Onset Date Status buprenorphine Belbuca euphoria Drug Allergy Act marcial Non-steroidal anti-inflammatory agent (FN) NSAIDs tinnitus Drug Allergy Active REASON FOR VISIT OFFICE VISIT Medications Medication SIG (Take, Route, Frequency, Duration) Notes Start Date End Date Status Narcan 4 MG/0.1ML as directed Nasally Once in Emergency 12/20/2022 Active HYDROcodone-Acetamino phen 7.5-325 MG 1 tablet Orally EVERY 8 hours; Duration: 30 days 11/07/2024 01/30/2025 Active Aspir-81 PRN Active Vitamins/Minerals Vit D and Zinc Active diazePAM 2 MG Oral; Duration: 10 [...] user? No Vital Signs Blood pressure systolic 161 mm Hg 01/01/20 25 Blood pressure diastolic 100 mm Hg 025 Heart Rate 71 /min 12/31/2024 Height 68 in 12/31/2024 Weight 173 lbs 12/31/2024 BMI 26.3 kg/m2 12/31/2024 Oximetry 97 % 12/31/2024 Encounters Encounter Location Date Provider Diagnosis [facility] [address] [address] 12/31/2024 Saira Nicole Thoracic spondylosis without myelopathy M47.814 ; Other chronic pain G89.29 and Sacroiliitis, not elsewhere classified M46.1 Assessments Encounter Date Diagnosis (ICD Code) Assessment Notes Treatment Notes Treatment Clinical Notes Section Notes 12/31/2024 Thoracic spondylosis without myelopathy (ICD-10 - M47.814) 12/31/2024 Other chronic pain (ICD-10 - G89.29) 12/31/2024 Sacroiliitis, not elsewhere classified (ICD-10 - M46.1) 12/31/2024 Other He is wearing security monitor. He is having costochondritic pain and discomfort of the sternum and FM tenderness noted. He has no Sciatic pain post SIJ injection. The patient is stable with the medications. Denies any side effects from the medications or complications from the medications. Taking medications as prescribed which is helping them stay functional with their ADLs. Advised about risks of use of alcohol and driving with the medication. Also reviewed risk of overdose and and cognitive side effects. Advised patient to call if they should develop symptoms or symptoms worsen. Discussed the role and importance of Narcan for them to have in their posession. Zeferino and ENRIKE reviewed. Reports no changes in health history and denies any changes in medications from outside providers. No aberrant behavior noted on today's visit or PE. This patient has moderate to severe chronic pain condition which is controlled with the stable dose of opioid/narcotic. This patient has tried and failed an extensive trial of non-opioid medication, conservative, and interventions past and present in which they continue to complain of moderate to severe pain. Opioid/Narcotic agreement/contract reviewed with patient. Patient understands the risks and side effects with taking opioids/narcotics medications. The patient agrees to abide by these rules. Seen in consultation today with DANIKA Hollis with care plan and medications reviewed by Dr. Garcia. Medical decision making of moderate-high complexity, and detailed history with direct face to face time with medical provider for greater than 30 minutes Plan Of Treatment Medication Medication Name Sig Start Date Stop Date Notes Narcan 4 MG/0.1ML as directed Nasally Once in Emergency 12/20/2022 HYDROcodone-Acetaminophen 7.5-325 MG 1 tablet Orally EVERY 8 hours; Duration: 30 days 11/07/2024 01/30/2025 Treatment Notes Assessment Notes Other He is wearing security monitor. He is having costochondritic pain and discomfort of the sternum and FM tenderness noted. He has no Sciatic pain post SIJ injection. The patient is stable with the medications. Denies any side effects from the medications or complications from the medications. Taking medications as prescribed which is helping them stay functional with their ADLs. Advised about risks of use of alcohol and driving with the medication. Also reviewed risk of overdose and and cognitive side effects. Advised patient to call if they should develop symptoms or symptoms worsen. Discussed the role and importance of Narcan for them to have in their posession. Zeferino and ENRIKE reviewed. Reports no changes in health history and denies any changes in medications from outside providers. No aberrant behavior noted on today's visit or PE. This patient has moderate to severe chronic pain condition which is controlled with the stable dose of opioid/narcotic. This patient has tried and failed an extensive trial of non-opioid medication, conservative, and interventions past and present in which they continue to complain of moderate to severe pain. Opioid/Narcotic agreement/contract reviewed with patient. Patient understands the risks and side effects with taking opioids/narcotics medications. The patient agrees to abide by these rules. Seen in consultation today with DANIKA Hollis with care plan and medications reviewed by Dr. Garcia. Medical decision making of moderate-high complexity, and detailed history with direct face to face time with medical provider for greater than 30 minutes Next Appt Details Follow Up: 4 Weeks, Reason: OV Provider Name:Saira Nicole, 02/25/2025 11:15:00 AM, [address] [place], [address], Progress Notes * Melissa PRETTYOB:[birth year] (69 yo M)Acc No.[id number]:12/31/2024 Progress Notes Patient: Sonido HOLGUIN Provider: PRESTON Loja :1955 A ge:69 Y S ex:Male Date:12/31/2024 Phone: Address:[address], [id number] Subjective: * Chief Complaints: * O FFICE VISIT * HPI: P ain Management: Assessment and followup F ollowup plan documented : Y es. I nterim History: Patient presents for a follow up for chronic pain management. On 12/02/2024 he had a left sacroiliac joint injection. Pt reports that he has had 100% relief ongoing. Patient's CC: Thoracic pain, which they score an 8/10NRS. Pt describes this pain as a constant aching shock-like shooting spasm stabbing throbbing tiring pain. Pt reports his pain is at its worst in the mornings. Pt reports that twisting, lifting, reaching up and out increases this pain. Pt reports that lidocaine patch OTC and diclofenac gel OTC, [place] helps reduce this pain. Pt reports he is wearing a heart monitor and is scheduled for a stress test and echocardiogram on 01/14/2025 due to recently having shooting pains in chest. Denies adverse effects to prescribed medication. Reports taking medications as prescribed. Refills for [place] were provided today, dates verified with ZEFERINO. Last UDS was reviewed and was compliant for prescribed medication. They have not scheduled treatment at this time. We will follow up accordingly and continue medication management. Based on the physical exam and clinical findings, we will schedule him back in 4 weeks for a follow up. SOAPP completed today. SOAPP total:20 Scribe-AB. * ROS: C ervical: Admits N ruchi [...] hands. P sychiatric: Denies A nxiety. D enaron D epressed mood. D enaron M ental or Physical abuse. D enies S uicidal thoughts. * Medical History: * Surgical History: A ppendectomy 1963ORAL SURGERY 06/2019TKR (LEFT) Dr. Lui 05/27/20Gallbladder removal 08/05/21 * Hospitalization/Major Diagno stic Procedure: [facility]rence Past Hospitalization * Family History: M other: alive. F [...] f inished high school. * Medications: T akingVitamins/Minerals , Notes to Pharmacist: Vit D and ZincAspir-81 , Notes to Pharmacist: PRNdiazePAM 2 MG Tablet Oral , Notes to Pharmacist: 1 po most daysHYDROcodone-Acetaminophen 7.5-325 MG Tablet 1 tablet Orally EVERY 8 hours , stop date 01/01/2025Narcan 4 MG/0.1ML Liquid as directed Nasally Once in Emergency Medication List reviewed and reconciled with the patientTaking Vitamins/Minerals , Notes to Pharmacist: Vit D and ZincTaking Aspir-81 , Notes to Pharmacist: PRNTaking diazePAM 2 MG Tablet Oral , Notes to Pharmacist: 1 po most daysTaking HYDROcodone-Acetaminophen 7.5-325 MG Tablet 1 tablet Orally EVERY 8 hours , stop date 01/01/2025Taking Narcan 4 MG/0.1ML Liquid as directed Nasally Once in Emergency Medication List reviewed and reconciled with the patient * Allergies: B elbuca: euphoria - Side EffectsNSAIDs: tinnitusno[Allergies Verified] Objective: * Vitals: H R: 71 /min, BP:161/100mm Hg, Ht: 68 in, Wt: 173 lbs, BMI:26.3Index, Oxygen sat %: 97, Pain scale: 8 1-10, Ht-cm: 172.72 cm, Wt-k.47 kg. * Examination: G eneral Examination: GENERAL APPEARANCE: m renetta, oriented, in no acute distress.? HEAD: f acial goatee. EYES: c lear sclera, PERRLA. EARS: h oh,. NOSE: n harrison patent, c/o sinusitis congestion. NECK/THYROID: s tiffness of the ROM of the C-spine, non tender over the C-spine, neck supple,. HEART: H TN, wearing security monitor,. LUNGS: g ood air movement,. CHEST: s ternum and costochondral tenderness, mid chest at xyphoid. ABDOMEN: c /o abdominal discomfort with palpation over the right UQ. BACK: T TP over bilateral L3-5 facet joints with axial pain upon rotation and lateral tilt of the spine, no Sacroiliac joint tenderness, straight leg raising test NEG bilaterally, Muscle spasm noted of the lumbar region, Thoracic spine discomfort T7-9 region.? MUSCULOSKELETAL: L eft knee TKR with scar healing, Crepitus noted. No muscular atrophy, Normal strength 5/5 in Bilateral Upper and Lower Extremities, B MEDIAL TTP of the knees.Right scapular discomfort with ROM of the shoulder joint, TTP over the medial border.. EXTREMITIES: n o clubbing, cyanosis, or edema. NEUROLOGIC: g ait smooth, sensory exam intact to pinprick and light touch. PSYCH: m ood/affect full range, , speech clear. ? Assessment: * Assessment: 1. O ther chronic pain - G89.29 2 . T horacic spondylosis without myelopathy - M47.814 (Primary) 3 . S acroiliitis, not elsewhere classified - M46.1 ? Plan: * Treatment: * Procedure Codes: * Preventive Medicine: YOUR PREVENTIVE WELLNESS PLAN: B [place], Height, and Weight: T he Recommended Frequency [...] or need more you can contact the [facility] addiction hotline at [phone] and they should be able to provide you with free Narcan. * Follow Up: 4 Weeks (Reason: OV) * * Sign off status: Completed true * Provider: PRESTON Loja Date: 0 12/31/2024 Generated for Scotty Khan on: 0 02/07/2025 09:27 AM EDT History and Physical Notes * HPI (History of Present Illness) Category Sub-Category Detail Notes Category Not es Interim History Patient presents for a follow up for chronic pain management. On 12/02/2024 he had a left sacroiliac joint injection. Pt reports that he has had 100% relief ongoing. Patient's CC: Thoracic pain, which they score an 8/10NRS. Pt describes this pain as a constant aching shock-like shooting spasm stabbing throbbing tiring pain. Pt reports his pain is at its worst in the mornings. Pt reports that twisting, lifting, reaching up and out increases this pain. Pt reports that lidocaine patch OTC and diclofenac gel OTC, [place] helps reduce this pain. Pt reports he is wearing a heart monitor and is scheduled for a stress test and echocardiogram on 01/14/2025 due to recently having shooting pains in chest. Denies adverse effects to prescribed medication. Reports taking medications as prescribed. Refills for [place] were provided today, dates verified with ZEFERINO. Last UDS was reviewed and was compliant for prescribed medication. They have not scheduled treatment at this time. We will follow up accordingly and continue medication management. Based on the physical exam and clinical findings, we will schedule him back in 4 weeks for a follow up. SOAPP completed today. SOAPP total:20 Scribe-AB Pain Management Assessment and followup Followup plan documented :: Yes Examination Category Sub-Category Detail Notes Category Not es General Examination GENERAL APPEARANCE: male, or iented, in no acute distress HEAD: facial goatee EYES: clear sclera, PERRLA EARS: [place], NOSE: nares patent, c/o si nusitis congestion NECK/THYROID: stiffness of the ROM of the C-spine, non tender over the C-spine, neck supple, HEART: HTN, wearing security monitor, CHEST: sternum and costocho ndral tenderness, mid chest at xyphoid LUNGS: good air movement, ABDOMEN: c/o abdominal discom fort with palpation over the right UQ NEUROLOGIC: gait smooth, sensory exam intact to pinprick and light touch EXTREMITIES: no clubbing, cyanosi s, or edema BACK: TTP over bilateral L 3-5 facet joints with axial pain upon rotation and lateral tilt of the spine, no Sacroiliac joint tenderness, straight leg raising test NEG bilaterally, Muscle spasm noted of the lumbar region, Thoracic spine discomfort T7-9 region MUSCULOSKELETAL: Left knee TKR with scar healing, Crepitus noted. No muscular atrophy, Normal strength 5/5 in Bilateral Upper and Lower Extremities, B MEDIAL TTP of the knees. Right scapular discomfort with ROM of the shoulder joint, TTP over the medial border. PSYCH: mood/affect full ran ge, , speech clear
--- OUTSIDE RECORDS SUMMARY | 2025-01-29 03:45 | XMS_ITS ---
Author Organization [facility] Address [address] [address] Care Team Providers Care Partition Assembler Name Role Phone Jone Garcia Unavailable [phone] NicoleSaira willis Unavailable [phone] Allergies Allergen (clinical drug ingredient) Drug/Non Drug [...] [facility] [address] [address] 01/29/2025 Saira Nicole Cervical spondylosis without myelopathy [...] care plan and medications reviewed by Dr. Gacria. Medical decision making of moderate-high complexity, and detailed history with direct face to face time with medical provider for greater than 30 minutes Next Appt Details Follow Up: 4 Weeks, Reason: OV Provider Name:Saira Nicole, 02/25/2025 11:15:00 AM, [address] [place], [address], Progress Notes * Melissa PRETTYOB:[birth year] (69 yo M)Acc No.[id number]:01/29/2025 Progress Notes Patient: Sonido HOLGUIN Provider: PRESTON Loja :1955 A ge:69 Y S ex:Male Date:01/29/2025 Phone: [address] [id number] Subjective: * Chief Complaints: * O FFICE [...] as doing yardwork and housework. Refills for Emerson were provided today, dates verified with ZEFERINO. [...] flow voids in the neck are preserved. BZFLE-WJ-SNYXI ANALYSIS: Multilevel degenerative disc disease with varying degrees of disc height loss and disc desiccation. Ddaob-bk-eityl analysis demonstrates the following: C1-C2: Normal atlantodental [...] T horacic Spine/Upper Back: Exam Date 07/12/2022 -[facility] Exam Description MR Thoracic Spine w/o Contrast [...] Discs are preserved in height and signal. Opctg-ro-kntcv analysis demonstrates the following: T12-L1 (included on [...] H ousehold: H ousehold M arital status: see nava, Leilani francisel of education: f inished high [...] for them to have in their possession. Zefernio and ENRIKE reviewed. Reports no changes in [...] or need more you can contact the [facility] addiction hotline at [phone] and they should be able to provide you with free Narcan. * Follow Up: 4 Weeks (Reason: OV) * * Sign off status: Completed true * Provider: PRESTON Loja Date: 0 01/29/2025 Generated for Scotty mcallister/Rosemarie/Tigist on: 0 02/07/2025 09:27 AM EDT History [...] Discs are preserved in height and signal. Liphv-cp-drktp analysis demonstrates the following: T12-L1 (included on [...] flow voids in the neck are preserved. TTCIW-QG-CLODN ANALYSIS: Multilevel degenerative disc disease with varying degrees of disc height loss and disc desiccation. Roulw-oq-gdhlq analysis demonstrates the following: C1-C2: Normal atlantodental [...] EYES: PERRLA, , clear scle ra EARS: [place], normal external NECK/THYROID: diffuse tenderness a cross [...]
[2025-02-05 19:47] LABS: Prostate Specific Ag, Diagnost 40.1 ng/ml (0.0-4.0)
--- OUTSIDE RECORDS SUMMARY | 2025-02-07 09:27 | XMS_ITS | Clinical Summary ---
Author Organization [facility] Address [address] [facility] [place], [place] [address] Phone Care Team Providers Care Cell Reliner Name Role Phone Pieter Gordon MD Primary Care Provider [phone] Allergies Active Allergy Reactions Criticality Noted Date Comments Amitriptyline Palpitations 06/24/2022 vomiting Medications fluticasone propionate (FLONASE) 50 mcg/actuation Nasl Thelma, Suspension 2 Sprays in each nostril daily. [...] Zoster (1 of 2) 2007 COVID-19 Vaccine (1 - 2023-2 5 season) 2025 Influenza Vaccine (#1) 2025 Hepatitis C Screening [...] Bryan MD Medical Devices Implanted Type Area Recreation Assistant Device Identifier Shelf Expiration Date Model / Serial / Lot Gmk Tibial Tray Cemented Left S3 - [id number] Implanted:Qty: 1 on 05/27/2020 by Kevan Wheeler MD at [facility] Left: Knee [employer] [id number] 12/19/2024 02.07.120 3L / / [id number] Patella Resurfacing S2 - [id number] Implanted:Qty: 1 on 05/27/2020 by Kevan Wheeler MD at [facility] Left: Knee [employer] [id number] 12/11/2024 02.07.003 4RP / / [id number] Sphere Femur Cemented Left S3 + - [id number] Implanted:Qty: 1 on 05/27/2020 by Kevan Wheeler MD at [facility] Left: Knee [employer] [id number] 12/12/2024 02.12.002 3L / / [id number] Cement Bn Simplex Hv 20ml 40gm Radiopaque Strl - [id number] Implanted:Qty: 2 on 05/27/2020 by Kevan Wheeler MD at [facility] Left: Knee FLAGUNI:ORTHOPED ICS 08/02/2021 [id number] 0 / / [id number] B Ins Tib 3 10mm Lt Sphr Cngrnt Gmk - [id number] Implanted:Qty: 1 on 05/27/2020 by Kevan Wheeler MD at [facility] Left: Knee [employer] [id number] 10/16/2024 02.12.031 0CRL / / [id number] Procedures Procedure Name Priority Date/Time Associated Diagnosis [...] Non-Reacti ve 08/04/2021 9:18 AM EST PREFERRED [facility] Blood VENOUS BLOOD / Unknown Venipuncture / Unknown 08/04/2021 6:55 AM EST 08/04/2021 7:00 AM EST [facility] Janette Ko MD CHEMISTRY ORDERABLES Final Result PREFERRED [facility] [address] [place] [address] from Last 3 Months or Most Recently Relevant to Health Maintenance Insurance [place]ICARE [place] B MEDICARE [place]PP[place]MENT [place] * Guarantor: MARIA DE JESUSSONIDO Account Type Relation to Patient Date of Phone Billing Address [place] Personal Family 1955 [address] [place] [address] [place]IC[place] PART A AND B [place] [employer] [place]MENT [place] Advance Directives For more information, please contact: [phone] * Full Code (Latest Code Status on File) Date Activated Date Inactivated Comments 08/03/2021 6:55 PM 08/06/2021 8:03 PM Care Teams Cell Reliner Relationship Specialty Start Date End Date Pieter Gordon MD [address] [place] [address] PCP - General Internal Medicine 08/03/21
--- OUTSIDE RECORDS SUMMARY | 2025-02-07 09:27 | XMS_ITS | Clinical Summary ---
Author Organization [facility] Address [address], [address] [place] [address] Care Team Providers Care Salesforce Administrator Name Role Phone Holly Pisano MD Primary Care Provider [phone] Social History Tobacco Use Types Packs/Day Years Used Date Smoking Tobacco: Never Assessed Sex and Gender Information Value Date Recorded Sex Assigned at Not on file Legal Sex Male 6:22 AM EST Gender Identity Not on file Sexual Orientation Not on file Plan of Treatment Not on file Insurance RR #[id number] [id number] [address] Care Teams Salesforce Administrator Relationship Specialty Start Date End Date Holly Pisano MD [address] [place] [address] PCP - General 07/05/10
--- OUTSIDE RECORDS SUMMARY | 2025-02-07 09:27 | XMS_ITS | Clinical Summary ---
Author Organization [facility] Address [address] [place] [id number] Phone Care Team Providers Care Ampoule Washing Machine Operator Name Role Phone Anai PALAFOX, Dom Unavailable [phone] Conditions or Problems No information available. Medications No information available. Medications Administered No information available. Allergies, Adverse Reactions, Alerts No information available. Results No information available. Plan of Care No information available. Procedures No information available. Vital Signs No information available. Immunizations No information available. Advance Directives No information available.
--- OUTSIDE RECORDS SUMMARY | 2025-02-07 09:28 | XMS_ITS | Clinical Summary ---
Author Organization [employer] ([place] Address [address] [place] [address] Care Team Providers Care Cutter Head Sharpener Name Role Phone Unavailable Primary Care Provider [...]
--- OUTSIDE RECORDS SUMMARY | 2025-02-07 09:28 | XMS_ITS | Encounter Summary ---
Author Organization [facility] Address [address] [place] [address] Care Team Providers Care Registered Nurse Maternity Name Role Phone Pieter Gordon MD Primary Care Provider [phone] Encounter Details Date Type Department Care Team (Late st Contact Info) Description 09/07/2015 Abstract [facility] - Spine Surgery, [place] [address] [place] [id number] Ambulatory, Associate Professor Of Literature Social History Tobacco Use Types Packs/Day Years [...] on filedocumented in this encounter Care Teams Registered Nurse Maternity Relationship Specialty Start Date End Date Pieter Gordon MD [address] [place] [address] PCP - General 09/07/15 documented as of this encounter
--- OUTSIDE RECORDS SUMMARY | 2025-02-07 09:28 | XMS_ITS | Patient Health Record ---
Author Organization [facility] Address [address] [address] Care Team Providers Care Chemical Process Operator Name Role Phone Jone Garcia Unavailable [phone] Bonnie Saira Unavailable [phone] Jan Land Unavailable Unavailable Allergies Allergen (clinical drug ingredient) Drug/Non Drug Allergy documented on EMR Reaction Allergy Type Onset Date Status buprenorphine [place] euphoria Drug Allergy Act marcial Non-steroidal anti-inflammatory agent (FN) NSAIDs tinnitus Drug Allergy Active Results Component Value Reference Range Notes [facility] (Not yet reviewed by provider) Interpretation: Performing Lab: Notes/Report: [facility] (Not yet re viewed by provider) Interpretation:Normal Performing Lab: Notes/Report: Normal [facility] (Not yet re viewed by provider) Interpretation:Normal Performing Lab: Notes/Report: Normal Reason For Referral Reason Opioid Risk Assessme nt. Diagnosis 1 Chronic pain syndrom e (G89.4) Diagnosis 2 Chronic, continuous use of opioids (F11.90) Referral Organization [facility] Referring Provider First Name Jone Referring Provider Last Name [facility] Referring Provider Speciality Pain Medic ine Referred [...] Orally EVERY 8 hours; Duration: 30 days 02/05/2025 02/28/2025 Active diazePAM 2 MG Oral; Duration: 10 1 po most days Active Narcan 4 MG/0.1ML as directed Nasally Once in Emergency 12/20/2022 Active Vitamins/Minerals Vit D and Zinc Active Aspir-81 PRN Active Immunizations Vaccine Route Administration Date Status [...] W/U Status Risk Notes Problem Chronic pain (01177740) Other chronic pain (G89.29) Active confirmed Problem Chronic pain syndrome (545804149) Chronic pain syndrome (G89.4) Active confirmed Problem Osteoarthritis of knee (769640992) Bilateral primary osteoarthritis of knee (M17.0) Active confirmed Problem Solitary sacroiliitis (418086198) Sacroiliitis, not elsewhere classified (M46.1) Active confirmed Problem Displacement of lumbar intervertebral disc without myelopathy (18866888) Other intervertebral disc displacement, lumbar region (M51.26) Active confirmed Problem Right side sciatica (310158338036732) Sciatica, right side (M54.31) Active confirmed Problem Left side sciatica (299565649611572) Sciatica, left side (M54.32) Active confirmed Problem Calcaneal spur of right foot (471697460847748) Calcaneal spur, right foot (M77.31) Active confirmed Problem Lumbosacral spondylosis without myelopathy (92055947) Lumbosacral spondylosis without myelopathy (M47.817) Active confirmed Problem Displacement of cervical intervertebral disc without myelopathy (67091992) Displacement of cervical intervertebral disc without myelopathy (M50.20) Active confirmed Problem Displacement of thoracic intervertebral disc without myelopathy (01649058) Displacement of thoracic intervertebral disc without myelopathy (M51.24) Active confirmed Problem Displacement of lumbar intervertebral disc without myelopathy (60317971) Displacement of lumbar intervertebral disc without myelopathy (M51.26) Active confirmed Problem Neuralgia (90672688) Neuralgia and neuritis (M79.2) Active confirmed Problem Cervical spondylosis without myelopathy (859377947) Cervical spondylosis without myelopathy (M47.812) Active confirmed Problem Osteoarthritis of multiple joints (686501788) Osteoarthritis of multiple joints (M15.9) Active confirmed Problem Thoracic spondylosis without myelopathy (924550988) Thoracic spondylosis without myelopathy (M47.814) Active confirmed Problem Plantar fasciitis (408895240) Plantar fasciitis (M72.2) Active confirmed Problem Osteoarthritis of knee (479352643) Primary osteoarthritis of left knee (M17.12) Active confirmed Problem Pain in right foot (332418928761393) Right foot pain (M79.671) Active confirmed Problem Osteoarthritis of knee (878106443) Osteoarthritis of right knee (M17.9) Active confirmed Problem Pain of right knee region (finding) (592650968702095) Knee pain, right (M25.561) Active confirmed Problem Chronic pain syndrome (842690529) Chronic pain disorder (G89.4) Active confirmed Problem Sacroiliac joint pain (872730398) Sacroiliac joint pain (M53.3) Active confirmed Problem Enthesopathy of hip region (disorder) (54535460) Enthesopathy of hip region, unspecified laterality (M76.899) Active confirmed Problem Osteoarthritis (600229860) Osteoarthritis involving multiple joints on both sides of body (M15.9) Active confirmed Problem Sciatic nerve lesion (117763033) Piriformis syndrome of both sides (G57.03) Active confirmed Problem Sciatica (90994720) Chronic sciatica, left (M54.32) Active confirmed Problem Lower urinary tract symptoms due to benign prostatic hypertrophy (92289452187145) Benign prostatic hyperplasia with lower urinary tract symptoms, symptom details unspecified (N40.1) Active confirmed Vital Signs Heart Rate 65 /min 01/29/2025 Blood pressure diastolic 78 mm Hg 01/29/2025 Oximetry 97 % 01/29/2025 Height 68 in 01/29/2025 Blood pressure systolic 136 mm Hg 01/29/2025 Weight 173 lbs 01/29/2025 BMI 26.3 kg/m2 01/29/2025 Encounters Encounter Location Date Provider Diagnosis [facility] [address] [place] [address] 04/29/2024 Jone Garcia Other chronic pain G89.29 and Lumbosacral spondylosis without myelopathy M47.817 [facility] [address] [place] [address] 05/27/2024 Jone Garcia Lumbosacral spondylosis without myelopathy M47.817 [facility] [address] [address] 06/28/2024 Jone Garcia [facility] [address] [address] 09/09/2024 Jone Garcia Cervical spondylosis without myelopathy M47.812 [facility] [address] [address] 10/07/2024 Jone Garcia Cervical spondylosis without myelopathy M47.812 [facility] [address] [address] 11/04/2024 Jone Garcia Cervical spondylosis without myelopathy M47.812 and Bilateral primary osteoarthritis of knee M17.0 [facility] [address] [place] [address] 12/02/2024 Jone Garcia [facility] [address] [place] [address] 02/16/2024 Saira Nicole Cervical spondylosis without myelopathy M47.812 and Chronic pain disorder G89.4 [facility] [address] [place] [address] 03/12/2024 Saira Nicole Cervical spondylosis without myelopathy M47.812 and Lumbosacral spondylosis without myelopathy M47.817 [facility] [address] [place] [address] 04/09/2024 Jan Land Sacroiliitis, not elsewhere classified M46.1 ; Lumbosacral spondylosis without myelopathy M47.817 and Other chronic pain G89.29 [facility] [address] [place] [address] 05/08/2024 Jan Land Lumbosacral spondylosis without myelopathy M47.817 and Sacroiliitis, not elsewhere classified M46.1 [facility] [address] [place] [address] 2024 Jone Garcia Lumbosacral spondylosis without myelopathy M47.817 ; Osteoarthritis of right knee M17.9 ; Bilateral primary osteoarthritis of knee M17.0 ; Sacroiliitis, not elsewhere classified M46.1 and Osteoarthritis of multiple joints M15.9 [facility] [address] [place] [address] 07/30/2024 Saira Nicole Cervical spondylosis without myelopathy M47.812 and Lumbosacral spondylosis without myelopathy M47.817 [facility] [address] [place] [address] 08/21/2024 Saira Nicole Cervical spondylosis without myelopathy M47.812 and Chronic pain disorder G89.4 [facility] [address] [place] [address] 12/31/2024 Saira Nicole Thoracic spondylosis without myelopathy M47.814 ; Other chronic pain G89.29 and Sacroiliitis, not elsewhere classified M46.1 [facility] [address] [place] [address] 01/29/2025 Saira Nicole Cervical spondylosis without myelopathy M47.812 ; Thoracic spondylosis without myelopathy M47.814 and Other chronic pain G89.29 [facility] [address] [place] [address] 02/08/2024 Jone Garcia Cervical spondylosis without myelopathy M47.812 [facility] [address] [place] [address] 03/12/2024 Jone Garcia Cervical spondylosis without myelopathy M47.812 [facility] [address] [place] [address] 04/09/2024 Jone Garcia Lumbosacral spondylosis without myelopathy M47.817 [facility] [address] [place] [address] 04/29/2024 Jone Garcia Lumbosacral spondylosis without myelopathy M47.817 [facility] [address] [place] [address] 05/13/2024 Jone Garcia Other chronic pain G89.29 [facility] [address] [place] [address] 05/27/2024 Jone Garcia [facility] [address] [place] [address] 06/13/2024 Jone Garcia [facility] [address] [place] [address] 06/18/2024 Jone Garcia [facility] [address] [place] [address] 07/30/2024 Jone Garcia [facility] [address] [place] [address] 08/21/2024 Jone Garcia Cervical spondylosis without myelopathy M47.812 [facility] [address] [place] [address] 10/07/2024 Jone Garcia Cervical spondylosis without myelopathy M47.812 [facility] [address] [place] [address] 11/04/2024 Jone Garcia Cervical spondylosis without myelopathy M47.812 [facility] [address] [place] [address] 12/02/2024 Jone Garcia Cervical spondylosis without myelopathy M47.812 [facility] [address] [place] [address] 01/01/2025 Jone Garcia [facility] [address] [place] [address] 01/29/2025 Jone Garcia Cervical spondylosis without myelopathy M47.812 [...] spondylosis without myelopathy (ICD-10 - M47.814) 01/29/2025 Cervical spondylosis without myelopathy (ICD-10 - M47.812) 01/29/2025 Thoracic spondylosis without myelopathy (ICD-10 - M47.814) 01/29/2025 Cervical spondylosis without myelopathy (ICD-10 - [...] 04/09/2024 Other chronic pain (ICD-10 - G89.29) 01/29/2025 Other chronic pain (ICD-10 - G89.29) 12/31/2024 Sacroiliitis, not elsewhere classified (ICD-10 - M46.1) 2024 Osteoarthritis of right knee (ICD-10 - M17.9) 11/04/2024 Bilateral primary osteoarthritis of knee (ICD-10 - M17.0) 2024 Bilateral primary osteoarthritis of knee (ICD-10 - M17.0) 2024 Sacroiliitis, not elsewhere classified (ICD-10 - M46.1) 2024 Osteoarthritis of multiple joints (ICD-10 - M15.9) 04/29/2024 Other DNF 05/13/2024 05/27/2024 Other [place] [facility] 06/12/24 06/28/2024 Other NO RX ISSUED [...] issues. Waiting for [facility] from [facility]. The patient is stable with the [...] Dr. Garcia. 12/31/2024 Other He is wearing quality assurance monitor final. He is having costochondritic pain and discomfort [...] for them to have in their posession. Audra reviewed. Reports no changes in health history [...] medical provider for greater than 30 minutes 01/29/2025 Other He has some occipital, cervical, [...] to have in their possession. Zeferino and SHONDAS reviewed. Reports no changes in health history [...] CONTRAST 03/13/2020 MRI CERVICAL SPINE WO CONTRAST 4 MRI CERVICAL SPINE WO CONTRAST 2 MRI THORACIC SPINE WO CONTRAST 3 MRI LUMBAR SPINE WO CONTRAST 10/06/2023 MRI LUMBAR SPINE WO CONTRAST 03/18/2022 [facility] 11/04/2024 [facility] 12/15/2023 [facility] 04/09/2024 [facility] 07/30/2024 Next Appt Details Provider Name:Saira Nicole, 02/25/2025 11:15:00 AM, [address] [place], [address], Insurance Providers Payer Name Payer Address Payer Phone Subscriber Number Group Number Insured Name Patient Relationship to Insured Coverage Start Date Coverage End Date Medicare CGS Administrators [address] [address] [place] [address] [id number] Antony Herminioen Self - patient is the insured 3 [employer] [address] [place] [address] [id number] Sonido Pretty Self - patient is the insured 3 [facility] [address] [place] [address] [id number] Herminio Prettyen Self - patient is the insured 2 Medical (General) History Medical History History ICD Code Allergies Arthritis Lumbosacral spondylosis without myelopat hy M47.817 Bile / Acid Reflux Surgical History Surgery Date(Month/Year) Appendectomy 1963 ORAL SURGERY 06/2019 TKR (LEFT) Dr. Lui 05/27/20 Gallbladder removal 08/05/21
--- OUTSIDE RECORDS SUMMARY | 2025-02-07 09:28 | XMS_ITS | Clinical Summary ---
Author Organization [facility] Address [address] [place] [address] Care Team Providers Care Die Maintenance Technician Name Role Phone Pieter Gordon MD Primary Care Provider [phone] Allergies No known active allergies Medications ESCITALOPRAM [...] of 2) 2007 Fall Risk Assessment 2022 Advance Care Planning 06/05/2024 Depression Screening 06/05/2024 COVID-19 Vaccine (1 - 2023- season) 2025 Influenza Vaccination (#1) 2025 RSV Vaccines (1 - 1-dose 75+ series) 2032 Insurance Care Teams Die Maintenance Technician Relationship Specialty Start Date End Date Pieter Gordon MD [facility] [place] [address] PCP - General 09/07/15
--- OUTSIDE RECORDS SUMMARY | 2025-02-07 09:28 | XMS_ITS | Clinical Summary ---
Author Organization [facility] Address [address] [place] [address] Care Team Providers Care Non Destructive Evaluation Manager Name Role Phone Pieter Gordon Primary Care Provider [phone] Source Comments This information has been disclosed [...] therelease of HIV test results or diagnoses. [id number] Allergies Active Allergy Reactions Criticality Noted Date Comments Amitriptyline Palpitations Low 06/24/2022 vomiting Buprenorphine Hcl Other (See Comments) 08/06/19 23 Medications diazePAM (VALIUM) 2 MG tablet Take 1 tablet (2 mg total) by mouth every 6 hours as needed for Anxiety. Active HYDROcodone-hbarat taminophen (NORCO) 7.5-325 mg per tablet Take [...] Cancer Screening 2007 Immunization: COVID-19 ( season) 2025 Immunization: Influenza (MyChart) (#1) 2025 Immunization: RSV (Adult) (1 - 1-dose 75+ series) 06/05 Abdominal Aortic Aneurysm (AAA) Screening Completed 04/09/2020 Insurance MEDICARE A AND B Member Subscriber Plan / Payer (Ef fective 2022-Present) Name:Sonido Pretty Relation to Subscriber:Self Name:Sonido Pretty Payer ID:[id number] Group ID:Not on file Type:Medicare Address: [facility] [address] [place] [id number] [facility] Care Teams Non Destructive Evaluation Manager Relationship Specialty Start Date End Date Pieter Gordon [address] [facility] [address] [place] [address] PCP - General 08/20/24
--- OUTSIDE RECORDS SUMMARY | 2025-02-07 09:28 | XMS_ITS | Referral Summary ---
Author Organization [facility] [employer] [facility] ([place], [place], [place], [place]) Address [address] [place] [address] Care Team Providers Care Ethics Instructor Name Role Phone Unavailable Primary Care Provider [...]
--- OUTSIDE RECORDS SUMMARY | 2025-02-07 09:28 | XMS_ITS | Clinical Summary ---
Author Organization [facility] Address [address] [place] [address] Care Team Providers Care Database Administration Associate Name Role Phone Unavailable Primary Care Provider [...] 2007 UKY-Zoster Vaccines (1 of 2) 2007 YQN-AORDS-31 Vaccine (1 - 20 24-25 season) 2024 [...] complete this topic Insurance MEDICARE [facility]
== END 2025-02-05 23:59 ==
LOC: LAB.DROPOF 02-07 09:25
PROVIDERS: PCP Internal Medicine; Visit Provider Internal Medicine
DX: R97.20 Elevated prostate specific antigen [PSA] (principal)
CPT/HCPCS: 84153

== ENCOUNTER 2025-03-13 10:50 | Outpatient (CLI) | payer MEDICARE, OTHER, SELFPAY ==
--- OUTSIDE RECORDS SUMMARY | 2025-03-14 01:53 | XMS_ITS | Clinical Summary ---
Author Organization [facility] Address [address] [place] [address] Care Team Providers Care Electrolytic De Scaler Name Role Phone Pieter Gordon Primary Care Provider [phone] Source Comments This information has been disclosed [...] therelease of HIV test results or diagnoses. [id number] Allergies Active Allergy Reactions Criticality Noted [...] Pretty Relation to Subscriber:Self Name:Sonido Pretty Payer ID:[id number] Group ID:Not on file Type:Medicare Address: [facility] [id number] [place] [id number] [facility] Care Teams Electrolytic De Scaler Relationship Specialty Start Date End Date Pieter Gordon [address] [facility] [address] [place] [address] PCP - General 08/20/24
--- OUTSIDE RECORDS SUMMARY | 2025-03-14 01:53 | XMS_ITS | Referral Summary ---
Author Organization [employer] ([place], [place], [place], [place]) Address [address] [place] [address] Care Team Providers Care Medical Biller/Coder Name Role Phone Unavailable Primary Care Provider [...]
--- OUTSIDE RECORDS SUMMARY | 2025-03-14 01:53 | XMS_ITS | Clinical Summary ---
Author Organization [facility] Address [address] [place] [address] Care Team Providers Care Engine Dispatcher Name Role Phone Unavailable Primary Care Provider [...] 2007 UKY-Zoster Vaccines (1 of 2) 2007 [id number] Vaccine (1 - 20 24-25 season) 2025 UKY-Influenza Vaccine (#1) 2025 UKY-RSV Vaccine: 60+ [...] age to complete this topic Insurance MEDICARE [facility]
--- OUTSIDE RECORDS SUMMARY | 2025-03-14 01:53 | XMS_ITS | Clinical Summary ---
Author Organization [facility] Address [address] [facility] [address] [place] [id number] Phone Care Team Providers Care Barrel Rib Matting Machine Operator Name Role Phone Anai PALAFOX, Dom Unavailable [phone] Conditions or Problems No information available. Medications No information available. Medications Administered No information available. Allergies, Adverse Reactions, Alerts No information available. Results No information available. Plan of Care No information available. Procedures No information available. Vital Signs No information available. Immunizations No information available. Advance Directives No information available.
--- OUTSIDE RECORDS SUMMARY | 2025-03-14 01:53 | XMS_ITS | Clinical Summary ---
Author Organization [employer] ([place], [place], [place], [place]) Address [address] [place] [address] Care Team Providers Care Mirror Inspector Name Role Phone Unavailable Primary Care Provider [...]
== END 2025-03-13 23:59 ==
LOC: LAB.DROPOF 03-14 01:52
PROVIDERS: PCP Internal Medicine; Visit Provider Internal Medicine
DX: G44.86 Cervicogenic headache (principal); M54.2 Cervicalgia
CPT/HCPCS: 85651

== ENCOUNTER 2025-03-19 15:42 | Outpatient (CLI) | payer MEDICARE, OTHER, SELFPAY ==
--- OUTSIDE RECORDS SUMMARY | 2010-07-07 09:00 | XMS_ITS | Encounter Summary ---
Author Organization [facility] Address [address] [facility], [address] [place] [address] Care Team Providers Care Farm Product Purchaser Name Role Phone Holly Pisano MD Primary Care Provider [phone] Encounter Details Date Type Department Care Team (Late st Contact Info) Description 07/07/2010 8:00 AM EST Hospital Encounter [address] [address] Karolina Contreras M Wahidul, MD 4 [place] [address] Social History Tobacco Use Types Packs/Day Years [...] Plan of care signed (Y/N): Insurance/Certification information: [facility] 10 visits initially Visit# / total [...] on filedocumented in this encounter Care Teams Farm Product Purchaser Relationship Specialty Start Date End Date Holly Pisano MD [address] [place] [address] PCP - General 07/05/10 documented as of this encounter
--- OUTSIDE RECORDS SUMMARY | 2010-07-09 08:30 | XMS_ITS | Encounter Summary ---
Author Organization [facility] Address [address] [facility], [address] [place] [address] Care Team Providers Care Business Development Analyst Name Role Phone Holly Pisano MD Primary Care Provider [phone] Encounter Details Date Type Department Care Team (Late st Contact Info) Description 07/09/2010 7:30 AM EST Hospital Encounter [facility] [address] [place] [address] Karolina Contreras M Wahidul, MD [address] [place] [address] Social History Tobacco Use Types Packs/Day Years [...] Goals:GOALS Short Term Goals ( 2-4 weeks) [facility] Goals ( 4-6 weeks) 1). Decrease pain [...] Plan of care signed (Y/N): Insurance/Certification information: [facility] 10 visits initially Visit# / total visits: [...] Treatment Time (minutes):50 Signature: Karolina Contreras PT 8607 documented in this encounter Plan of Treatment Not on file documented as of this encounter Visit Diagnoses Not on filedocumented in this encounter Care Teams Business Development Analyst Relationship Specialty Start Date End Date Holly Pisano MD [address] [place] [address] PCP - General 07/05/10 documented as of this encounter
--- OUTSIDE RECORDS SUMMARY | 2010-07-12 08:30 | XMS_ITS | Encounter Summary ---
Author Organization [facility] Address [address] [facility], [address] [place] [address] Care Team Providers Care Fruit Grading Supervisor Name Role Phone Holly Pisano MD Primary Care Provider [phone] Encounter Details Date Type Department Care Team (Late st Contact Info) Description 07/12/2010 7:30 AM EST Hospital Encounter [address] [address] Karolina Contreras M Wahidul, MD [address] [place] [address] Social History Tobacco Use Types Packs/Day Years [...] Plan of care signed (Y/N): Insurance/Certification information: [facility] 10 visits initially Visit# / total [...] Treatment Time (minutes):50 Signature: Karolina Contreras, PT 9207 documented in this encounter Plan of Treatment Not on file documented as of this encounter Visit Diagnoses Not on filedocumented in this encounter Care Teams Fruit Grading Supervisor Relationship Specialty Start Date End Date Holly Pisano MD [address] [place] [address] PCP - General 07/05/10 documented as of this encounter
--- OUTSIDE RECORDS SUMMARY | 2010-07-13 08:30 | XMS_ITS | Encounter Summary ---
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 Decrease pain [...] Plan of care signed (Y/N): Insurance/Certification information: [facility] 10 visits initially Visit# / total [...] Treatment Time (minutes):50 Signature: Karolina Contreras PT 4800 documented in this encounter Plan of Treatment Not on file documented as of this encounter Visit Diagnoses Not on filedocumented in this encounter Care Teams Title Examiner Relationship Specialty Start Date End Date Holly Pisano MD 4 [place] [address] PCP - General 07/05/10 documented as of this encounter
--- OUTSIDE RECORDS SUMMARY | 2010-07-14 08:30 | XMS_ITS | Encounter Summary ---
Author Organization [facility] Address [address] [facility], [address] [place] [address] Care Team Providers Care Retail Store Assistant Name Role Phone Holly Pisano MD Primary Care Provider [phone] Encounter Details Date Type Department Care Team (Late st Contact Info) Description 07/14/2010 7:30 AM EST Hospital Encounter [address] [address] Karolina Contreras M Wahidul, MD 4 [place] [address] Social History Tobacco Use Types Packs/Day Years [...] Plan of care signed (Y/N): Insurance/Certification information: [facility] 10 visits initially Visit# / total [...] Treatment Time (minutes):35 Signature: Karolina Contreras, PT 7771 documented in this encounter Plan of Treatment Not on file documented as of this encounter Visit Diagnoses Not on filedocumented in this encounter Care Teams Retail Store Assistant Relationship Specialty Start Date End Date Holly Pisano MD 4 [place] [address] PCP - General 07/05/10 documented as of this encounter
--- OUTSIDE RECORDS SUMMARY | 2010-07-20 08:30 | XMS_ITS | Encounter Summary ---
Author Organization [facility] Address [address] [facility], [address] [place] [address] Care Team Providers Care Building Manager Name Role Phone Holly Pisano MD Primary Care Provider [phone] Encounter Details Date Type Department Care Team (Late st Contact Info) Description 07/20/2010 7:30 AM EST Hospital Encounter [facility] [address] [place] [address] Karolina Contreras M Wahidul, MD [address] [place] [address] Social History Tobacco Use Types Packs/Day Years [...] Plan of care signed (Y/N): Insurance/Certification information: [facility] 10 visits initially Visit# / total visits: [...] Treatment Time (minutes):45 Signature: Karolina Contreras PT 3303 documented in this encounter Plan of Treatment Not on file documented as of this encounter Visit Diagnoses Not on filedocumented in this encounter Care Teams Building Manager Relationship Specialty Start Date End Date Holly Pisano MD [address] [place] [address] PCP - General 07/05/10 documented as of this encounter
--- OUTSIDE RECORDS SUMMARY | 2010-07-21 08:30 | XMS_ITS | Encounter Summary ---
Author Organization [facility] Address [address] [facility] [address], [address] [place] [address] Care Team Providers Care Press And Blow Machine Tender Name Role Phone Holly Pisano MD Primary Care Provider [phone] Encounter Details Date Type Department Care Team (Late st Contact Info) Description 07/21/2010 7:30 AM EST Hospital Encounter [address] [address] Karolina Contreras M Wahidul, MD 4 [place] [address] Social History Tobacco Use Types Packs/Day Years Used Date Smoking Tobacco: Never Assessed Sex and Gender Information Value Date Recorded Sex Assigned at Not on file Legal Sex Male 6:22 AM EST Gender Identity Not on file Sexual Orientation Not on file documented as of this encounter Progress Notes * Karolina Contreras, PT - 07/21/2010 9:23 AM EST Physical Therapy Weekly Progress Note Patient Name: Sonido Pretty : 1955 Diagnosis: Thoracic/lumbar strain Treatment Diagnosis: Referring Physician: Dr. Blunt Date: 07/21/2010 Subjective: Pain Level: Reports his pain is intermit w/ work activities , 0-2/10 at home at rest, 2-5/10 w/ work. 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 Thoracic AROM is 10-20% limited w/ ext, rot,sb, but neg w/ resist. Tests. The right costotransv jtsare still limited but improving. Assessment: Patient's response to treatment: Always feels better after Rx. Goals:GOALS Short Term Goals ( 2-4 weeks) Group Home Goals ( 4-6 weeks) 1). Decrease pain 25-50% 1).decrease pain 75-100% 2).establ HEP 2) (I) w/ HEP 3).improve trunk AROM 10-25% 3).trunk AROM to w/in 10-15% of normal 4). 4).return to full duty/reg activities 5). 5). 6). 6). ?? Progress toward previous goals: STGs have been met, most of LTGs have been met except for pain and HEP Plan: ?? Plan: cont 2-3 x wk, I think he has 3 more visits. Electronically Signed by: Karolina Contreras, PT [id number] * Karolina Contreras, PT - 07/21/2010 7:39 AM EST Physical Therapy Daily Treatment Note Patient Name: Sonido Pretty : 1955 Diagnosis: Thoracic/lumbar strain Precautions/Restrictions: Work restrictions Treatment Diagnosis: same Referring Physician: Dr. Blunt Plan of care signed (Y/N): Insurance/Certification information: [facility] 10 visits initially Visit# / total visits: 12/12 Date: 07/21/2010 Pain level: Subjective: Constant right thoracic and [...] time on his feet that aggravates his injury.07/21/10 States his doctor(Dr. Butler) released him to full duty. 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 Exercises: Exercise/Equipment Resistance/Repetitions Other comments Pt is [...] Treatment Time (minutes):45 Signature: Karolina Contreras PT [id number] documented in this encounter Plan of Treatment Not on file documented as of this encounter Visit Diagnoses Not on filedocumented in this encounter Care Teams Press And Blow Machine Tender Relationship Specialty Start Date End Date Holly Pisano MD 4 [place] [address] PCP - General 07/05/10 documented as of this encounter
--- OUTSIDE RECORDS SUMMARY | 2010-07-23 08:30 | XMS_ITS | Encounter Summary ---
Author Organization [facility] Address [address] [facility], [address] [place] [address] Care Team Providers Care Animal Feeder Name Role Phone Holly Pisano MD Primary Care Provider [phone] Encounter Details Date Type Department Care Team (Late st Contact Info) Description 07/23/2010 7:30 AM EST Hospital Encounter [address] [address] Karolina Contreras M Wahidul, MD 4 [place] [address] Social History Tobacco Use Types Packs/Day Years [...] care signed (Y/N): Insurance/Certification information: [facility] 10 visits initially Visit# / total [...] over do it.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 Exercises: Exercise/Equipment [...] Treatment Time (minutes):50 Signature: Karolina Contreras, PT 6049 documented in this encounter Plan of Treatment Not on file documented as of this encounter Visit Diagnoses Not on filedocumented in this encounter Care Teams Animal Feeder Relationship Specialty Start Date End Date Holly Pisano MD [address] [place] [address] PCP - General 07/05/10 documented as of this encounter
--- OUTSIDE RECORDS SUMMARY | 2010-07-27 08:30 | XMS_ITS | Encounter Summary ---
Author Organization [facility] Address [address], [address] [place] [address] Care Team Providers Care Front End Developer Name Role Phone Holly Pisano MD Primary Care Provider Encounter Details Date Type Department Care Team (Late st Contact Info) Description 07/27/2010 7:30 AM EST Hospital Encounter 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
--- OUTSIDE RECORDS SUMMARY | 2010-07-30 08:30 | XMS_ITS | Encounter Summary ---
Author Organization [facility] Address [address], [address] [place] [address] Care Team Providers Care Astronomy Department Chair Name Role Phone Holly Pisano MD Primary Care Provider [phone] Encounter Details Date Type Department Care Team (Late st Contact Info) Description 07/30/2010 7:30 AM EST Hospital Encounter [facility] [address] [place] [address] Karolina Contreras M Wahidul, MD [address] [place] [address] Social History Tobacco Use Types Packs/Day Years [...] Goals:GOALS Short Term Goals ( 2-4 weeks) Guide Travel Goals ( 4-6 weeks) 1). Decrease pain [...] PT Electronically Signed by: Karolina Contreras, PT 6657 * Karolina Contreras, PT - 07/30/2010 8:11 AM EST Physical Therapy Daily Treatment Note Patient Name: Sonido Pretty : 1955 Diagnosis: Thoracic/lumbar strain Precautions/Restrictions: Work restrictions Treatment Diagnosis: same Referring Physician: Dr. Blunt/ this has changed to Dr. 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
--- OUTSIDE RECORDS SUMMARY | 2024-08-27 04:15 | XMS_ITS ---
Author Organization [facility] Address [address] Care Team Providers Care Legal Records Manager Name Role Phone Radha Jone Unavailable [phone] Saira Nicole Unavailable [phone] REASON FOR VISIT OFFICE VISIT Encounters Encounter Location Date Provider Diagnosis [facility] [address] 08/27/2024 Saira Nicole Plan Of Treatment Next Appt Details Provider Name:Jone resendezbrandee, 03/21/2025 09:30:00 AM, [address] [place], , Progress Notes * ANTONYMel[birth year]OB:[birth year] (69 yo M)Acc No.[id number]:08/27/2024 Progress Notes Patient: Naomi DICKERSONANILSonido Provider: PRESTON Loja :1955 A ge:69 Y S ex:Male Date:08/27/2024 Phone: Address:[address], [place] Subjective: * Chief Complaints: * 1 . OFFICE VISIT. * Medical History: Objective: * Vitals: Assessment: Plan: * Treatment: * * Electronic signature of Devante Nicole APRN on 03/19/2025 at 03:49 PM EDT Sign off status: Pending * Provider: PRESTON Loja Date: 0 08/27/2024 Generated for Printi ng/Faryneg/eTransmitting on: 1 03:49 PM EDT
--- OUTSIDE RECORDS SUMMARY | 2024-09-09 08:00 | XMS_ITS ---
Author Organization [facility] Address [address] [address] Care Team Providers Care Canvas Cutter Name Role Phone Jone Garcia Unavailable [phone] Allergies Allergen (clinical drug ingredient) Drug/Non Drug Allergy documented on EMR Reaction Allergy Type Onset Date Status buprenorphine Belbuca euphoria Drug Allergy Act marcial Non-steroidal anti-inflammatory agent (FN) NSAIDs tinnitus Drug Allergy Active REASON FOR VISIT BILATERAL C5-6 RADIOFREQUENCY ABLATION Medications Medication SIG (Take, Route, Frequency, Duration) Notes Start Date End Date Status Vitamins/Minerals Vit D and Zinc Active Narcan 4 MG/0.1ML as directed Nasally Once in Emergency 12/20/2022 Active HYDROcodone-Acetaminop hen 7.5-325 MG 1 tablet Orally EVERY 8 hours 09/06/2024 Active diazePAM 2 MG Oral; Duration: 10 1 po most days Active Aspir-81 PRN Active Social History Tobacco Use: Social History Observation Description Date Details (start date - stop date) Never Smoker NA - NA Tobacco Use/Smoking Question Answer Notes Are you a nonsmoker Alcohol Screen (Audit-C) Question Answer Notes Did you have a drink containing alcohol in the p ast year? No Points 0 Interpretation Negative Tobacco use other than smoking: Question Answer Notes Are you an other tobacco user? No Vital Signs Blood pressure systolic 148 mm Hg 09/10/19 25 Blood pressure diastolic 96 mm Hg 025 Heart Rate 67 /min 09/09/2024 Height 68 in 09/09/2024 Weight 190 lbs 09/09/2024 BMI 28.89 kg/m2 09/09/2024 Oximetry 97 % 09/09/2024 SEDATION START TIME:12:45SED ATION END TIME:1:07 pmEND VITALS:132/88 BP, 75 HR, 96% o2SEE SEPERATE SEDATION RECORD Encounters Encounter Location Date Provider Diagnosis [facility] [address] [address] 09/09/2024 Jone Garcia Cervical spondylosis without myelopathy M47.812 Assessments Encounter Date Diagnosis (ICD Code) Assessment Notes Treatment Notes Treatment Clinical Notes Section Notes 09/09/2024 Cervical spondylosis without myelopathy (ICD-10 - M47.812) 09/09/2024 Other NO RX ISSUED TODAY Plan Of Treatment Medication Medication Name Sig Start Date Stop Date Notes Narcan 4 MG/0.1ML as directed Nasally Once in Emergency 12/20/2022 HYDROcodone-Acetaminophen 7.5-325 MG 1 tablet Orally EVERY 8 hours 09/06/2024 Treatment Notes Assessment Notes Other NO RX ISSUED TODAY Next Appt Details Follow Up: 4 Weeks, Reason: OFFICE VISIT Provider Name:Jone cade, 03/21/2025 09:30:00 AM, [place], [address], Progress Notes * Melissa PRETTYOB:[birth year] (69 yo M)Acc No.[id number]:09/09/2024 Progress Note Patient: Sonido HOLGUIN Provider: Isa Garcia MD :1955 A ge:69 Y S ex:Male Date:09/09/2024 Phone: Address:[address] [place] [address] Subjective: * Chief Complaints: * 1 . BILATERAL C5-6 RADIOFREQUENCY ABLATION. * HPI: P ain Management: Assessment and followup F ollowup plan documented : Y es. I nterim History: Patient presents for a bilateral C5-6 radiofrequency ablation with sedation. 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 Patient is scoring their pain 5/10NRS and 9/10NRS at its worst. Patient has signed the consent form and any questions were answered. Patient denies any changes in medications or health history. Allergies reviewed; patient denies any new allergies or adverse drug effects. Patient denies current anticoagulation and/or antibiotic therapy. Patient is not diabetic. SCRIBE: AB/ES. * Medical History: A llergies, Arthritis, Lumbosacral spondylosis without myelopathy, Bile / Acid Reflux. * Surgical History: A ppendectomy 1962, ORAL SURGERY 06/2019, TKR (LEFT) Dr. Lui 05/27/20, Gallbladder removal 08/05/21. * Hospitalization/Major Diagno stic Procedure: D enies Past Hospitalization. * Family History: M other: alive. F ather: alive. M aternal Grandmother: , diagnosed with Cancer. M aternal Grandfather: . P aternal Grandmother: . P aternal Grandfather: . * Social History: T obacco Use: T obacco Use/Smoking A re you a n onsmoker. T obacco use other than smoking A re you an other tobacco user? N o. D rugs/Alcohol: D rugs H ave you used drugs other than those for medical reasons in the past 12 months??No. A lcohol Screen (Audit-C) D id you have a drink containing alcohol in the past year? No, P oints 0 , I nterpretation N egative. C affeine I ntake: 3 -4 cups per day. W eekly Consumption A mount of Beer N one, G lasses of Wine N one,?Number of mixed drinks N one. M iscellaneous: C affeine: yes, frequency:, 2-3 cups per day. Community involvements: no. Domestic violence: no. Exercise: no. Home smoke detector use: yes. Marital status: , . H ousehold: H ousehold M arital status: m arried, L evel of education: f inished high school. * Medications: T aking Vitamins/Minerals , Notes to Pharmacist: Vit D and Zinc, Taking Aspir-81 , Notes to Pharmacist: PRN, Taking diazePAM 2 MG Tablet Oral , Notes to Pharmacist: 1 po most days, Taking Narcan 4 MG/0.1ML Liquid as directed Nasally Once in Emergency , Taking HYDROcodone-Acetaminophen 7.5-325 MG Tablet 1 tablet Orally EVERY 8 hours , stop date 09/20/2024, Medication List reviewed and reconciled with the patient * Allergies: B elbuca: euphoria - Side Effects, NSAIDs: tinnitus. Objective: * Vitals: H R: 67 /min, BP:148/96mm Hg, Ht: 68 in, Wt: 190 lbs, BMI:28.89Index, Oxygen sat %: 97, Ht-cm: 172.72 cm, Wt-k.18 kg. SEDATION START TIME:12:45 SEDATION END TIME:1:07 pm END VITALS:132/88 BP, 75 HR, 96% o2 SEE SEPERATE SEDATION RECORD . Assessment: * Assessment: 1. C ervical spondylosis without myelopathy - M47.812 Plan: * Treatment: 2. O thers Continue Narcan Liquid, 4 MG/0.1ML, as directed, Nasally, Once in Emergency. Notes: NO RX ISSUED TODAY * Procedures: C ERVICAL MEDIAL BRANCH RADIOFREQUENCY ABLATION Procedure Note: Radiofrequency Neuroablation of Cervical Medial Branch at the BILATERAL C5-6 Medical Necessity: No prior spinal fusion surgery in the vertebral levels being treated. Pain is not radicular. Pain that has failed to respond to 3 months of conservative management including but not limited to: activity modification, oral medication, and therapy. Neck pain interferes with ADLs has been present for more than 3 months. Clinical findings suggest facet joint syndrome which was further confirmed with diagnostic block with local anesthetic of the facet nerve (medial branch block) under fluoroscopy that has resulted in at least 80% for the duration of the local anesthetic. Minimal time of six (6) months has elapsed since prior radiofrequency treatment (per side, per anatomical level of the spine). Informed Consent: Risks, benefits, potential complications, and alternatives were discussed and the patient has elected to pursue the scheduled procedure service. I personally confirmed the procedure, side, and site to be injected with the patient in the procedure area. Conscious Sedation/ Monitoring: The patient did receive 4 mg Versed f or the procedure. Verbal contact was maintained throughout the procedure. Antibiotic:No antibiotic was used. Fluoroscopy Used: Yes Procedure Description: After informed consent, the patient was brought to the procedure room and placed onto the x-ray table in the prone position. The posterior cervical/thoracic region was prepped and draped in the usual sterile fashion. I used AP fluoroscopy to visualize the cervical spine and identify the lateral facet columns. I then proceeded to ablate the cervical medial and lateral branches of the above noted levels using the following technique. Following the placement of lidocaine 1% over the target levels at the skin with a 1.5-inch 25-gauge needle. I rotated the fluoroscope oblique until I was able to visualize the groove between the superior articular and transverse processes of the specific spinal level. I then raised a skin wheal overlying this target associated with the specific medial branch nerve and then passed a 5mm tip, 5cm, 22-gauge radiofrequency cannula through the skin wheal and down to the periosteum of the target site. I then navigated the needle tip into optimal position for medial branch neurotomy using AP and lateral fluoroscopy. Once the needle was in the region of the medial branch nerve, I began the stimulation phase of the procedure. I stimulated each needle in a sequential fashion with 50hz current to 1 volt and then with 2 hz current to 2 volts. I then repositioned the radiofrequency cannula until an optimal stimulation pattern was obtained. Once the stimulation had been completed and the needles optimally repositioned, I then injected 6 cc of lidocaine 1% and 6mg Betamethasone (Total) to block each medial branch nerve. I created a radiofrequency lesion for 90 seconds at a temperature of 80 degrees centigrade. A similar procedure was carried out for each of the respective levels of: C5-6 Following the procedure radiofrequency cannula was removed and a sterile dressing was placed. Complications: Upon completion of the procedure, no immediate complications occurred. The patient tolerated the procedure well. * Follow Up: 4 Weeks (Reason: OFFICE VISIT) * * Electronic signature of Anjel Garcia MD on 03/19/2025 at 03:50 PM EDT Sign off status: Pending * Provider: Isa Garcia MD Date: 0 09/09/2024 Generated for Scotty mcallister/Rosemarie/Tigist on: 1 03:50 PM EDT History and Physical Notes * HPI (History of Present Illness) Category Sub-Category Detail Notes Category Not es Interim History Patient presents for a bilateral C5-6 radiofrequency ablation with sedation. 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 Patient is scoring their pain 5/10NRS and 9/10NRS at its worst. Patient has signed the consent form and any questions were answered. Patient denies any changes in medications or health history. Allergies reviewed; patient denies any new allergies or adverse drug effects. Patient denies current anticoagulation and/or antibiotic therapy. Patient is not diabetic. SCRIBE: AB/ES Pain Management Assessment and followup Followup plan documented :: Yes
--- OUTSIDE RECORDS SUMMARY | 2024-10-07 07:15 | XMS_ITS ---
Author Organization [facility] Address [address] [address] Care Team Providers Care Cycle Counter Name Role Phone Jone Garcia Unavailable [phone] Allergies Allergen (clinical drug ingredient) Drug/Non Drug Allergy documented on EMR Reaction Allergy Type Onset Date Status buprenorphine Belbuca euphoria Drug Allergy Act marcial Non-steroidal anti-inflammatory agent (FN) NSAIDs tinnitus Drug Allergy Active REASON FOR VISIT OFFICE VISIT Medications Medication SIG (Take, Route, Frequency, Duration) Notes Start Date End Date Status Narcan 4 MG/0.1ML as directed Nasally Once in Emergency 12/20/2022 Active Aspir-81 PRN Active diazePAM 2 MG Oral; Duration: 10 1 po most days Active HYDROcodone-Acetamino phen 7.5-325 MG 1 tablet Orally EVERY 8 hours; Duration: 30 days 09/06/2024 11/06/2024 Active Vitamins/Minerals Vit D and Zinc Active Social History Tobacco Use: Social History [...] Signs Blood pressure systolic 148 mm Hg 10/08/19 25 Blood pressure diastolic 97 mm Hg 025 Heart Rate 66 /min 10/07/2024 Height 68 in 10/07/2024 Weight 190 lbs 10/07/2024 BMI 28.89 kg/m2 10/07/2024 Oximetry 96 % 10/07/2024 Encounters Encounter Location Date Provider Diagnosis [facility] [address] [address] 10/07/2024 Jone Garcia Cervical spondylosis without myelopathy M47.812 Assessments Encounter Date Diagnosis (ICD Code) Assessment Notes Treatment Notes Treatment Clinical Notes Section Notes 10/07/2024 Cervical spondylosis without myelopathy (ICD-10 - M47.812) Plan Of Treatment Medication Medication Name Sig Start Date Stop Date Notes HYDROcodone-Acetaminophen 7.5-325 MG 1 tablet Orally EVERY 8 hours; Duration: 30 days 09/06/2024 11/06/2024 Next Appt Details Provider Name:Jone Nellie resendezbrandee, 03/21/2025 09:30:00 AM, [place], [address], Progress Notes * Melissa PRETTYOB:[birth year] (69 yo M)Acc No.[id number]:10/07/2024 Progress Notes Patient: Sonido HOLGUIN Provider: Isa Garcia MD :1955 A ge:69 Y S ex:Male Date:10/07/2024 Phone: Address:[address] [place] [address] [facility] [id number] Subjective: * Chief Complaints: * 1 . OFFICE VISIT. * HPI: P ain Management: Assessment and followup F ollowup plan documented : Y es. I nterim History: Patient presents for a follow up for chronic pain management. On the last visit, patient had a Bilateral C5-6 Radiofrequency Ablation and reports greater than 80% relief and decreased symptoms. Patient's CC: Low back pain, which they score a 3/10 NRS at rest that increases to 7/10 NRS with activity. Pt describes this pain as a constant ache. Pt reports that walking and standing for long periods of time increases this pain. Pt reports that taking their prescribed pain medication helps reduce this pain. Denies adverse effects to prescribed medication. Reports taking medications as prescribed. Medications and interventional treatment are helping with function and ADLs such as doing yardwork and housework. Refills for [place] were provided today, dates verified with ZEFERINO. Last UDS was reviewed and was compliant for prescribed medication. They have not scheduled treatment at this time. We will follow up accordingly and continue medication management. Based on the physical exam and clinical findings, we will schedule a one month follow up. Arlyn. * ROS: C ervical: Admits N ruchi pain. G eneral/Constitutional: denies C hange in appetite. d enies F ever. d enies H eadache. D enies S leep disturbance. A llergy/Immunology: Denies C ongestion. D enies C ough. D enies?Itching. A dmits R felicia. E NT: Admits D ecreased hearing. D enies D ry mouth. d enies R inging in the ears. E ndocrine: Denies D ifficulty sleeping. D enies E xcessive sweating. R espiratory: Denies C hest pain. D enies H emoptysis. D enies P ain with inspiration. D enies S hortness of breath. C ardiovascular: Denies C hest pain. D enies C laudication. D enies D izziness. D enies P alpitations. G astrointestinal: Admits A bdominal pain. D enies C onstipation. D enies D iarrhea. A dmits H eartburn. A dmits N ausea. M usculoskeletal: Admits J oint stiffness. A dmits M uscle aches.?Admits P ain in shoulder(s). A dmits P ainful joints. D enies S ciatica. D enies W eakness. P odiatric: Comments p lantar fascitis, R > L. D enies A nkle swelling. D enies F oot numbness. A dmits F oot pain. N eurologic: Denies B alance difficulty. D enies C oordination.?Denies D ifficulty speaking. A dmits G ait abnormality. D enies L oss of strength. A dmits L ow back pain. A dmits P ain. A dmits T ingling/Numbness,?b hands. P sychiatric: Denies A nxiety. D enies D epressed mood. D enies M ental or Physical abuse. Clyde enaron S uicidal thoughts. * Medical History: A llergies, Arthritis, Lumbosacral spondylosis without myelopathy, Bile / Acid Reflux. * Surgical History: A ppendectomy 1962, ORAL SURGERY 06/2019, TKR (LEFT) Dr. Lui 05/27/20, Gallbladder removal 08/05/21. * Hospitalization/Major Diagno stic Procedure: Clyde lawrence Past Hospitalization. * Family History: M other: [...] 1 tablet Orally EVERY 8 hours , Medication List reviewed and reconciled with the patient * Allergies: B elbuca: euphoria - Side Effects, NSAIDs: tinnitus. Objective: * Vitals: H R: 66 /min, BP:148/97mm Hg, Ht: 68 in, Wt: 190 lbs, BMI:28.89Index, Oxygen sat %: 96, Pain scale: 3 1-10, Ht-cm: 172.72 cm, Wt-k.18 kg. Assessment: * Assessment: 1. C ervical spondylosis without myelopathy - M47.812 Plan: * Treatment: * Immunizations: Immunization record has been reviewed and updated. * Preventive Medicine: YOUR PREVENTIVE WELLNESS PLAN: B OR, Height, and Weight: T he Recommended Frequency is: A nnually, M y BMI, height, and weight were taken on: 0 06/15/2023. Screenings: F ALL RISK SCREENING S creening: N o falls in the past year.? N aloxone administration by a bystander has been shown to be the most effective means of improving outcomes after an illicit opioid overdose event. The CDC recommends that practitioners consider providing naloxone for patients who are taking doses of opioids higher than oral morphine 50 mg/day equivalents. The CDC also recommends naloxone availability in patients at increased risk for respiratory compromise from opioids, including patients with a history of drug overdose, history of substance use disorder, or concurrent use of benzodiazepines. Opioid risk assessments, pain intensity logs, and abuse-deterrent opioids are useful in ongoing management but don't mitigate risk of overdose, .... .... CONTROLLED SUBSTANCES VERBAL EDUCATION ... PER RULES OF [place]- may require weaning of medication, if rules are not followed ... 1. Do not share medicine with anyone 2. Do not share other people's controlled medicine 3. Do not use your medicine to get high, binge, or as a substitute for Depression Medication 4. Please have a family or close friend help you monitor intake and how you are doing with medication 5. Please keep medication in a safe location such that others cannot access it 6. Do not sell medication 7. Take medication per as prescribed unless emergency and discussed with me 8. Do not take it upon yourself to make dosage changes 9. Do not stockpile or iqra medications 10. Do not take distantly prescribed medications Current regimen 11. Do not take illicit drugs including marijuana 12. Refrain from or consume alcohol only in moderation 13. If you develop a respiratory infection decrease dosage or call office for instructions 14. Follow rules stated in written contract 15. Do not barter medication for favors of any kind 16. Do not crush medication or use not as directed 17. Narcan has prescribed and should be available in case of accidental over sedation 18. notify me if receiving controlled medications from other physicians 19. I will ask you at each visit if you have any concerns with addiction misuse or craving of medication 20. If taking a benzodiazepine such as Xanax Ativan Valium Klonopin or Restoril there is an increase of overdose secondary to the additive power of benzodiazepine and opioids please take less at different times and if possible be mindful that this can affect your breathing. If you have over sedation please use Narcan. 21. This applies two Z drugs or sleep aids as well as gabapentinoids such as Neurontin and Lyrica and muscle relaxants 22. Regarding marijuana the governors decree does not allow for patients on chronic pain medication or other controlled medicines to use marijuana legally do not use marijuana 23. Please check and ensure that your Narcan nasal spray is not outdated if it has been please let me know I will send a new prescription if you cannot afford it or need more you can contact the [facility] addiction hotline at [phone] and they should be able to provide you with free Narcan. * * Electronic signature of Anjel Garcia MD on 03/19/2025 at 03:50 PM EDT Sign off status: Pending * Provider: Isa Garcia MD Date: 0 10/07/2024 Generated for Scotty mcallister/Rosemarie/Tigist on: 1 03:50 PM EDT History and Physical Notes * HPI (History of Present Illness) Category Sub-Category Detail Notes Category Not es Pain Management Assessment and followup Followup plan documented :: Yes
--- OUTSIDE RECORDS SUMMARY | 2024-11-04 09:00 | XMS_ITS ---
Author Organization [facility] Address [address] [address] Care Team Providers Care Tobacco Sieve Operator Name Role Phone Jone Garcia Unavailable [phone] Allergies Allergen (clinical drug ingredient) Drug/Non Drug [...] Status Risk Notes Problem Sacroiliac joint pain (911083496) Sacroiliac joint pain (M53.3) Active confirmed Vital Signs Blood pressure systolic 153 mm Hg 11/05/19 25 Blood pressure diastolic 102 mm Hg 025 Heart Rate 69 /min 11/04/2024 Height 68 in 11/04/2024 Weight 190 lbs 11/04/2024 BMI 28.89 kg/m2 11/04/2024 Oximetry 98 % 11/04/2024 Encounters Encounter Location Date Provider Diagnosis [facility] [address] [address] 11/04/2024 Jone Garcia Cervical spondylosis without myelopathy [...] days 10/08/2024 12/04/2024 Next Appt Details Provider Name:Jone Skinner alyssia, 03/21/2025 09:30:00 AM, [address] [place], [address], Progress Notes * Melissa PRETTYOB:[birth year] (69 yo M)Acc No.[id number]:11/04/2024 Progress Notes Patient: Sonido HOLGUIN Provider: Isa Garcia MD :1955 A ge:69 Y S ex:Male Date:11/04/2024 Phone: Address:[address] [place] [address] Subjective: * Chief Complaints: * 1 . [...] Date 10/14/2023 ProScan Referring Physician Saira Nicole SHOWER DOORS AND PANELS FABRICATOR Exam Description MR Lumbar Spine w/o Contrast [...] flow voids in the neck are preserved. [id number]-ML-[id number] ANALYSIS: Multilevel degenerative disc disease with varying degrees of disc height loss and disc desiccation. Gbngm-kn-ftcmx analysis demonstrates the following: C1-C2: Normal atlantodental [...] flow voids in the neck are preserved. [id number]-YK-DEHRL ANALYSIS: Multilevel degenerative disc disease with varying degrees of disc height loss and disc desiccation. Wvucl-to-rjoxm analysis demonstrates the following: C1-C2: Normal atlantodental [...] 08/05/21. * Hospitalization/Major Diagno stic Procedure: D enaron Past Hospitalization. * Family History: M [...] Preventive Medicine: YOUR PREVENTIVE WELLNESS PLAN: B NM, Height, and Weight: T he Recommended Frequency [...] or need more you can contact the [facility] addiction hotline at [phone] and they should be able to provide you with free Narcan. * * Electronic signature of Anjel Garcia MD on 03/19/2025 at 03:50 PM EDT Sign off status: Pending * Provider: Isa Garcia MD Date: 0 11/04/2024 Generated for Scotty mcallister/Rosemarie/eTmicheallesmitting on: 1 03:50 PM EDT History and [...] flow voids in the neck are preserved. DXPXQ-WQ-OFMXP ANALYSIS: Multilevel degenerative disc disease with varying degrees of disc height loss and disc desiccation. Wkram-rh-ekyup analysis demonstrates the following: C1-C2: Normal atlantodental [...] flow voids in the neck are preserved. UKSAK-GR-NJQWB ANALYSIS: Multilevel degenerative disc disease with varying degrees of disc height loss and disc desiccation. Aaztd-mc-quxda analysis demonstrates the following: C1-C2: Normal atlantodental [...]
--- OUTSIDE RECORDS SUMMARY | 2024-12-02 03:45 | XMS_ITS ---
Author Organization [facility] Address [address] [address] Care Team Providers Care Patient Sitter Name Role Phone Jone Garcia Unavailable [phone] Allergies Allergen (clinical drug ingredient) Drug/Non Drug Allergy documented on EMR Reaction Allergy Type Onset Date Status buprenorphine Belbuca euphoria Drug Allergy Act marcial Non-steroidal anti-inflammatory agent (FN) NSAIDs tinnitus Drug Allergy Active REASON FOR VISIT LEFT SACROILIAC JOINT INJECTION Medications Medication SIG (Take, Route, Frequency, Duration) Notes Start Date End Date Status Vitamins/Minerals Vit D and Zinc Active Aspir-81 PRN Active HYDROcodone-Acetamino phen 7.5-325 MG 1 tablet Orally EVERY 8 hours; Duration: 30 days 11/07/2024 01/01/2025 Active Narcan 4 MG/0.1ML as directed Nasally Once in Emergency 12/20/2022 Active diazePAM 2 MG Oral; Duration: 10 1 po most days Active Social History Tobacco Use: Social History [...] an other tobacco user? No Vital Signs Heart Rate 84 /min 12/02/2024 Height 68 in 12/02/2024 Oximetry 96 % 12/02/2024 Encounters Encounter Location Date Provider Diagnosis [facility] [address] [address] 12/02/2024 Jone Garcia Assessments Encounter Date Diagnosis (ICD Code) Assessment Notes Treatment Notes Treatment Clinical Notes Section Notes 12/02/2024 Other DNF 12/07/2024 Plan Of Treatment Medication Medication Name Sig Start Date Stop Date Notes HYDROcodone-Acetaminophen 7.5-325 MG 1 tablet Orally EVERY 8 hours; Duration: 30 days 11/07/2024 01/01/2025 Narcan 4 MG/0.1ML as directed Nasally Once in Emergency 12/20/2022 Treatment Notes Assessment Notes Other DNF 12/07/2024 Next Appt Details Follow Up: 4 Weeks, Reason: OFFICE VISIT Provider Name:Jone Ballard Artieopal diptibrandee, 03/21/2025 09:30:00 AM, [address] [place], [address], Progress Notes * Melissa PRETTYOB:[birth year] (69 yo M)Acc No.[id number]:12/02/2024 Progress Note Patient: Sonido HOLGUIN Provider: Isa Garcia MD :1955 A ge:69 Y S ex:Male Date:12/02/2024 Phone: Address:[address] [place] [address] [place] [id number] Subjective: * Chief Complaints: * 1 . LEFT SACROILIAC JOINT INJECTION. * HPI: P ain Management: Assessment and followup F ollowup plan documented : Y es. I nterim History: Patient presents for a left sacroiliac joint injection. Patient is scoring their pain 6/10NRS and 9/10NRS at its worst. Patient has signed the consent form and any questions were answered. Patient denies any changes in medications or health history. Allergies reviewed; patient denies any new allergies or adverse drug effects. Patient denies current anticoagulation therapy. Pt using antibiotic eye drops. Patient is not diabetic. SCRIBE: AB. * Medical History: A llergies, Arthritis, Lumbosacral [...] H ousehold M arital status: m arried, Leilani aileen of education: f inished high school. * [...] Orally EVERY 8 hours , stop date 12/04/2024, Medication List reviewed and reconciled with the patient * Allergies: B elbuca: euphoria - Side Effects, NSAIDs: tinnitus. Objective: * Vitals: H R: 84 /min, Ht: 68 in, Oxygen sat %: 96, Pain scale: 6 1-10, Ht-cm: 172.72 cm. Assessment: Plan: * Treatment: * Procedures: L EFT SACROILIAC JOINT INJECTION Medical Necessity: We believe the patient's pain is from the sacroiliac joint. Pain was reproduced with palpation directly over the joint and the patient also had a positive Gaenslen on exam. Patient has not responded to greater than three months conservative therapy including, but not limited to, activity modification, medications, and therapy. Informed Consent: Risks, benefits, potential complications, and alternatives were discussed and the patient has elected to pursue treatment. Confirmation of the procedure site and side to be injected with the patient. Sedation: No sedation was used. Fluoroscopic Guided procedure: Yes Procedure description: Patient placed prone on procedure table. The C-arm is tilted caudally and rotated away from the affected joint until the opening of the sacroiliac joint below the posterior superior iliac spine (PSIS) is identified. Proper preparation with antiseptic solution of the skin overlying the affected sacroiliac joint space is carried out. A skin wheal is raised over the needle entry point using Lidocaine 1%. Using direct fluoroscopic guidance, a sterile 22 gauge 5 inch spinal needle is advanced to the space below the PSIS and beyond the posterior margin of the posterior joint opening. Following negative aspiration, 2cc Omnipaque was used to identify proper needle insertion. This was followed with an injection of 1cc Betamethasone 6mg and 2cc Marcaine 0.25% without difficulty. Needle was removed and sterile dressing applied. Patient tolerated procedure well. No immediate complications. * Follow Up: 4 Weeks (Reason: OFFICE VISIT) * * Electronic signature of Anjel Garcia MD on 03/19/2025 at 03:48 PM EDT Sign off status: Pending * Provider: Isa Garcia MD Date: 0 12/02/2024 Generated for Scotty mcallister/Rosemarie/éFlixitting on: 1 03:48 PM EDT History and Physical Notes * HPI (History of Present Illness) Category Sub-Category Detail Notes Category Not es Interim History Patient presents for a left sacroiliac joint injection. Patient is scoring their pain 6/10NRS and 9/10NRS at its worst. Patient has signed the consent form and any questions were answered. Patient denies any changes in medications or health history. Allergies reviewed; patient denies any new allergies or adverse drug effects. Patient denies current anticoagulation therapy. Pt using antibiotic eye drops. Patient is not diabetic. SCRIBE: AB Pain Management Assessment and followup Followup plan documented :: Yes
--- OUTSIDE RECORDS SUMMARY | 2025-01-29 03:45 | XMS_ITS ---
Author Organization [facility] Address [address] [address] Care Team Providers Care Face Worker Name Role Phone Jone Garcia Unavailable [phone] NicoleSaira willis Unavailable [phone] Allergies Allergen (clinical drug ingredient) Drug/Non Drug Allergy documented on EMR Reaction Allergy Type Onset Date Status buprenorphine Belbuca euphoria Drug Allergy Act marcial Non-steroidal anti-inflammatory agent (FN) NSAIDs tinnitus Drug Allergy Active REASON FOR VISIT OFFICE VISIT Medications Medication SIG (Take, Route, Frequency, Duration) Notes Start Date End Date Status diazePAM 2 MG Oral; Duration: 10 1 po most days Active Narcan 4 MG/0.1ML as directed Nasally Once in Emergency 12/20/2022 Active Vitamins/Minerals Vit D and Zinc Active HYDROcodone-Acetamino phen 7.5-325 MG 1 tablet Orally EVERY 8 hours; Duration: 30 days 10/08/2024 02/28/2025 Active Aspir-81 PRN Active Social History Tobacco [...] user? No Vital Signs Blood pressure systolic 136 mm Hg 01/30/20 25 Blood pressure diastolic 78 mm Hg 025 Heart Rate 65 /min 01/29/2025 Height 68 in 01/29/2025 Weight 173 lbs 01/29/2025 BMI 26.3 kg/m2 01/29/2025 Oximetry 97 % 01/29/2025 Encounters Encounter Location Date Provider Diagnosis [facility] [address] [address] 01/29/2025 Saira Nicole Cervical spondylosis without myelopathy M47.812 ; Thoracic spondylosis without myelopathy M47.814 and Other chronic pain G89.29 Assessments Encounter Date Diagnosis (ICD Code) Assessment Notes Treatment Notes Treatment Clinical Notes Section Notes 01/29/2025 Cervical spondylosis without myelopathy (ICD-10 - M47.812) 01/29/2025 Thoracic spondylosis without myelopathy (ICD-10 - M47.814) 01/29/2025 Other chronic pain (ICD-10 - G89.29) 01/29/2025 Other He has some occipital, cervical, and thoracic spine discomfort. He is getting some more cardiac testing and a new PSA test. He currently is on Cipro for prostate and kidney issues. He is on Ativan 0.5mg prn, Zetia and Flonase. He discontinued the Valium. The patient is stable with the medications. [...] Narcan for them to have in their possession. Zeferino and UDS reviewed. Reports no changes [...] complain of moderate to severe pain. Opioid/Narcotic agreement/contrac t reviewed with patient. Patient understands the risks [...] EVERY 8 hours; Duration: 30 days 10/08/2024 02/28/2025 Treatment Notes Assessment Notes Other He has some occipital, cervical, and thoracic spine discomfort. He is getting some more cardiac testing and a new PSA test. He currently is on Cipro for prostate and kidney issues. He is on Ativan 0.5mg prn, Zetia and Flonase. He discontinued the Valium. The patient is stable with the medications. [...] Narcan for them to have in their possession. Zeferino and UDS reviewed. Reports no changes [...] Follow Up: 4 Weeks, Reason: OV Provider Name:Jone cade, 03/21/2025 09:30:00 AM, [address] [place], [address], Progress Notes * Herminio PRETTYGeorge:[birth year] (69 yo M)Acc No.[id number]:01/29/2025 Progress Notes Patient: Sonido HOLGUIN Provider: PRESTON Loja :1955 A ge:69 Y S ex:Male Date:01/29/2025 Phone: [address] [id number] Subjective: * Chief Complaints: * O FFICE VISIT * HPI: P ain Management: Assessment and followup F ollowup plan documented : Y es. I nterim History: Patient presents for a follow up for chronic pain management. Patient's CC: Right shoulder pain, which they score a 7/10 NRS at rest that increases to 9/10 NRS with activity. Pt describes this pain as a constant ache. Pt reports that movement and lifting increases this pain. Pt reports that taking their prescribed pain medication helps reduce this pain. Denies adverse effects to prescribed medication. Reports taking medications as prescribed. Medications and interventional treatment are helping with function and ADLs such as doing yardwork and housework. Refills for [place] were provided today, dates verified with ZEFERINO. Last UDS was reviewed and was compliant for prescribed medication. They have not scheduled treatment at this time. We will follow up accordingly and continue medication management. Based on the physical exam and clinical findings, we will schedule a one month follow up. Rohan-ES. Delaney ervical Spine/Neck: Exam Date 03/26/2022 Exam Description [...] flow voids in the neck are preserved. JRLGN-RW-TJAHX ANALYSIS: Multilevel degenerative disc disease with varying degrees of disc height loss and disc desiccation. Plkgl-rc-mjdew analysis demonstrates the following: C1-C2: Normal atlantodental [...] slightly progressed compared to the prior study. T horacic Spine/Upper Back: Exam Date 07/12/2022 -[facility] Exam Description MR Thoracic Spine w/o Contrast COMPARISON: Prior examination from December,. FINDINGS: Degenerative disc disease involving the thoracic spine without evidence of thoracic disc herniation or thoracic spinal stenosis or thoracic cord compression. The neural foramina patent throughout the thoracic spine. Thoracic cord is normal. Slight prominence of the central canal at T9 measuring less than 1 mm in diameter. Paravertebral soft tissues are normal. No fracture or dislocation. 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 No change from prior examination. CONCLUSION: Degenerative disc disease involving the thoracic spine without evidence of thoracic disc herniation or thoracic spinal stenosis or thoracic cord compression. Normal thoracic cord with no intramedullary lesion. L umbar Spine/Lower Back: Exam Date 03/26/2022 Exam Description MR Lumbar Spine w/o Contrast COMPARISON: MRI lumbar spine 12/19/2016. FINDINGS: For purposes of this dictation, the lowest complete intervertebral disc space is designated L5-S1. OSSEOUS STRUCTURES: Alignment is anatomic without spondylolisthesis. Vertebral body heights are preserved without compression deformity. Background marrow signal is normal without infiltrative marrow process. No suspicious osseous lesions are identified. SPINAL CANAL: The conus is normal in caliber and signal, terminating at the L1 level. No canal collection or mass is identified. L5-S1: Trace retrolisthesis. Mild facet arthropathy. No compressive discopathy. CONCLUSION: Mild lumbar spondylosis with noncompressive L3-L4 and L4-L5 disc bulges. Multilevel facet arthropathy. Findings are unchanged compared to the prior study. There is normal distribution of the nerve roots in the thecal sac. SOFT TISSUES: The prevertebral and paraspinous soft tissues are unremarkable. DISC SPACES: Discs are preserved in height and signal. Eglhz-ja-pagew analysis demonstrates the following: T12-L1 (included on sagittal images only): No disc bulge or herniation. No spinal canal or neural foraminal narrowing. L1-L2: No disc bulge or herniation. No spinal canal or neural foraminal narrowing. L2-L3: No disc bulge or herniation. No spinal canal or neural foraminal narrowing. L3-L4: Noncompressive disc bulge. No spinal canal or neural foraminal narrowing. Moderate facet arthropathy. L4-L5: Noncompressive disc bulge. No spinal canal or neural foraminal narrowing. Moderate facet arthropathy. * ROS: C ervical: Admits N ruchi [...] removal 08/05/21 * Hospitalization/Major Diagno stic Procedure: N o Hospitalization History. * Family History: M other: alive. F [...] ousehold: H ousehold M arital status: m brandy, Leilani francisel of education: f inished high school. * Medications: T akingVitamins/Minerals , Notes to Pharmacist: Vit D and ZincAspir-81 , Notes to Pharmacist: PRNdiazePAM 2 MG Tablet Oral , Notes to Pharmacist: 1 po most daysNarcan 4 MG/0.1ML Liquid as directed Nasally Once in Emergency HYDROcodone- Acetaminophen 7.5-325 MG Tablet 1 tablet Orally EVERY 8 hours , stop date 01/31/2025Medication List reviewed and reconciled with the patientTaking Vitamins/Minerals , Notes to Pharmacist: Vit D and ZincTaking Aspir-81 , Notes to Pharmacist: PRNTaking diazePAM 2 MG Tablet Oral , Notes to Pharmacist: 1 po most daysTaking Narcan 4 MG/0.1ML Liquid as directed Nasally Once in Emergency Taking HYDROcodone-Acetaminophen 7.5-325 MG Tablet 1 tablet Orally EVERY 8 hours , stop date 01/31/2025Medication List reviewed and reconciled with the patient * Allergies: B elbuca: euphoria - Side EffectsNSAIDs: tinnitusno[Allergies Verified] Objective: * Vitals: H R: 65 /min, BP:136/78mm Hg, Ht: 68 in, Wt: 173 lbs, BMI:26.3Index, Oxygen sat %: 97, Pain scale: 7 1-10, Ht-cm: 172.72 cm, Wt-k.47 kg. * Examination: G eneral Examination: GENERAL APPEARANCE: o riented, in no acute distress, well developed,. HEAD: O ccipital tenderness over Bilateral greater and lesser nerve, wearing hat. EYES: P ERRLA, , clear sclera. EARS: h oh, normal external. NECK/THYROID: d iffuse tenderness across the cervical and thoracic area -Tender over the facets at C2-6, neg spurling, Muscular tautness noted over the upper trapezius', levator scapula, rhomboids, and cervical paraspinals. SKIN: n o suspicious lesions, warm and dry. HEART: H TN no peripheral edema. LUNGS: g ood air movement, no SOA. CHEST: c /o sternal tenderness. BACK: T TP over bilateral L3-5 facet joints, straight leg raising test NEG bilaterally, Thoracic spine discomfort T7-9 region. MUSCULOSKELETAL: N o muscular atrophy, Normal strength 5/5 in Bilateral Upper and Lower Extremities, B MEDIAL TTP of the knees. B hip tenderness laterally,.? EXTREMITIES: n o clubbing, cyanosis, or edema. NEUROLOGIC: g ait smooth, sensory exam intact to pinprick and light touch, normal tone,. PSYCH: t hought process logical, goal directed, cognitive function intact. Assessment: * Assessment: 1. C ervical spondylosis without myelopathy - M47.812 (Primary) 2 . T horacic spondylosis without myelopathy - M47.814 3 . O ther chronic pain - G89.29? Plan: * Treatment: 2. O thers Notes: He has some occipital, cervical, and thoracic spine discomfort. He is getting some more cardiac testing and a new PSA test. He currently is on Cipro for prostate and kidney issues. He is on Ativan 0.5mg prn, Zetia and Flonase. He discontinued the Valium. The patient is stable with the medications. [...] Narcan for them to have in their possession. Zeferino and ENRIKE reviewed. Reports no changes [...] medical provider for greater than 30 minutes * Immunizations: Immunization record has been reviewed and updated. * Procedure Codes: * Preventive Medicine: YOUR PREVENTIVE WELLNESS PLAN: B PA, Height, and Weight: T he Recommended Frequency [...] or need more you can contact the [facility] addiction hotline at [phone] and they should be able to provide you with free Narcan. * Follow Up: 4 Weeks (Reason: OV) * * Sign off status: Completed true * Provider: PRESTON Loja Date: 0 01/29/2025 Generated for Scotty mcallister/Rosemarie/Tigist on: 1 03:48 PM EDT History and Physical Notes * HPI (History of Present Illness) Category Sub-Category Detail Notes Category Not es Lumbar Spine/Lower Back Exam Date 03/26/2022 Exam Description MR Lumbar Spine w/o Contrast COMPARISON: MRI lumbar spine 12/19/2016. FINDINGS: For purposes of this dictation, the lowest complete intervertebral disc space is designated L5-S1. OSSEOUS STRUCTURES: Alignment is anatomic without spondylolisthesis. Vertebral body heights are preserved without compression deformity. Background marrow signal is normal without infiltrative marrow process. No suspicious osseous lesions are identified. SPINAL CANAL: The conus is normal in caliber and signal, terminating at the L1 level. No canal collection or mass is identified. L5-S1: Trace retrolisthesis. Mild facet arthropathy. No compressive discopathy. CONCLUSION: Mild lumbar spondylosis with noncompressive L3-L4 and L4-L5 disc bulges. Multilevel facet arthropathy. Findings are unchanged compared to the prior study. There is normal distribution of the nerve roots in the thecal sac. SOFT TISSUES: The prevertebral and paraspinous soft tissues are unremarkable. DISC SPACES: Discs are preserved in height and signal. Edixm-de-pdmyl analysis demonstrates the following: T12-L1 (included on sagittal images only): No disc bulge or herniation. No spinal canal or neural foraminal narrowing. L1-L2: No disc bulge or herniation. No spinal canal or neural foraminal narrowing. L2-L3: No disc bulge or herniation. No spinal canal or neural foraminal narrowing. L3-L4: Noncompressive disc bulge. No spinal canal or neural foraminal narrowing. Moderate facet arthropathy. L4-L5: Noncompressive disc bulge. No spinal canal or neural foraminal narrowing. Moderate facet arthropathy. Cervical Spine/Neck Exam Date 03/26/2022 Exam Description [...] flow voids in the neck are preserved. QFBRY-IM-HJSCL ANALYSIS: Multilevel degenerative disc disease with varying degrees of disc height loss and disc desiccation. Wqnch-kc-nwtlo analysis demonstrates the following: C1-C2: Normal atlantodental [...] slightly progressed compared to the prior study. Thoracic Spine/Upper Back Exam Date 07/12/2022 -[facility] Exam Description MR Thoracic Spine w/o Contrast COMPARISON: Prior examination from December,. FINDINGS: Degenerative disc disease involving the thoracic spine without evidence of thoracic disc herniation or thoracic spinal stenosis or thoracic cord compression. The neural foramina patent throughout the thoracic spine. Thoracic cord is normal. Slight prominence of the central canal at T9 measuring less than 1 mm in diameter. Paravertebral soft tissues are normal. No fracture or dislocation. 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 No change from prior examination. CONCLUSION: Degenerative disc disease involving the thoracic spine without evidence of thoracic disc herniation or thoracic spinal stenosis or thoracic cord compression. Normal thoracic cord with no intramedullary lesion. Pain Management Assessment and followup Followup plan documented :: Yes Examination Category Sub-Category Detail Notes Category Not es General Examination GENERAL APPEARANCE: oriented , in no acute distress, well developed, HEAD: Occipital tenderness over Bilateral greater and lesser nerve, wearing hat EYES: PERRLA, , clear scle ra EARS: [place], normal external NECK/THYROID: diffuse tenderness a cross the cervical and thoracic area -Tender over the facets at C2-6, neg spurling, Muscular tautness noted over the upper trapezius', levator scapula, rhomboids, and cervical paraspinals HEART: HTN no peripheral ed emily CHEST: c/o sternal tenderne ss LUNGS: good air movement, n o SOA NEUROLOGIC: gait smooth, sensory exam intact to pinprick and light touch, normal tone, SKIN: no suspicious lesion s, warm and dry EXTREMITIES: no clubbing, cyanosi s, or edema BACK: TTP over bilateral L 3-5 facet joints, straight leg raising test NEG bilaterally, Thoracic spine discomfort T7-9 region MUSCULOSKELETAL: No muscular atrophy, Normal strength 5/5 in Bilateral Upper and Lower Extremities, B MEDIAL TTP of the knees. B hip tenderness laterally, PSYCH: thought process logi marisabel, goal directed, cognitive function intact
--- OUTSIDE RECORDS SUMMARY | 2025-02-25 07:15 | XMS_ITS ---
Author Organization [facility] Address [address] [address] Care Team Providers Care Printing Table Hand Name Role Phone Jone Garcia Unavailable [phone] Saira Nicole Unavailable [phone] Allergies Allergen (clinical drug ingredient) Drug/Non Drug Allergy documented on EMR Reaction Allergy Type Onset Date Status buprenorphine Belbuca euphoria Drug Allergy Act marcial Non-steroidal anti-inflammatory agent (FN) NSAIDs tinnitus Drug Allergy Active REASON FOR VISIT OFFICE VISIT Medications Medication SIG (Take, Route, Frequency, Duration) Notes Start Date End Date Status LORazepam Active Vitamins/Minerals Vit D and Zinc Active HYDROcodone-Acetami nophen 7.5-325 MG 1 tablet Orally EVERY 8 hours; Duration: 30 days 02/05/2025 03/27/2025 Active Narcan 4 MG/0.1ML as directed Nasally Once in Emergency 12/20/2022 Active Aspir-81 PRN Active diazePAM 2 MG Oral; Duration: 10 1 po most days Not-Taking Social History Tobacco Use: Social History Observation [...] Problem Status W/U Status Risk Notes Problem Occipital neuralgia (11597964) Bilateral occipital neuralgia (M54.81) Active confirmed Vital Signs Blood pressure systolic 141 mm Hg 02/26/20 25 Blood pressure diastolic 81 mm Hg 025 Heart Rate 63 /min 02/25/2025 Height 68 in 02/25/2025 Oximetry 97 % 02/25/2025 Encounters Encounter Location Date Provider Diagnosis [facility] [address] [address] 02/25/2025 Saira Nicole Cervical spondylosis without myelopathy M47.812 ; Bilateral occipital neuralgia M54.81 and Chronic pain syndrome G89.4 Assessments Encounter Date Diagnosis (ICD Code) Assessment Notes Treatment Notes Treatment Clinical Notes Section Notes 02/25/2025 Cervical spondylosis without myelopathy (ICD-10 - M47.812) 02/25/2025 Bilateral occipital neuralgia (ICD-10 - M54.81) 02/25/2025 Chronic pain syndrome (ICD-10 - G89.4) 02/25/2025 Other SCHEDULE FOR BILATERAL OCCIPITAL NERVE BLOCK DX INJECTION He has been having headaches at the occiput. He is seieng a urologist for second opinion in [place] as he had elevated PSA. The patient is stable with the medications. [...] medical provider for greater than 30 minutes DNF 03/07/2025 Plan Of Treatment Medication Medication Name Sig Start Date Stop Date Notes HYDROcodone-Acetaminophen 7.5-325 MG 1 tablet Orally EVERY 8 hours; Duration: 30 days 02/05/2025 03/27/2025 Narcan 4 MG/0.1ML as directed Nasally Once in Emergency 12/20/2022 Treatment Notes Assessment Notes Other SCHEDULE FOR BILATERAL OCCIPITAL NERVE BLOCK DX INJECTION He has been having headaches at the occiput. He is seieng a urologist for second opinion in [place] as he had elevated PSA. The patient is stable with the medications. [...] Appt Details Follow Up: 4 Weeks, Reason: bilateral occipital nb dx Provider Name:Jone cade, 03/21/2025 09:30:00 AM, [address] [place], [address], Progress Notes * ANTONY Lauri:[birth year] (69 yo M)Acc No.[id number]:02/25/2025 Progress Notes Patient: Sonido HOLGUIN Provider: PRESTON Loja :1955 A ge:69 Y S ex:Male Date:02/25/2025 Phone: Address:[address] [id number] Subjective: * Chief Complaints: * O FFICE VISIT * HPI: P ain Management: Assessment and followup F ollowup plan documented : Y es. I nterim History: Patient presents for a follow up for chronic pain management. Patient's CC: Posterior head pain, which they score a 7/10NRS and a 9/10NRS at worst. Pt describes this pain as a constant aching shock-like shooting stabbing throbbing tingling tiring pain. Pt reports that laying down increases this pain. Pt reports that ice and massage helps reduce this pain. Pt reports now taking Lorazepam and has discontinued the Valium. Denies adverse effects to prescribed medication. Reports taking medications as prescribed Refills for [place] were provided today, dates verified with ZEFERINO. Pt reports he has Narcan at home. Last UDS was reviewed and was compliant for prescribed medication. Patient would like to treat their pain. Based on the physical exam and clinical findings, we will schedule him back in 4 weeks for a bilateral occipital nerve block. Scribe-AB. Elaina ervical Spine/Neck: Exam Date 03/26/2022 Exam Description [...] flow voids in the neck are preserved. HMBEP-VE-HHIFN ANALYSIS: Multilevel degenerative disc disease with varying degrees of disc height loss and disc desiccation. Ympwa-nh-pcvai analysis demonstrates the following: C1-C2: Normal atlantodental [...] d enies F ever. d enies H eadache, a dmits. D enies S leep disturbance. A llergy/Immunology: [...] ousehold M arital status: m brandy, Leilani evel of education: f inished high school. * Medications: T akingLORazepam Vitamins/Minerals , Notes to Pharmacist: Vit D and ZincAspir-81 , Notes to Pharmacist: PRNNarcan 4 MG/0.1ML Liquid as directed Nasally Once in Emergency HYDROcodone-Acetaminophen 7.5-325 MG Tablet 1 tablet Orally EVERY 8 hours , stop date 02/28/2025Taking LORazepam Taking Vitamins/Minerals , Notes to Pharmacist: Vit D and ZincTaking Aspir-81 , Notes to Pharmacist: PRNTaking Narcan 4 MG/0.1ML Liquid as directed Nasally Once in Emergency Taking HYDROcodone-Acetaminophen 7.5-325 MG Tablet 1 tablet Orally EVERY 8 hours , stop date 02/28/2025Not-TakingdiazePAM 2 MG Tablet Oral , Notes to Pharmacist: 1 po most daysMedication List reviewed and reconciled with the patientNot-Taking diazePAM 2 MG Tablet Oral , Notes to Pharmacist: 1 po most daysMedication List reviewed and reconciled with the patient * Allergies: B elbuca: euphoria - Side EffectsNSAIDs: tinnitusno[Allergies Verified] Objective: * Vitals: H R: 63 /min, BP:141/81mm Hg, Ht: 68 in, Oxygen sat %: 97, Pain scale: 7 1-10, Ht- cm: 172.72 cm. * Examination: G eneral Examination: GENERAL APPEARANCE: m renetta, thin, comfortable, in no acute distress. HEAD: f acial goatee, rosacea, Occipital tenderness over Bilateral greater and lesser nerve. EYES: g ood eye contact,, clear sclera, PERRLA. EARS: h oh,. NOSE: n harrison patent, c/o sinusitis congestion. NECK/THYROID: I mproved ROM of the C-spine, non tender over the C-spine, neck supple, full range of motion. HEART: B P wnl, no peripheral edema. LUNGS: g ood air movement,. CHEST: s [...] speech clear. ? Assessment: * Assessment: 1. C ervical spondylosis without myelopathy - M47.812 (Primary) 2 . B ilateral occipital neuralgia - M54.81 3 . C hronic pain syndrome - G89.4 ? Plan: * Treatment: * Procedure Codes: [...] or need more you can contact the [facility] addiction hotline at [phone] and they should be able to provide you with free Narcan. * Follow Up: 4 Weeks (Reason: bilateral occipital nb dx) * * Sign off status: Completed true * Provider: PRESTON Loja Date: 0 02/25/2025 Generated for Scotty mcallister/Rosemarie/Tigist on: 1 03:51 PM EDT History and Physical Notes * HPI (History of Present Illness) Category Sub-Category Detail Notes Category Not es Cervical Spine/Neck Exam Date 03/26/2022 Exam Description [...] flow voids in the neck are preserved. HVGOO-PO-HGOZM ANALYSIS: Multilevel degenerative disc disease with varying degrees of disc height loss and disc desiccation. Kfqnp-fq-setvr analysis demonstrates the following: C1-C2: Normal atlantodental [...] up for chronic pain management. Patient's CC: Posterior head pain, which they score a 7/10NRS and a 9/10NRS at worst. Pt describes this pain as a constant aching shock-like shooting stabbing throbbing tingling tiring pain. Pt reports that laying down increases this pain. Pt reports that ice and massage helps reduce this pain. Pt reports now taking Lorazepam and has discontinued the Valium. Denies adverse effects to prescribed medication. Reports taking medications as prescribed Refills for [place] were provided today, dates verified with ZEFERINO. Pt reports he has Narcan at home. Last UDS was reviewed and was compliant for prescribed medication. Patient would like to treat their pain. Based on the physical exam and clinical findings, we will schedule him back in 4 weeks for a bilateral occipital nerve block. Scribe-AB Pain Management Assessment and followup Followup plan documented :: Yes Examination Category Sub-Category Detail Notes Category Not es General Examination GENERAL APPEARANCE: male, th in, comfortable, in no acute distress HEAD: facial goatee, rosac ea, Occipital tenderness over Bilateral greater and lesser nerve EYES: good eye contact,, c lear sclera, PERRLA EARS: [place], NOSE: nares patent, c/o si nusitis congestion NECK/THYROID: Improved ROM of the C-spine, non tender over the C-spine, neck supple, full range of motion HEART: BP wnl, no periphera l edema CHEST: sternum and costocho ndral tenderness, mid [...]
--- OUTSIDE RECORDS SUMMARY | 2025-02-26 04:00 | XMS_ITS ---
Author Organization [facility] Address [address] Care Team Providers Care Hospice Clinical Manager Name Role Phone Carenbryan Jone Unavailable [phone] Saira Nicole Unavailable [phone] REASON FOR VISIT OFFICE VISIT Encounters Encounter Location Date Provider Diagnosis [facility] [address] 02/26/2025 Saira Nicole Plan Of Treatment Next Appt Details Provider Name:Jone cade, 03/21/2025 09:30:00 AM, [address] [place], , Progress Notes * ANTONYMelissaOB:[birth year] (69 yo M)Acc No.[id number]:02/26/2025 Progress Notes Patient: Naomi DICKERSONANILSonido Provider: PRESTON Loja :1955 A ge:69 Y S ex:Male Date:02/26/2025 Phone: Address:[address], [place] Subjective: * Chief Complaints: * 1 . OFFICE VISIT. * Medical History: Objective: * Vitals: Assessment: Plan: * Treatment: * * Electronic signature of Devante Nicole APRN on 03/19/2025 at 03:51 PM EDT Sign off status: Pending * Provider: PRESTON Loja Date: 0 02/26/2025 Generated for Printi ng/Faryneg/eTransmitting on: 1 03:51 PM EDT
--- OUTSIDE RECORDS SUMMARY | 2025-03-19 15:48 | XMS_ITS | Clinical Summary ---
Author Organization [facility] Address [address] [facility] [address] [place] [id number] Phone Care Team Providers Care Indian Nanny Name Role Phone Anai PALAFOX, Dom Unavailable [phone] Conditions or Problems No information available. Medications No information available. Medications Administered No information available. Allergies, Adverse Reactions, Alerts No information available. Results No information available. Plan of Care No information available. Procedures No information available. Vital Signs No information available. Immunizations No information available. Advance Directives No information available.
--- OUTSIDE RECORDS SUMMARY | 2025-03-19 15:48 | XMS_ITS | Clinical Summary ---
Author Organization [facility] Address [address] [facility] [place], [address] [address] Phone Care Team Providers Care Bridge Leverman Name Role Phone Pieter Gordon MD Primary Care Provider [phone] Allergies Active Allergy Reactions Criticality Noted Date Comments Amitriptyline Palpitations 06/24/2022 vomiting Medications fluticasone propionate (FLONASE) 50 mcg/actuation Nasl [place], Suspension 2 Sprays in each nostril daily. [...] COVID-19 Vaccine ( - 2023-2 5 season) 2025 Influenza Vaccine [...] Bryan MD Medical Devices Implanted Type Area Gear Tooth Grinding Machine Operator Device Identifier Shelf Expiration Date Model / Serial / Lot Gmk Tibial Tray Cemented Left S3 - [id number] Implanted:Qty: 1 on 05/27/2020 by Kevan Wheeler MD at [facility] Left: Knee [employer] [id number] 12/19/2024 02.07.120 3L / / [id number] Patella Resurfacing S2 - [id number] Implanted:Qty: 1 on 05/27/2020 by Kevan Wheeler MD at [facility] Left: Knee [employer] [id number] 12/11/2024 02.07.003 4RP / / [id number] Sphere Femur Cemented Left S3 + - [id number] Implanted:Qty: 1 on 05/27/2020 by Kevan Wheeler MD at [facility] Left: Knee [employer] [id number] 12/12/2024 02.12.002 3L / / [id number] Cement Bn Simplex Hv 20ml 40gm Radiopaque Strl - [id number] Implanted:Qty: 2 on 05/27/2020 by Kevan Wheeler MD at [facility] Left: Knee FALGUNI:ORTHOPED ICS 08/02/2021 [id number] 0 / / [id number] B Ins Tib 3 10mm Lt Sphr Cngrnt Gmk - [id number] Implanted:Qty: 1 on 05/27/2020 by Kevan Wheeler MD at [facility] Left: Knee [employer] [id number] 10/16/2024 02.12.031 0CRL / / [id number] Procedures Procedure Name Priority Date/Time Associated Diagnosis [...] ve Non-Reacti ve 08/04/2021 9:18 AM EST [facility] Blood VENOUS BLOOD / Unknown Venipuncture / Unknown 08/04/2021 6:55 AM EST 08/04/2021 7:00 AM EST [facility] Janette Ko MD CHEMISTRY ORDERABLES Final Result [facility] [address] [facility] [address] [place] [address] from Last 3 Months or Most Recently Relevant to Health Maintenance Insurance MEDICARE [place] PART A AND B MEDICARE SUPPLEMENT [place] MEDICARE SUPPLEMENT INS * Guarantor: ANTONYSONIDO Account Type Relation to Patient Date of Phone Billing Address [place] Personal Family 1955 [address] [facility], [place] [address] MED[place]ARE [place] PART A AND B MEDIC[place] SUPP[place]MENT [place] [employer] MEDIC[place]MENT [place] Advance Directives For more information, please contact: [phone] * Full Code (Latest Code Status on File) Date Activated Date Inactivated Comments 08/03/2021 6:55 PM 08/06/2021 8:03 PM Care Teams Bridge Leverman Relationship Specialty Start Date End Date Pieter Gordon MD [address] [place] [address] [place] [address] PCP - General Internal Medicine 08/03/21
--- OUTSIDE RECORDS SUMMARY | 2025-03-19 15:48 | XMS_ITS | Clinical Summary ---
Author Organization [facility] Address [address] [facility], [address] [place] [address] Care Team Providers Care Live Ammunition Inspector Name Role Phone Holly Pisano MD Primary Care Provider [phone] Social History Tobacco Use Types Packs/Day Years Used Date Smoking Tobacco: Never Assessed Sex and Gender Information Value Date Recorded Sex Assigned at Not on file Legal Sex Male 6:22 AM EST Gender Identity Not on file Sexual Orientation Not on file Plan of Treatment Not on file Insurance RR #[id number] [id number] [address] Care Teams Live Ammunition Inspector Relationship Specialty Start Date End Date Holly Pisano MD [address] [place] [address] PCP - General 07/05/10
--- NOTE | 2025-03-19 15:49 | XR_ITS ---
FINAL REPORT CLINICAL HISTORY: Cervicalgia states pain base of skull that radiates up also states a spot he can feel around c6-7 FINDINGS: CERVICAL SPINE Six views were obtained. There is no acute fracture. There is degenerative disc disease at C5-6. There is no malalignment. IMPRESSION: Degenerative disc disease at C5-6. Reviewed, Interpreted and Dictated by Joana Gomez MD Transcribed by Unique Phillip Authenticated and . [facility]
--- OUTSIDE RECORDS SUMMARY | 2025-03-19 15:49 | XMS_ITS | Clinical Summary ---
Author Organization [facility] Address [address] [place] [address] Care Team Providers Care Product Safety Officer Name Role Phone Pieter Gordon Primary Care Provider [phone] Source Comments This information has been disclosed to you from confidential records protectedfrom disclosure by state law. You shall make no further disclosure of thisinformation without the specific, written, andinformed release of theindividual to whom it pertains, or as otherwise permitted by law. A generalau thorization for the release of medical or other information is not sufficientfor the purposes of the release of HIV test results or diagnoses. [id number] Allergies Active Allergy Reactions Criticality Noted [...] Pretty Relation to Subscriber:Self Name:Sonido Pretty Payer ID:[id number] Group ID:Not on file Type:Medicare Address: [address] [place] [id number] [facility] Care Teams Product Safety Officer Relationship Specialty Start Date End Date Pieter Gordon [address] [facility] [address] [place] [address] PCP - General 08/20/24
--- OUTSIDE RECORDS SUMMARY | 2025-03-19 15:49 | XMS_ITS | Referral Summary ---
Author Organization [employer] ([place], [place], [place], [place]) Address [address] [place] [address] Care Team Providers Care Adding Machine Servicer Name Role Phone Unavailable Primary Care Provider [...]
--- OUTSIDE RECORDS SUMMARY | 2025-03-19 15:49 | XMS_ITS | Patient Health Record ---
Author Organization [facility] Address [address] [place] [address] Care Team Providers Care Melting Furnace Skimmer Name Role Phone Jone Garcia Unavailable [phone] Bonnie Saria Unavailable [phone] Jan Land Unavailable Unavailable Allergies Allergen (clinical [...] Medical (Not yet re viewed by provider) Interpretation: Performing Lab: Notes/Report: [facility] (Not yet reviewed by provider) Interpretation:Normal Performing Lab: Notes/Report: Normal Reason For Referral Reason Opioid Risk Assessme nt. Diagnosis 1 Chronic pain syndrom e (G89.4) Diagnosis 2 Chronic, continuous use of opioids (F11.90) Referral Organization [facility] Referring Provider First Name Jone Referring Provider Last Name Radha Referring Provider Speciality Pain Medic ine Referred Provider Artie Moore Referred Provider Specialty Certified Ps ychologist Referral Priority Routine Reason EVAL AND TREAT Diagnosis 1 Benign prostatic hyp erplasia with lower urinary tract symptoms, symptom details unspecified (N40.1) Referral Organization [facility] Referring Provider First Name Jone Referring Provider Last Name Radha Referring Provider Speciality Pain Medic ine Referred Provider Sriram, Long Referred Provider Specialty Urology Referral Priority Routine Medications Medication SIG (Take, Route, Frequency, Duration) Notes Start Date End Date Status LORazepam Active Vitamins/Minerals Vit D and Zinc Active HYDROcodone-Acetami nophen 7.5-325 MG 1 tablet Orally EVERY 8 hours; Duration: 30 days 03/07/2025 03/27/2025 Active Narcan 4 MG/0.1ML as directed Nasally Once in Emergency 12/20/2022 Active diazePAM 2 MG Oral; Duration: 10 1 po most days Not-Taking Aspir-81 PRN Active Immunizations Vaccine Route Administration [...] W/U Status Risk Notes Problem Chronic pain (54872392) Other chronic pain (G89.29) Active confirmed Problem Chronic pain syndrome (609961197) Chronic pain syndrome (G89.4) Active confirmed Problem Osteoarthritis of knee (957887025) Bilateral primary osteoarthritis of knee (M17.0) Active confirmed Problem Solitary sacroiliitis (168601080) Sacroiliitis, not elsewhere classified (M46.1) Active confirmed Problem Displacement of lumbar intervertebral disc without myelopathy (22092938) Other intervertebral disc displacement, lumbar region (M51.26) Active confirmed Problem Right side sciatica (054638955860146) Sciatica, right side (M54.31) Active confirmed Problem Left side sciatica (065859185366132) Sciatica, left side (M54.32) Active confirmed Problem Calcaneal spur of right foot (162482408591861) Calcaneal spur, right foot (M77.31) Active confirmed Problem Lumbosacral spondylosis without myelopathy (00212126) Lumbosacral spondylosis without myelopathy (M47.817) Active confirmed Problem Displacement of cervical intervertebral disc without myelopathy (12288537) Displacement of cervical intervertebral disc without myelopathy (M50.20) Active confirmed Problem Displacement of thoracic intervertebral disc without myelopathy (21561651) Displacement of thoracic intervertebral disc without myelopathy (M51.24) Active confirmed Problem Displacement of lumbar intervertebral disc without myelopathy (70356376) Displacement of lumbar intervertebral disc without myelopathy (M51.26) Active confirmed Problem Neuralgia (51761559) Neuralgia and neuritis (M79.2) Active confirmed Problem Cervical spondylosis without myelopathy (032754140) Cervical spondylosis without myelopathy (M47.812) Active confirmed Problem Osteoarthritis of multiple joints (059939187) Osteoarthritis of multiple joints (M15.9) Active confirmed Problem Occipital neuralgia (86053286) Bilateral occipital neuralgia (M54.81) Active confirmed Problem Thoracic spondylosis without myelopathy (621076808) Thoracic spondylosis without myelopathy (M47.814) Active confirmed Problem Plantar fasciitis (784442344) Plantar fasciitis (M72.2) Active confirmed Problem Osteoarthritis of knee (055139144) Primary osteoarthritis of left knee (M17.12) Active confirmed Problem Pain in right foot (974732164718590) Right foot pain (M79.671) Active confirmed Problem Osteoarthritis of knee (307022505) Osteoarthritis of right knee (M17.9) Active confirmed Problem Pain of right knee region (finding) (871447468763342) Knee pain, right (M25.561) Active confirmed Problem Chronic pain syndrome (583311293) Chronic pain disorder (G89.4) Active confirmed Problem Sacroiliac joint pain (477488327) Sacroiliac joint pain (M53.3) Active confirmed Problem Enthesopathy of hip region (disorder) (47666347) Enthesopathy of hip region, unspecified laterality (M76.899) Active confirmed Problem Osteoarthritis (369948102) Osteoarthritis involving multiple joints on both sides of body (M15.9) Active confirmed Problem Sciatic nerve lesion (496579983) Piriformis syndrome of both sides (G57.03) Active confirmed Problem Sciatica (25685213) Chronic sciatica, left (M54.32) Active confirmed Problem Lower urinary tract symptoms due to benign prostatic hypertrophy (54475950300039) Benign prostatic hyperplasia with lower urinary tract symptoms, symptom details unspecified (N40.1) Active confirmed Vital Signs Heart Rate 63 /min 02/25/2025 Oximetry 97 % 02/25/2025 Blood pressure diastolic 81 mm Hg 02/25/2025 Height 68 in 02/25/2025 Blood pressure systolic 141 mm Hg 02/25/2025 Weight 173 lbs 01/29/2025 BMI 26.3 kg/m2 01/29/2025 Encounters Encounter Location Date Provider Diagnosis [facility] [address] [address] 04/29/2024 Jone Garcia Other chronic pain G89.29 and Lumbosacral spondylosis without myelopathy M47.817 [facility] [address] [address] 05/27/2024 Jone Garcia Lumbosacral spondylosis without myelopathy M47.817 [facility] [address] [address] 06/28/2024 Jone Garcia [facility] [address] [address] 09/09/2024 Jone Garcia Cervical spondylosis without myelopathy M47.812 [facility] [address] [place] [address] 10/07/2024 Jone Garcia Cervical spondylosis without myelopathy M47.812 [facility] [address] [place] [address] 11/04/2024 Jone Garcia Cervical spondylosis without myelopathy M47.812 and Bilateral primary osteoarthritis of knee M17.0 [facility] [address] [place] [address] 12/02/2024 Jone Garcia [facility] [address] [place] [address] 04/09/2024 Jan Land Sacroiliitis, not elsewhere classified M46.1 ; Lumbosacral spondylosis without myelopathy M47.817 and Other chronic pain G89.29 [facility] [address] [place] [address] 05/08/2024 Jan Land Lumbosacral spondylosis without myelopathy M47.817 and Sacroiliitis, not elsewhere classified M46.1 [facility] [address] [place] [address] 2024 Jone Garcia Lumbosacral spondylosis without myelopathy M47.817 ; Osteoarthritis of right knee M17.9 ; Bilateral primary osteoarthritis of knee M17.0 ; Sacroiliitis, not elsewhere classified M46.1 and Osteoarthritis of multiple joints M15.9 [facility] [address] [place] [address] 07/30/2024 Saira Nicole Cervical spondylosis without myelopathy M47.812 and Lumbosacral spondylosis without myelopathy M47.817 [facility] [address] [place] [address] 08/21/2024 Saira Nicole Cervical spondylosis without myelopathy M47.812 and Chronic pain disorder G89.4 [facility] [address] [place] [address] 12/31/2024 Saira Nicole Thoracic spondylosis without myelopathy M47.814 ; Other chronic pain G89.29 and Sacroiliitis, not elsewhere classified M46.1 [facility] [address] [place] [address] [place] [address] 01/29/2025 Saira Nicole Cervical spondylosis without myelopathy M47.812 ; Thoracic spondylosis without myelopathy M47.814 and Other chronic pain G89.29 [facility] [address] [place] [address] 02/25/2025 Saira Nicole Cervical spondylosis without myelopathy M47.812 ; Bilateral occipital neuralgia M54.81 and Chronic pain syndrome G89.4 [facility] [address] [place] [address] 04/09/2024 Jone Garcia Lumbosacral spondylosis without myelopathy M47.817 [facility] [address] [place] [place] [address] 04/29/2024 Jone Garcia Lumbosacral spondylosis without myelopathy M47.817 [facility] [address] [place] [address] 05/13/2024 Jone Garcia Other chronic pain G89.29 [facility] [address] [place] [address] 05/27/2024 Jone Garcia [facility] [address] [place] [address] 06/13/2024 Jone Garcia [facility] [address] [place] [address] 06/18/2024 Jone Garcia [facility] [address] [place] [address] 07/30/2024 Jone Garcia [facility] [address] [place] [address] 08/21/2024 Jone Garcia Cervical spondylosis without myelopathy M47.812 [facility] [address] [place] [address] 10/07/2024 Jone Garcia Cervical spondylosis without myelopathy M47.812 [facility] [address] [place] [place] [address] 11/04/2024 Jone Garcia Cervical spondylosis without myelopathy M47.812 [facility] [address] [place] [address] 12/02/2024 Jone Garcia Cervical spondylosis without myelopathy M47.812 [facility] [address] [place] [address] 01/01/2025 [facility] [address] [place] [address] 01/29/2025 Jone Garcia Cervical spondylosis without myelopathy M47.812 [facility] [address] [place] [address] 02/25/2025 [facility] [address] [place] [address] 03/13/2025 Jone Garcia Assessments Encounter Date Diagnosis (ICD [...] 12/31/2024 Other chronic pain (ICD-10 - G89.29) 01/29/2025 Cervical spondylosis without myelopathy (ICD-10 - M47.812) 01/29/2025 Thoracic spondylosis without myelopathy (ICD-10 - M47.814) 01/29/2025 Cervical spondylosis without myelopathy (ICD-10 - M47.812) 12/31/2024 Thoracic spondylosis without myelopathy (ICD-10 - M47.814) 02/25/2025 Cervical spondylosis without myelopathy (ICD-10 - M47.812) 02/25/2025 Bilateral occipital neuralgia (ICD-10 - M54.81) 04/09/2024 Sacroiliitis, not elsewhere classified (ICD-10 - M46.1) 04/09/2024 Lumbosacral spondylosis without myelopathy (ICD-10 - M47.817) 04/09/2024 Lumbosacral spondylosis without myelopathy (ICD-10 - M47.817) 04/29/2024 Other chronic pain (ICD-10 - G89.29) 04/29/2024 Lumbosacral spondylosis without myelopathy (ICD-10 - M47.817) 04/09/2024 Other chronic pain (ICD-10 - G89.29) 01/29/2025 Other chronic pain (ICD-10 - G89.29) 2024 Osteoarthritis of right knee (ICD-10 - M17.9) 12/31/2024 Sacroiliitis, not elsewhere classified (ICD-10 - M46.1) 11/04/2024 Bilateral primary osteoarthritis of knee (ICD-10 - M17.0) 2024 Bilateral primary osteoarthritis of knee (ICD-10 - M17.0) 02/25/2025 Chronic pain syndrome (ICD-10 - G89.4) 2024 Sacroiliitis, not elsewhere classified (ICD-10 - M46.1) 2024 Osteoarthritis of multiple joints (ICD-10 - M15.9) 04/29/2024 Other DNF 05/13/2024 05/27/2024 Other [place] [facility] 06/12/24 06/28/2024 Other NO RX ISSUED TODAY 09/09/2024 Other NO RX ISSUED TODAY 12/02/2024 Other DNF 12/07/2024 04/09/2024 Other The patient is stable with [...] issues. Waiting for Bone spect scan from [facility]. The patient is stable with the [...] prescriptions, non-prescribed drugs, or overuse of prescribed medications.Monito ring chronic opioid therapy is critical because risks [...] Dr. Garcia. 12/31/2024 Other He is wearing classroom monitor. He is having costochondritic pain and [...] medical provider for greater than 30 minutes 02/25/2025 Other SCHEDULE FOR BILATERAL OCCIPITAL NERVE BLOCK DX INJECTION He has been having headaches at the occiput. He is seieng a urologist for second opinion in [place] as he had elevated PSA. The patient [...] 30 minutes DNF 03/07/2025 Plan Of Treatment Pending Test Test Name [...] 10/06/2023 MRI LUMBAR SPINE WO CONTRAST 03/18/2022 [facility] 11/04/2024 [facility] 02/25/2025 [facility] 12/15/2023 [facility] 04/09/2024 [facility] 07/30/2024 Next Appt Details Provider Name:Jone cade, 03/21/2025 09:30:00 AM, [address] [place], [address], Insurance Providers Payer Name Payer Address Payer Phone Subscriber Number Group Number Insured Name Patient Relationship to Insured Coverage Start Date Coverage End Date Medicare CGS Administrators [address] [phone] [id number] Sonido Pretty Self - patient is the insured 3 [employer] [address] [place] [address] [id number] Sonido Pretty Self - patient is the insured 3 [employer] [facility] [address] [place] [address] [id number] Sonido Pretty Self - patient is the insured 2 Medical (General) History Medical History History ICD Code Allergies Arthritis Lumbosacral spondylosis without myelopat hy M47.817 Bile / Acid Reflux Surgical History Surgery Date(Month/Year) Appendectomy 1963 ORAL SURGERY 06/2019 TKR (LEFT) Dr. Lui 05/27/20 Gallbladder removal 08/05/21
--- OUTSIDE RECORDS SUMMARY | 2025-03-19 15:51 | XMS_ITS | Clinical Summary ---
Author Organization [facility] ([place], [place], [place], [place]) Address [address] [place] [address] Care Team Providers Care Stewarding Supervisor Name Role Phone Unavailable Primary Care [...]
== END 2025-03-19 23:59 | disposition home or self-care (01) ==
LOC: RAD 15:43
PROVIDERS: PCP Internal Medicine; Visit Provider Internal Medicine
DX: M50.322 Other cervical disc degeneration at C5-C6 level (principal); M47.812 Spondylosis without myelopathy or radiculopathy, cervical region
CPT/HCPCS: 72050